=== PATIENT | female | born 1945 | race Caucasian/White ===

== ENCOUNTER 2018-01-06 13:36 | Inpatient (IN) | payer OTHER ==
[2018-01-06 15:58] LABS: Urine Blood TRACE (NEG); Urine Glucose NEGATIVE (NEG); Urine Protein TRACE (NEG); Urine pH 5.5 (5.0-7.0)
[2018-01-06] MEDS ORDERED: CEFTRIAXONE/SWI 1gm 1 GM/10 ML SYR ONE (16:02)
[2018-01-06] MEDS ORDERED: NA CHLORIDE 0.9% 1,000 ML ONE ×2 (16:02→18:38)
[2018-01-06 16:07] LABS: Absolute Lymphocytes (CBC) 0.8 K/uL (0.7-4.9); Absolute Monocytes 0.9 K/uL (0.1-1.3); Absolute Neutrophil 3.7 K/uL (1.8-8.0); Basophils % 0.3 % (0-1.3); Eosinophils % 0.8 % (0-4.4); Hematocrit 45.5 % (36.0-45.0); Lymphocytes % 14.2 % (15.3-44.8); MCH 31.9 pg (27.0-35.0); MCV 90.9 fL (80-100); MPV 7.8 fL (7.6-11.3); RBC Red Blood Cell Count 5.01 M/uL (3.86-4.86)
[2018-01-06 16:09] LABS: Protime INR 1.33
[2018-01-06 16:21] LABS: ALT/SGPT 19 U/L (12-78); AST/SGOT 23 U/L (15-37); Albumin 3.2 g/dL (3.4-5.0); Alkaline Phosphatase 66 U/L (45-117); BUN Blood Urea Nitrogen 21 mg/dL (7-18); Bicarbonate 24 mmol/L (21-32); Bilirubin Direct 0.4 mg/dL (0-0.2); Bilirubin Total 0.7 mg/dL (0.2-1.0); Glucose Level 68 mg/dL (74-106); Lipase 201 U/L (73-393); Magnesium 1.8 mg/dL (1.8-2.4); NT PRO-BNP 243 pg/mL (<125); Potassium 4.4 mmol/L (3.5-5.1); Protein, Total 6.4 g/dL (6.4-8.2); Sodium Level 132 mmol/L (136-145); Troponin (Emerg Dept Use Only) < 0.02 ng/mL (0.0-0.045)
--- NOTE | 2018-01-06 16:31 | RAD REPORT ---
EXAM DESCRIPTION: RAD - Chest Single View - 01/06/2018 4:02 pm CLINICAL HISTORY: Cough;Abdominal distention Chest pain. COMPARISON: Chest Pa And Lat (2 Views) dated 04/26/2017; CHEST PA AND LAT 2 VIEW dated 06/19/2013; CHES T PA AND LAT 2 VIEW dated 03/24/2002 FINDINGS: Portable technique limits examination quality. The lungs are emphysematous but grossly clear. The heart is normal in size. No displaced fractures. IMPRESSION: COPD.
[2018-01-06 16:52] LABS: Platelet Estimate ADEQ
[2018-01-06 16:53] LABS: Blood Morphology Comment NOTED (NOT SEEN); Ovalocytes SLIGHT
[2018-01-06] MEDS ORDERED: ONDANSETRON 4 MG/2 ML VIAL ONE ×3 (17:06→20:46)
--- NOTE | 2018-01-06 17:46 | RAD REPORT ---
EXAM DESCRIPTION: CTAbdomen Pelvis W Contrast - 01/06/2018 5:33 pm CLINICAL HISTORY: Abdominal pain. ABD PAIN COMPARISON: No comparisons TECHNIQUE: Biphasic CT imaging of the abdomen and pelvis was performed with 100 ml non-ionic IV cont rast. All CT scans are performed using dose optimization technique as appropriate and may include automated exposure control or mA/KV adjustment according to patient size. FINDINGS: The lung bases are clear. Mild intrahepatic biliary dilatation. No aggressive liver lesion seen. The spleen, pancreas, adrenal glands and kidneys are normal. Postsurgical changes of a gastric bypass. Moderate dilatation of small bowel loops are present in abdomen compatible with high-grade mechanical small-bowel obstruction. Mild free fluid is seen in the abdomen. No pneumoperitoneum. No evidence of significant lymphadenopathy. Postsurgical changes are present lower lumbar spine with hardware in place. IMPRESSION: High-grade proximal mechanical small-bowel obstruction. No pneumoperitoneum. Mild intrahepatic biliary dilatation.
[2018-01-06] MEDS ORDERED: METRONIDAZOLE 500mg IVPB 500 MG/100 ML BAG IV ONE (18:38)
[2018-01-06] MEDS ORDERED: FAMOTIDINE 20 MG/2 ML VIAL IV ONE (18:38)
--- NOTE | 2018-01-06 19:00 | ER ---
Nurse's Notes [facility] Name: Janki García Age: 72 yrs Sex: Female : 1945 Arrival Date: 01/06/2018 Time: 13:40 Bed 18 Private MD: Diagnosis: Abdominal tenderness;Other intestinal obstruction-high grade mechanical sbo;Vomiting;Fever, unspecified Presentation: 01/06 13:50 Presenting complaint: Patient states: "I haven't been able to keep any food down, and I aj1 have to eat small amounts because I had bariatric surgery. I can hardly hold liquids down. Yesterday I started feeling my stomach area started to feel swollen and tight" Reports nausea, fever. Transition of care: patient was not received from another setting of care. Onset of symptoms was December 30, 2017. Risk Assessment: Do you want to hurt yourself or someone else? Patient reports no desire to harm self or others. Initial Sepsis Screen: Does the patient meet any 2 criteria? HR > 90 bpm. No. Patient's initial sepsis screen is negative. Does the patient have a suspected source of infection? Yes: Acute abdominal pain. Care prior to arrival: None. 13:50 Method Of Arrival: Ambulatory aj1 13:50 Acuity: KASI 3 aj1 Triage Assessment: 13:53 General: Appears in no apparent distress. uncomfortable, Behavior is calm, cooperative, aj1 appropriate for age. Pain: Complains of pain in back and abdomen Pain currently is 10 out of 10 on a pain scale. Neuro: Level of Consciousness is awake, alert, obeys commands. Cardiovascular: Patient's skin is warm and dry. Respiratory: Airway is patent Respiratory effort is even, unlabored, Respiratory pattern is regular, symmetrical. GI: Reports nausea, vomiting. Historical: - Allergies: 13:53 No Known Allergies; aj1 - Home Meds: 13:53 hydromorphone 8 mg Oral tab 1 tab 2-3 times daily [Active]; gabapentin 300 mg oral cap aj1 1 cap 3 times per day [Active]; divalproex oral oral [Active]; - PMHx: 13:53 Chronic pain; fluid retention; Migraines; aj1 - PSHx: 13:53 Gastric Bypass; aj1 - Immunization history:: Flu vaccine is not up to date. - Social history:: Smoking status: Patient uses tobacco products, smokes one pack cigarettes per day. - Ebola Screening: : Patient denies travel to an Ebola-affected area in the 21 days before illness onset. Screenin:30 Abuse screen: Denies threats or abuse. Nutritional screening: No deficits noted. em Tuberculosis screening: No symptoms or risk factors identified. Fall Risk None identified. Assessment: 16:35 General: Appears in no apparent distress. uncomfortable, Behavior is calm, cooperative, em Reports fever for. Pain: Complains of pain in abdomen Pain currently is 8 out of 10 on a pain scale. Neuro: Level of Consciousness is awake, alert, obeys commands, Oriented to person, place, time, situation. Cardiovascular: Heart tones S1 S2 present Capillary refill < 3 seconds Patient's skin is warm and dry. Respiratory: Airway is patent Respiratory effort is even, unlabored, Respiratory pattern is regular, symmetrical. GI: Abdomen is round non-distended, Bowel sounds present X 4 quads. Abd is soft X 4 quads Abdomen is tender to palpation in right upper quadrant and left upper quadrant. : No signs and/or symptoms were reported regarding the genitourinary system. EENT: No signs and/or symptoms were reported regarding the EENT system. Derm: Skin is intact, Skin is pink, warm \\T\\ dry. Musculoskeletal: Capillary refill < 3 seconds, Range of motion: intact in all extremities. 16:53 Reassessment: I agree with above assessment by Damian Murcia LVN. iw 17:48 Reassessment: Patient appears in no apparent distress at this time. Patient and/or em family updated on plan of care and expected duration. Pain level reassessed. Patient is alert, oriented x 3, equal unlabored respirations, skin warm/dry/pink. 18:24 Reassessment: Patient appears in no apparent distress at this time. Patient and/or em family updated on plan of care and expected duration. Pain level reassessed. Patient is alert, oriented x 3, equal unlabored respirations, skin warm/dry/pink. nausea has improved. 20:30 Reassessment: Patient and/or family updated on plan of care and expected duration. Pain ea level reassessed. Patient is alert, oriented x 3, equal unlabored respirations, skin warm/dry/pink. 21:55 Reassessment: Patient and/or family updated on plan of care and expected duration. Pain ea level reassessed. Patient is alert, oriented x 3, equal unlabored respirations, skin warm/dry/pink. 22:10 Reassessment: Patient and/or family updated on plan of care and expected duration. Pain ea level reassessed. Patient is alert, oriented x 3, equal unlabored respirations, skin warm/dry/pink. 22:46 Reassessment: Report called to Chon KEMP. ea Vital Signs: 13:53 BP 141 / 79; Pulse 94; Resp 22; Temp 99.2(TE); Pulse Ox 100% on R/A; Weight 45.81 kg aj1 (R); Height 5 ft. 0 in. (152.40 cm) (R); Pain 10/10; 15:54 BP 131 / 73; Pulse 88; Resp 19; Pulse Ox 99% on R/A; mt 17:04 BP 137 / 70; Pulse 88; Resp 18; Pulse Ox 98% on R/A; mt 17:39 BP 159 / 74; Pulse 80; Resp 18; Pulse Ox 99% on R/A; mt 18:30 Temp 98.3(O); em 19:00 BP 140 / 63; Pulse 89; Resp 18; Pulse Ox 100% on R/A; ea 20:30 BP 140 / 78; Pulse 86; Resp 18; Pulse Ox 100% on R/A; ea 21:00 BP 144 / 70; Pulse 87; Resp 18; Pulse Ox 99% ; ea 22:15 BP 131 / 65; Pulse 88; Resp 18; Pulse Ox 99% ; ea 13:53 Body Mass Index 19.72 (45.81 kg, 152.40 cm) aj1 ED Course: 13:40 Patient arrived in ED. mr 13:52 Triage completed. aj1 13:53 Arm band placed on Patient placed in an exam room. aj1 14:06 Gurwinder Lee MD is Attending Physician. [facility] 14:28 Damian Murcia LVN is Primary Nurse. em 15:32 Inserted saline lock: 20 gauge in left antecubital area, using aseptic technique. Blood mt collected. 16:00 X-ray completed. Portable x-ray completed in exam room. Patient tolerated procedure ls3 well. 16:03 XRAY Chest (1 view) In Process Unspecified. EDMS 16:10 Oral contrast given. cw1 16:30 Patient has correct armband on for positive identification. Bed in low position. Call em light in reach. Adult w/ patient. 17:29 CT completed. Patient tolerated procedure well. Patient moved to CT via wheelchair. nj Patient moved back from CT. 17:33 CT Abd/Pelvis - W/Contrast In Process Unspecified. EDMS 18:58 Alis Salazar MD is Hospitalizing Provider. ivet 19:00 NGT: inserted 14 Fr. via right nare. verified placement of air over stomach, verified em return of gastric contents, to intermittent suction. Returned gastric contents. Patient tolerated well. 19:34 No provider procedures requiring assistance completed. Patient admitted, IV remains in ea place. Administered Medications: 16:15 Drug: NS 0.9% 500 ml Route: IV; Rate: bolus; Site: left antecubital; em 18:15 Follow up: IV Status: Completed infusion; IV Intake: 500ml em 16:15 Drug: Rocephin - (cefTRIAXone) 1 grams Route: IVPB; Infused Over: 30 mins; Site: left iw antecubital; 16:40 Follow up: Response: No adverse reaction; IV Status: Completed infusion; IV Intake: 10mlem 16:54 Drug: NS 0.9% 1000 ml Route: IV; Rate: 125 ml/hr; Site: left antecubital; em 22:44 Follow up: IV Status: Infusion continued upon admission ea 17:14 Drug: Zofran 4 mg Route: IVP; Site: left antecubital; iw 18:14 Follow up: Response: No adverse reaction; Pain is decreased em 18:40 Drug: Pepcid 20 mg Route: IVP; Site: left antecubital; iw 19:32 Follow up: Response: No adverse reaction em 18:41 Drug: NS 0.9% 500 ml Route: IV; Rate: bolus; Site: left antecubital; em 20:12 Follow up: Response: No adverse reaction; IV Status: Completed infusion; IV Intake: ea 500ml 18:45 Drug: Flagyl 500 mg Volume: 100 ml; Route: IVPB; Rate: 200 ml/hr; Infused Over: 30 em mins; Site: left antecubital; 19:35 Follow up: Response: No adverse reaction; IV Status: Completed infusion ea 18:55 Drug: Zofran 4 mg Route: IVP; Site: left antecubital; em 19:00 Follow up: Response: No adverse reaction; Nausea is decreased em 20:36 Drug: Cipro 400 mg Volume: 200 ml; Route: IVPB; Infused Over: 60 mins; Site: left ea antecubital; 21:30 Follow up: Response: No adverse reaction; IV Status: Completed infusion ea 20:43 Drug: Dilaudid 0.5 mg Route: IVP; Site: left antecubital; ea 21:15 Follow up: Response: No adverse reaction; Pain is decreased ea 20:43 Drug: Zofran 4 mg Route: IVP; Site: left antecubital; ea 21:15 Follow up: Response: No adverse reaction ea 22:03 Drug: Dilaudid 0.5 mg Route: IVP; Site: left antecubital; ea 22:44 Follow up: Response: No adverse reaction; Pain is decreased ea Intake: 16:40 IV: 10ml; Total: 10ml. em 18:15 IV: 500ml; Total: 510ml. em 20:12 IV: 500ml; Total: 1010ml. ea Outcome: 18:59 Decision to Hospitalize by Provider. [facility] 19:00 Instructed on the need for admit, Demonstrated understanding of instructions. ea 22:40 Admitted to Med/surg accompanied by tech, room 213, with chart, Report called to Chon fitzgerald RN 22:40 Condition: stable 23:01 Patient left the ED. amilcar Signatures: Dispatcher [employer] EDKathie Wei RN RN aj1 Gurwinder Lee MD MD cha Rivera, Ngozi mr Damian Murcia, SOURCE WATER PROTECTION SPECIALIST SOURCE WATER PROTECTION SPECIALIST Shantel Patrick RN RN iw Woodley, Crystal cw1 Randall Lanza Moriah mt Antunez, Elena, RN RN ea Siler, Lynzie ls3 Corrections: (The following items were deleted from the chart) 13:55 13:53 BP 141 / 79; Pulse 9bpm; Resp 22bpm; Pulse Ox 100% RA; Temp 99.2F Temporal; 45.81 aj1 kg Reported; Height 5 ft. 0 in. Reported; BMI: 19.7; Pain 10/10; aj1
--- NOTE | 2018-01-06 19:00 | EDPHYS ---
Physician Documentation [facility] Name: Janki García Age: 72 yrs Sex: Female : 1945 Arrival Date: 01/06/2018 Time: 13:40 Bed 18 Private MD: ED Physician Gurwinder Lee HPI: 01/06 15:29 This 72 yrs old Female presents to ER via Ambulatory with complaints of ivet Fever, Vomiting. 15:29 The patient reports fever, that was measured at 100 degrees Fahrenheit. Onset: The ivet symptoms/episode began/occurred 3 day(s) ago. Modifying factors: there are no obvious modifying factors. Associated signs and symptoms: Pertinent positives: abdominal pain. Severity of symptoms: At their worst the symptoms were mild moderate in the emergency department the symptoms are unchanged. The patient has not experienced similar symptoms in the past. Historical: - Allergies: 13:53 No Known Allergies; aj1 - Home Meds: 13:53 hydromorphone 8 mg Oral tab 1 tab 2-3 times daily [Active]; gabapentin 300 mg oral cap aj1 1 cap 3 times per day [Active]; divalproex oral oral [Active]; - PMHx: 13:53 Chronic pain; fluid retention; Migraines; aj1 - PSHx: 13:53 Gastric Bypass; aj1 - Immunization history:: Flu vaccine is not up to date. - Social history:: Smoking status: Patient uses tobacco products, smokes one pack cigarettes per day. - Ebola Screening: : Patient denies travel to an Ebola-affected area in the 21 days before illness onset. ROS: 15:30 Constitutional: Negative for fever, chills, and weight loss, Eyes: Negative for injury, ivet pain, redness, and discharge, ENT: Negative for injury, pain, and discharge, Neck: Negative for injury, pain, and swelling, Cardiovascular: Negative for chest pain, palpitations, and edema, Respiratory: Negative for shortness of breath, cough, wheezing, and pleuritic chest pain, Back: Negative for injury and pain, : Negative for injury, bleeding, discharge, and swelling, MS/Extremity: Negative for injury and deformity, Skin: Negative for injury, rash, and discoloration, Neuro: Negative for headache, weakness, numbness, tingling, and seizure, Psych: Negative for depression, anxiety, suicide ideation, homicidal ideation, and hallucinations, Allergy/Immunology: Negative for hives, rash, and allergies, Endocrine: Negative for neck swelling, polydipsia, polyuria, polyphagia, and marked weight changes, Hematologic/Lymphatic: Negative for swollen nodes, abnormal bleeding, and unusual bruising. 15:30 Abdomen/GI: Positive for abdominal pain, nausea. Exam: 15:30 Constitutional: This is a well developed, well nourished patient who is awake, alert, ivet and in no acute distress. Head/Face: Normocephalic, atraumatic. Eyes: Pupils equal round and reactive to light, extra-ocular motions intact. Lids and lashes normal. Conjunctiva and sclera are non-icteric and not injected. Cornea within normal limits. Periorbital areas with no swelling, redness, or edema. ENT: Nares patent. No nasal discharge, no septal abnormalities noted. Tympanic membranes are normal and external auditory canals are clear. Oropharynx with no redness, swelling, or masses, exudates, or evidence of obstruction, uvula midline. Mucous membranes moist. Neck: Trachea midline, no thyromegaly or masses palpated, and no cervical lymphadenopathy. Supple, full range of motion without nuchal rigidity, or vertebral point tenderness. No Meningismus. Chest/axilla: Normal chest wall appearance and motion. Nontender with no deformity. No lesions are appreciated. Cardiovascular: Regular rate and rhythm with a normal S1 and S2. No gallops, murmurs, or rubs. Normal PMI, no JVD. No pulse deficits. Respiratory: Lungs have equal breath sounds bilaterally, clear to auscultation and percussion. No rales, rhonchi or wheezes noted. No increased work of breathing, no retractions or nasal flaring. Back: No spinal tenderness. No costovertebral tenderness. Full range of motion. Female : Normal external genitalia. Skin: Warm, dry with normal turgor. Normal color with no rashes, no lesions, and no evidence of cellulitis. MS/ Extremity: Pulses equal, no cyanosis. Neurovascular intact. Full, normal range of motion. Neuro: Awake and alert, GCS 15, oriented to person, place, time, and situation. Cranial nerves II-XII grossly intact. Motor strength 5/5 in all extremities. Sensory grossly intact. Cerebellar exam normal. Normal gait. Psych: Awake, alert, with orientation to person, place and time. Behavior, mood, and affect are within normal limits. 15:30 Abdomen/GI: Inspection: abdomen appears normal, Bowel sounds: normal, Palpation: mild abdominal tenderness, in the epigastric area, right upper quadrant and left upper quadrant, Liver: no appreciated palpable abnormalities, Hernia: not appreciated. Vital Signs: 13:53 BP 141 / 79; Pulse 94; Resp 22; Temp 99.2(TE); Pulse Ox 100% on R/A; Weight 45.81 kg aj1 (R); Height 5 ft. 0 in. (152.40 cm) (R); Pain 10/10; 15:54 BP 131 / 73; Pulse 88; Resp 19; Pulse Ox 99% on R/A; mt 17:04 BP 137 / 70; Pulse 88; Resp 18; Pulse Ox 98% on R/A; mt 17:39 BP 159 / 74; Pulse 80; Resp 18; Pulse Ox 99% on R/A; mt 18:30 Temp 98.3(O); em 19:00 BP 140 / 63; Pulse 89; Resp 18; Pulse Ox 100% on R/A; ea 20:30 BP 140 / 78; Pulse 86; Resp 18; Pulse Ox 100% on R/A; ea 21:00 BP 144 / 70; Pulse 87; Resp 18; Pulse Ox 99% ; ea 22:15 BP 131 / 65; Pulse 88; Resp 18; Pulse Ox 99% ; ea 13:53 Body Mass Index 19.72 (45.81 kg, 152.40 cm) [facility] MDM: 14:06 Patient medically screened. [facility] 15:32 Data reviewed: vital signs, nurses notes, lab test result(s), EKG, radiologic studies, [facility] CT scan, plain films. 01/06 14:55 Order name: Urine Dipstick--Ancillary (enter results); Complete Time: 18:17 eb 01/06 15:29 Order name: Basic Metabolic Panel; Complete Time: 18:17 [facility] 01/06 15:29 Order name: CBC with Diff; Complete Time: 18:17 [facility] 01/06 15:29 Order name: LFT's; Complete Time: 18:17 [facility] 01/06 15:29 Order name: Magnesium; Complete Time: 18:17 [facility] 01/06 15:29 Order name: NT PRO-BNP; Complete Time: 18:17 [facility] 01/06 15:29 Order name: PT-INR; Complete Time: 18:17 [facility] 01/06 15:29 Order name: Troponin (emerg Dept Use Only); Complete Time: 18:17 [facility] 01/06 15:29 Order name: Lipase; Complete Time: 18:17 [facility] 01/06 15:29 Order name: Blood Culture Adult (2) [facility] 01/06 15:29 Order name: Urine Culture [facility] 01/06 15:29 Order name: Flu; Complete Time: 18:17 [facility] 01/06 15:29 Order name: Depakote; Complete Time: 18:17 [facility] 01/06 16:09 Order name: Manual Differential; Complete Time: 18:17 [facility] 01/06 15:29 Order name: XRAY Chest (1 view); Complete Time: 18:17 [facility] 01/06 15:29 Order name: EKG; Complete Time: 15:30 [facility] 01/06 15:29 Order name: CT Abd/Pelvis - W/Contrast; Complete Time: 18:17 [facility] 01/06 19:29 Order name: Abdomen W Erect [facility] 01/06 15:29 Order name: Cardiac monitoring; Complete Time: 15:56 [facility] 01/06 15:29 Order name: EKG - Nurse/Tech; Complete Time: 15:56 [facility] 01/06 15:29 Order name: IV Saline Lock; Complete Time: 15:55 [facility] 01/06 15:29 Order name: Labs collected and sent; Complete Time: 15:55 [facility] 01/06 15:29 Order name: O2 Per Protocol; Complete Time: 15:55 [facility] 01/06 15:29 Order name: O2 Sat Monitoring; Complete Time: 15:55 [facility] 01/06 15:29 Order name: Urine Dipstick-Ancillary (obtain specimen); Complete Time: 15:56 [facility] 01/06 18:21 Order name: NG Tube: to low int suction; Complete Time: 19:09 [facility] 01/06 19:00 Order name: IV Saline Lock - Large Bore; Complete Time: 19:09 [facility] Administered Medications: 16:15 Drug: NS 0.9% 500 ml Route: IV; Rate: bolus; Site: left antecubital; em 18:15 Follow up: IV Status: Completed infusion; IV Intake: 500ml em 16:15 Drug: Rocephin - (cefTRIAXone) 1 grams Route: IVPB; Infused Over: 30 mins; Site: left iw antecubital; 16:40 Follow up: Response: No adverse reaction; IV Status: Completed infusion; IV Intake: 10mlem 16:54 Drug: NS 0.9% 1000 ml Route: IV; Rate: 125 ml/hr; Site: left antecubital; em 22:44 Follow up: IV Status: Infusion continued upon admission ea 17:14 Drug: Zofran 4 mg Route: IVP; Site: left antecubital; iw 18:14 Follow up: Response: No adverse reaction; Pain is decreased em 18:40 Drug: Pepcid 20 mg Route: IVP; Site: left antecubital; iw 19:32 Follow up: Response: No adverse reaction em 18:41 Drug: NS 0.9% 500 ml Route: IV; Rate: bolus; Site: left antecubital; em 20:12 Follow up: Response: No adverse reaction; IV Status: Completed infusion; IV Intake: ea 500ml 18:45 Drug: Flagyl 500 mg Volume: 100 ml; Route: IVPB; Rate: 200 ml/hr; Infused Over: 30 em mins; Site: left antecubital; 19:35 Follow up: Response: No adverse reaction; IV Status: Completed infusion ea 18:55 Drug: Zofran 4 mg Route: IVP; Site: left antecubital; em 19:00 Follow up: Response: No adverse reaction; Nausea is decreased em 20:36 Drug: Cipro 400 mg Volume: 200 ml; Route: IVPB; Infused Over: 60 mins; Site: left ea antecubital; 21:30 Follow up: Response: No adverse reaction; IV Status: Completed infusion ea 20:43 Drug: Dilaudid 0.5 mg Route: IVP; Site: left antecubital; ea 21:15 Follow up: Response: No adverse reaction; Pain is decreased ea 20:43 Drug: Zofran 4 mg Route: IVP; Site: left antecubital; ea 21:15 Follow up: Response: No adverse reaction ea 22:03 Drug: Dilaudid 0.5 mg Route: IVP; Site: left antecubital; ea 22:44 Follow up: Response: No adverse reaction; Pain is decreased ea Disposition: 01/06/18 18:59 Hospitalization ordered by Alis Salazar for Inpatient Admission. Preliminary diagnosis are Abdominal tenderness, Other intestinal obstruction - high grade mechanical sbo, Vomiting, Fever, unspecified. - Bed requested for Telemetry/MedSurg (Inpatient). - Status is Inpatient Admission. ea - Condition is Fair. - Problem is new. - Symptoms have improved. UTI on Admission? No Signatures: Dispatcher [employer] EDKathie Wei RN RN ajCaitie Cool RN Rosemary Mora RN RN dw Anderson, Corey, MD MD cha Munoz, Edgar, MATERIAL YARD CLERK MATERIAL YARD CLERK em Dorie Rogers RN Shantel Macias, JUSTO KEMP iw Lucero Olivo RN RN ea Corrections: (The following items were deleted from the chart) 19:02 18:59 Hospitalization Ordered by Alis Salazar MD for Inpatient Admission. Preliminary dw diagnosis is Abdominal tenderness; Other intestinal obstruction - high grade mechanical sbo; Vomiting; Fever, unspecified. Bed requested for Telemetry/MedSurg (Inpatient). Status is Inpatient Admission. Condition is Fair. Problem is new. Symptoms have improved. UTI on Admission? No. ivet 21:23 19:02 01/06/2018 18:59 Hospitalization Ordered by Alis Salazar MD for Inpatient mw Admission. Preliminary diagnosis is Abdominal tenderness; Other intestinal obstruction - high grade mechanical sbo; Vomiting; Fever, unspecified. Bed requested for [facility] ER HOLD. Status is Inpatient Admission. Condition is Fair. Problem is new. Symptoms have improved. UTI on Admission? No. dw 23:01 21:23 01/06/2018 18:59 Hospitalization Ordered by Alis Salazar MD for Inpatient ea Admission. Preliminary diagnosis is Abdominal tenderness; Other intestinal obstruction - high grade mechanical sbo; Vomiting; Fever, unspecified. Bed requested for Telemetry/MedSurg (Inpatient). Status is Inpatient Admission. Condition is Fair. Problem is new. Symptoms have improved. UTI on Admission? No. mw
[2018-01-06] MEDS ORDERED: CIPROFLOXACIN 400mg IV 400 MG/200 ML BAG IV ONE (20:22)
[2018-01-06] MEDS ORDERED: HYDROMORPHONE HCL 0.5 MG/0.5 ML INJ ONE ×2 (20:46→22:05)
[2018-01-06] MEDS ORDERED: ACETAMINOPHEN 500 MG TAB PO PRN (22:54)
[2018-01-07] MEDS ORDERED: MAGNESIUM SULFATE 1 gm IVPB 1 GM/100 ML BAG IV ONE (01:00)
[2018-01-07] MEDS ORDERED: ONDANSETRON 4 MG/2 ML VIAL IV PRN ×2 (02:21→16:07)
[2018-01-07] MEDS: NA CHLORIDE 0.9% 1,000 ML IV SCH ×3 (02:48→17:17)
[2018-01-07] MEDS: MORPHINE 2 MG/ML SYR IV PRN ×3 (03:49→12:46)
[2018-01-07 05:58] LABS: Absolute Lymphocytes (CBC) 0.6 K/uL (0.7-4.9); Absolute Neutrophil 3.1 K/uL (1.8-8.0); Basophils % 0.3 % (0-1.3); Hematocrit 42.3 % (36.0-45.0); Lymphocytes % 12.9 % (15.3-44.8); MCH 31.9 pg (27.0-35.0); MCV 90.4 fL (80-100); MPV 7.6 fL (7.6-11.3); Monocytes % 21.1 % (3.3-12.3); RBC Red Blood Cell Count 4.68 M/uL (3.86-4.86)
[2018-01-07 06:13] LABS: ALT/SGPT 16 U/L (12-78); AST/SGOT 19 U/L (15-37); Albumin 2.9 g/dL (3.4-5.0); Alkaline Phosphatase 56 U/L (45-117); BUN Blood Urea Nitrogen 10 mg/dL (7-18); Bicarbonate 22 mmol/L (21-32); Bilirubin Total 0.5 mg/dL (0.2-1.0); Glucose Level 72 mg/dL (74-106); Magnesium 2.1 mg/dL (1.8-2.4); Potassium 3.8 mmol/L (3.5-5.1); Protein, Total 5.6 g/dL (6.4-8.2); Sodium Level 133 mmol/L (136-145)
[2018-01-07] MEDS ORDERED: KCL 20 MEQ/100 mL IVPB 20 MEQ/100 ML BAG IV SCH (07:00)
--- NOTE | 2018-01-07 07:36 | EKG ---
Test Date: 2018-01-06 Test Time: 16:06:09 Crane Rigger: SRUTHI MEASUREMENT RESULTS: Intervals: Rate: 83 MA: 134 QRSD: 72 QT: 388 QTc: 455 Dresher: P: 92 MA: 134 QRS: 82 T: 76 INTERPRETIVE STATEMENTS: Normal sinus rhythm Normal ECG Compared to ECG 05/25/2016 12:05:42 No significant changes Electronically Signed On 01-07-18 07:34:50 BAND TEACHER by Stiven Hernandez
[2018-01-07] MEDS ORDERED: INFLUENZA VACCINE (for 3y+) 0.5 ML DOSE IMVAC ONE (08:00)
[2018-01-07] MEDS ORDERED: PNEUMOCOCCAL VACCINE 0.5 ML IMVAC ONE (08:00)
[2018-01-07] MEDS ORDERED: ENOXAPARIN 40 MG/0.4 ML SQ SCH (09:00)
--- NOTE | 2018-01-07 10:27 | RAD REPORT ---
EXAM DESCRIPTION: RAD - Abdomen W Erect - 01/07/2018 10:20 am CLINICAL HISTORY: bowel obstruction Pain COMPARISON: Abdomen Pelvis W Contrast dated 01/06/2018 FINDINGS: Multiple significantly dilated small bowel loops are seen compatible with mechanical small bowel obstruction, appearing unchanged. A NG tube tip is entering the stomach. No finding to suggest pneumoperitoneum. IMPRESSION: Prominent mechanical small bowel obstruction persists.
[2018-01-07] MEDS: METRONIDAZOLE 500mg IVPB 500 MG/100 ML BAG IV SCH ×2 (10:30→17:19)
[2018-01-07] MEDS: CIPROFLOXACIN 400mg IV 400 MG/200 ML BAG IV SCH ×2 (10:31→20:02)
--- NOTE | 2018-01-07 10:56 | P.HP ---
Certification for Inpatient Patient admitted to: Inpatient With expected LOS: >2 Midnights Patient will require the following post-hospital care: None Practitioner: I am a practitioner with admitting privileges, knowledge of patient current condition, hospital course, and medical plan of care. Services: Services provided to patient in accordance with Admission requirements found in Title 42 Section 412.3 of the Code of Federal Regulations Patient History Date of Service: 01/06/18 Reason for admission: Small-bowel obstruction History of Present Illness: Patient is a 72-year-old female came to the hospital with a small-bowel obstruction. Patient has a history of gastric bypass that was done a couple of years ago. At that time she weighed 250 lb. Since then she has lost quite a bit away. She has been doing well up until a couple of days ago when she started having intractable nausea and vomiting. The vomiting has not let up since that time. She came into the emergency room her workup revealed a small- bowel obstruction. Patient was admitted to the hospital for further treatment. NGT was placed and surgery has been consulted. Patient been admitted to the floor. Patient will continue with supportive care at this time pending further treatment. Allergies No Known Allergies Allergy (Verified 01/06/18 23:56) Home Medications: Gabapentin [Gralise] 300 mg PO TID 01/19/15 Hydromorphone [Dilaudid*] 8 mg PO SEECOM 01/19/15 Divalproex Sodium [Divalproex Sodium ER] 500 mg PO BEDTIME 01/06/18 - Past Medical/Surgical History Has patient received pneumonia vaccine in the past: No Diabetic: No -: migraines -: chronic pain -: fluid retention -: gastric bypass - Family History Father Family History: Reviewed- Non-Contributory - Social History Smoking Status: Light Tobacco smoker (1-9 cigarettes/day) Alcohol use: Yes CD- Drugs: Yes Caffeine use: No Place of Residence: Home Review of Systems 10-point ROS is otherwise unremarkable Physical Examination - Vital Signs Temperature: 97.6 F Blood Pressure: 135/64 Pulse: 94 Respirations: 18 Pulse Ox (%): 97 - Physical Exam General: Alert, In no apparent distress, Oriented x3 HEENT: Atraumatic, PERRLA, Mucous membr. moist/pink, EOMI, Sclerae nonicteric Neck: Supple, 2+ carotid pulse no bruit, No LAD, Without JVD or thyroid abnormality Respiratory: Clear to auscultation bilaterally, Normal air movement Cardiovascular: Regular rate/rhythm, Normal S1 S2, No murmurs Gastrointestinal: W/out succussion splash, No tenderness, No rebound, No guarding, Absent bowel sounds, Distended Musculoskeletal: No clubbing, No swelling, No tenderness Integumentary: No rashes Neurological: Normal gait, Normal speech, Normal strength at 5/5 x4 extr, Normal tone, Sensation intact, Cranial nerves 3-12 intact, Normal affect Lymphatics: No axilla or inguinal lymphadenopathy - Studies Laboratory Data (last 24 hrs) 01/06/18 15:20: PT 15.7 H, INR 1.33 01/06/18 15:20: WBC 5.5, Hgb 16.0 H, Hct 45.5 H, Plt Count 285 01/06/18 15:20: Sodium 132 L, Potassium 4.4, BUN 21 H, Creatinine 0.70, Glucose 68 L, Magnesium 1.8, Total Bilirubin 0.7, AST 23, ALT 19, Alkaline Phosphatase 66, Lipase 201 Microbiology Data (last 24 hrs): 01/06/18 15:38 Nasopharnyx Influenza Type A Antigen Screen - Final 01/06/18 15:38 Nasopharnyx Influenza Type B Antigen Screen - Final Assessment & Plan - Problems (Diagnosis) (1) Small bowel obstruction Current Visit: Yes Status: Acute (2) History of gastric bypass Current Visit: Yes Status: Acute - Plan Plan: 1. Continue with IV hydration 2. Continue with IV antibiotics 3. Continue with pain control 4. NPO 5. General surgery consultation; 6. Serial H&H, and we will monitor CBC, BMP, LFTs and lipase along with electrolytes. 7. Repeat abdominal film in the morning 8. GI and DVT prophylaxis Discharge Plan: Home Plan to discharge in: Greater than 2 days - Advance Directives Does patient have a Living Will: No Does patient have a Durable POA for Healthcare: No - Code Status/Comfort Care Code Status Assessed: Yes Code Status: Full Code Critical Care: No Time Spent Managing PTS Care (In Minutes): 50
[2018-01-07] MEDS ORDERED: Ringers Lactate 1,000 ML IV ONE (13:31)
[2018-01-07] MEDS ORDERED: FENTANYL CITR 100 MCG/2 ML ONE (13:51)
[2018-01-07] MEDS ORDERED: ROCURONIUM 50 MG/5 ML VIAL IV ONE (13:51)
[2018-01-07] MEDS ORDERED: MIDAZOLAM HCL 2 MG/2 ML INJ ONE (13:51)
[2018-01-07] MEDS ORDERED: LIDOCAINE 1% MPF 5 ML VIAL ONE (13:51)
[2018-01-07] MEDS ORDERED: PROPOFOL 200 MG/20 ML VIAL IV ONE (13:51)
[2018-01-07] MEDS ORDERED: SUCCINYLCHOLINE 20 MG/ML (10 ML) IV ONE (14:04)
--- NOTE | 2018-01-07 15:09 | P.PN ---
Subjective Date of Service: 01/07/18 Chief Complaint: Small-bowel obstruction Subjective: No new changes, C/O voiced, NPO Patient seen and examined at bedside. No family at bedside. Case discussed with nursing staff. Review of Systems As noted Physical Examination - Vital Signs Temperature: 98.3 F Blood Pressure: 147/65 Pulse: 89 Respirations: 20 Pulse Ox (%): 97 - Physical Exam General: Alert, In no apparent distress, Oriented x3 HEENT: Atraumatic, PERRLA, EOMI Neck: Supple, JVD not distended Respiratory: Clear to auscultation bilaterally, Normal air movement Cardiovascular: Regular rate/rhythm, Normal S1 S2 Gastrointestinal: Normal bowel sounds, Other (NG tube in place, noted on abdominal x-ray), Tenderness Musculoskeletal: No tenderness Integumentary: No rashes Neurological: Normal speech, Normal tone, Normal affect Lymphatics: No axilla or inguinal lymphadenopathy - Studies Laboratory Data (last 24 hrs) 01/06/18 15:20: PT 15.7 H, INR 1.33 01/06/18 15:20: WBC 5.5, Hgb 16.0 H, Hct 45.5 H, Plt Count 285 01/06/18 15:20: Sodium 132 L, Potassium 4.4, BUN 21 H, Creatinine 0.70, Glucose 68 L, Magnesium 1.8, Total Bilirubin 0.7, AST 23, ALT 19, Alkaline Phosphatase 66, Lipase 201 Microbiology Data (last 24 hrs): 01/06/18 15:38 Nasopharnyx Influenza Type A Antigen Screen - Final 01/06/18 15:38 Nasopharnyx Influenza Type B Antigen Screen - Final Assessment And Plan - Plan Small bowel obstruction Continue IV hydration, IV antibiotics. Continue pain control with IV medications. Keep NPO. Discussed case with Dr. Becerril, general surgery. Repeat abdominal x-ray with prominent small bowel obstruction and NG tube in place She is pending a exploratory laparotomy this afternoon as she did not improve with NG tube placement. History of gastric bypass Disposition: Pending expiratory laparotomy today with Dr. Becerril
[2018-01-07] MEDS ORDERED: NEOSTIGMINE 1 MG/ML -5 ML SYRINGE ONE (15:17)
[2018-01-07] MEDS ORDERED: GLYCOPYRROLATE 0.2 MG/ML SYR ONE ×3 (15:17)
[2018-01-07] MEDS ORDERED: KETOROLAC 30 MG/ML INJ ONE (15:19)
[2018-01-07] MEDS ORDERED: ONDANSETRON HCL 40 MG/20 ML VIAL ONE (15:29)
[2018-01-07] MEDS ORDERED: MORPHINE 10 MG/ML VIAL ONE (15:42)
--- NOTE | 2018-01-07 15:48 | P.OP ---
Motor Transport Inspector: Lidia BLOOM Preoperative diagnosis: SBO, S/P Gastric Bypass Postoperative diagnosis: same, adhesions, narrow J-J anastomosis and internal herniation Primary procedure: Exo Lap, ANANDA, SB Rsxn Anesthesia: General Estimated blood loss: min Specimen: SB anatomosis Findings: as above Complications: None Drain(s): Nasogastric, Urinary catheter Transferred to: Recovery Room Condition: Good
[2018-01-07] MEDS: HYDROMORPHONE HCL 1 MG/ML INJ ONE ×6 (15:55→16:28)
--- NOTE | 2018-01-07 15:57 | PREOPCON ---
Date of Consultation: 01/06/2018 Reason: Small bowel obstruction. History Of Present Illness: The patient is a 72-year-old female, comes in with several-day history o f nausea and vomiting. Bowel movement was couple of days prior to that and has not passed gas recent ly at all, and she has not had symptoms like this before. Approximately 4-5 years ago, she had a lap aroscopic gastric bypass surgery done. She was admitted, NG tube was placed. She was started on flu ids. This morning, x-ray was ordered, antibiotics were ordered, and x-ray shows no improvement at al l, and she is complaining of diffuse abdominal pain. Nausea and vomiting have subsided after placeme nt of the NG tube. She is not passing any gas. No sore throat, runny nose, cough, headaches, or diz ziness. No chest pain. No fever or chills. Review of Systems: Otherwise unremarkable. Past Medical History: Significant for chronic pain syndrome, migraines. Past Surgical History: Hysterectomy, back surgery, and laparoscopic gastric bypass surgery. Allergies: NO ALLERGIES. Social History: She does smoke, has been counseled. She drinks alcohol occasionally. Family History: Noncontributory. Physical Examination: Vital Signs: Stable. She is currently afebrile. General: She is awake, alert, oriented x3. Head and Neck: Cranial nerves 2 through 12 grossly within normal limits. No neck masses. No JVD. Throat clear. Neck is supple. Chest: Clear. Heart: S1, S2. Abdomen: Soft, distended. Hypoactive bowel sounds. She is relatively thin. I can feel the dilated small bowel just above the umbilicus. There is no peritonitis. There is minimal tenderness. There is no abdominal wall hernia appreciated. Extremities: Adequately perfused. Nontender. Neuro: Nonfocal. Laboratory Data: White count is normal. She does not have a left shift. INR is 1.33. Her CO2 was 24, currently is 22. Remainder of the electrolytes reviewed. CT of the abdomen and pelvis reviewed with the radiologist, as well as the abdominal x-ray. CT findings are as follows; high-grade proxima l mechanical small bowel obstruction, no pneumoperitoneum, mild intrahepatic biliary dilatation. Abd ominal x-ray done this morning, reveals multiple significant dilated small bowel loops seen compatibl e with mechanical small bowel obstruction, appear unchanged. Impression was prominent mechanical sma ll bowel obstruction persists. Assessment: Small bowel obstruction, concerning for internal herniation following gastric bypass roya best. Recommendations: N.p.o., IV fluid, IV antibiotic. To the OR for exploratory laparotomy, possible david wel resection. The patient understands the risks, benefits, and alternatives, and agrees to procedur e. Plan of care discussed with Dr. Salazar. CHRISTINE/DEBRA Voice ID: [id number] Report ID: [id number]
[2018-01-07] MEDS ORDERED: ONDANSETRON 4 MG/2 ML VIAL ONE (15:59)
[2018-01-07] MEDS ORDERED: SODIUM CHLORIDE 0.9% 10ML INJ IV PRN (16:07)
[2018-01-07] MEDS ORDERED: NALOXONE 0.4 MG/ML VIAL IV PRN (16:07)
[2018-01-07] MEDS: HYDROMORPHONE HCL 1 MG/ML INJ IV PRN ×3 (17:50→22:45)
[2018-01-07] MEDS: HYDROMORPHONE/PCA 10 MG/50 ML SYR IV PRN (18:13)
[2018-01-08] MEDS: HYDROMORPHONE HCL 1 MG/ML INJ IV PRN ×6 (01:30→20:12)
[2018-01-08] MEDS: METRONIDAZOLE 500mg IVPB 500 MG/100 ML BAG IV SCH ×3 (01:30→17:55)
--- NOTE | 2018-01-08 03:38 | OP ---
Date of Procedure: 01/07/2018 Surgeon: Joshua Becerril MD Cigar Head Piercer: MERLE Nichols. Preoperative Diagnosis: Small bowel obstruction, status post gastric bypass surgery. Postoperative Diagnosis: Small bowel obstruction, status post gastric bypass surgery with stricture of the jejunojejunostomy anastomosis with internal herniation of the jejunum and adhesions. Procedure Performed: Exploratory laparotomy, lysis of adhesions, small bowel resection, and revision of the jejunojejunostomy anastomosis. Estimated Blood Loss: Minimal. Specimen: Small bowel, where the anastomosis was. Anesthesia: General. Complications: None. Disposition: The patient tolerated the procedure in stable condition and was taken to Recovery in go od general condition and findings are as above. Procedure In Detail: The patient was brought to the OR and placed in supine position. General anest hesia was begun. The patient was prepped and draped in usual sterile fashion and then a 20 blade was used to make a small midline incision above the umbilicus to below the umbilicus. Subcutaneous tiss ue divided. The fascia was identified and divided. Peritoneal cavity was entered with blunt dissect ion. Ascites encountered and aspirated. Dilated small bowel encountered. It was the gastrojejunost arun limb that was dilated. It was followed from the stomach all the way down to where the jejunojeju nostomy was. It was herniated into the mesenteric defect. Bowel was reduced and untwisted; however, the reason for the problem was because of the stricture of the jejunojejunostomy, so at this time En do-KLARISSA stapling device was used and revision of the anastomosis was performed and then the proximal l imb was divided above the stricture and the mesentery was divided with the LigaSure and then EndoGIA stapling device used to take the stricture portion out, sent to Pathology. Then, a new jejunojejunos sekou was created. 3-0 silk was used to take the tension off the anastomosis and then 2 enterotomies were made. Endo-KLARISSA stapling device was used to create a new jejunojejunostomy. The open end was cl osed with a TA 75, and then there was good opening of the proximal and the other side of the Issa-en- Y and the resolution of the small bowel obstruction relieved at this point completely. Subsequently, the mesenteric defect was closed with 3-0 Vicryl to prevent internal herniation in the future. The entire abdomen was irrigated. Effluent was clear. No evidence of bleeding or bowel injury appreciat ed. #2 nylon was used to close the midline fascia. Subcutaneous wound was irrigated. Bleeding cont rolled with cautery. [place] were placed to close the wound and then sterile dressing was applied. The patient was awakened and taken to Recovery in good general condition. CHRISTINE/DEBRA Voice ID: [id number] Report ID: [id number]
[2018-01-08 05:46] LABS: Eosinophils % 0.2 % (0-4.4); MPV 7.9 fL (7.6-11.3)
[2018-01-08 05:52] LABS: Absolute Lymphocytes (CBC) 0.5 K/uL (0.7-4.9); Absolute Monocytes 0.7 K/uL (0.1-1.3); Absolute Neutrophil 13.2 K/uL (1.8-8.0); Basophils % 0.1 % (0-1.3); Hematocrit 43.7 % (36.0-45.0); Lymphocytes % 3.3 % (15.3-44.8); MCH 31.3 pg (27.0-35.0); MCV 91.1 fL (80-100); Monocytes % 4.7 % (3.3-12.3)
[2018-01-08 06:01] LABS: ALT/SGPT 17 U/L (12-78); AST/SGOT 18 U/L (15-37); Albumin 2.4 g/dL (3.4-5.0); Alkaline Phosphatase 51 U/L (45-117); BUN Blood Urea Nitrogen 9 mg/dL (7-18); Bicarbonate 21 mmol/L (21-32); Bilirubin Total 0.6 mg/dL (0.2-1.0); Glucose Level 71 mg/dL (74-106); Magnesium 1.8 mg/dL (1.8-2.4); Phosphorus 2.3 mg/dL (2.5-4.9); Potassium 3.5 mmol/L (3.5-5.1); Sodium Level 136 mmol/L (136-145)
[2018-01-08] MEDS: NA CHLORIDE 0.9% 1,000 ML IV SCH ×3 (06:30→19:00)
[2018-01-08] MEDS ORDERED: POTASSIUM PHOS IN 0.9 % NACL 15 MMOL/250 ML BAG IV ONE (06:49)
[2018-01-08] MEDS ORDERED: MAGNESIUM SULFATE 1 gm IVPB 1 GM/100 ML BAG IV ONE (06:49)
[2018-01-08] MEDS ORDERED: INFLUENZA VACCINE (for 3y+) 0.5 ML DOSE IMVAC ONE (09:00)
[2018-01-08] MEDS: CIPROFLOXACIN 400mg IV 400 MG/200 ML BAG IV SCH ×2 (09:06→20:12)
[2018-01-08] MEDS: PANTOPRAZOLE 40 MG INJ IVP SCH (09:07)
[2018-01-08] MEDS: ENOXAPARIN 40 MG/0.4 ML SQ SCH (09:07)
[2018-01-08] MEDS: HYDROMORPHONE/PCA 10 MG/50 ML SYR IV PRN (10:47)
[2018-01-08] MEDS ORDERED: NA CHLORIDE 0.9% 500 ML IV ONE (15:00)
--- NOTE | 2018-01-08 21:52 | PN ---
Date of Progress Note: 01/08/2018 Subjective: Patient is awake and alert. No complains. No flatus or bowel movement. Vital signs ar e stable. She is afebrile. NG tube has no output. Urine output is adequate. Laboratory data revie sun. White count is elevated. Abdomen is soft. There are some bowel sounds. Dressing is clean, dr y, and intact. Assessment: Status post exploratory laparotomy, small-bowel resection, and revision of jejunojejunos sekou. Recommendations: Patient will be transferred to the floor. Continue physical therapy. Incentive sp irometry. DVT prophylaxis. IV antibiotics. Fluid bolus for slightly low urine output this morning. /MODL Voice ID: [id number] Report ID: [id number]
--- NOTE | 2018-01-08 21:52 | PN ---
Date of Progress Note: 01/08/2018 Subjective: Patient seen and examined. Chart reviewed and case discussed with RN and Dr. Becerril. The patient states she is feeling somewhat better, however, still has some abdominal discomfort. Not passing any gas. Review of Systems: Negative except as above. Code status: Full Medications: List reviewed. Physical Examination: Vital Signs: Temperature 98.2, heart rate 105, blood pressure 109/50, respirations 13, O2 95% on room air. General: Awake, alert, oriented x3. Some mild distress, ill-appearing elderly female, frail. CV: S1 and S2. No murmurs. Peripheral pulses present. Respiratory: Moving air well bilaterally. No wheezing or stridor. Gastrointestinal: Abdomen is soft. Mild tenderness to palpation. Nondistended. No bowel sounds. Extremities: No clubbing, cyanosis, or edema. Neurologic: Nonfocal. Cranial nerves 2 through 12 intact grossly. Speech is normal. Skin: No rashes. Normal skin turgor. Psych: Mood is okay. Affect is full. Insight and judgment are good. Laboratory Data: Sodium 136, potassium 3.5, chloride 102, CO2 21, BUN 9, creatinine 0.6, glucose 71, calcium 8, phosphorus 2.3, magnesium 1.8. WBC 14.4 , hemoglobin and hematocrit 15 and 43.7, platelets 262, neutrophils 91%. Blood cultures, no growth to date. Urine culture, mixed cullen. Assessment: A 72-year-old female with: 1. Small-bowel obstruction, status post exploratory laparotomy, lysis of adhesions, small bowel resection. Postoperative day 1, the patient still n.p.o. , not passing any flatus. The patient encouraged to ambulate. The patient will be moved out of the ICU as per Dr. Becerril. 2. Hypophosphatemia. We will replace and monitor. 3. Severe protein-calorie malnutrition. Albumin is 2.4. 4. Neutrophilic leukocytosis, likely postoperative, acute phase reactant. We will continue to monitor. Continue IV antibiotics. Plan: Continue IV antibiotics and IV fluids. Step-down from ICU. Ice chips. Ambulate. Follow up with surgery recommendations. The patient will likely need another 24 to 48 hours depending on return of bowel function. SA/MODL Voice ID: [id number] Report ID: [id number] MTDD
[2018-01-09] MEDS: HYDROMORPHONE HCL 1 MG/ML INJ IV PRN ×4 (00:38→23:36)
[2018-01-09] MEDS: METRONIDAZOLE 500mg IVPB 500 MG/100 ML BAG IV SCH ×3 (00:39→17:02)
[2018-01-09] MEDS: NA CHLORIDE 0.9% 1,000 ML IV SCH ×4 (01:29→20:23)
[2018-01-09] MEDS: HYDROMORPHONE/PCA 10 MG/50 ML SYR IV PRN ×2 (03:20→16:39)
[2018-01-09 04:42] LABS: Absolute Lymphocytes (CBC) 0.6 K/uL (0.7-4.9); Absolute Monocytes 0.6 K/uL (0.1-1.3); Absolute Neutrophil 9.4 K/uL (1.8-8.0); Basophils % 0.2 % (0-1.3); Eosinophils % 0.9 % (0-4.4); Hematocrit 38.8 % (36.0-45.0); Lymphocytes % 5.5 % (15.3-44.8); MCH 31.8 pg (27.0-35.0); MCV 90.5 fL (80-100); MPV 7.7 fL (7.6-11.3); RBC Red Blood Cell Count 4.28 M/uL (3.86-4.86)
[2018-01-09 05:04] LABS: ALT/SGPT 14 U/L (12-78); AST/SGOT 17 U/L (15-37); Albumin 2.1 g/dL (3.4-5.0); Alkaline Phosphatase 47 U/L (45-117); BUN Blood Urea Nitrogen 8 mg/dL (7-18); Bicarbonate 22 mmol/L (21-32); Bilirubin Total 0.4 mg/dL (0.2-1.0); Glucose Level 80 mg/dL (74-106); Magnesium 1.8 mg/dL (1.8-2.4); Phosphorus 1.5 mg/dL (2.5-4.9); Potassium 3.4 mmol/L (3.5-5.1); Protein, Total 4.7 g/dL (6.4-8.2); Sodium Level 136 mmol/L (136-145)
[2018-01-09 05:05] LABS: Blood Morphology Comment NOT SEEN (NOT SEEN); Platelet Estimate ADEQ; Urine White Blood Cell Casts OK
[2018-01-09] MEDS ORDERED: MAGNESIUM SULFATE 1 gm IVPB 1 GM/100 ML BAG IV ONE (07:30)
[2018-01-09] MEDS: ENOXAPARIN 40 MG/0.4 ML SQ SCH (08:14)
[2018-01-09] MEDS: PANTOPRAZOLE 40 MG INJ IVP SCH (08:15)
[2018-01-09] MEDS: CIPROFLOXACIN 400mg IV 400 MG/200 ML BAG IV SCH ×2 (08:15→20:23)
[2018-01-09] MEDS ORDERED: POTASSIUM PHOS IN 0.9 % NACL 15 MMOL/250 ML BAG IV ONE (10:00)
--- NOTE | 2018-01-09 12:46 | PN ---
Date of Progress Note: 01/09/2018 Subjective: The patient is awake, alert. No flatus, but no nausea vomiting. NG tube has been aspir ating nothing out. Her urine output is adequate. Laboratory data reviewed. There is no longer leuk ocytosis. Electrolytes checked and being replaced as needed. Objective: Abdomen: Soft. Positive bowel sounds. Nondistended. Nontender. Assessment: Status post exploratory laparotomy. Revision of the jejunojejunostomy. Recommendation: We will go ahead and discontinue the [place] and the NG tube. Keep her n.p.o. for now until she passes gas. Encourage ambulation and incentive spirometry, and wound care as ordered. /MODL Voice ID: [id number] Report ID: [id number]
--- NOTE | 2018-01-09 18:10 | PN ---
Date of Progress Note: 01/09/2018 Subjective: The patient is seen and examined. Chart reviewed and case discussed with RN as well as Dr. Becerril. The patient is still having significant amount of pain, not much output from the NG tube. The patient is otherwise tolerating ice chips, however, has not passed any gas. Medications: Medication list reviewed. Physical Examination: Vital Signs: Temperature 97.6, heart rate 93, blood pressure 140/62, respirations 18, O2 95% on room air. General: Awake, alert, oriented x3, in some moderate distress. Ill-appearing female, frail, cachectic. BMI 21. CV: S1, S2. Regular rate and rhythm. Peripheral pulses present. Respiratory: Moving air well bilaterally. No wheezing or stridor. Gastrointestinal: Abdomen is soft. No distention. Mild tenderness to palpation of the incision site. Incision site is clean, dry, and intact, bandaged. Bowel sounds absent. Extremities: No clubbing, cyanosis, or edema. Neurologic: Nonfocal. Laboratory Data: Sodium 136, potassium 3.4, chloride 103, CO2 22, BUN 8, creatinine 0.6, glucose 80, calcium 7.9, phosphorus 1.5, magnesium 1.8, albumin 2.1. WBC 10.8, H and H 13.6 and 38.8, platelets 238, neutrophils 87.4%. Blood cultures, no growth to date. Urine culture, mixed cullen. Influenza screen is negative. Assessment And Plan: A 72-year-old female with; 1. Small bowel obstruction, status post exploratory laparotomy, lysis of adhesions, small bowel resection, postoperative day #2. The patient is not passing any flatus. Continue n.p.o. status. Is tolerating ice chips. Encourage ambulation and incentive spirometer. Appreciate Dr. Becerril's input. 2. Hypokalemia. We will replace and monitor. 3. Hypophosphatemia. We will replace and monitor phosphorus. 4. Severe protein-calorie malnutrition. Albumin is 2.1. 5. Neutrophilic leukocytosis resolved. 6. Gastrointestinal and deep venous thrombosis prophylaxis addressed. Plan: Continue to monitor. Keep n.p.o. until passing flatus. Likely discharge in the next 48-72 hours depending on return of bowel function. /DEBRA Voice ID: [id number] Report ID: [id number] MTDD
[2018-01-10] MEDS: METRONIDAZOLE 500mg IVPB 500 MG/100 ML BAG IV SCH ×3 (00:34→17:00)
[2018-01-10] MEDS: NA CHLORIDE 0.9% 1,000 ML IV SCH ×4 (01:00→16:57)
[2018-01-10] MEDS: HYDROMORPHONE HCL 1 MG/ML INJ IV PRN ×2 (03:39→08:33)
[2018-01-10 04:09] LABS: Absolute Lymphocytes (CBC) 0.7 K/uL (0.7-4.9); Absolute Monocytes 0.6 K/uL (0.1-1.3); Basophils % 0.3 % (0-1.3); Eosinophils % 1.7 % (0-4.4); Hematocrit 37.4 % (36.0-45.0); Lymphocytes % 6.4 % (15.3-44.8); MCH 31.5 pg (27.0-35.0); MCV 90.1 fL (80-100); MPV 7.4 fL (7.6-11.3); Monocytes % 4.9 % (3.3-12.3); RBC Red Blood Cell Count 4.15 M/uL (3.86-4.86)
[2018-01-10 04:38] LABS: ALT/SGPT 12 U/L (12-78); AST/SGOT 14 U/L (15-37); Alkaline Phosphatase 48 U/L (45-117); BUN Blood Urea Nitrogen 7 mg/dL (7-18); Bicarbonate 20 mmol/L (21-32); Bilirubin Total 0.4 mg/dL (0.2-1.0); Glucose Level 83 mg/dL (74-106); Magnesium 1.8 mg/dL (1.8-2.4); Phosphorus 1.5 mg/dL (2.5-4.9); Potassium 3.4 mmol/L (3.5-5.1); Protein, Total 4.6 g/dL (6.4-8.2); Sodium Level 138 mmol/L (136-145)
[2018-01-10] MEDS ORDERED: MAGNESIUM SULFATE 1 gm IVPB 1 GM/100 ML BAG IV ONE (06:00)
[2018-01-10] MEDS ORDERED: POTASSIUM PHOS IN 0.9 % NACL 15 MMOL/250 ML BAG IV ONE (08:00)
[2018-01-10] MEDS: CIPROFLOXACIN 400mg IV 400 MG/200 ML BAG IV SCH ×2 (08:29→20:10)
[2018-01-10] MEDS: ENOXAPARIN 40 MG/0.4 ML SQ SCH (08:30)
[2018-01-10] MEDS: PANTOPRAZOLE 40 MG INJ IVP SCH (08:30)
[2018-01-10] MEDS: HYDROMORPHONE ORAL 4 MG TAB PO SCH ×2 (14:00→20:10)
[2018-01-10] MEDS: GABAPENTIN 300 MG CAP PO SCH ×2 (14:00→20:10)
--- NOTE | 2018-01-10 14:06 | PN ---
Date of Progress Note: 01/10/2018 Subjective: The patient is awake, alert. No nausea or vomiting. Complains of incisional pain. Vit al signs stable, afebrile. Laboratory data reviewed. Left shift is slowly improving. Electrolytes are being checked and corrected. The patient has not had a bowel movement. She is not sure whether she passed gas or not. Her abdomen is soft, nondistended. Minimal incisional tenderness however the re is good bowel sounds. Assessment: Status post exploratory laparotomy for small bowel resection and revision of the jejunoj ejunostomy. Recommendations: We will start the patient on clear liquids today. Continue IV antibiotics. Encour age ambulation and incentive spirometry. /MODL Voice ID: [id number] Report ID: [id number]
[2018-01-10] MEDS: DIVALPROEX ER 250 MG TAB PO SCH (20:10)
--- NOTE | 2018-01-10 22:21 | PN ---
Date of Progress Note: 01/10/2018 Subjective: The patient was seen and examined. Chart reviewed and case discussed with RN and Dr. Amaury mcneil. The patient is still having significant amount of abdominal pain. 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 She does report chronic back pain as well. The patient says th at she passed gas last night, however, no bowel movements. Code Status: Full. Medications: List reviewed. Physical Examination: Vital Signs: Temperature 98.9, heart rate 78, blood pressure 130/65, respirations 18, and O2 99% on room air. General: Awake, alert, and oriented x3, in mild distress. Elderly female, ill appearing. CV: S1, S2. Peripheral pulses present. Regular rate and rhythm. Respiratory: Clear to auscultation bilaterally. No wheezing. Gastrointestinal: Abdomen is soft, mild tenderness to palpation around the incision site. Nondisten ded. Positive bowel sounds. Extremities: No clubbing, cyanosis, or edema. Neurologic: Nonfocal. Laboratory Data: Sodium 138, potassium 3.4, chloride 104, CO2 20, BUN 7, creatinine 0.4, glucose 83, calcium 7.8, phosphorus 1.5, magnesium 1.8, and albumin 2. WBC 11.5, H and H 13.1 and 37.4, platele ts 257, and neutrophils 86%. Blood cultures, no growth to date. Assessment And Plan: A 72-year-old female with: 1.Small-bowel obstruction, status post ex lap, lysis of adhesions, small bowel resection, postoperat naresh day #3. The patient is now passing minimal flatus. Bowel sounds are positive. The patient will be started on clear liquid diet. 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 The patient does take Dilaudid at home. We will start on p.o. medications. Appreciate Dr. Becerril's input. 2.Hypokalemia, replace and continue to monitor. 3.Hypophosphatemia, replace and monitor. 4.Severe protein-calorie malnutrition. Albumin is 2. We will start on protein supplementation. 5.GI and DVT prophylaxis addressed. 6.Chronic back pain, midline, without sciatica. Likely discharge in the next 24-48 hours depending on response. Encourage ambulation and incentive s pirometry. SA/MODL Voice ID: [id number] Report ID: [id number]
[2018-01-11] MEDS: NA CHLORIDE 0.9% 1,000 ML IV SCH ×2 (02:10→06:20)
[2018-01-11] MEDS: METRONIDAZOLE 500mg IVPB 500 MG/100 ML BAG IV SCH ×3 (02:11→17:28)
[2018-01-11 05:58] LABS: Absolute Lymphocytes (CBC) 0.7 K/uL (0.7-4.9); Absolute Monocytes 0.6 K/uL (0.1-1.3); Basophils % 0.1 % (0-1.3); Eosinophils % 1.7 % (0-4.4); Hematocrit 38.3 % (36.0-45.0); Lymphocytes % 7.1 % (15.3-44.8); MCH 31.2 pg (27.0-35.0); MCV 89.6 fL (80-100); Monocytes % 5.8 % (3.3-12.3); RBC Red Blood Cell Count 4.27 M/uL (3.86-4.86)
[2018-01-11 06:18] LABS: BUN Blood Urea Nitrogen 5 mg/dL (7-18); Bicarbonate 23 mmol/L (21-32); Glucose Level 100 mg/dL (74-106); Magnesium 1.7 mg/dL (1.8-2.4); Potassium 3.2 mmol/L (3.5-5.1); Sodium Level 138 mmol/L (136-145)
[2018-01-11] MEDS ORDERED: POTASSIUM CL SA 10 MEQ TAB PO ONE ×2 (06:47→21:56)
[2018-01-11] MEDS ORDERED: MAGNESIUM SULFATE 1 gm IVPB 1 GM/100 ML BAG IV ONE (09:00)
[2018-01-11] MEDS ORDERED: POTASSIUM PHOS IN 0.9 % NACL 15 MMOL/250 ML BAG IV ONE (09:00)
[2018-01-11] MEDS: HYDROMORPHONE ORAL 4 MG TAB PO SCH ×3 (09:01→20:28)
[2018-01-11] MEDS: PANTOPRAZOLE 40 MG INJ IVP SCH (09:01)
[2018-01-11] MEDS: ENOXAPARIN 40 MG/0.4 ML SQ SCH (09:01)
[2018-01-11] MEDS: CIPROFLOXACIN 400mg IV 400 MG/200 ML BAG IV SCH ×2 (09:02→20:28)
[2018-01-11] MEDS: GABAPENTIN 300 MG CAP PO SCH ×3 (09:02→20:29)
--- NOTE | 2018-01-11 12:19 | PN ---
Date of Progress Note: 01/11/2018 Subjective: Patient is awake alert tolerating clear liquids. No nausea or vomiting. She states judd t she passes gas in the middle of the night, but she is not sure of no bowel movements. Objective: Vital Signs: Stable. Afebrile. Abdomen: Benign. Soft. Nondistended. Nontender. Positive bowel sounds. Laboratory Data: Reviewed. Assessment: Status post exploratory laparotomy for small bowel obstruction with revision of jejunoje junostomy. Recommendations: We will advance diet today if tolerated. The patient is cleared from Surgery for d ischarged. She could follow up with me in 1 week in my office. Discharge instructions given. CHRISTINE/DEBRA Voice ID: [id number] Report ID: [id number]
[2018-01-11] MEDS ORDERED: POTASSIUM 25 MEQ EFFERV TAB PO ONE (14:13)
[2018-01-11] MEDS: DIVALPROEX ER 250 MG TAB PO SCH (20:28)
--- NOTE | 2018-01-11 20:49 | PN ---
Date of Progress Note: 01/11/2018 Subjective: The patient is seen and examined. Chart reviewed and case discussed with Dr. Becerril and RN. The patient doing well. Tolerated clear liquids. The patient is passing gas. No bowel movemen t yet. Still complaining of pain, however, controlled with medications. Medications: List reviewed. Physical Examination: Vital Signs: Temperature 98.6, heart rate 81, blood pressure 146/69, respirations 18, O2 98% on room air. General: Awake, alert, oriented x3. Some mild distress ill-appearing, elderly female, frail. CV: S1, S2. Regular rate and rhythm. Peripheral pulses present. Respiratory: Moving air well bilaterally. No wheezing or stridor. Gastrointestinal: Abdomen is soft. Mild tenderness to palpation around the incision site. Bowel so unds are positive. No distention. No guarding or rigidity. Extremities: No clubbing, cyanosis, or edema. Neurologic: Nonfocal. Laboratory Data: Sodium 138, potassium 3.2, chloride 105, CO2 23, BUN 5, creatinine 0.3, glucose 100 , calcium 7.6, phosphorus 2, magnesium 1.7. Repeat potassium 3.3. WBC 10.5, hemoglobin and hematocr it 13.3 and 38.3, platelets 260, neutrophils 85%. Blood cultures no growth to date. Assessment: A 72-year-old female with: 1.Small bowel obstruction status post exploratory laparotomy, lysis of adhesions and small-bowel res ection postoperative day #4. The patient is tolerating her liquid diet. We will advance to GI soft diet. The patient is passing flatus, however, no bowel movement. Pain is controlled on p.o. medicat ions. Dr. Becerril on board. 2.Hypokalemia. Replace and monitor. 3.Hypophosphatemia. We will replace and monitor. 4.Hypomagnesemia. We will correct. Continue to monitor. 5.Severe protein-calorie malnutrition. Albumin is 2. 6.Chronic back pain, midline, without sciatica, on chronic narcotics. 7.Gastrointestinal and deep venous thrombosis prophylaxis addressed. Plan: Continue ambulation and incentive spirometry. Likely discharge in the next 24 hours if tolera andrae GI soft diet. SA/MODL Voice ID: [id number] Report ID: [id number]
[2018-01-12] MEDS: METRONIDAZOLE 500mg IVPB 500 MG/100 ML BAG IV SCH ×2 (00:38→08:42)
[2018-01-12 05:36] LABS: BUN Blood Urea Nitrogen 4 mg/dL (7-18); Bicarbonate 28 mmol/L (21-32); Glucose Level 103 mg/dL (74-106); Magnesium 1.8 mg/dL (1.8-2.4); Phosphorus 2.5 mg/dL (2.5-4.9); Sodium Level 138 mmol/L (136-145)
[2018-01-12] MEDS ORDERED: MAGNESIUM SULFATE 1 gm IVPB 1 GM/100 ML BAG IV ONE (06:05)
[2018-01-12] MEDS: POTASS/SODIUM PHOSPHATE 1 PKT POWD.PACK PO SCH ×3 (07:00→09:48)
[2018-01-12] MEDS ORDERED: PANTOPRAZOLE 40MG TABLET PO SCH (07:30)
[2018-01-12] MEDS: GABAPENTIN 300 MG CAP PO SCH (08:39)
[2018-01-12] MEDS: HYDROMORPHONE ORAL 4 MG TAB PO SCH (08:39)
[2018-01-12] MEDS: ENOXAPARIN 40 MG/0.4 ML SQ SCH (08:40)
[2018-01-12] MEDS: CIPROFLOXACIN 400mg IV 400 MG/200 ML BAG IV SCH (08:43)
--- NOTE | 2018-01-13 12:27 | DS ---
Date of Discharge: 01/12/2018 Consultants: Dr. Becerril. Procedures: On 01/07/2018, exploratory laparotomy, lysis of adhesions, small bowel resection and rev ision of jejunojejunostomy anastomosis. Pathology report of the jejunojejunostomy anastomosis excisi on shows fibrous adhesions. No malignancy identified. Admitting Diagnoses: 1.Small bowel obstruction. 2.History of gastric bypass. Discharge Diagnoses: 1.Small bowel obstruction status post exploratory laparotomy, lysis of adhesions, small bowel resect ion and revision of jejunojejunostomy site. 2.Hypokalemia, replaced. 3.Hypophosphatemia, replaced. 4.Hypomagnesemia, replaced. 5.Severe protein-calorie malnutrition. 6.Chronic back pain, midline, without sciatica on chronic narcotics. Hospital Course: The patient is a 72-year-old female who came into the hospital with small bowel obs truction. She does have a history of gastric bypass several years ago. At that time, weight 250 abdifatah nds. The patient was found to have small-bowel obstruction. She was kept n.p.o., however, did not d o well with conservative treatment. Dr. Becerril was consulted. He recommended surgical intervention. The patient underwent procedure as mentioned above. The patient did well postoperatively, did have slowly return function of her bowels. The patient probably did have some flatus and then was encoura ged to ambulate. The patient did well postoperatively. She was then able to tolerate a diet. Did n ot have any further nausea or vomiting. WBC count did initially go up to a size 14,000, however, nor malized. She was on antibiotics. The patient's WBC count is normal. Cultures negative, but did not have any perforation. Therefore, we will not need further antibiotics upon discharge. The patient did have multiple electrolyte abnormalities, which were corrected. 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 The patient does take hydromorphone at home p.o. and was tolerating her pain with oral medications. The patient was then cleared for discharge from surgical standpoint, was sent home in a stable condition. Activity: No driving or operating heavy machinery while on narcotics. No lifting more than 10 pound s. Diet: [place] heart healthy diet. Wound care instructions per Surgery. Followup: Follow up with primary care physician in 2 to 3 days. Follow up with surgeon, Dr. Jone aguilar 1 week for wound check. Return to ER for worsening condition. Physical Examination: General: Awake, alert, oriented, no acute distress. CV: S1, S2. No murmurs. Respiratory: Moving air well bilaterally. Abdomen: Abdomen is soft. Mild tenderness on incision site. Otherwise, nondistended. Positive bow el sounds. Extremities: No clubbing, cyanosis, edema. Neurologic: Nonfocal. Skin: Abdominal incision site clean, dry, intact. No signs of infection. Total time spent discharging the patient was 34 minutes. /DEBRA Voice ID: [id number] Report ID: [id number]
== END 2018-01-12 12:33 | disposition home or self-care (01) | DRG 329 ==
LOC: ER 13:36 → ERHOLD 18:59 → 2ND 22:45 → 3RD-ICU 01-07 16:17 → 4TH 01-08 16:05
PROVIDERS: ADMIT Family Medicine; ATTEND Hospitalist
PROC: 0D1A0ZA Bypass Jejunum to Jejunum, Open Approach (ICD-10-PCS; 2018-01-07)
PROC: 0DQV0ZZ Repair Mesentery, Open Approach (ICD-10-PCS; 2018-01-07)
PROC: 0DB80ZZ Excision of Small Intestine, Open Approach (ICD-10-PCS; principal; 2018-01-07 14:00)
DX: K56.609 Unspecified intestinal obstruction, unspecified as to partial versus complete obstruction (principal); E43 Unspecified severe protein-calorie malnutrition; K91.89 Other postprocedural complications and disorders of digestive system; Y83.2 Surgical operation with anastomosis, bypass or graft as the cause of abnormal reaction of the patient, or of later complication, without mention of misadventure at the time of the procedure; K46.9 Unspecified abdominal hernia without obstruction or gangrene; F17.200 Nicotine dependence, unspecified, uncomplicated; E83.39 Other disorders of phosphorus metabolism; E87.6 Hypokalemia; D72.829 Elevated white blood cell count, unspecified; E83.42 Hypomagnesemia; Z98.84 Bariatric surgery status; Z68.21 Body mass index [BMI] 21.0-21.9, adult
CPT/HCPCS: 36415; 71045; 74019; 74177; 80048; 80053; 80076; 80164; 81003; 83690; 83735; 83880; 84100; 84132; 84484; 85025; 85610; 87040; 87086; 87088; 87804; 88304; 93005; 94760; 96361; 96365; 96367; 96375; 97163; 99285; C9113; G0008; J0330; J0696; J0744; J1170; J1650; J2250; J2270; J2405; J2704; J2710; J3010; J3475; J7030; Q2035; Q9967

== ENCOUNTER 2018-01-21 11:09 | Emergency (ER) | payer OTHER ==
[2018-01-21 12:17] LABS: Absolute Lymphocytes (CBC) 1.2 K/uL (0.7-4.9); Absolute Monocytes 0.7 K/uL (0.1-1.3); Absolute Neutrophil 5.3 K/uL (1.8-8.0); Basophils % 0.7 % (0-1.3); Eosinophils % 2.7 % (0-4.4); Lymphocytes % 15.5 % (15.3-44.8); MCH 31.6 pg (27.0-35.0); MCV 89.2 fL (80-100); MPV 7.5 fL (7.6-11.3); Monocytes % 9.9 % (3.3-12.3)
--- NOTE | 2018-01-21 12:31 | RAD REPORT ---
EXAM DESCRIPTION: US - Extrem Venous W Compress Tim - 01/21/2018 12:25 pm CLINICAL HISTORY: Pain;Swelling Bilateral leg edema and swelling. COMPARISON: Extremity Venous Uni Ltd dated 03/13/2016 TECHNIQUE: Real-time sonographic interrogation of the left and right lower extremity deep venous sys tems was performed. FINDINGS: Normal compressibility, flow augmentation, phasic flow and spontaneous flow is identified in both the left and right lower extremity deep venous systems. IMPRESSION: No sonographic evidence of left or right lower extremity deep venous thrombosis.
[2018-01-21 12:43] LABS: BUN Blood Urea Nitrogen 10 mg/dL (7-18); Bicarbonate 37 mmol/L (21-32); Glucose Level 97 mg/dL (74-106); Magnesium 2.1 mg/dL (1.8-2.4); NT PRO-BNP 212 pg/mL (<125); Potassium 3.6 mmol/L (3.5-5.1); Sodium Level 138 mmol/L (136-145); Troponin (Emerg Dept Use Only) < 0.02 ng/mL (0.0-0.045)
[2018-01-21 12:50] LABS: Protime INR 0.96
--- NOTE | 2018-01-21 12:53 | RAD REPORT ---
EXAM DESCRIPTION: RAD - Chest Single View - 01/21/2018 12:45 pm CLINICAL HISTORY: Leg swelling, shortness of breath COMPARISON: None. TECHNIQUE: AP portable chest image was obtained . FINDINGS: Chronic interstitial lung disease is present similar to comparison. No focal infiltrate or mass. Failure or volume overload are not suspected. Heart and vasculature are normal. No measurable pleural effusion and no pneumothorax. Bony degenerative changes are present. No acute aortic findings suspected. IMPRESSION: Fibrotic lung changes similar to comparison.
--- NOTE | 2018-01-21 14:08 | ER ---
Nurse's Notes [facility] Name: Janki García Age: 72 yrs Sex: Female : 1945 Arrival Date: 01/21/2018 Time: 11:11 Bed 19 Private MD: Xochitl Ac Diagnosis: Edema, unspecified;Cellulitis of right lower limb;Cellulitis of left lower limb Presentation: 01/21 11:19 Presenting complaint: Patient states: Sunday a week ago, i had surgery of my bowel, hj and was discharged; then few days after, both my legs started swelling; more worse on the L leg; pain is 3/10;. Transition of care: patient was not received from another setting of care. Onset of symptoms was January 21, 2018. Risk Assessment: Do you want to hurt yourself or someone else? Patient reports no desire to harm self or others. Initial Sepsis Screen: Does the patient meet any 2 criteria? No. Patient's initial sepsis screen is negative. Does the patient have a suspected source of infection? No. Patient's initial sepsis screen is negative. Care prior to arrival: None. 11:19 Method Of Arrival: Ambulatory 11:19 Acuity: KASI 3 hj Triage Assessment: 11:22 General: Appears in no apparent distress. comfortable, Behavior is calm, cooperative, hj appropriate for age. Pain: Complains of pain in right leg and left leg. Historical: - Allergies: : No Known Allergies; hj - Home Meds: 11:22 divalproex Oral [Active]; gabapentin 300 mg Oral cap 1 cap 3 times per day [Active]; hydromorphone 8 mg Oral tab 1 tab 2-3 times daily [Active]; - PMHx: 11:22 Chronic pain; fluid retention; Migraines; hj - PSHx: 11:22 Gastric Bypass; bowel surgery; hj - Immunization history:: Adult Immunizations up to date. - Social history:: Smoking status: Patient/guardian denies using tobacco, Patient/guardian denies using alcohol. - Ebola Screening: : Patient negative for fever greater than or equal to 101.5 degrees Fahrenheit, and additional compatible Ebola Virus Disease symptoms Patient denies exposure to infectious person Patient denies travel to an Ebola-affected area in the 21 days before illness onset. Screenin:22 Abuse screen: Denies threats or abuse. Denies injuries from another. Nutritional hj screening: No deficits noted. Tuberculosis screening: No symptoms or risk factors identified. Fall Risk None identified. Assessment: 11:20 General: Appears in no apparent distress. Behavior is calm, cooperative, appropriate tw2 for age. Pain: Denies pain. Neuro: Level of Consciousness is awake, alert, obeys commands, Oriented to person, place, time, situation. Cardiovascular: Denies chest pain, shortness of breath, Heart tones S1 S2 Capillary refill < 3 seconds Patient's skin is warm and dry. Cardiovascular: Edema is 3+ to left midcalf, left ankle, left foot, left toes, right midcalf, right ankle, right foot and right toes. Respiratory: Airway is patent Respiratory effort is even, unlabored, Respiratory pattern is regular, symmetrical, Breath sounds are clear bilaterally. GI: No signs and/or symptoms were reported involving the gastrointestinal system. Abdomen is flat, Bowel sounds present X 4 quads. Patient currently denies pain. : No signs and/or symptoms were reported regarding the genitourinary system. EENT: No signs and/or symptoms were reported regarding the EENT system. Derm: No signs and/or symptoms reported regarding the dermatologic system. Musculoskeletal: Range of motion: intact in all extremities. 12:30 Reassessment: Patient appears in no apparent distress at this time. No changes from tw2 previously documented assessment. Patient and/or family updated on plan of care and expected duration. Pain level reassessed. Patient is alert, oriented x 3, equal unlabored respirations, skin warm/dry/pink. 13:28 Reassessment: Patient appears in no apparent distress at this time. No changes from tw2 previously documented assessment. Patient and/or family updated on plan of care and expected duration. Pain level reassessed. Patient is alert, oriented x 3, equal unlabored respirations, skin warm/dry/pink. 14:26 Reassessment: Patient appears in no apparent distress at this time. No changes from tw2 previously documented assessment. Patient and/or family updated on plan of care and expected duration. Pain level reassessed. Patient is alert, oriented x 3, equal unlabored respirations, skin warm/dry/pink. Vital Signs: 11:22 BP 106 / 60; Pulse 89; Resp 18; Temp 98.9(TE); Pulse Ox 97% on R/A; Weight 48.53 kg; hj Height 5 ft. 0 in. (152.40 cm); Pain 3/10; 12:30 BP 133 / 67; Pulse 79; Resp 17; Pulse Ox 100% on R/A; tw2 13:28 BP 101 / 54; Pulse 76; Resp 13; Pulse Ox 100% on R/A; tw2 14:26 BP 117 / 74; Pulse 79; Resp 17; Pulse Ox 100% on R/A; tw2 11:22 Body Mass Index 20.89 (48.53 kg, 152.40 cm) hj ED Course: 11:11 Patient arrived in ED. sb2 11:11 Xochitl Ac MD is Private Physician. sb2 11:21 Triage completed. hj 11:22 Arm band placed on left wrist. hj 11:22 Patient has correct armband on for positive identification. Placed in gown. Bed in low hj position. Call light in reach. Side rails up X 1. Adult w/ patient. 11:25 Teresita Pate, JUSTO is Primary Nurse. tw2 11:35 Tomasa Sanchez, MARCOC is PHCP. kb 11:35 Jair Sorensen MD is Attending Physician. kb 12:02 Initial lab(s) drawn, by nm, sent to lab. First set of blood cultures drawn by nm. dh3 Inserted saline lock: 22 gauge in right forearm, using aseptic technique. Blood collected. 12:25 Ultrasound completed. Patient tolerated well. Note: us done portable/bedside in er. lc3 12:31 Second set of blood cultures drawn by nm, by venipuncture 23G to left ac. dh3 12:58 EKG done, by analytical lab technician. reviewed by Tomasa MARION. at1 13:36 US Extremity Venous W Compression Tim In Process Unspecified. EDMS 13:38 XRAY Chest (1 view) In Process Unspecified. EDMS 14:28 No provider procedures requiring assistance completed. IV discontinued, intact, tw2 bleeding controlled, No redness/swelling at site. Pressure dressing applied. Administered Medications: 14:15 Drug: Clindamycin 300 mg Route: PO; tw2 14:29 Follow up: Response: No adverse reaction tw2 Outcome: 14:08 Discharge ordered by . kb 14:28 Discharged to home ambulatory, with significant other. tw2 14:28 Condition: stable 14:28 Discharge instructions given to patient, significant other, Instructed on discharge instructions, follow up and referral plans. medication usage, Demonstrated understanding of instructions, follow-up care, medications, Prescriptions given X 1. 14:29 Patient left the ED. tw2 Signatures: Dispatcher [employer] EDMS Tomasa Sanchez, SWITCH FOREMAN-C SWITCH FOREMAN-Ckb Laura Guaman, tub washer EKG Tat1 Joss Foley, RN RN Lenny Nixon Tara, RN RN tw2 Amara Nance 3 Mary Velasquez sb2 Corrections: (The following items were deleted from the chart) 11:25 11:22 Pulse 89bpm; Resp 18bpm; Pulse Ox 97% RA; Temp 98.9F Temporal; 48.53 kg; Height 5 hj ft. 0 in.; BMI: 20.9; Pain 3/10; hj 14:26 12:30 BP 117 / 74; Pulse 79bpm; Resp 17bpm; Pulse Ox 100% RA; tw2 tw2
--- NOTE | 2018-01-21 14:08 | EDPHYS ---
Physician Documentation [facility] Name: Janki García Age: 72 yrs Sex: Female : 1945 Arrival Date: 01/21/2018 Time: 11:11 Bed 19 Private MD: Xochitl Ac ED Physician Jair Sorensen HPI: 01/21 11:49 This 72 yrs old Female presents to ER via Ambulatory with complaints of Leg kb Swelling. 11:49 The patient presents with pain, that is acute, swelling. The complaints affect the left kb meraz, anterior aspect of left ankle and dorsum of left foot, right meraz, anterior aspect of right ankle and dorsum of right foot. Context: resulted from an unknown cause, the patient can fully bear weight, the patient is able to ambulate. Onset: The symptoms/episode began/occurred 1 week(s) ago. Modifying factors: The symptoms are alleviated by nothing. the symptoms are aggravated by nothing. Associated signs and symptoms: Pertinent positives: calf tenderness, swelling, Pertinent negatives fever, nausea, numbness, rash, tingling, vomiting, warmth, weakness. Treatment prior to arrival includes: no previous treatment. Severity of symptoms: At their worst the symptoms were moderate, severe, in the emergency department the symptoms are unchanged. The patient has not experienced similar symptoms in the past. The patient has not recently seen a physician. Pt reports she was discharged from the hospital a week ago and has had lower extremity swelling since then. Reports taking otc diuretics that didn't work so she called Dr Ac's office and was prescribed diuretics. States nothing has made it better. Started developing redness to top of both feet 3 days ago. Denies fever. Historical: - Allergies: 11:22 No Known Allergies; hj - Home Meds: 11:22 divalproex Oral [Active]; gabapentin 300 mg Oral cap 1 cap 3 times per day [Active]; hj hydromorphone 8 mg Oral tab 1 tab 2-3 times daily [Active]; - PMHx: 11:22 Chronic pain; fluid retention; Migraines; hj - PSHx: 11:22 Gastric Bypass; bowel surgery; hj - Immunization history:: Adult Immunizations up to date. - Social history:: Smoking status: Patient/guardian denies using tobacco, Patient/guardian denies using alcohol. - Ebola Screening: : Patient negative for fever greater than or equal to 101.5 degrees Fahrenheit, and additional compatible Ebola Virus Disease symptoms Patient denies exposure to infectious person Patient denies travel to an Ebola-affected area in the 21 days before illness onset. ROS: 11:45 Constitutional: Negative for fever, chills, and weight loss, Respiratory: Negative for kb shortness of breath, cough, wheezing, and pleuritic chest pain, Abdomen/GI: Negative for abdominal pain, nausea, vomiting, diarrhea, and constipation, Back: Negative for injury and pain, Skin: Negative for injury, rash, and discoloration, Neuro: Negative for headache, weakness, numbness, tingling, and seizure. 11:45 Cardiovascular: Positive for edema, Negative for chest pain, orthopnea, palpitations, paroxysmal nocturnal dyspnea. 11:45 MS/extremity: Positive for swelling. Exam: 11:45 Constitutional: This is a well developed, well nourished patient who is awake, alert, kb and in no acute distress. Head/Face: Normocephalic, atraumatic. Chest/axilla: Normal chest wall appearance and motion. Nontender with no deformity. No lesions are appreciated. Cardiovascular: Regular rate and rhythm with a normal S1 and S2. No gallops, murmurs, or rubs. Normal PMI, no JVD. No pulse deficits. Respiratory: Lungs have equal breath sounds bilaterally, clear to auscultation and percussion. No rales, rhonchi or wheezes noted. No increased work of breathing, no retractions or nasal flaring. Abdomen/GI: Soft, non-tender, with normal bowel sounds. No distension or tympany. No guarding or rebound. No evidence of tenderness throughout. Neuro: Awake and alert, GCS 15, oriented to person, place, time, and situation. Cranial nerves II-XII grossly intact. Motor strength 5/5 in all extremities. Sensory grossly intact. Cerebellar exam normal. Normal gait. 11:45 Musculoskeletal/extremity: Extremities: grossly normal except: noted in the right and left lower legs: erythema, swelling, tenderness, ROM: intact in all extremities, Circulation is intact in all extremities. Sensation intact. Weight bearing: able to fully bear weight. Vital Signs: 11:22 BP 106 / 60; Pulse 89; Resp 18; Temp 98.9(TE); Pulse Ox 97% on R/A; Weight 48.53 kg; hj Height 5 ft. 0 in. (152.40 cm); Pain 3/10; 12:30 BP 133 / 67; Pulse 79; Resp 17; Pulse Ox 100% on R/A; tw2 13:28 BP 101 / 54; Pulse 76; Resp 13; Pulse Ox 100% on R/A; tw2 14:26 BP 117 / 74; Pulse 79; Resp 17; Pulse Ox 100% on R/A; tw2 11:22 Body Mass Index 20.89 (48.53 kg, 152.40 cm) hj MDM: 11:35 Patient medically screened. kb 11:47 Data reviewed: vital signs, nurses notes. Data interpreted: Pulse oximetry: on room air kb is 97 %. Interpretation: normal. 14:06 Counseling: I had a detailed discussion with the patient and/or guardian regarding: the kb historical points, exam findings, and any diagnostic results supporting the discharge/admit diagnosis, lab results, radiology results, the need for outpatient follow up, a family practitioner, to return to the emergency department if symptoms worsen or persist or if there are any questions or concerns that arise at home. 01/21 11:42 Order name: Basic Metabolic Panel; Complete Time: 13:55 kb 01/21 11:42 Order name: CBC with Diff; Complete Time: 12:20 kb 01/21 11:42 Order name: Magnesium; Complete Time: 13:55 kb 01/21 11:42 Order name: NT PRO-BNP; Complete Time: 13:55 kb 01/21 11:42 Order name: PT-INR; Complete Time: 13:55 kb 01/21 11:42 Order name: Troponin (emerg Dept Use Only); Complete Time: 13:55 kb 01/21 11:42 Order name: XRAY Chest (1 view); Complete Time: 13:55 kb 01/21 11:42 Order name: EKG; Complete Time: 11:44 kb 01/21 11:42 Order name: Blood Culture Adult (2) kb 01/21 11:42 Order name: Lactate; Complete Time: 13:55 kb 01/21 11:42 Order name: Procalcitonin; Complete Time: 13:55 kb 01/21 11:42 Order name: US Extremity Venous W Compression Tim; Complete Time: 13:55 kb 01/21 13:44 Order name: Urine Dipstick--Ancillary (enter results) 01/21 11:42 Order name: Cardiac monitoring; Complete Time: 11:59 kb 01/21 11:42 Order name: IV Saline Lock; Complete Time: 12:09 kb 01/21 11:42 Order name: Labs collected and sent; Complete Time: 12:09 kb 01/21 11:42 Order name: O2 Per Protocol; Complete Time: 12:00 kb 01/21 11:42 Order name: O2 Sat Monitoring; Complete Time: 12:00 kb Administered Medications: 14:15 Drug: Clindamycin 300 mg Route: PO; tw2 14:29 Follow up: Response: No adverse reaction tw2 Disposition: 17:00 Co-signature as Attending Physician, Jair Sorensen MD. rn Disposition: 01/21/18 14:08 Discharged to Home. Impression: Edema, unspecified, Cellulitis of right lower limb, Cellulitis of left lower limb. - Condition is Stable. - Discharge Instructions: Cellulitis, Adult, [id number]. - Prescriptions for Clindamycin HCl 300 mg Oral Capsule - take 1 capsule by ORAL route every 6 hours for 10 days; 40 capsule. - Medication Reconciliation Form, Thank You Letter, Antibiotic Education, Prescription Opioid Use form. - Follow up: Emergency Department; When: As needed; Reason: Worsening of condition. Follow up: Private Physician; When: 2 - 3 days; Reason: Recheck today's complaints, Continuance of care, Re-evaluation by your physician. Signatures: Dispatcher [employer] EDOK Tomasa Sanchez, HEAT SEALING MACHINE OPERATOR-C HEAT SEALING MACHINE OPERATOR-Ckb Jair Sorensen MD MD rn Joaquin, Henry, RN RN hj Wise, Tara, RN RN tw2 Corrections: (The following items were deleted from the chart) 11:47 11:45 Musculoskeletal/extremity: Extremities: grossly normal except: noted in the right kb and left lower legs: swelling, tenderness, ROM: intact in all extremities, Circulation is intact in all extremities. Sensation intact. Weight bearing: able to fully bear weight, 14:29 14:08 01/21/2018 14:08 Discharged to Home. Impression: Edema, unspecified; Cellulitis tw2 of right lower limb; Cellulitis of left lower limb. Condition is Stable. Forms are Medication Reconciliation Form, Thank You Letter, Antibiotic Education, Prescription Opioid Use. Follow up: Emergency Department; When: As needed; Reason: Worsening of condition. Follow up: Private Physician; When: 2 - 3 days; Reason: Recheck today's complaints, Continuance of care, Re-evaluation by your physician. kb
[2018-01-21] MEDS ORDERED: CLINDAMYCIN HCL 150 MG CAP ONE (14:22)
--- NOTE | 2018-01-21 15:24 | EKG ---
Test Date: 2018-01-21 Test Time: 12:42:19 Satellite Dish Technician: RUBEN MEASUREMENT RESULTS: Intervals: Rate: 79 IA: 144 QRSD: 74 QT: 396 QTc: 454 [place]: P: 85 IA: 144 QRS: 72 T: 66 INTERPRETIVE STATEMENTS: Normal sinus rhythm Normal ECG Compared to ECG 01/06/2018 16:06:09 No significant changes Electronically Signed On 01-21-18 15:24:[address] MAINTENANCE WORKER by Stiven Hernandez
[2018-01-21 17:11] LABS: Urine Blood NEGATIVE (NEG); Urine Glucose NEGATIVE (NEG); Urine Protein NEGATIVE (NEG)
== END 2018-01-21 14:29 | disposition home or self-care (01) ==
LOC: ER 11:09
DX: L03.116 Cellulitis of left lower limb (principal); L03.115 Cellulitis of right lower limb
CPT/HCPCS: 36415; 71045; 80048; 81003; 83605; 83735; 83880; 84145; 84484; 85025; 85610; 87040; 93005; 93970; 99284

== ENCOUNTER 2019-07-25 17:44 | Emergency (ER) | payer OTHER ==
--- OUTSIDE RECORDS SUMMARY | 2019-07-25 17:46 | XMS REPORT | Summary of Care ---
:1945 Author Organization [facility] - Health Address [address] [place] [id number] Care Team Providers Name Role Phone Rosamaria Ac Primary Care Provider Reason for Visit Auth/Cert Status Reason Specialty Diagnoses / Procedures Referred By Terence lorenz Referred To Contact Surgery Diagnoses Low back pain Cervicalgia Low back pain, cervicalgia M54.5 (ICD-10-CM) - Low back pain M54.2 (ICD-10-CM) - Cervicalgia Adc Pre/Pacu/Post Procedures [facility] CODING HELP [place] NJX DX/THER SBST INTRLMNR LMBR/SAC W/IMG GDN CHG FLUOR NEEDLE/CATH SPINE/PARASPINAL DX/THER ADDON INTRATHECAL INFUSION PUMP TRIAL [address] - [place] NJX DX/THER SBST INTRLMNR LMBR/SAC W/IMG GDN [address] [facility] [id number] - CHG FLUOR NEEDLE/CATH SPINE/ PARASPINAL DX/THER [place]ON [place] [address] Phone: Fax: Encounter Details Date Type Department Care Team Description 04/28/2019 Anesthesia [facility] Azam Nails MD [address] [place] [id number] [facility] [place] CRNA [address] [place] [id number] [address] [place] [address] [place] [address] Allergies No Known Allergiesdocumented as of this encounter (statuses as of 04/28/2019) Medications Medication Sig Dispensed Refills Start Date End Date Status gabapentin 300 mg capsule 0 03/26/2019 Suspended HYDROmorphone 8 mg tablet 0 03/26/2019 Suspended omeprazole 40 mg capsule 0 04/07/2019 Suspended divalproex ER 500 mg 24 hr tablet 0 2019 Suspended documented as of this encounter (statuses as of 04/28/2019) Active Problems Problem Noted Date Pain 04/28/2019 documented as of this encounter (statuses as of 04/28/2019) Social History Tobacco Use Types Packs/Day Years Used Date Current Some Day Smoker Smokeless Tobacco: Never Used Sex Assigned at Date Recorded Not on file Job Start Date Occupation Industry Not on file Not on file Not on file Travel History Travel Start Travel End No recent travel history available. documented as of this encounter Last Filed Vital Signs Vital Sign Reading Time Taken Comments Blood Pressure - - Pulse - - Temperature - - Respiratory Rate 18 04/28/2019 7:49 AM CDT Oxygen Saturation - - Inhaled Oxygen Concentration - - Weight - - Height - - Body Mass Index - - documented in this encounter Plan of Treatment Health Maintenance Due Date Last Done Comments HEPATITIS C (HCV) SCREEN 1945 DTaP,Tdap,and Td Vaccines (1 - Tdap) 1957 Breast Cancer Screening (MAMMOGRAM) 1986 COLONOSCOPY 1996 Zoster Recombinant Vaccine (SHINGRIX) (1 of 2) 1996 LUNG CANCER SCREEN: Recommended for age 55-80 with 30 + 10/02/19 02 pack year history Medicare Wellness Visit 10/02/2011 Osteoporosis Screening 10/02/2011 PNEUMOCOCCAL VACCINES 65+ (1 of 2 - PCV13) 10/02/2011 INFLUENZA VACCINE (#1) 2018 documented as of this encounter Results Not on filedocumented in this encounter Administered Medications Medication Order MAR Action Action Date Dose Rate Site ceFAZolin (ANCEF) 1,000 mg in NaCl Given 04/28/2019 7:33 AM CDT 1 g 0.9% (NS) 50 mL MINI-BAG 1,000 mg, IV Piggyback, ONCE, 1 dose, 04/28/19 at 0800, 50 mL, Intra-op, Reason for Anti-Infective: Surgical Prophylaxis, Surgical Prophylaxis: Other (see Comments), Duration of therapy: within 24 hours of surgery diphenhydrAMINE (BENADRYL) injection Given 04/28/2019 7:36 AM CDT 12.5 mg ONCE INTRA PROCEDURE, Starting 04/28/19 at 0736, Until 04/28/19 at 0756, Routine, Intra-op FENTanyl PF (SUBLIMAZE (PF)) injection Given 04/28/2019 7:44 AM CDT 25 mcg ONCE INTRA PROCEDURE, Starting 04/28/19 at 0736, Until 04/28/19 at 0756, Routine, Intra-op Given 04/28/2019 7:40 AM CDT 25 mcg Given 04/28/2019 7:36 AM CDT 25 mcg lactated ringers IV infusion New Bag 04/28/2019 7:02 AM CDT Intravenous, CONTINUOUS PRN, Starting 04/28/19 at 0702, Until Sun04/28/19 at 0756, Routine, Intra-op documented in this encounter Insurance Payer Benefit Plan / Subscriber ID Effective Dates Phone Addre ss Type Group MEDICARE MEDICARE PART A xxxxxxxxxxx 2011-Génesis [phone] [id number] [place] [id number] [employer] AETNA INDEMNITY [id number] 2013-Génesis almonte documented as of this encounter
--- OUTSIDE RECORDS SUMMARY | 2019-07-25 17:46 | XMS REPORT | Summary of Care ---
:1945 Author Organization [facility] Address [address] [place] [address] Care Team Providers Name Role Phone Rosamaria Ac Primary Care Provider Reason for Visit Radiology Services (Routine) Status Reason Specialty Diagnoses / Referred By Referred To Procedures Contact Contact New Request Diagnostic Diagnoses Fall, initial encounter Levar, Radiology Procedures XR PELVIS <3 VW XR PELVIS 3+ VW Maikel Lawrence MD [address] [facility] [id number] [place] [phone] Encounter Details Date Type Department Care Team Description 06/24/2019 Hospital Encounter [facility] Shan Cristobal Arrived [facility] [address] [facility] [address] [facility] [place] [address] [id number] [place] [phone] Allergies No Known Allergiesdocumented as of this encounter (statuses as of 06/25/2019) Medications No known medicationsdocumented as of this encounter (statuses as of 06/25/2019) Active Problems Problem Noted Date Pain 04/28/2019 documented as of this encounter (statuses as of 06/25/2019) Social History Tobacco Use Types Packs/Day Years Used Date Current Some Day Smoker Smokeless Tobacco: Never Used Sex Assigned at Date Recorded Not on file Job Start Date Occupation Industry Not on file Not on file Not on file Travel History Travel Start Travel End No recent travel history available. documented as of this encounter Last Filed Vital Signs Not on filedocumented in this encounter Plan of Treatment Health [...] of 2 - PCV13) 10/02/2011 INFLUENZA VACCINE (Season Ended) 2019 documented as of this encounter Procedures Procedure Name Priority Date/Time Associated Diagnosis Comme nts XR PELVIS <3 VW Routine 06/24/2019 3:04 PM Fall, initial Resu lts for this CDT encounter procedure are i n the results section. XR SACRUM AND Routine 06/24/2019 3:04 PM Fall, initial Result s for this COCCYX CDT encounter procedure are i n the results section. documented in this encounter Results XR PELVIS <3 VW (06/24/2019 3:04 PM CDT) Specimen Narrative Performed At This result has an attachment that is no t available. HISTORY: Pain. PACS/VR/DOSE FINDINGS: AP view of the pelvis showed no acute fractu re or dislocation. No significant changes of arthritis or aggressive bone le sions seen. No signs of AVN in the femoral heads. CONCLUSIONS: No acute fracture or dislocation in AP vi ew of the pelvis. Procedure Note [facility], Radiant Results Inft User - 2019 3:10 PM CDT HISTORY: Pain. FINDINGS: AP view of the pelvis showed n o acute fracture or dislocation. No significant changes of arthritis or aggr essive bone lesions seen. No signs of AVN in the femoral heads. CONCLUSIONS: No acute fracture or disloc ation in AP view of the pelvis. Performing Organization Address City/State/Zipcode Phone Number PACS/VR/DOSE XR SACRUM AND COCCYX (06/24/2019 3:04 PM CDT) Specimen Narrative Performed At This result has an attachment that is no t available. HISTORY: Pain. PACS/VR/DOSE FINDINGS: 2 AP and one lateral views of sacrum and saritha cyx showed no acute fracture or dislocation. Presacral soft tissues appear normal. CONCLUSIONS: No acute fracture or dislocation in sacru m or coccyx. However, there is persistent and unexplained lower sacral pain, either MRI or CT scan with multiplanar reformats may be of value for mo re detailed evaluation. Procedure Note [facility], Radiant Results Inft User - 2019 3:10 PM CDT HISTORY: Pain. FINDINGS: 2 AP and one lateral views of sacrum and coccyx showed no acute fracture or dislocation. Presacral soft tissues appear normal. CONCLUSIONS: No acute fracture or disloc ation in sacrum or coccyx. However, there is persistent and unexplained lowe r sacral pain, either MRI or CT scan with multiplanar reformats may be o f value for more detailed evaluation. Performing Organization Address City/State/Zipcode Phone Number PACS/VR/DOSE documented in this encounter Visit Diagnoses Diagnosis Fall, initial encounter documented in this encounter Insurance Payer Benefit Plan / Subscriber ID Effective Dates Phone Addre ss Type Group MEDICARE MEDICARE PART A xxxxxxxxxxx 2011-Génesis [phone] Medicare & [address] t [address] [id number] YUNG [place] [phone] AETNA AETNA INDEMNITY [id number] 2013-Génesis almonte documented as of this encounter
--- OUTSIDE RECORDS SUMMARY | 2019-07-25 17:46 | XMS REPORT | Summary of Care ---
:1945 Author Organization [facility] - Health Address [address] [place] [address] Care Team Providers Name Role Phone Rosamaria Ac Primary Care Provider Reason for Referral (Routine) Status Reason Specialty Diagnoses / Referred By Referred To Procedures Contact Contact Authorized Diagnostic Diagnoses Pain management Maikel Cristobal Radiology Procedures FL TIME OR (NON-REPORTABLE) MD Leydi Lawrence [id number] [address], [place] [phone] Reason for Visit Auth/Cert Status Reason Specialty Diagnoses / Procedures Referred By C ontact Referred To Contact Surgery Diagnoses Low back pain Cervicalgia Low back pain, cervicalgia M54.5 (ICD-10-CM) - Low back pain M54.2 (ICD-10-CM) - Cervicalgia Adc Pre/Pacu/Post Procedures [facility] CODING HELP [place] NJX DX/THER SBST INTRLMNR LMBR/SAC W/IMG GDN CHG FLUOR NEEDLE/CATH SPINE/PARASPINAL DX/THER ADDON INTRATHECAL INFUSION PUMP TRIAL [id number] - NJ NJX DX/THER SBST INTRLMNR LMBR/SAC W/IMG GDN [address] [facility] [address] - CHG FLUOR NEEDLE/CATH SPINE/ PARASPINAL DX/THER JACKIE [place], [place] [address] Phone: Fax: Encounter Details Date Type Department Care Team Description 04/28/2019 - Hospital Encounter [facility] Levar Maikel Pain 04/29/2019 Unit MD [place] [address] [facility] [place] [address] [id number] [address], [place] [phone] Allergies No Known Allergiesdocumented as of this encounter (statuses as of 04/29/2019) Medications Medication Sig Dispensed Refills Start Date End Date Status gabapentin 300 mg 3 (three) 0 03/26/2019 04/29/2019 Discontinued capsule times daily. HYDROmorphone 8 mg 3 (three) 0 03/26/2019 04/29/2019 Discontinued tablet times daily as needed. omeprazole 40 mg daily. 0 04/07/2019 04/29/2019 D iscontinued capsule divalproex ER 500 mg at bedtime. 0 04/07/20192019 Discontinued 24 hr tablet documented as of this encounter (statuses as of 04/29/2019) Active Problems Problem Noted Date Pain 04/28/2019 documented as of this encounter (statuses as of 04/29/2019) Social History Tobacco Use Types Packs/Day Years Used Date Current Some Day Smoker Smokeless Tobacco: Never Used Tobacco Cessation: Ready to Quit: No; Co unseling Given: No Sex Assigned at Date Recorded Not on file Job Start Date Occupation Industry Not on file Not on file Not on file Travel History Travel Start Travel End No recent travel history available. documented as of this encounter Last Filed Vital Signs Vital Sign Reading Time Taken Comments Blood Pressure 107/61 04/29/2019 7:45 AM CDT Pulse 57 04/29/2019 7:45 AM CDT Temperature 36.8 C (98.2 F) 04/29/2019 7:45 AM CDT Respiratory Rate 18 04/29/2019 7:45 AM CDT Oxygen Saturation 98% 04/29/2019 7:45 AM CDT Inhaled Oxygen Concentration - - Weight 40.4 kg (89 lb) 04/28/2019 10:00 AM CDT Height 152.4 cm (5') 04/23/2019 11:00 AM CDT Body Mass Index 17.38 04/23/2019 11:00 AM CDT documented in this encounter Discharge Summaries Maikel Cristobal MD - 04/29/2019 7:12 AM CDTCONDITION AT DISCHARGE: Patient was discharged from the facility in stable condition. Please see shailesh mendoza instructions. FOLLOW UP CARE: See post op instructions. DISCHARGE DISPOSITION: HOME DISCHARGE INSTRUCTIONS GIVEN TO: PATIENT documented in this encounter Discharge Instructions Suzie Shaw RN - 04/28/2019Pain Discharge Instructions 1. Activity as tolerated. Try to take it easy the day of the procedure with no heavy lifting for the next few days. 2. Advance diet as tolerated. 3. Resume home medications as directed. 4. Apply ice pack to procedure site as needed for pain/discomfort. Place on for 20 minutes then remove for 20 minutes. Can do this 3-4 times a day. 5. May remove dressing in 24 hours. Then you may shower after dressing is removed. 6. No driving for the next 24 hours. 7. Call surgeon if uncontrolled pain or bleeding, or new onset of numbness or tingling, or a headache that changes with position changes or any other concerns or questions. 8. If you are a diabetic, please monitor your blood sugars more closely for one week following yourinjection. Steroid injections can cause an increase in your blood sugar level. Please contact yourphysician if you need additional assistance in managing a high blood sugar level following your procedure. Contact Information [facility] ~ Daytime: [phone] After Hours: [facility] Access Line [phone] and ask to speak to the Nurse On-Call General Surgical Discharge Instructions: ? The medication that was used will be acting in your system for the next 24 hours, so you might feel a little drowsy, with impaired judgment and/ or motor function. This feeling should wear off. Because the medication is still in your system for the next 24 hours you SHOULD NOT: o Drive a car, operate machinery or power tools. o Drink any alcoholic beverages. o Make any important decisions or sign any legal documents. ? You should rest the remainder of the day and not engage in any physical activity. YOU ARE RESPONSIBLE FOR HAVING SOMEONE AT HOME WITH YOU DURING THE AFTERNOON AND NIGHT IMMEDIATELY FOLLOWING YOUR SURGERY. Patients should cough and deep breathe every 2-4 hours while awake to avoid respiratory complications. ? Because the medications used could produce some residual nausea and vomiting after you go home, you should eat lightly today, starting with clear liquids (broth, soft drinks, apple juice, jello) and toast or crackers, progressing to your normal diet as tolerated. If you get sick, wait a couple of hours and then begin to eat. After 24 hours the nausea should be gone. If your nausea persists, callyour physician. ? You may experience some pain and your physician will advise you on what to take for discomfort. This should be taken as directed. If the pain is not relieved, contact your physician. You may also have a sore throat from the airway/ breathing tube that was in place. You may use lozenges, throat spray (Chloraseptic), or warm salt water gargles for symptomatic relief. ? If you are unable to urinate within five hours after your procedure, call your physician. ? The type of surgery performed will determine how much bleeding (if any) to expect. Normally, somespotting might occur. If your dressing pad become saturated, notify your physician. Elevate surgical site, if applicable, to reduce swelling and pain. ? Preventing a surgical site infection: o Dont smoke. It is best to quit at least 30 days before surgery, but quitting after surgery is also helpful. o If you are a diabetic, keep your blood sugar well controlled. WASH YOUR HANDS. o Keep your wound clean and remember to wash your hands before and after contact with the area. o Call your doctor if you have signs of infection: ? increased tenderness at the surgical site ? red streaks or increased redness of the area ? bad-smelling discharge from the incision ? fever of 101 or higher TOBACCO AVOIDANCE Exposure to tobacco either from smoking or from second hand (environmental)smoke or smokeless tobacco (snuff) is damaging to your health. This information is to encourage everyone to avoid tobacco exposure. It is recommended that you: If you smoke or use smokeless tobacco, we encourage you to quit. If you have already quit smoking, continue your good work! If you do not smoke or use smokeless tobacco, do not start. Avoid secondhand smoke. Additional Resources: You may want to contact these organizations for further information on smoking and how to quit- [place] [employer] - http://www.lungusa.org/stop-smoking/ [place] [employer] - http://www.cancer.org/Healthy/StayAwayfromTobacco/index [place] [employer] - http://www.heart.org/HEARTORG/GettingHealthy/QuitSmoking/Quit-Smoking _[facility]_001085_SubHomePage.jsp documented in this encounter Progress Notes Aleta Mir, RD - 04/28/2019 12:30 PM CDT MEDICAL NUTRITION THERAPY- CONSULT NOTE: Reason For Consultation: vp securities for positive initial nutrition screen: BMI, age Malnutrition Assessment: Pending NFPE Nutritional Diagnosis: None SGA Rating: At Risk Plan: Encourage adequate oral intake, continue regular diet Admission Chief Complaint: had no chief complaint listed for this encounter. Present on Admission: Pain PMH/PSH: has no past medical history on file. has no past surgical history on file. GI and Nutrition Related Findings: Symptoms: N/A Difficulty: N/A GI tract alteration: N/A Alternative means of nutrition: N/A General: N/A Medications: Current Facility-Administered Medications: acetaminophen (TYLENOL) tablet 650 mg, 650 mg, Oral, Q6HPBillNLevar Manjit S, MD, 650 mg at 04/28/19 1007 acetaminophen-codeine (TYLENOL #3) 300-30 mg tablet 1 tablet, 1 tablet, Oral, Q6ANDERSON, Maikel Cristobal MD HYDROcodone-acetaminophen (NORCO) 10-325 mg tablet 1 tablet, 1 tablet, Oral, QLevar REESE Manjit S, MD Lab and Medical Test Results: No results found for: NA No results found for: K No results found for: CA No results found for: CL No results found for: BUN No results found for: CREAT No results found for: GLU No results found for: TCO2 No results found for: ALB No results found for: TPRO No results found for: BILIT No results found for: BILIUNCON No results found for: BILICONJ No results found for: ALT No results found for: AST No results found for: ALKPHOS Nutrition Assessment: Age: [age] year old Sex: female Ht: Ht Readings from Last 3 Encounters: 04/23/19 1.524 m (5') Current Wt: Wt Readings from Last 1 Encounters: 04/23/19 40.4 kg (89 lb) BMI: Body mass index is 17.38 kg/m. (Underweight ) Weight History: Wt Readings from Last 10 Encounters: 04/23/19 40.4 kg (89 lb) Inflammatory Markers: N/A Current Dietary Order(s): Orders Placed This Encounter Procedures Regular Diet; Texture: Regular. EMR Documented Food Allergies/Intolerance/Cultural Preferences: None per patient No Known Allergies Nutrition & Diet History: Patient newly admitted after surgery. She has no complaints of N/V/D/C at this time. Patient is underweight, but reports that she lost weight about 1.5 years ago, and that her UBW is 88-89 lbs. No weight history, or labs from EMR. Pending nutrition focused physical exam, as she was resting after surgery. She hadn't received a lunch tray yet at time of visit. RD will continue to monitor. Calculated Daily Nutritional Needs: Calories: 2438-6427 kcal/day = 35-40 kcal/kg current wt Protein: 15% of kcal need/day = 50-60 g/day = 1.2-1.5 g/kg current wt Fluid: 1204-9566 mL/day or per MD. Adjust for acute needs. Nutrition Diagnosis: PES #1: Underweight related to unknown causes as evidenced by BMI of 17.38 Nutrition Intervention(s): Interventions: 1. Recommend continue the current diet order 2. Encouraged adequate oral intake 3. Will monitor weight trends, diet tolerance, intake, bowel function, and nutrition related labs Goals: 1. The pt's documented intake is no less than 75% of provided meals D/C Planning: Pending Nutrition Monitoring and Evaluation: A registered dietitian will f/u in 3 days to report nutrition related information and to revise the recommended nutrition intervention(s) if necessary; please page with questions or concerns, thank-you. Aleta Mir RD,LD RD Office: [phone] signed by Aleta Mir RD at 04/28/2019 12:39 PM CDTdocumented in this encounter Plan of Treatment Health [...] (#1) 2018 documented as of this encounter Procedures Procedure Name Priority Date/Time Associated Comments Diagnosis FL TIME OR Routine 04/28/2019 7:52 Pain management Results for this (NON-REPORTABLE) AM CDT procedure a re in the results section. INTRATHECAL Level 5 (greater 04/28/2019 7:14 same INFUSION PUMP TRIAL than 5 days) AM CDT documented in this encounter Results FL TIME OR (NON-REPORTABLE) (04/28/2019 7:52 AM CDT) Specimen Narrative Performed At These images do not require a Radiology diagnostic rep ort. PACS Performing Organization Address City/State/[facility] Phone Number PACS documented in this encounter Visit Diagnoses Diagnosis Pain management - Primary Other specified rehabilitation procedure Pain Generalized pain documented in this encounter Administered Medications Medication Order MAR Action Action Date Dose Rate Site acetaminophen (TYLENOL) tablet Given 04/28/2019 10:07 AM CDT 650 mg 650 mg 650 mg, Oral, Q6HPRN, Starting Sun04/28/19 at 0802, Until Discontinued, Routine, Pain (scale 1-3) acetaminophen-codeine (TYLENOL #3) 300-3 0 mg tablet 1 tablet 1 tablet, Oral, Q6HPRN, Starting 04/12 at 0802, Until Sun04/30/19 at 0801, Routine, Pain (scale 4-6) HYDROcodone-acetaminophen (NORCO) 10-325 Given 04/29/2019 4 :26 AM CDT 1 tablet mg tablet 1 tablet 1 tablet, Oral, Q6HPRN, Starting Sun04/28/19 at 0803, Until Discontinued, Routine, Pain (scale 7-10) Given 04/28/2019 10:28 PM CDT 1 tablet Given 04/28/2019 2:54 PM CDT 1 tablet Medication Order MAR Action Action Date Dose Rate Site lactated ringers IV infusion New Bag 04/28/2019 6:42 AM CDT 1,000 mL 20 mL/hr 1,000 mL at 20 mL/hr, 1,000 mL, IV Infusion, ONCE, 1 dose, Sun04/28/19 at 0630, Routine, DSU Pre-op documented in this encounter Insurance Payer Benefit Plan / Subscriber ID Effective Dates Phone Addre ss Type Group MEDICARE MEDICARE PART A xxxxxxxxxxx 2011-Génesis [phone] Medicare & B t 82 [id number] [place] [id number] AETNA AETNA INDEMNITY [id number] 2013-Génesis almonte documented as of this encounter
--- OUTSIDE RECORDS SUMMARY | 2019-07-25 17:46 | XMS REPORT | Summary of Care ---
:1945 Author Organization [facility] - Health Address [address] [place] [address] Care Team Providers Name Role Phone Rosamaria Ac Primary Care Provider Reason for Visit Auth/Cert Status Reason Specialty Diagnoses / Procedures Referred By Terence lorenz Referred To Contact Surgery Diagnoses Low back pain Cervicalgia Low back pain, cervicalgia M54.5 (ICD-10-CM) - Low back pain M54.2 (ICD-10-CM) - Cervicalgia Adc Pre/Pacu/Post Procedures [facility] CODING HELP ND NJX DX/THER SBST INTRLMNR LMBR/SAC W/IMG GDN CHG FLUOR NEEDLE/CATH SPINE/PARASPINAL DX/THER ADDON INTRATHECAL INFUSION PUMP TRIAL [address]9527 - ND NJX DX/THER SBST INTRLMNR LMBR/SAC W/IMG GDN [address] [facility] [address] - CHG FLUOR NEEDLE/CATH SPINE/ PARASPINAL DX/THER [place], [place] [address] Phone: Fax: Encounter Details Date Type Department Care Team Description 04/28/2019 Anesthesia [facility] Azam Nails MD [address] [place] [address] [facility] CRNA [address] [place] [phone] [address] [place] [address] [place] [address] Allergies No Known Allergiesdocumented as of this [...] [address] Medicare & B t 82 [id number] [place] [id number] AETNA AETNA INDEMNITY [id number] 2013-Génesis almonte documented as of this encounter
--- OUTSIDE RECORDS SUMMARY | 2019-07-25 17:46 | XMS REPORT | Continuity of Care Document ---
:1945 Author Organization [facility] t Address [address] [place] [address] Care Team Providers Name Role Phone Howard Cristobal MD Attending Clinician Zoë XAVIER Attending Clinician Carlitos Bey MD Attending Clinician Howard Cristobal MD Admitting Clinician Problems This patient has no known problems. Allergies, Adverse Reactions, Alerts This patient has no known allergies or adverse reactions. Medications This patient has no known medications. Procedures This patient has no known procedures. Encounters Start End Encounter Admission Attending Care Care Encounter Source Date/Time Date/Time Type Type Clinicians Facility Department ID 2019-06-24 2019-06-24 [place] [id number] 14:08:00 23:59:00 Encounter Maikel Lawrence Kristyn [id number] [place] [id number] [place] [id number] 2019-04-28 2019-04-29 [facility] [id number] 06:14:00 08:20:00 Encounter Maikel S Kristyn [id number] [place] [id number] [place] [id number] 2019-04-28 2019-04-28 Anesthesia Jono Camp [id number] 07:29:00 07:52:00 Azam Bey [id number] [place] [id number] [place] [id number] Center 020 Results This patient has no known results.
[2019-07-25 19:05] LABS: ALT/SGPT 22 U/L (12-78); AST/SGOT 36 U/L (15-37); Albumin 2.7 g/dL (3.4-5.0); Alkaline Phosphatase 119 U/L (45-117); BUN Blood Urea Nitrogen 11 mg/dL (7-18); Bicarbonate 31 mmol/L (21-32); Bilirubin Total 0.5 mg/dL (0.2-1.0); Glucose Level 80 mg/dL (74-106); Potassium 4.2 mmol/L (3.5-5.1); Protein, Total 5.7 g/dL (6.4-8.2); Sodium Level 129 mmol/L (136-145)
[2019-07-25 20:15] LABS: Protime INR 0.92
[2019-07-25 20:16] LABS: Absolute Lymphocytes (CBC) 1.1 K/uL (0.7-4.9); Basophils % 0.3 % (0-1.3); Hematocrit 40.9 % (36.0-45.0); Lymphocytes % 23.4 % (15.3-44.8); MPV 7.1 fL (7.6-11.3); RBC Red Blood Cell Count 4.26 M/uL (3.86-4.86)
--- NOTE | 2019-07-25 20:24 | RAD REPORT ---
EXAM DESCRIPTION: RAD - Chest Single View - 07/25/2019 7:06 pm CLINICAL HISTORY: LE edema, shortness of breath COMPARISON: January 2018 TECHNIQUE: AP portable chest image was obtained 07/25/2019 7:06 pm . FINDINGS: No focal mass or consolidation. Chronic interstitial lung pattern matches comparison. Left hilar elevation matches the comparison as well. No acute focal lung parenchymal process seen. Heart and vasculature are normal. No measurable pleural effusion and no pneumothorax. Prominent thor acic spine degenerative change present. No acute aortic findings suspected. IMPRESSION: No acute cardiopulmonary process. Chronic fibrotic lung changes match the 2018 comparison.
[2019-07-25 20:25] LABS: ALT/SGPT 24 U/L (12-78); AST/SGOT 44 U/L (15-37); Alkaline Phosphatase 133 U/L (45-117); BUN Blood Urea Nitrogen 11 mg/dL (7-18); Bicarbonate 30 mmol/L (21-32); Bilirubin Direct 0.4 mg/dL (0-0.2); Bilirubin Total 0.7 mg/dL (0.2-1.0); Glucose Level 66 mg/dL (74-106); Magnesium 1.9 mg/dL (1.8-2.4); NT PRO-BNP 691 pg/mL (<125); Potassium 3.9 mmol/L (3.5-5.1); Protein, Total 6.5 g/dL (6.4-8.2); Sodium Level 128 mmol/L (136-145); Troponin (Emerg Dept Use Only) < 0.02 ng/mL (0.0-0.045)
--- NOTE | 2019-07-25 21:12 | ER ---
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 Coronavirus screen: Proceed with normal triage. Patient denies a cough. Patient denies shortness of breath or difficulty breathing. Patient denies measured and/or subjective temperature greater than 100.4F prior to today's visit. Patient denies travel on a cruise ship or to a country the [facility] currently lists as an affected area. Patient denies contact with known and/or suspected case of COVID-19. Ebola Screen: Patient negative for fever greater than or equal to 101.5 degrees Fahrenheit, and additional compatible Ebola Virus Disease symptoms Patient denies exposure to infectious person. Patient denies travel to an Ebola-affected area in the 21 days before illness onset. No symptoms or risks identified at this time. Initial Sepsis Screen: Does the patient meet any 2 criteria? No. Patient's initial sepsis screen is negative. Does the patient have a suspected source of infection? No. Patient's initial sepsis screen is negative. Risk Assessment: Do you want to hurt yourself or someone else? Patient reports no desire to harm self or others. Onset of symptoms was July 21, 2019. 17:58 Method Of Arrival: Wheelchair iw 17:58 Acuity: KASI 3 iw Triage Assessment: 18:00 General: Appears in no apparent distress. uncomfortable, Behavior is cooperative, bp appropriate for age, anxious. Pain: Complains of pain in right leg and left leg. EENT: No deficits noted. Neuro: No deficits noted. Cardiovascular: No deficits noted. Respiratory: No deficits noted. GI: No signs and/or symptoms were reported involving the gastrointestinal system. : No signs and/or symptoms were reported regarding the genitourinary system. Derm: No deficits noted. Musculoskeletal: Swelling present in right leg and left leg. Historical: - Allergies: 18:02 No Known Allergies; iw - Home Meds: 18:02 gabapentin 300 mg Oral cap 1 cap 3 times per day [Active]; hydromorphone 8 mg Oral tab iw 1 tab 2-3 times daily [Active]; 18:03 divalproex 500 mg oral TbEC once daily [Active]; omeprazole 40 mg Oral cpDR 1 cap once iw daily [Active]; - PMHx: 18:02 Chronic pain; fluid retention; Migraines; iw - PSHx: 18:02 Gastric Bypass; bowel surgery; iw - Immunization history:: Adult Immunizations up to date. - Social history:: Smoking status: Patient reports the use of cigarette tobacco products, smokes one pack cigarettes per day. Patient/guardian denies using alcohol, street drugs, The patient lives with family. - Family history:: not pertinent. Screenin:00 Abuse screen: Denies threats or abuse. Denies injuries from another. Nutritional bp screening: No deficits noted. Tuberculosis screening: No symptoms or risk factors identified. Fall Risk None identified. Assessment: 18:00 General: SEE TRIAGE NOTE. bp 18:49 Reassessment: LABS DRAWN AND SENT. PT HYPOTENSIVE ON MONITOR, MD NOTIFIED. bp 19:15 Reassessment: Patient appears in no apparent distress at this time. Patient and/or family updated on plan of care and expected duration. Pain level reassessed. Patient is alert, oriented x 3, equal unlabored respirations, skin warm/dry/pink. 20:25 Reassessment: Patient appears in no apparent distress at this time. No changes from previously documented assessment. Patient and/or family updated on plan of care and expected duration. Pain level reassessed. Patient is alert, oriented x 3, equal unlabored respirations, skin warm/dry/pink. 21:25 Reassessment: Patient appears in no apparent distress at this time. No changes from previously documented assessment. Patient and/or family updated on plan of care and expected duration. Pain level reassessed. Patient is alert, oriented x 3, equal unlabored respirations, skin warm/dry/pink. Vital Signs: 17:58 BP 105 / 61; Pulse 73; Resp 18 S; Temp 98.5; Pulse Ox 99% on R/A; Weight 44.45 kg; iw Height 5 ft. 0 in. (152.40 cm); Pain 5/10; 18:49 BP 87 / 44; Pulse 61; Resp 17; Pulse Ox 99% ; bp 19:30 BP 99 / 54; Pulse 59; Resp 18; Pulse Ox 100% on R/A; wh 20:30 BP 102 / 83; Pulse 61; Resp 18; Pulse Ox 100% on R/A; wh 21:15 BP 100 / 47; Pulse 58; Resp 18; Pulse Ox 100% on R/A; wh 17:58 Body Mass Index 19.14 (44.45 kg, 152.40 cm) ED Course: 17:46 Patient arrived in ED. ag5 18:00 Patient has correct armband on for positive identification. Bed in low position. Call bp light in reach. Side rails up X2. 18:01 Triage completed. iw 18:02 Arm band placed on. 18:05 Jono Dominguez, RN is Primary Nurse. bp 18:10 Gentry Diaz MD is Attending Physician. maEstevan 19:00 Gurwinder Phillips PA is PHCP. cp 19:06 XRAY Chest (1 view) In Process Unspecified. EDMS 19:45 Missed attempt(s): 20 gauge in right antecubital area. Bleeding controlled, band aid wh applied, catheter tip intact. 19:55 Inserted saline lock: 20 gauge in left forearm, using aseptic technique. Blood ds4 collected. 20:12 Basic Metabolic Panel Sent. 21:27 No provider procedures requiring assistance completed. IV discontinued, intact, wh bleeding controlled, No redness/swelling at site. Administered Medications: 18:54 Not Given (Physician Discretion): Lasix 40 mg IVP once; please give IM, no need for IV bp Outcome: 21:12 Discharge ordered by . 21:34 Discharged to home via wheelchair, with family. 21:34 Condition: stable 21:34 Discharge instructions given to patient, family, Instructed on discharge instructions, follow up and referral plans. medication usage, POC Demonstrated understanding of instructions, follow-up care, medications, POC Prescriptions given X 1. 21:35 Patient left the ED. Signatures: Dispatcher [employer] EDMS Shantel Patrick RN RN Aries James ds4 Gurwinder Phillips PA PA cp Habalo, Winsy Jono Dominguez RN RN Gentry Diaz MD MD ma2 Alejandra Velasco ag5 Corrections: (The following items were deleted from the chart) 18:03 18:02 Home Meds: divalproex oral oral; iw iw
--- NOTE | 2019-07-25 21:12 | EDPHYS ---
Physician Documentation [facility] Name: Janki García Age: 73 yrs Sex: Female : 1945 Arrival Date: 07/25/2019 Time: 17:46 Bed 17 Private MD: ED Physician Gentry Diaz HPI: 07/24 18:42 This 73 yrs old Female presents to ER via Wheelchair with complaints of Leg ma2 Problem. 18:42 The patient presents with swelling. The complaints affect the lateral aspect of left ma2 calf, left lateral ankle, lateral aspect of left foot, left calf, left Achilles, left heel, medial aspect of left calf, left medial ankle, medial aspect of left foot, left meraz, anterior aspect of left ankle and dorsum of left foot. Onset: The symptoms/episode began/occurred gradually, 1 week(s) ago. Associated signs and symptoms: Pertinent negatives numbness, swelling, warmth, weakness. Severity of symptoms: At their worst the symptoms were moderate, in the emergency department the symptoms are unchanged. has chronic fluid retention, for years, she stopped taking lasix 2 months ago because the swelling got better, now she is off all lasix, no chest pain, sob or any other symptoms, swelling is confined to LE and is equal on both legs, no leg pain, never had dvt or pe . Historical: - Allergies: 18:02 No Known Allergies; iw - Home Meds: 18:02 gabapentin 300 mg Oral cap 1 cap 3 times per day [Active]; hydromorphone 8 mg Oral tab iw 1 tab 2-3 times daily [Active]; 18:03 divalproex 500 mg oral TbEC once daily [Active]; omeprazole 40 mg Oral cpDR 1 cap once iw daily [Active]; - PMHx: 18:02 Chronic pain; fluid retention; Migraines; iw - PSHx: 18:02 Gastric Bypass; bowel surgery; iw - Immunization history:: Adult Immunizations up to date. - Social history:: Smoking status: Patient reports the use of cigarette tobacco products, smokes one pack cigarettes per day. Patient/guardian denies using alcohol, street drugs, The patient lives with family. - Family history:: not pertinent. ROS: 18:42 Constitutional: Negative for fever, chills, and weight loss. ma2 18:42 All other systems are negative. Exam: 18:42 Constitutional: This is a well developed, well nourished patient who is awake, alert, ma2 and in no acute distress. ENT: Nares patent. No nasal discharge, no septal abnormalities noted. Tympanic membranes are normal and external auditory canals are clear. Oropharynx with no redness, swelling, or masses, exudates, or evidence of obstruction, uvula midline. Mucous membranes moist. Neck: Trachea midline, no thyromegaly or masses palpated, and no cervical lymphadenopathy. Supple, full range of motion without nuchal rigidity, or vertebral point tenderness. No Meningismus. Chest/axilla: Normal chest wall appearance and motion. Nontender with no deformity. No lesions are appreciated. Cardiovascular: Regular rate and rhythm with a normal S1 and S2. No gallops, murmurs, or rubs. Normal PMI, no JVD. No pulse deficits. Respiratory: Lungs have equal breath sounds bilaterally, clear to auscultation and percussion. No rales, rhonchi or wheezes noted. No increased work of breathing, no retractions or nasal flaring. Abdomen/GI: Soft, non-tender, with normal bowel sounds. No distension or tympany. No guarding or rebound. No evidence of tenderness throughout. MS/ Extremity: bilat LE edema pitting and equal both legs, up to both knees, Pulses equal, no cyanosis. Neurovascular intact. Full, normal range of motion. Neuro: Awake and alert, GCS 15, oriented to person, place, time, and situation. Cranial nerves II-XII grossly intact. Motor strength 5/5 in all extremities. Sensory grossly intact. Cerebellar exam normal. Normal gait. 19:35 ECG was reviewed by the Attending Physician. cp Vital Signs: 17:58 BP 105 / 61; Pulse 73; Resp 18 S; Temp 98.5; Pulse Ox 99% on R/A; Weight 44.45 kg; iw Height 5 ft. 0 in. (152.40 cm); Pain 5/10; 18:49 BP 87 / 44; Pulse 61; Resp 17; Pulse Ox 99% ; bp 19:30 BP 99 / 54; Pulse 59; Resp 18; Pulse Ox 100% on R/A; wh 20:30 BP 102 / 83; Pulse 61; Resp 18; Pulse Ox 100% on R/A; wh 21:15 BP 100 / 47; Pulse 58; Resp 18; Pulse Ox 100% on R/A; wh 17:58 Body Mass Index 19.14 (44.45 kg, 152.40 cm) iw MDM: 18:10 Patient medically screened. ma2 18:42 Differential diagnosis: LE edema, peripheral edema, fluid retention, chronic. Data ma2 reviewed: vital signs, nurses notes. Counseling: I had a detailed discussion with the patient and/or guardian regarding: the historical points, exam findings, and any diagnostic results supporting the discharge/admit diagnosis, the presence of at least one elevated blood pressure reading (>120/80) during this emergency department visit. Response to treatment: the patient's symptoms have markedly improved after treatment. 21:07 ED course: VSS. Patient reports blood pressure generally runs low. Will discharge to home with RX for Lasix and recommend f/u with primary physician. 07/24 18:11 Order name: CMP; Complete Time: 19:16 [facility] 07/24 19:16 Interpretation: Normal except: NA 129; CL 93; CRE 0.49; ALK 119; ALB 2.7; TP 5.7; CA cp 8.3; A/G 0.9. 06 18:53 Order name: Basic Metabolic Panel [facility] 06 18:53 Order name: CBC with Diff; Complete Time: 21:03 [facility] 07/24 21:03 Interpretation: Normal except: MCV 96.0; MPV 7.1. 07/24 18:53 Order name: LFT's; Complete Time: 21:03 [facility] 07/24 21:06 Interpretation: Normal except: AST 44; ALK 133; BILID 0.4; ALB 3.0; GLOB 3.5; A/G 0.9. 07/24 18:53 Order name: Magnesium; Complete Time: 21:03 [facility] 07/24 18:53 Order name: NT PRO-BNP; Complete Time: 21:03 [facility] 07/24 21:06 Interpretation: NT PRO-BNP 691; Reviewed. 07/24 18:53 Order name: PT-INR; Complete Time: 21:03 [facility] 07/24 18:53 Order name: Troponin (emerg Dept Use Only); Complete Time: 21:03 [facility] 07/24 21:07 Interpretation: Reviewed. cp 07/24 18:53 Order name: XRAY Chest (1 view); Complete Time: 21:03 [facility] 07/24 18:53 Order name: EKG; Complete Time: 18:55 ma2 07/24 18:53 Order name: Cardiac monitoring; Complete Time: 19:41 ma2 07/24 18:53 Order name: EKG - Nurse/Tech; Complete Time: 19:41 ma 07/24 18:54 Order name: Basic Metabolic Panel; Complete Time: 21:03 EDMI 07/24 21:07 Interpretation: Normal except: NA 128; CL 92; GLUC 66; CRE 0.54. cp 07/24 18:53 Order name: IV Saline Lock; Complete Time: 19:46 ma2 07/24 18:53 Order name: Labs collected and sent; Complete Time: 19:46 ma2 07/24 18:53 Order name: O2 Per Protocol; Complete Time: 19:29 ma2 07/24 18:53 Order name: O2 Sat Monitoring; Complete Time: 19:29 ma2 EC:35 Rate is 59 beats/min. Rhythm is regular. OH interval is normal. QRS interval is normal. cp QT interval is normal. T waves are Inverted in leads aVL, aVR. Interpreted by me. Reviewed by me. Administered Medications: 18:54 Not Given (Physician Discretion): Lasix 40 mg IVP once; please give IM, no need for IV bp Disposition: 07/25/19 21:12 Discharged to Home. Impression: Edema, unspecified - bilateral lower extremities. - Condition is Stable. - Discharge Instructions: Peripheral Edema. - Prescriptions for Lasix 20 mg Oral Tablet - take 1 tablet by ORAL route once daily; 20 tablet. - Medication Reconciliation Form, Thank You Letter, Antibiotic Education, Prescription Opioid Use form. - Follow up: Private Physician; When: Tomorrow; Reason: Continuance of care. Addendum: 08/03/2019 13:16 Co-signature as Attending Physician, Gentry Diaz MD. m a2 Signatures: Dispatcher [employer] Shantel Hanks RN RN iw Gurwinder Phillips PA PA Neri Cherry Gentry Diaz MD MD ma2 Jono Dominguez RN bp Corrections: (The following items were deleted from the chart) 07/24 18:03 18:02 Home Meds: divalproex oral oral; iw iw 19:16 19:16 Normal except: NA 129; CL 93; CRE 0.49; ALK 119; ALB 2.7; TP 5.7; CA 8.3. cp cp 21:35 21:12 07/25/2019 21:12 Discharged to Home. Impression: Edema, unspecified - bilateral wh lower extremities. Condition is Stable. Discharge Instructions: Peripheral Edema. Prescriptions for Lasix 20 mg Oral Tablet - take 1 tablet by ORAL route once daily; 20 tablet. and Forms are Medication Reconciliation Form, Thank You Letter, Antibiotic Education, Prescription Opioid Use. Follow up: Private Physician; When: Tomorrow; Reason: Continuance of care. cp
[2019-07-25 22:03] VITALS: TEMP 97.6
[2019-07-25 22:06] VITALS: BP 128/82; O2SAT 98
== END 2019-07-25 21:35 | disposition home or self-care (01) ==
LOC: ER 17:44
DX: R60.0 Localized edema (principal); F17.210 Nicotine dependence, cigarettes, uncomplicated; G43.909 Migraine, unspecified, not intractable, without status migrainosus
CPT/HCPCS: 36415; 71045; 80048; 80053; 80076; 83735; 83880; 84484; 85025; 85610; 93005; 99284

== ENCOUNTER 2020-10-07 18:09 | Inpatient (IN) | payer OTHER ==
--- OUTSIDE RECORDS SUMMARY | 2020-10-07 18:13 | XMS REPORT | Continuity of Care Document ---
:1945 Author Organization [facility] t Address [address] [place] [address] Care Team Providers Name Role Phone Shahzad Griffiths Attending Clinician Howard Cristobal MD Attending Clinician Zoë XAVIER Attending Clinician Carlitos Bey MD Attending Clinician Antelmo Love Sr Attending Clinician Howard Cristobal MD Admitting Clinician Antelmo Love Sr Admitting Clinician Problems Condition Condition Condition Status Onset Resolution Last Treating Co mments Source Name Details Category Date Date Treatment Clinician Date Headache Problem Active 2020-08-13 Mem oria (finding) 08-18 01:56:59 l Headache 00:00: Madhav n (finding) 00 Active 08/19/2015 Problem 08/13/2020 [facility] Low back Problem Active 2020-08-13 Mem oria pain 08-18 01:56:59 l (disorder) Low back 00:00: He rmann pain 00 (disorder) Active 08/19/2015 Problem 08/13/2020 [facility] MORBID Diagnosis Active 2013-022014-02-18 Mem oria OBESITY - 21:53:00 l MORBID 00:00: [place] OBESITY 00 Active 01/19/2014 [facility] BDDC - EGD Diagnosis Active 2013-03-14 Memoria 03-11 08:53:00 l BDDC - 00:00: [place] EGD 00 Active 03/11/2013 [facility] Final: Problem 2014-02-14 Memor ia 19:32:05 l Final: [place] 02/14/2014 [facility] Obesity Problem Resolve 2020-08-13 Mem oria (disorder) d 01:56:59 l Obesity [place] (disorder) Resolved Problem 08/13/2020 [facility] Tremor Problem Resolve 2020-08-13 Devaughn samuel (finding) d 01:56:59 l Tremor [place] (finding) Resolved Problem 08/13/2020 [facility] Hyponatrem Problem Active 2020-08-13 M emoria ia 01:56:59 l (disorder) Madhav n Hyponatrem ia (disorder) Active Problem 08/13/2020 [facility] Migraine Problem Active 2020-08-13 Mem oria (disorder) 01:56:59 l Migraine Madhav n (disorder) Active Problem 08/13/2020 [facility] Heart Problem Active 2020-08-13 Memor ia murmur 01:56:59 l (finding) Heart Madhav n murmur (finding) Active Problem 08/13/2020 [facility] Pain Problem Active 2020-08-13 Memor ia (finding) 01:56:59 l Pain [place] (finding) Active Problem 08/13/2020 [facility] Pulmonary Problem Active 2020-08-13 Me moria hypertensi 01:56:59 l on [place] (disorder) Pulmonary hypertensi on (disorder) Active Problem 08/13/2020 [facility] Radial Problem Active 2020-08-13 Memor ia neuropathy 01:56:59 l (disorder) Radial Herm cherry neuropathy (disorder) Active Problem 08/13/2020 [facility] Transforme Problem Active 2020-08-13 M emoria d migraine 01:56:59 l (disorder) Madhav n Transforme d migraine (disorder) Active Problem 08/13/2020 [facility] Paresthesi Problem Active 2020-08-13 M emoria a of hand 01:56:59 l (finding) [place] Paresthesi a of hand (finding) Active Problem 08/13/2020 [facility] ESOPHAGEAL Diagnosis Active 2013-03-14 Memoria REFLUX 08:53:00 l [place] ESOPHAGEAL REFLUX Active [facility] MORBID Diagnosis Active 2014-02-18 Mem oria OBESITY 21:53:00 l MORBID [place] OBESITY Active [facility] Allergies, Adverse Reactions, Alerts This patient has no known allergies or adverse reactions. Social History Smoking Status Start Date Stop Date Source Social History 2020-08-10 20:36:35 [facility] [place] Medications Ordered Filled Start Stop Current Ordering Indication Dosage Frequency Signature Comments Components Source Medication Medication Date Date Medication? Clinician (SIG) Name Name 1 ML Yes 140 mg, Memoria erenumab-ao 2-10 SUB-Q, l oe 140 22:46: qMonth, # Madhav n MG/ML 00 1 ea, 3 Auto-Inject Refill(s), or Pharmacy: [[place]] [facility], 152.4, cm, 12/31/19 14:51:00 [employer], Height, 40.909, kg, 12/31/19 14:51:00 [employer], Weight 1 ML 2019-02 Yes 140 mg, Memoria erenumab-ao -18 SUB-Q, l oe 140 21:16: qMonth, # Madhav n MG/ML 00 1 ea, 3 Auto-Inject Refill(s), or Pharmacy: [[facility]] [facility] [place], 152.4, cm, 12/31/19 14:51:00 [employer], Height, 40.909, kg, 12/31/19 14:51:00 [employer], Weight 24 HR Yes = 1 tab, Memoria Divalproex 07-21 PO, l Sodium 500 19:21: Bedtime, # H ermann MG Extended 00 30 ea, 4 Release Refill(s), Tablet Pharmacy: [facility] [place] Acetaminoph Yes 15 mL, PO, Memoria en 24 MG/ML 02-12 Q4H, as l / Codeine 13:31: needed for He rmann Phosphate 00 pain, # 2.4 MG/ML 480 mL, 0 Oral Refill(s) Solution Ondansetron Yes Special Mem oria 4 MG 02-12 Instructio l Disintegrat 13:31: ns: Madhav n ing Tablet 00 Dissolve [Zofran] tab under tongue Hydromorpho 2013-02 No Notes: Devaughn samuel ne (Same as: l 18:00: Dilaudid) pneumococca 2013-02 No Notes: Devaughn samuel l capsular 2-31 (Same as: l polysacchar 15:00: Pneumovax H ermann sandeep type 1 00 23) vaccine / Refrigerat pneumococca e l capsular polysacchar sandeep type 10A vaccine / pneumococca l capsular polysacchar sandeep type 11A vaccine / pneumococca l capsular polysacchar sandeep type 12F vaccine / pneumococca l capsular polysacchar Lovenox 2013-02 No Notes: Memoria 2-30 (Same as: l 15:00: Lovenox) Acetaminoph 2013-02 No Notes: Devaughn samuel en 24 MG/ML 2-30 (acetamino l / Codeine 12:59: phen-codei He rmann Phosphate 00 ne 120-12 2.4 MG/ML mg/5 ml Oral oral liq) Solution Do not exceed 4gm/day of acetaminop hen. (Same as: Tylenol w/Codeine) Ofirmev 2013-02 No Notes: Memoria 2-30 Infuse l 12:00: over 15 minutes Do not exceed 4gm/day of acetaminop hen Zofran 2013-02 No Notes: Memoria 2-30 (Same as: l 08:29: Zofran) gabapentin 2013-02 No Notes: Memor ia 600 MG Oral 2-29 (Same as: l Tablet 23:00: Neurontin) Methadone 2013-02 No Notes: Memori a 2-29 (Same as: l 21:43: Dolophine) Hydromorpho 2013-02 No 1 mg, Memor ia ne 2- Route: IV, l 21:20: Drug form: INJ, Q10Min, Dosing Weight 77.318, kg, PRN as needed for pain, Start date: 02/09/14 15:20:00, Duration: 2 doses or times, Stop date: Limited # of times Ondansetron 2013-02 No 4 mg, Memor ia 2-29 Route: l 20:47: IVP, ONCE, Dosing Weight 77.318, kg, PRN Nausea & Vomiting, Start date: 02/09/14 14:47:00 Labetalol 2013-02 No 10 mg, 2 Devaughn samuel 2-29 mL, Route: l 20:47: IVP, Drug form: INJ, Q5Min, Dosing Weight 77.318, kg, PRN Elevated BP, Start date: 02/09/14 14:47:00, Duration: 5 doses or times, Stop date: Limited # of times Hydralazine 2013-02 No Notes: Devaughn samuel 2-29 (Same as: l 20:47: Apresoline ) Push over 5 minutes Flumazenil 2013-02 No Notes: Memor ia 2- (Same as: l 20:47: Romazicon) [place] 00 Naloxone 2013-02 No Notes: Memoria 2-29 Same as l 20:47: Narcan Hydromorpho 2013-02 No 0.5 mg, Mem oria ne Route: l 20:47: IVP, [place] 00 Q5Min, Dosing Weight 77.318, kg, PRN Pain Score 7-10, Start date: 02/09/14 14:47:00, Duration: 4 doses or times, Stop date: Limited # of times Hydromorpho 2013-02 No Notes: Devaughn samuel ne - (Same as: l 20:30: Dilaudid) conc = 0.5 mg/ml Hydromorph one [employer]STER Dose: ;Delay: ;Basal: Naloxone 2013-02 No Notes: Memoria 2-29 Same as l 20:10: Narcan LR IV 1,000 2013-02 No 1,000 mL, M emoria mL Rate: 100 l 20:07: ml/hr, [place] 00 Infuse over: 10 hr, Route: IV, Dosing Weight 77.318 kg, Total Volume: 1,000, Start date: 02/09/14 14:07:00, Duration: 30 day, Stop date: 03/11/14 14:06:00 Cefoxitin 2013-02 No 1 gm, Memoria Route: l 19:48: IVPB, [place] ONCE, Dosing Weight 77.318, kg, Start date: 02/09/14 13:48:00, Stop date: 02/09/14 13:48:00 scopolamine 2013-02 No Notes: Devaughn samuel 2-29 Change l 17:00: patch [place] 00 every 72 hours (Same as: Transderm- Scop) heparin 2013-02 No Notes: Memoria 2-29 porcine l 17:00: heparin [place] 00 Ofirmev 2013-02 No Notes: Memoria 2-29 Infuse l 17:00: over 15 [place] 00 minutes Do not exceed 4gm/day of acetaminop hen Mefoxin 2013-02 No Notes: Memoria 2-29 (Same As: l 17:00: Mefoxin) [place] 00 temazepam 2013-02 Yes 15 mg = 1 Mem oria 15 mg oral 2-17 cap, PO, l capsule 18:40: Bedtime, Madhav n 00 Sleep, 0 Refill(s) gabapentin 2013-02 Yes 600 mg = 1 M emoria 600 MG Oral 2-17 tab, PO, l Tablet 18:39: TID, # 270 [place] 00 tab, 0 Refill(s) Hydromorpho 2013-02 Yes PO, Q6H, 0 Memoria ne 2-17 Refill(s) l Hydrochlori 18:39: Madhav n de 8 MG 00 Oral Tablet [Dilaudid] Immunizations Ordered Immunization Filled Immunization Date Status Commen ts Source Name Name pneumococcal 2014-02-12 Completed [facility] 23-valent vaccine 16:30:00 [place] Vital Signs Vital Name Observation Time Observation Value Comments Source Systolic (mm Hg) 2020-08-10 20:35:00 Devaughn rial [place] Diastolic (mm Hg) 2020-08-10 20:35:00 [facility] orial [place] Heart Rate 2020-08-10 20:35:00 [facility] [place] Respitory Rate 2020-08-10 20:35:00 Memori al [place] Height 2020-08-10 20:35:00 [facility] Weight 2020-08-10 20:35:00 [facility] [place] BMI Calculated 2020-08-10 20:35:00 Memori al [place] Systolic (mm Hg) 2019-12-31 20:51:00 Devaughn rial [place] Diastolic (mm Hg) 2019-12-31 20:51:00 Mem orial [place] Heart Rate 2019-12-31 20:51:00 [facility] [place] Respitory Rate 2019-12-31 20:51:00 Memori al [place] Height 2019-12-31 20:51:00 152.4 cm [facility] [place] Weight 2019-12-31 20:51:00 [facility] [place] BMI Calculated 2019-12-31 20:51:00 Memori al [place] Systolic (mm Hg) 2019-07-22 19:06:00 Devaughn rial [place] Diastolic (mm Hg) 2019-07-22 19:06:00 Mem orial [place] Heart Rate 2019-07-22 19:06:00 [facility] [place] Respitory Rate 2019-07-22 19:06:00 Memori al [place] Temperature Oral (F) 2019-07-22 19:06:00 97.8 F [facility] [place] Height 2019-07-22 19:06:00 152.4 cm [facility] [place] Weight 2019-07-22 19:06:00 [facility] [place] BMI Calculated 2019-07-22 19:06:00 Memori al [place] Systolic (mm Hg) 2014-02-12 14:22:00 Devaughn rial [place] Diastolic (mm Hg) 2014-02-12 14:22:00 Mem orial [place] Heart Rate 2014-02-12 14:22:00 [facility] [place] Temperature Oral (F) 2014-02-12 14:22:00 99.0 F [facility] [place] Respitory Rate 2014-02-12 14:22:00 Memori al [place] Diastolic (mm Hg) 2014-02-12 10:43:00 Mem orial [place] Systolic (mm Hg) 2014-02-12 10:43:00 Devaughn rial [place] Respitory Rate 2014-02-12 10:43:00 Memori al [place] Heart Rate 2014-02-12 10:43:00 [facility] [place] Temperature Oral (F) 2014-02-12 10:43:00 99.3 F [facility] [place] Respitory Rate 2014-02-12 05:36:00 Memori al [place] Heart Rate 2014-02-12 05:36:00 [facility] [place] Systolic (mm Hg) 2014-02-12 05:36:00 Devaughn rial [place] Diastolic (mm Hg) 2014-02-12 05:36:00 Mem orial [place] Temperature Oral (F) 2014-02-12 05:36:00 98.6 F [facility] [place] BMI Calculated 2014-02-10 02:49:00 Memori al [place] Weight 2014-02-10 02:49:00 [facility] [place] Height 2014-02-10 02:49:00 149.8 cm [facility] [place] Weight 2014-02-09 16:39:00 Amira Aguilarann BMI Calculated 2014-02-09 16:39:00 Roger hari Tang Height 2014-01-28 20:58:00 149.86 cm [facility] [place] Procedures Procedure Date / Time Performed Performing Clinician Sourc e [facility] Bl[facility] [place] nn Breast reduction, [facility] [place] nn bilateral [facility]sterectomy [facility] Encounters Start End Encounter Admission Attending Care Care Encounter Source Date/Time Date/Time Type Type Clinicians Facility Department ID 2020-11-10 2020-11-10 Outpatient MHIE MHIE [id number] Memoria 14:00:00 14:00:00 11 radha [place] 2020-08-10 2020-08-11 Outpatient nullFlavo MNA [id number] Memoria 20:15:00 04:59:59 r Neurology 10 l Reggie Tang 2020-08-10 2020-08-10 Outpatient ARLETH GriffithsNDSCHER MISCHER [id number] 15:15:00 23:59:59 Wademaryellen Pike 2020-08-10 2020-08-10 Outpatient MHIE MHIE [id number] Memoria 15:15:00 15:15:00 10 radha [place] 2020-05-25 2020-05-27 Outside nullFlavo MNA [id number] Memoria 13:59:20 04:59:59 Medical r Neurology 03 l Records Reggie Tang 2020-05-25 2020-05-26 Outpatient MHMISCHER MHMISCHER [id number] 08:59:20 23:59:59 03 2020-05-21 2020-05-23 Outside nullFlavo MNA [id number] Memoria 19:28:13 04:59:59 Medical r Neurology 02 l Records [place] 2020-05-21 2020-05-22 Outpatient MHMISCHER MHMISCHER [id number] 14:28:13 23:59:59 02 2020-05-03 2020-05-05 Outside nullFlavo MNA [id number] Memoria 13:10:15 04:59:59 Medical r Neurology 01 l Records [place] 2020-05-03 2020-05-04 Outpatient MHMISCHER MHMISCHER [id number] 08:10:15 23:59:59 01 2020-04-01 2020-04-02 Outpatient nullFlavo MNA [id number] Memoria 21:45:00 05:59:59 r Neurology 09 l Reggie Aguilarann 2020-04-01 2020-04-01 [id number] 15:45:00 23:59:59 Wade 09 Shahzad 2020-04-01 2020-04-01 Outpatient MHIE MHIE [id number] Memoria 15:45:00 15:45:00 09 radha [place] 2019-12-31 2020-01-01 Outpatient nullFlavo MNA [id number] Memoria 20:30:00 05:59:59 r Neurology 08 l [place] 2019-12-31 2019-12-31 Outpatient HYACINTH Griffiths NOHEMISCHER [id number] 14:30:00 23:59:59 Wade 08 Shahzad 2019-12-31 2019-12-31 Outpatient MHIE MHIE [id number] Memoria 14:30:00 14:30:00 08 l [place] 2019-08-20 2019-08-20 Ambulatory nullFlavo MNA [id number] Memoria 18:45:00 18:45:00 Pre-Reg r Neurology 07 l [place] 2019-08-20 2019-08-20 Ambulatory nullFlavo MNA [id number] Memoria 18:45:00 18:45:00 Pre-Reg r Neurology 06 l [place] 2019-08-20 2019-08-20 Outpatient MHIE MHIE [id number] Memoria 13:45:00 13:45:00 07 radha [place] 2019-08-20 2019-08-20 Outpatient MHIE MHIE [id number] Memoria 13:45:00 13:45:00 06 l [place] 2019-08-20 2019-08-20 Outpatient SILVANO GriffithsSCHSHAQUILLE NOHEMISCHER [id number] 13:45:00 13:45:00 Wade 06 Shahzad 2019-08-20 2019-08-20 Outpatient HYACINTH GriffithsNDSCHER [id number] 13:45:00 13:45:00 Wade 07 [facility] 2019-07-22 2019-07-23 Outpatient nullFlavo MNA [id number] Memoria 18:30:00 04:59:59 r Neurology 05 l Reggie Tang 2019-07-22 2019-07-22 [id number] 13:30:00 23:59:59 Wade 05 [facility] 2019-07-22 2019-07-22 Outpatient MHIE MHIE [id number] Memoria 13:30:00 13:30:00 05 radha [place] 2019-06-24 2019-06-24 [facility] [id number] 14:08:00 23:59:00 Encounter Maikel Simons [id number] [place] [id number] [facility] [id number] 2019-05-22 2019-05-23 Outpatient nullFlavo MNA [id number] Memoria 20:00:00 04:59:59 r Neurology 04 l [place] 2019-05-22 2019-05-22 [facility] [id number] 15:00:00 23:59:59 Wade 04 [facility] 2019-05-22 2019-05-22 Outpatient MHIE MHIE [id number] Memoria 15:00:00 15:00:00 04 radha [place] 2019-04-28 2019-04-[id number] 06:14:00 08:20:00 Encounter Maikel Simons [id number] [place] [id number] [facility] [id number] 2019-04-28 2019-04-28 Anesthesia Jono Camp [facility] [id number] 07:29:00 07:52:00 Azam Bey [id number] [place] [id number] [facility] [id number] [place] [address] 2017-12-25 2017-12-25 Ambulatory nullFlavo MNA [id number] Memoria 19:45:00 19:45:00 Pre-Reg r Neurology 03 l [place] 2017-12-25 2017-12-25 Outpatient MHIE IE [id number] Memoria 13:45:00 13:45:00 03 radha [place] 2017-12-25 2017-12-25 Outpatient HYACINTH Griffiths MISCHER [id number] 13:45:00 13:45:00 Wade Jyotsna Shahzad 2017-09-25 2017-09-25 Outpatient MHIE MHIE [id number] Memoria 14:00:00 14:00:00 02 radha Tang 2017-05-23 2017-05-23 Outpatient MHIE MHIE [id number] Memoria 14:15:00 [facility]:15:[facility] 2017-[facility]10 2017-04-10 Outpatient MHIE MHIE [id number] Memoria 14:45:00 14:45:00 00 [facility] 2014-02-09 2014-02-12 Inpatient nullFlavo [facility] [id number] Memoria 15:19:00 17:00:00 r [place] [facility] 2014-02-09 2014-02-12 Outpatient Love, [id number]. [id number] 09:19:00 11:00:00 Brennan Rodriges [id number] 2013-03-14 MARIANNE nullFlavo [facility] [id number] Memoria 08:42:00 14:00:00 r [facility] 00 l [facility] Results Test Description Test Time Test Comments Results Result Comments Source CHEM PANEL 2014-02-12 95 [facility] [place] 11:07:00 CHEM PANEL 2014-02-12 0.6 [facility] [place] 11:07:00 CHEM PANEL 2014-02-12 3.9 [facility] [place] 11:07:00 CHEM PANEL 2014-02-12 140 [facility] [place] 11:07:00 CHEM PANEL 2014-02-12 8.9 [facility] [place] 11:07:00 CHEM PANEL 2014-02-12 103 [facility] [place] 11:07:00 CHEM PANEL 2014-02-12 26 [facility] [place] 11:07:00 CHEM PANEL 2014-02-12 87 [facility] [place] 11:07:00 CHEM PANEL 2014-02-12 6 [facility] [place] 11:07:00 CHEM PANEL 2014-02-12 14.9 [facility] [place] 11:07:00 HEMATOLOGY 2014-02-12 86.3 [facility] [place] 11:07:00 HEMATOLOGY 2014-02-12 6.1 [facility] [place] 11:07:00 HEMATOLOGY 2014-02-12 7.2 [facility] [place] 11:07:00 HEMATOLOGY 2014-02-12 0.7 [facility] [place] 11:07:00 HEMATOLOGY 2014-02-12 0.3 [facility] [place] 11:07:00 HEMATOLOGY 2014-02-12 0.1 [facility] [place] 11:07:00 HEMATOLOGY 2014-02-12 0.8 [facility] [place] 11:07:00 HEMATOLOGY 2014-02-12 9.9 [facility] [place] 11:07:00 HEMATOLOGY 2014-02-12 86.3 [facility] [place] 11:07:00 HEMATOLOGY 2014-02-12 39.3 [facility] [place] 11:07:00 HEMATOLOGY 2014-02-12 9.6 [facility] [place] 11:07:00 HEMATOLOGY 2014-02-12 171 [facility] [place] 11:07:00 HEMATOLOGY 2014-02-12 11:07:00 Test Item Value Reference Range Interpretation Comme nts MCH (test code = MCH) 29.6 pg 27.0-31.0 Memorial JwgvzzeZUGQKKQAEB4196-52-60 11:07:0015.2[facility]annHEMATOLOGY 2014-02-12 11:07:0034.3[facility] OhjeryoGMLBUNCJYV9491-98-20 11:07:0011.5[facility] AlnwqcbBZMEJUBNJU2085-99-64 11:07:004.55[facility] KrtrcpyZRLYAYPVQD6988-24-42 11:07:0013.5[facility] EwjulwcHCADTLQMFA3932-98-80 21:21:0034.3[facility] [place] RRQTJCKSDA7848-42-52 21:21:0041.9[facility] TkdwsypFUTEMQOMBT5234-93-56 21:21:00 14.4[facility] GgkqapgKSNIJCWSIE0840-22-13 21:21:0015.1[facility]ann[facility]MATOLOGY 2014-02-11 21:21:0086.7[facility] FzjtdmwWVWPNZRDYY0905-44-74 21:21:00 Test Item Value Reference Range Interpretation Comments MCH (test code = MCH) 29.7 pg 27.0-31.0 Memorial EyuchfdWZTUSDPZKD3539-25-85 21:21:009.4[facility] HermannHEMATOLOGY 2014-02-11 21:21:00270Uhjfgaff KfaomrsXBTUSBEWKC3958-48-91 21:21:0014.7[facility] NdcizwlPTGREATDMU9940-53-80 21:21:004.83[facility] JkuohslBUTVVUETPJ1811-35-31 21:21:004.7[facility] TleigppYQAKQARYXT8711-15-55 21:21:0013.2[facility] [place] VUCUOKRPIJ8352-22-11 21:21:000.7[facility] QjzuqtlEMSFGBIIJR2847-66-99 21:21:000.7 Memorial MvxfptaNLRDFOBXMR2762-10-20 21:21:005.1[facility]annHEMATOLOGY 2014-02-11 21:21:000.2[facility] HyhluyzPTSITVZZAA4391-29-69 21:21:0090.0[facility] WwpmtwlMYYCXMOXZERP8396-34-80 11:45:0011.7[facility] EnpjdvxAEQEOTZKQBET1647-36-72 11:45:0090[facility] RatamlqGKXIDAGDUSOZ2713-61-97 11:45:009.1[facility] [place] WZJEIQJSSLXH0335-71-69 11:45:0027[facility] LpvmtxkAVCHGETMGVUP3373-14-21 11:45:00 98[facility] ChayzijVAZLQZCBSQKN9052-12-63 11:45:003.7[facility] HermannELECTROLYTES 2014-02-11 11:45:14755Dtuxveqf MdndbhsCRZDLKUSROHM1225-06-26 11:45:000.7[facility] SlgqvqkEUGBRTIEPMFR6679-15-31 11:45:006[facility] XiqpwrvZKPGBJVXODHB5966-64-06 11:45:0086Mem[facility] CtbszlgNIFEMNDQPI9165-95-33 11:45:005.2[facility] [place] QEZRJNAPKG6503-16-04 11:45:008.4[facility] ZefbtxzLWRWSSUCYZ6603-98-52 11:45:000.8 [facility] SnypdkvBPNUJVWCTF2840-17-29 11:45:0013.7[facility] HermannHEMATOLOGY 2014-02-11 11:45:001.3[facility] GbcziwfHDSBOKTKRC9488-27-69 11:45:000.1[facility] YcnlrmbXMNRJDEQAG9891-76-06 11:45:000.1[facility] MqanpmhRETRXSODWZ5971-80-20 11:45:0086.2[facility] YymnqnwQKVUSQJNMB2721-72-07 11:45:0014.5[facility] [place] ILEIWMYDBY3454-29-96 11:45:00 Test Item Value Reference Range Interpretation Comments MCH (test code = MCH) 29.4 pg 27.0-31.0 [facility] ZzdxydsFTQLYNONSR1011-82-26 11:45:0033.7[facility] HermannHEMATOLOGY 2014-02-11 11:45:0042.9[facility] XmxculiVICGCXVGTS6619-25-93 11:45:0087.2[facility] GhdssfkCGYXMXAYGM3001-41-37 11:45:95149Vgpedpev IfoomeaVGKEAWHTLS8238-82-63 11:45:0015.4[facility] TbagxonCSDLCGIZTW8210-37-45 11:45:009.6[facility] [place] LMXBLPJBWE8356-95-39 11:45:004.92[facility] HqliuxoDYGISNLPAM7608-83-99 11:45:00 15.9[facility] DldhthlFQUAUWFCWL0374-30-59 11:45:00 Test Item Value Reference Range Interpretation Comments PTT (test code = PTT) 34.0 s 22.9-35.8 [facility] HermannCHEM SSAFJ9742-77-24 11:20:0077[facility] HermannCHEM PANEL 2014-02-10 11:20:0027[facility] HermannCHEM ETXOS2662-30-26 11:20:008.6[facility] HermannCHEM ZBLKA8079-06-13 11:20:02658Kyfwunph HermannCHEM GEWKW4074-68-55 11:20:0099[facility] HermannCHEM LOALK7036-01-54 11:20:30794Njbdrqyb HermannCHEM TJOIY0630-89-64 11:20:000.8[facility] HermannCHEM TUNIN8119-54-57 11:20:0010 [facility]annCHEM KRXJH5883-91-71 11:20:004.0[facility] HermannCHEM PANEL 2014-02-10 11:20:0012.0[facility] HermannBLOOD BANK TMPMBOJ0426-30-72 16:49:00 Negative (02/09/14 10:49 AM)[facility] HermannCHEM VJHLU6392-37-23 18:45:003.8 [facility] HermannCHEM WHOPT6389-44-52 18:45:0014[facility] HermannCHEM PANEL 2014-01-28 18:45:99230Iofennjx HermannCHEM HYKTF0861-71-29 18:45:000.3[facility] HermannCHEM CDPTT0421-60-70 18:45:0018[facility] HermannCHEM VULNX5756-13-29 18:45:007.0[facility] HermannCHEM WNHMV4995-04-67 18:45:001.2[facility] HermannCHEM VQVDL7876-49-94 18:45:0020[facility] HermannCHEM ECBJB7713-83-15 18:45:003.2 Memorial TynwpuqQFCEMJVASW7683-96-75 18:45:002.2[facility] HermannHEMATOLOGY 2014-01-28 18:45:000.1[facility] GfrbzwsSCHSMRTWML4006-01-95 18:45:000.2[facility] HermannSPECIAL IVLCJPUGV9367-26-19 18:45:005.5[facility] HermannURINE AND STOOL 2014-01-28 18:45:00Negative (01/28/14 12:45 PM)[facility] ST[facility]OL 2014-01-28 18:45:00Negative (01/28/14 12:45 PM)[facility] 2014-01-28 18:45:001[facility] AND [id number] 18:45:001.018 [facility] [id number] 18:45:005.5[facility] AND [id number] 18:45:00Yellow *NA*(01/28/14 12:45 PM)[facility]ann[facility] [id number] 18:45:00Clear (01/28/14 12:45 PM)[facility] ST[facility]OL 2014-01-28 18:45:00Negative (01/28/14 12:45 PM)[facility] HermannURINE AND STOOL 2014-01-28 18:45:00Negative *NA*(01/28/14 12:45 PM)[facility]
[2020-10-07] MEDS ORDERED: NA CHLORIDE 0.9% 1,000 ML ONE ×2 (19:08→21:42)
[2020-10-07 19:11] LABS: Absolute Lymphocytes (CBC) 0.9 K/uL (0.7-4.9); Basophils % 0.8 % (0-1.3); Hematocrit 29.8 % (36.0-45.0); Lymphocytes % 5.7 % (15.3-44.8); MPV 8.2 fL (7.6-11.3); RBC Red Blood Cell Count 3.08 M/uL (3.86-4.86)
[2020-10-07 19:13] LABS: Protime INR 1.13
[2020-10-07 19:47] LABS: Urine Blood 2+ (Negative); Urine Glucose Negative (Negative); Urine Protein 1+ (Negative)
--- NOTE | 2020-10-07 19:50 | RAD REPORT ---
EXAM DESCRIPTION: RAD - Chest Single View - 10/07/2020 7:39 pm CLINICAL HISTORY: fall COMPARISON: Chest Single View dated 07/25/2019; Chest Single View dated 01/21/2018; Chest Single View dated 01/06/2018; Chest Pa And Lat (2 Views) dated 04/26/2017 FINDINGS: No evidence of edema or pneumonia. The heart size is within normal limits.No acute osseous abnormality. No significant pleural effusions or pneumothorax. Emphysema. IMPRESSION: No acute cardiopulmonary disease.
[2020-10-07 20:16] LABS: Blood Morphology Comment NOT SEEN (NOT SEEN); Platelet Estimate ADEQ; White Blood Cell Scan OK (OK)
[2020-10-07] MEDS ORDERED: CEFEPIME/SWI 1gm 10 ML ONE (20:22)
[2020-10-07 20:23] LABS: ALT/SGPT 25 U/L (12-78); AST/SGOT 23 U/L (15-37); Alkaline Phosphatase 126 U/L (45-117); BUN Blood Urea Nitrogen 30 mg/dL (7-18); Bicarbonate 25 mmol/L (21-32); Bilirubin Direct 0.3 mg/dL (0-0.2); Bilirubin Total 0.4 mg/dL (0.2-1.0); Glucose Level 202 mg/dL (74-106); Magnesium 2.3 mg/dL (1.8-2.4); NT PRO-BNP 623 pg/mL (<125); Potassium 3.9 mmol/L (3.5-5.1); Protein, Total 4.6 g/dL (6.4-8.2); Sodium Level 138 mmol/L (136-145); Troponin (Emerg Dept Use Only) < 0.02 ng/mL (0.0-0.045)
[2020-10-07] MEDS ORDERED: VANCOMYCIN 1 GM/VIAL ONE (20:25)
[2020-10-07] MEDS ORDERED: NA CHLORIDE 0.9% 500 ML ONE (20:30)
[2020-10-07 20:40] LABS: Urine Bacteria >50 /HPF (<20); Urine Mucus 2+ /HPF (NONE SEEN); Urine RBC >50 /HPF (NONE SEEN)
--- NOTE | 2020-10-07 20:57 | RAD REPORT ---
EXAM DESCRIPTION: CT - Head C Spine Cap Wo Con - 10/07/2020 8:44 pm CLINICAL HISTORY: Trauma, head and neck injury. Chest, abdomen and pelvis pain. found down, no details COMPARISON: No comparisons TECHNIQUE: CT head without contrast. CT cervical spine without contrast with coronal and sagittal reformatted images. CT chest, abdomen and pelvis without contrast with coronal and sagittal reformatted images of the spi ne. All CT scans are performed using dose optimization technique as appropriate and may include automated exposure control or mA/KV adjustment according to patient size. FINDINGS: CT HEAD WITHOUT CONTRAST: No intracranial hemorrhage, hydrocephalus or extra-axial fluid collection. No areas of brain edema o r midline shift. The paranasal sinuses and mastoids are clear. The calvarium is intact. CT CERVICAL SPINE WITHOUT CONTRAST: No fracture or subluxation. The prevertebral soft tissues are normal in thickness.Multilevel cervica l spondylosis noted. 9 millimeter right thyroid nodule. CT CHEST, ABDOMEN, PELVIS WITHOUT CONTRAST: NOTE: Lack of contrast is a significant limitation in the assessment of trauma related findings. Spec ifically, solid organ, vascular and bowel evaluation is significantly limited. The lungs are clear.No pneumothorax or pericardial/pleural fluid. Emphysema. No evidence of intra-abdominal visceral injury, free fluid or free air is seen within the above detai led limitations. Pain pump in the right lower quadrant abdominal wall. There is some fluid around the reservoir. . . Distended gallbladder which is otherwise nonspecific. Nonobstructing stones in the ri ght kidney. No bowel obstruction. Nation catheter is present within the bladder. Hysterectomy. Diverti culosis. No evidence of acute diverticulitis. Fusion hardware at L4-5. Multilevel degenerative disc disease is noted. No acute fractures are seen. IMPRESSION: Negative for acute traumatic findings within the above detailed limitations. Incidental findings as noted above.
--- NOTE | 2020-10-07 21:09 | ER ---
Nurse's Notes [facility] Name: Janki García Age: 75 yrs Sex: Female : 1945 Arrival Date: 10/07/2020 Time: 18:10 Bed 20 Private MD: Diagnosis: Severe sepsis with septic shock;UTI/ Urinary tract infection, site not specified Presentation: 10/07 18:29 Chief complaint: Patient states: s/p fall this morning around 0400, c/o RLE, LLE, L sv elbow pain, and +LOC. Care prior to arrival: None. Mechanism of Injury: Fall from standing position. Trauma event details: Injury occurred in the [facility], Injury occurred: at home. Injury occurred: October 07, 2020. 18:29 Method Of Arrival: Wheelchair sv 18:29 Acuity: KASI 1 sv 18:31 Coronavirus screen: Client denies travel out of the [place] in the last 14 days. At this sv time, the client does not indicate any symptoms associated with coronavirus-19. Ebola Screen: No symptoms or risks identified at this time. Risk Assessment: Do you want to hurt yourself or someone else? Patient reports no desire to harm self or others. Onset of symptoms was October 07, 2020. 20:36 Initial Sepsis Screen: Does the patient meet any 2 criteria? RR > 20 per min. Temp sh9 <36.0*C (96.8*F)) or > 38.3*C (100.9*F). Yes Does the patient have a suspected source of infection? No. Patient's initial sepsis screen is negative. Historical: - Allergies: 18:31 No Known Allergies; sv - PMHx: 20:37 fluid retention; Chronic pain; Migraines; sh9 - Immunization history:: Client reports receiving the 2nd dose of the Covid vaccine, Client reports receiving the 1st dose of the Covid vaccine. - Social history:: Smoking status: Patient reports the use of cigarette tobacco products, smokes one-half pack cigarettes per day. Screenin:08 Abuse screen: Denies threats or abuse. Nutritional screening: patient appears thin. ap3 Tuberculosis screening: No symptoms or risk factors identified. Fall Risk Fall in past 12 months (25 points). Secondary diagnosis (15 points) impaired mobility, IV access (20 points). Ambulatory Aid- None/Bed Rest/Nurse Assist (0 pts). Gait- Impaired (20 pts.). Mental Status- Oriented to own ability (0 pts). Total Blair Fall Scale indicates High Risk Score (45 or more points). Fall prevention measures have been instituted. Side Rails Up X 2 Placed Close to Nursing Station Frequent Obs/Assessments Occuring Family Present and informed to notify staff if the need to leave the bedside As available patient and family educated on Fall Prevention Program and Strategies. Primary Survey: 20:34 NO uncontrolled hemorrhage observed. Breathing/Chest: Respiratory pattern: regular, sh9 tachypnea, Respiratory effort: spontaneous, unlabored, gasping. Breathing/Chest: Respiratory effort:. Circulation: Cardiac rhythm: sinus rhythm. Disability Alert. Exposure/Environment: All clothing and personal items were removed. Forensic evidence collection is not deemed to be indicated at this time. Items placed in patient belonging bag. There is no evidence of uncontrolled external bleeding. Obvious injury(ies) are noted at this time: laceration to right knee, skin tear to left lower arm. Reassessment Breathing/Chest Respiratory pattern Regular Circulation Heart rhythm Sinus rhythm Disability Alert. Assessment: 19:00 Reassessment: patient was cleaned of soiled brief, placed in new brief and gown. . ap3 19:01 General: Appears distressed, uncomfortable, slender, unkempt, Behavior is flat. Pain: ap3 Complains of pain in head, pelvis, left arm, right leg and left leg Pain began suddenly, 0430 this morning. Neuro: Level of Consciousness is lethargic, Oriented to person, place, Take Off Worker are weak bilaterally Gait is unsteady. Cardiovascular: Capillary refill is sluggish. Respiratory: Airway is patent Respiratory effort is even. GI: Stools are reported to be loose, Last BM was October 07, 2020. sx scar present in the right quadrant. patients spouse reports recent pain pump insertion. Derm: Skin is pale, Skin temperature is cool Wound noted palmar aspect of left forearm Other: as well as multiple small abrasions. Vital Signs: 18:31 BP 58 / 31; Pulse 111; Resp 14; Temp 96.6; Weight 49.9 kg; Height 5 ft. 0 in. (152.40 sv cm); 19:07 BP 107 / 48; Pulse 95; Resp 21; Temp 95.7(C); Pulse Ox 100% on R/A; jl7 21:36 BP 93 / 38; Pulse 86; Resp 18; Temp 96.7; Pulse Ox 100% on R/A; sh9 21:59 BP 92 / 37; Pulse 90; Resp 18; Temp 96.5; Pulse Ox 100% on R/A; sh9 23:19 BP 98 / 47; Pulse 95; Resp 18; Temp 97.5; Pulse Ox 98% on R/A; Pain 0/10; sh9 18:31 Body Mass Index 21.48 (49.90 kg, 152.40 cm) sv Migue Coma Score: 20:36 Eye Response: spontaneous(4). Verbal Response: oriented(5). Motor Response: obeys sh9 commands(6). Total: 15. Trauma Score (Adult): 20:36 Eye Response: spontaneous(1); Verbal Response: oriented(1); Motor Response: obeys sh9 commands(2); Systolic BP: > 89 mm Hg(4); Respiratory Rate: 10 to 29 per min(4); [place] Score: 15; Trauma Score: 12 ED Course: 18:10 Patient arrived in ED. as 18:30 Triage completed. sv 18:31 Arm band placed on. sv 18:41 [facility] cp 18:41 Gurwinder Lee MD is Attending Physician. cp 19:01 Laura Doyle, RN is Primary Nurse. ap3 19:06 Attending Physician role handed off by Gurwinder Lee MD rn 19:06 Jair Sorensen MD is Attending Physician. rn 19:06 Inserted saline lock: 20 gauge in left forearm, using aseptic technique. Blood ap3 collected. 19:07 Inserted saline lock: 20 gauge in right antecubital area, using aseptic technique. ap3 19:07 Nation cath inserted, using sterile technique, 16 Fr., by nd, balloon inflated, to ap3 gravity drainage, Patient tolerated well. 19:07 Initial lab(s) drawn, by ED staff, sent to lab. First set of blood cultures drawn jl7 Second set of blood cultures drawn Urine collected: Nation catheter specimen, cloudy, katy colored, EKG done, by ED staff, reviewed by Jair Sorensen MD COVID swab sent to lab. 19:09 Patient has correct armband on for positive identification. Placed in gown. Bed in low ap3 position. Call light in reach. Side rails up X2. bus monitor on. Pulse ox on. NIBP on. Warm blanket given. 19:22 Gurwinder Lee MD is Attending Physician. [facility] 19:39 XRAY Chest (1 view) In Process Unspecified. EDMS 19:44 Jair Sorensen MD is Attending Physician. cp 19:54 Urine Microscopic Only Sent. sh9 20:38 Oxygen administration via nasal cannula \T\ 2L/min. sh9 20:39 No provider procedures requiring assistance completed. sh9 20:39 Thermoregulation: Susi blanket applied. sh9 20:44 Head C Spine Cap Wo Con In Process Unspecified. EDMS 21:08 David Matthew PA is Hospitalizing Provider. cp 21:21 Nain Chavez is Hospitalizing Provider. 22:00 Urine Culture Sent. [facility] 10/08 06:19 Primary Nurse role handed off by Laura Doyle RN 07:51 Kelsi Smart, JUSTO is Primary Nurse. tr6 Administered Medications: 10/07 19:08 Drug: NS 0.9% 1000 ml Route: IV; Rate: 1 bolus; Site: left antecubital; jl7 19:10 Drug: NS 0.9% 1000 ml Route: IV; Rate: 1 bolus; Site: right forearm; jl7 19:55 Drug: NS 0.9% (30 ml/kg) 30 ml/kg Route: IV; Rate: bolus; Site: left antecubital; [facility] 20:20 Drug: Cefepime 1 grams Route: IVPB; Rate: 200 ml/hr; Infused Over: 30 mins; Site: right 9 wrist; 20:20 Drug: vancoMYCIN 15 mg/kg Route: IVPB; Site: right wrist; 9 21:36 Drug: NS 0.9% 1000 ml Route: IV; Rate: 1000 ml; Site: left antecubital; [facility] 10/08 00:00 Drug: Lidocaine-Epinephrine -1%: (1:100,000) 10 ml {Note: Administred by mukund Jean Baptiste.} Volume: 20 ml; Route: Infiltration; 05:28 Drug: Calcium Gluconate 1 grams Route: IVPB; Infused Over: 60 mins; Site: right forearm;9 10/09 09:47 Not Given (SEE [facility] FOR FURTHER DOCUMENTATION): Levophed (norepinephrine) (4 mg/250 ss mL D5W 4 mcg/min IV at calculated rate Per protocol; (final concentration is 16 microgram/mL) 09:48 Not Given (SEE [facility] FOR FURTHER DOCUMENTATION): fentaNYL (PF) 25 mcg IVP once; RASS ss on ADMIN: Combtv4, Very Agttd3, Agttd2, Rstlss1, AlertClm0, Drwsy-1, Lt Sdtn-2, Mod Sdtn-3, Dp Sdtn-4, UnArsble-5 Intake: 10/07 20:38 IV: 2000ml (IV Fluid); Total: 2000ml. 9 Output: 20:38 Urine: 150ml (Nation); Total: 150ml. 9 Outcome: 20:37 Patient's length of stay was extended due to staffing issues within the emergency 9 department. 21:09 Decision to Hospitalize by Provider. olivia 10/10 12:24 Patient left the ED. tr6 Signatures: Dispatcher [employer] EDMS Alayna Fuller RN RN sv Anderson, Corey, MD MD cha Martinez, Amelia as Nieto, Roman, MD MD rn Smirch, Shelby, RN RN ss Page, Corey, PA PA cp Leal, Jahala, RN RN jl7 Laura Doyle RN RN ap3 Botello, Elizabeth eb Dibbern, Lauren, RN RN ld1 Kelsi Smart RN RN tr6 Tamie Painter RN RN sh9 Corrections: (The following items were deleted from the chart) 10/07 18:37 18:29 Acuity: KASI 3 sv sv 18:37 18:31 49.9 kg; Height 5 ft. 0 in.; BMI: 21.4; sv sv 19:11 19:09 Initial lab(s) drawn, by ED staff, sent to lab. First set of blood cultures drawn jl7 Second set of blood cultures drawn Urine collected: Nation catheter specimen, cloudy, katy colored, EKG done, by ED staff, reviewed by Jair Sorensen MD COVID swab sent to lab. ld1 19:11 19:10 NS 0.9% 1000 ml IV at 1 bolus in left antecubital ld1 jl7 19:12 19:07 BP 107 / 48; Pulse 95bpm; Resp 21bpm; Pulse Ox 100% RA; Temp 95.7F; ap3 7 20:38 18:31 PMHx: fluid retention; [facility] :38 18:31 PMHx: Chronic pain; [facility] 20:38 18:31 PMHx: Migraines; sv 9
--- NOTE | 2020-10-07 21:09 | EDPHYS ---
Physician Documentation [facility] Name: Janki García Age: 75 yrs Sex: Female : 1945 Arrival Date: 10/07/2020 Time: 18:10 Bed 20 Private MD: ED Physician Jair Sorensen HPI: 10/07 19:00 This 75 yrs old Female presents to ER via Wheelchair with complaints of Fall cp Injury. 19:00 Details of fall: The patient fell from an upright position, while walking. Onset: The cp symptoms/episode began/occurred this morning, approximately 0400. Associated injuries: The patient sustained right meraz, laceration. Patient brought to hospital via EMS after reported fall this morning at approximately 0400. Patient accompanied to the emergency department by who reports he found patient on the floor in the living room at about 530 this morning. Patient was unable to get up off the ground and crawled to the couch in the living room where she lay until being brought to the emergency department this evening. Patient believes she fell after tripping over a rug. Historical: - Allergies: 18:31 No Known Allergies; sv - PMHx: 20:37 fluid retention; Chronic pain; Migraines; sh9 - Immunization history:: Client reports receiving the 2nd dose of the Covid vaccine, Client reports receiving the 1st dose of the Covid vaccine. - Social history:: Smoking status: Patient reports the use of cigarette tobacco products, smokes one-half pack cigarettes per day. ROS: 19:05 Constitutional: Positive for poor PO intake, Negative for body aches, fever. cp 19:05 Eyes: Negative for injury, pain, redness, and discharge. cp 19:05 ENT: Negative for ear pain, sore throat, difficulty swallowing, difficulty handling secretions. 19:05 Cardiovascular: Negative for chest pain. 19:05 Respiratory: Negative for cough, shortness of breath, wheezing. 19:05 Abdomen/GI: Negative for abdominal pain, vomiting, diarrhea, constipation, black/tarry stool, rectal pain. 19:05 Skin: Positive for laceration(s), of the right meraz. 19:05 Neuro: Positive for weakness, Negative for altered mental status. 19:05 All other systems are negative. Exam: 19:07 ECG was reviewed by the Attending Physician. rn 19:10 Constitutional: The patient appears in no acute distress, alert, awake, cp non-diaphoretic, non-toxic, well developed, well nourished. 19:10 Head/Face: Normocephalic, atraumatic. cp 19:10 Eyes: Periorbital structures: appear normal, Pupils: equal, round, and reactive to light and accomodation, Extraocular movements: intact throughout, Conjunctiva: normal, no exudate, no injection, Sclera: no appreciated abnormality, Lids and lashes: appear normal, bilaterally. 19:10 ENT: External ear(s): are unremarkable, Ear canal(s): are normal, clear, TM's: dullness, bilaterally, Nose: is normal, Mouth: Lips: dry, Oral mucosa: moist, Posterior pharynx: Airway: no evidence of obstruction, patent. 19:10 Neck: C-spine: vertebral tenderness, is not appreciated, crepitus, is not appreciated, ROM/movement: limited range of motion, is not appreciated, Meningeal signs: are not present. 19:10 Chest/axilla: Inspection: normal, Palpation: is normal, no crepitus, no tenderness. 19:10 Cardiovascular: Rate: normal, Rhythm: regular, Edema: ankle edema, that is mild, JVD: is not appreciated. 19:10 Respiratory: the patient does not display signs of respiratory distress, Respirations: labored breathing, is not present, shallow respirations, that is mild, Breath sounds: decreased breath sounds, that are mild, throughout, stridor, is not appreciated, wheezing: is not appreciated. 19:10 Abdomen/GI: Inspection: abdomen appears normal, Bowel sounds: active, all quadrants, Palpation: soft, in all quadrants, nontender, in all quadrants, rebound tenderness, is not appreciated, involuntary guarding, is not appreciated. 19:10 Skin: injury, laceration(s), of the right meraz, that can be described as no foreign body, irregular, with mild bleeding. Vital Signs: 18:31 BP 58 / 31; Pulse 111; Resp 14; Temp 96.6; Weight 49.9 kg; Height 5 ft. 0 in. (152.40 sv cm); 19:07 BP 107 / 48; Pulse 95; Resp 21; Temp 95.7(C); Pulse Ox 100% on R/A; jl7 21:36 BP 93 / 38; Pulse 86; Resp 18; Temp 96.7; Pulse Ox 100% on R/A; sh9 21:59 BP 92 / 37; Pulse 90; Resp 18; Temp 96.5; Pulse Ox 100% on R/A; sh9 23:19 BP 98 / 47; Pulse 95; Resp 18; Temp 97.5; Pulse Ox 98% on R/A; Pain 0/10; sh9 18:31 Body Mass Index 21.48 (49.90 kg, 152.40 cm) sv Huntington Coma Score: 20:36 Eye Response: spontaneous(4). Verbal Response: oriented(5). Motor Response: obeys sh9 commands(6). Total: 15. Trauma Score (Adult): 20:36 Eye Response: spontaneous(1); Verbal Response: oriented(1); Motor Response: obeys sh9 commands(2); Systolic BP: > 89 mm Hg(4); Respiratory Rate: 10 to 29 per min(4); Migue Score: 15; Trauma Score: 12 Procedures: 10/08 03:10 Central Line: the site was prepped with Betadine, in sterile fashion, a triple lumen rn catheter was inserted, in the right femoral vein, in 1 attempts. placement was verified, by blood return, the site was dressed with Tegaderm, using sterile technique, the patient tolerated the procedure, well. Laceration: 02:00 Wound Repair of 7cm ( 2.8in ) subcutaneous laceration to anterior aspect right lower cp leg. Skin/tissue flap noted.. Distal neuro/vascular/tendon intact. Anesthesia: Wound infiltrated with 7 mls of 1% lidocaine w/ Epi. Wound prep: Moderate cleansing by me, Wound irrigation by me. Skin closed with 7 5-0 Prolene using simple sutures and sterile technique. Dressed with Bacitracin, 4x4's. Patient tolerated well. [facility]: 10/07 18:49 Patient medically screened. [facility] 10/08 03:11 Differential diagnosis: abrasion, closed head injury, contusion, fracture, laceration, rn sprain, strain, Sepsis, urosepsis, pneumonia. Data reviewed: vital signs, nurses notes, lab test result(s), EKG, radiologic studies, CT scan, and as a result, I will admit patient. 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 Interpretation: normal. Counseling: I had a detailed discussion with the patient and/or guardian regarding: the historical points, exam findings, and any diagnostic results supporting the discharge/admit diagnosis, lab results, radiology results, the need for further work-up and treatment in the hospital. Response to treatment: the patient's symptoms have mildly improved after treatment, and as a result, I will admit patient. Admission orders: after a detailed discussion of the patient's condition and case, the admit orders are written by me. ED course: Patient became hypotensive after initial positive response to fluid bolus. Had full 3 L bolus and map still in the low 60s. Decision made to place central line for pressor.. 10/07 18:51 Order name: Basic Metabolic Panel 10/07 18:51 Order name: CBC with Diff 10/07 18:51 Order name: LFT's cp 10/07 18:51 Order name: Magnesium cp 10/07 18:51 Order name: NT PRO-BNP 10/07 18:51 Order name: PT-INR cp 10/07 18:51 Order name: Troponin (emerg Dept Use Only); Complete Time: 21:00 cp 10/07 18:51 Order name: Blood Culture Adult (2) cp 10/07 18:51 Order name: Lactate; Complete Time: 19:36 cp 10/07 18:51 Order name: Procalcitonin; Complete Time: 19:57 cp 10/07 19:58 Interpretation: Reviewed. cp 10/07 18:51 Order name: ETOH Level; Complete Time: 05:03 cp 10/07 18:51 Order name: Urine Microscopic Only; Complete Time: 21:00 cp 10/07 21:00 Interpretation: Normal except: UWBC 5-10; URBC >50; UBACT >50; URCRY MODERATE. cp 10/07 18:52 Order name: Basic Metabolic Panel; Complete Time: 21:00 EDMS 10/07 18:52 Order name: CBC with Automated Diff; Complete Time: 21:00 EDMS 10/07 19:37 Interpretation: Normal except: WBC 15.90; RBC 3.08; HGB 9.8; HCT 29.8; VARUN% 89.0; LYM% cp 5.7; NEUT A 14.1. 10/07 18:52 Order name: Liver (Hepatic) Function; Complete Time: 21:00 EDMS 10/07 18:52 Order name: Magnesium; Complete Time: 21:00 EDMS 10/07 18:52 Order name: NT PRO-BNP; Complete Time: 21:00 EDMS 10/07 18:52 Order name: Protime (+INR); Complete Time: 19:29 EDMS 10/07 19:01 Order name: Type And Screen cp 10/07 19:09 Order name: Glucose, Ancillary Testing; Complete Time: 19:29 EDMS 10/07 19:47 Order name: Urine Dipstick-Ancillary; Complete Time: 19:57 EDMS 10/07 19:57 Interpretation: Normal except: UKET Trace; UBLD 2+; UPROT 1+. cp 10/07 20:16 Order name: CBC Smear Scan; Complete Time: 21:00 EDMS 10/07 20:41 Order name: Urine Culture EDMS 10/07 22:08 Order name: SARS-COV-2 RT PCR; Complete Time: 05:03 EDMS 10/07 23:55 Order name: Lactate Sepsis 2 HR Follow-up; Complete Time: 05:03 EDMS 10/08 00:12 Order name: ABO/RH no charge; Complete Time: 05:03 EDMS 10/08 01:44 Order name: Transferrin Sat/Iron Binding; Complete Time: 05:03 EDMS 10/08 01:44 Order name: Ferritin; Complete Time: 05:03 EDMS 10/08 01:44 Order name: Folic Acid, (Folate); Complete Time: 05:03 EDMS 10/08 01:44 Order name: Vitamin B12 Level; Complete Time: 05:03 EDMS 10/08 02:17 Order name: Lactate; Complete Time: 05:03 EDMS 10/08 04:40 Order name: Protime (+INR); Complete Time: 05:03 EDMS 10/08 04:40 Order name: PTT, Activated Partial Thromb; Complete Time: 05:03 EDMS 10/08 04:43 Order name: CBC with Automated Diff; Complete Time: 05:03 EDMS 10/08 05:03 Order name: Comprehensive Metabolic Panel; Complete Time: 05:20 EDMS 10/08 05:03 Order name: Phosphorus; Complete Time: 05:20 EDMS 10/08 05:03 Order name: Lipid Profile; Complete Time: 05:20 EDMS 10/08 05:03 Order name: C-Reactive Protein; Complete Time: 05:20 EDMS 10/08 05:03 Order name: T4 Free; Complete Time: 05:20 EDMS 10/08 05:03 Order name: Magnesium; Complete Time: 05:20 EDMS 10/08 05:03 Order name: Thyroid Stimulating Hormone; Complete Time: 05:20 EDMS 10/08 05:42 Order name: Hemoglobin A1c EDMS 10/08 07:34 Order name: Lactate EDMS 10/08 08:51 Order name: Glucose, Ancillary Testing EDMS 10/08 18:01 Order name: Glucose, Ancillary Testing EDMS 10/08 22:58 Order name: Glucose, Ancillary Testing EDMS 10/09 03:17 Order name: Basic Metabolic Panel EDMS 10/09 03:21 Order name: Lactate EDMS 10/09 03:21 Order name: CBC with Automated Diff EDMS 10/09 03:46 Order name: Phosphorus EDMS 10/09 03:46 Order name: Magnesium EDMS 10/09 04:31 Order name: Vitamin D, 25 (OH), TOTAL EDMS 10/09 08:38 Order name: Glucose, Ancillary Testing EDMS 10/09 13:16 Order name: Hemoglobin EDMS 10/09 13:16 Order name: Hematocrit EDMS 10/09 21:02 Order name: Vancomycin Level Trough EDMS 10/09 21:41 Order name: Glucose, Ancillary Testing EDMS 10/10 03:54 Order name: CBC with Automated Diff EDMS 10/10 04:05 Order name: Lactate EDMS 10/10 04:09 Order name: Renal Panel EDMS 10/10 04:09 Order name: Creatine Phosphokinase EDMS 10/07 18:51 Order name: XRAY Chest (1 view); Complete Time: 19:57 cp 10/07 19:57 Interpretation: Report review. cp 10/07 18:51 Order name: EKG; Complete Time: 18:52 cp 10/07 18:51 Order name: Cardiac monitoring; Complete Time: 18:57 cp 10/07 18:51 Order name: EKG - Nurse/Tech; Complete Time: 19:13 cp 10/07 18:51 Order name: IV Saline Lock; Complete Time: 18:58 cp 10/07 18:51 Order name: Labs collected and sent; Complete Time: 18:58 cp 10/07 18:51 Order name: O2 Per Protocol; Complete Time: 18:58 cp 10/07 18:51 Order name: O2 Sat Monitoring; Complete Time: 18:58 cp 10/07 18:51 Order name: Nation; Complete Time: 19:10 cp 10/07 18:51 Order name: Urine Dipstick-Ancillary (obtain specimen); Complete Time: 22:00 cp 10/07 20:35 Order name: Head C Spine Cap Wo Con; Complete Time: 21:00 EDMS 10/07 22:35 Order name: CONS Physician Consult EDMS 10/08 01:33 Order name: Dressing - Wound; Complete Time: 09:49 cp 10/08 01:33 Order name: Gloves, Sterile; Complete Time: 09:49 cp 10/08 01:33 Order name: Setup Suture Tray; Complete Time: 09:49 cp 10/08 02:43 Order name: Central Line Kit; Complete Time: 09:48 cp 10/10 04:09 Order name: Magnesium EDMS 10/10 04:40 Order name: PTH Intact EDMS EC/26 19:07 Rate is 98 beats/min. Rhythm is regular. QRS Blackey is Normal. VA interval is normal. QRS rn interval is normal. QT interval is normal. No Q waves. T waves are Normal. No ST changes noted. Clinical impression: Normal ECG. Interpreted by me. Reviewed by me. Administered Medications: 19:08 Drug: NS 0.9% 1000 ml Route: IV; Rate: 1 bolus; Site: left antecubital; jl7 19:10 Drug: NS 0.9% 1000 ml Route: IV; Rate: 1 bolus; Site: right forearm; jl7 19:55 Drug: NS 0.9% (30 ml/kg) 30 ml/kg Route: IV; Rate: bolus; Site: left antecubital; sh9 20:20 Drug: Cefepime 1 grams Route: IVPB; Rate: 200 ml/hr; Infused Over: 30 mins; Site: right sh9 wrist; 20:20 Drug: vancoMYCIN 15 mg/kg Route: IVPB; Site: right wrist; sh9 21:36 Drug: NS 0.9% 1000 ml Route: IV; Rate: 1000 ml; Site: left antecubital; 9 10/08 00:00 Drug: Lidocaine-Epinephrine -1%: (1:100,000) 10 ml {Note: Administred by mukund Jean Baptiste.} Volume: 20 ml; Route: Infiltration; 05:28 Drug: Calcium Gluconate 1 grams Route: IVPB; Infused Over: 60 mins; Site: right forearm;[facility] 10/09 09:47 Not Given (SEE [email or web address] FOR FURTHER DOCUMENTATION): Levophed (norepinephrine) (4 mg/250 ss mL D5W 4 mcg/min IV at calculated rate Per protocol; (final concentration is 16 microgram/mL) 09:48 Not Given (SEE [email or web address] FOR FURTHER DOCUMENTATION): fentaNYL (PF) 25 mcg IVP once; RASS ss on ADMIN: Combtv4, Very Agttd3, Agttd2, Rstlss1, AlertClm0, Drwsy-1, Lt Sdtn-2, Mod Sdtn-3, Dp Sdtn-4, UnArsble-5 Disposition: 10/08 01:52 Co-signature as Attending Physician, Jair Sorensen MD I agree with the assessment and rn plan of care. PA/SERVICE STATION MANAGER's history reviewed, patient interviewed, and examined. HPI: 75-year-old female found down on ground by unknown amount of time, generalized weakness. Hypotensive and decreased responsiveness per EMS. My personal exam of patient reveals: Pale, weak female covered in feces, laceration to lower extremity, dry mucous membranes, 4 out of 5 strength throughout. GCS 15 I agree with assessment and care plan and confirm the diagnosis (es) above. Disposition Summary: 10/07/20 21:09 Hospitalization Ordered Hospitalization Status: Inpatient Admission cp Condition: Serious cp Problem: new cp Symptoms: have improved cp Bed/Room Type: Standard cp Provider: Nain Chavez(10/07/20 21:21) cp Location: Telemetry/MedSurg (Inpatient)(10/10/20 11:26) dw Room Assignment: 208(10/10/20 11:26) dw Diagnosis - Severe sepsis with septic shock cp - UTI/ Urinary tract infection, site not specified cp Forms: - Medication Reconciliation Form cp - SBAR form cp Critical care time excluding procedures: 03:17 Critical care time: Bedside Care: 35 minutes. Total time: 35 minutes rn Addendum: 10/13/2020 07:13 Co-signature as Attending Physician, Jair Sorensen MD Co-signed at earlier time, please r n refer to previous attestation. . Signatures: Dispatcher [employer] EDMS Alayna Fuller, RN RN Rosemary Irving, RN RN Gurwinder Christina MD MD cha Nieto, Roman, MD MD rn Smirch, Shelby RN Crissy Corona RN RN tl1 Gurwinder Phillips, PA PA cp Steve Morales, RN RN jl7 Ilana Moe, RN RN ld1 Tamie Painter, RN RN sh9 Corrections: (The following items were deleted from the chart) 10/07 20:35 19:09 Head C Spine CAP W Con+CT.RAD.BRZ ordered. EDMS EDMS 20:38 18:31 PMHx: fluid retention; sv sh9 20:38 18:31 PMHx: Chronic pain; sv sh9 20:38 18:31 PMHx: Migraines; sv sh9 21:04 18:52 CORONAVIRUS+MR.LAB.BRZ ordered. EDMS EDMS 21:21 21:09 David Matthew cp cp 21:21 21:09 Telemetry/MedSurg (Inpatient) cp cp 21:21 21:09 cp cp 22:54 21:21 Intensive Care Unit cp tl1 22:54 21:21 cp tl1 10/10 11:26 10/07 22:54 BR ER HOLD tl1 dw 10/10 11:10/07 22:54 ERHOLD- tl1 dw
[2020-10-07] MEDS ORDERED: TETANUS & DIPHTHERIA TOX,ADULT 0.5 ML VIAL ONE (22:31)
--- NOTE | 2020-10-07 23:29 | P.HP ---
Certification for Inpatient Patient admitted to: Inpatient With expected LOS: >2 Midnights Patient will require the following post-hospital care: None Practitioner: I am a practitioner with admitting privileges, knowledge of patient current condition, hospital course, and medical plan of care. Services: Services provided to patient in accordance with Admission requirements found in Title 42 Section 412.3 of the Code of Federal Regulations Patient History Date of Service: 10/07/20 Primary Care Provider: Spear Reason for admission: septic shock, UTI History of Present Illness: Ms. García is a 75 yo M with chronic pain syndrome and a pain pump who presents after a fall this morning. Her says when he woke up at 11am he found her on the floor in the living room and says she must have fallen sometime during the night. He says that there was blood and feces all over the place. He cleaned her up, and stopped the bleeding from her skin tears and brought her to the hospital. She was initially not coherent at home, now at bedside she is AOx4. He says it has been a few months since her last fall, but before that she had been falling once a week. She does not remember hitting anything. She denies fever, nausea, vomiting, increased pain, & all other symptoms. CT HCAP was negative for acute traumatic findings. WBC 15.9. H/H 9.8. BUN 30, Cr 1.51, GFR 34. Glu 202. Lactate 8.0. UA + for ketones, blood, RBCs, WBCs, bacteria, uric acid crystals, protein. She was initially hypotensive, hypothermic. Received sepsis protocol fluid boluses in the ED, as well as vancomycin and cefepime and Susi-Hugger. Allergies No Known Allergies Allergy (Verified 01/06/18 23:56) Home Medications: Gabapentin [Gralise] 300 mg PO TID 01/19/15 Hydromorphone [Dilaudid*] 8 mg PO TID 01/19/15 Divalproex Sodium [Divalproex Sodium ER] 500 mg PO BEDTIME 01/06/18 - Past Medical/Surgical History Diabetic: No -: migraines -: chronic pain -: fluid retention -: gastric bypass -: pain pump -: hysterectomy - Family History Family History: Reviewed- Non-Contributory - Social History Smoking Status: Current every day smoker Alcohol use: Yes CD- Drugs: Yes Caffeine use: No Place of Residence: Home Review of Systems 10-point ROS is otherwise unremarkable General: Weakness, As per HPI Integumentary: Lesions, Bruising, As per HPI Physical Examination - Physical Exam General: Oriented x3, Cooperative HEENT: Atraumatic, PERRLA, Mucous membr. moist/pink, EOMI, Sclerae nonicteric Neck: Supple, 2+ carotid pulse no bruit, No LAD, Without JVD or thyroid abnormality Respiratory: Clear to auscultation bilaterally, Diminished Cardiovascular: Normal S1 S2, No gallops, No rubs, No murmurs, Irregular heart rate/rhythm (tachycardic) Capillary refill: <2 Seconds Gastrointestinal: Normal bowel sounds, No tenderness Musculoskeletal: No tenderness Integumentary: Skin breakdown, Skin lesion Neurological: Normal speech, Normal tone, Sensation intact, Normal affect, Abnormal gait, Abnormal strength Lymphatics: No axilla or inguinal lymphadenopathy Urinary: Nation catheter - Studies Laboratory Data (last 24 hrs) 10/07/20 18:55: PT 13.0 H, INR 1.13 10/07/20 18:55: WBC 15.90 H, Hgb 9.8 L, Hct 29.8 L, Plt Count 312 10/07/20 18:55: Sodium 138, Potassium 3.9, BUN 30 H, Creatinine 1.51 H, Glucose 202 H, Magnesium 2.3, Total Bilirubin 0.4, AST 23, ALT 25, Alkaline Phosphatase 126 H Assessment and Plan - Problems (Diagnosis) (1) Septic shock Current Visit: Yes Status: Acute (2) UTI (urinary tract infection) Current Visit: Yes Status: Acute Qualifiers: Urinary tract infection type: acute cystitis Hematuria presence: with hematuria Qualified Code(s): N30.01 - Acute cystitis with hematuria (3) Chronic pain Current Visit: Yes Status: Chronic Qualifiers: Chronic pain type: chronic pain syndrome Qualified Code(s): G89.4 - Chronic pain syndrome (4) Anemia Current Visit: Yes Status: Chronic Qualifiers: Anemia type: unspecified type Qualified Code(s): D64.9 - Anemia, unspecified (5) MARCELLE (acute kidney injury) Current Visit: Yes Status: Acute - Plan infectious disease consulted, nephrology consulted repeat lactate pending continue IV vancomycin and cefepime continue aggressive IVF hydration, maintain MAP >65 continue Susi-Hugger as needed urine culture and blood cultures pending anemia workup pending, type + screen done in the ED, will transfuse to goal >7 repeat BMP in the AM A1c pending, sliding scale insulin and accuchecks reconcile and continue home medications alcohol withdrawal assessment q4hr smoking cessation counseling DVT ppx Full code Discharge Plan: Home Plan to discharge in: Greater than 2 days - Advance Directives Does patient have a Living Will: No Does patient have a Durable POA for Healthcare: No - Code Status/Comfort Care Code Status Assessed: Yes (full code ) Critical Care: No Time Spent Managing Pts Care (In Minutes): 70
[2020-10-07] MEDS ORDERED: ONDANSETRON 4 MG/2 ML VIAL IV PRN (23:50)
[2020-10-07] MEDS: NA CHLORIDE 0.9% 1,000 ML IV SCH (23:50)
[2020-10-07] MEDS ORDERED: ALBUTEROL 2.5 MG/3 ML NEB SOL NEB PRN (23:50)
[2020-10-07] MEDS ORDERED: SODIUM CHLORIDE 0.9% 10ML INJ IV PRN (23:50)
[2020-10-07] MEDS ORDERED: NA CHLORIDE 0.9% 250 ML IV PRN (23:50)
[2020-10-08] MEDS ORDERED: NA CHLORIDE 0.9% 1,000 ML ONE ×3 (00:09→22:13)
[2020-10-08] MEDS ORDERED: VANCOMYCIN 1 GM in NA CHLORIDE 0.9% 250 ML IVPB SCH (01:00)
[2020-10-08 01:44] LABS: Ferritin 64.9 ng/mL (8-388); Folic Acid, (Folate) > 20.0 ng/mL (3.1-17.5); Transferrin 96 mg/dL (200-360)
[2020-10-08] MEDS ORDERED: LIDOCAINE 1% W/EPI 1:100,000 MDV 50 ML VIAL ONE (01:59)
[2020-10-08] MEDS ORDERED: NA CHLORIDE 0.9% 250 ML ONE ×2 (02:16→22:13)
[2020-10-08] MEDS ORDERED: NOREPINEPHRINE 4 MG/4 ML VIAL ONE (03:38)
[2020-10-08] MEDS ORDERED: D5W 250 ML IV ONE (03:40)
[2020-10-08] MEDS ORDERED: NOREPINEPHRINE 4mg/D5W 250mL 4 MG/250 ML BAG IV ONE ×2 (03:58→10:56)
[2020-10-08 04:31] LABS: Absolute Lymphocytes (CBC) 0.7 K/uL (0.7-4.9); Basophils % 0.3 % (0-1.3); Lymphocytes % 4.2 % (15.3-44.8); MPV 7.8 fL (7.6-11.3); RBC Red Blood Cell Count 2.42 M/uL (3.86-4.86)
[2020-10-08 04:35] LABS: Protime INR 1.07
[2020-10-08 05:01] LABS: Albumin 1.7 g/dL (3.4-5.0); Bilirubin Total 0.4 mg/dL (0.2-1.0); Magnesium 1.9 mg/dL (1.8-2.4); Phosphorus 3.7 mg/dL (2.5-4.9); Potassium 4.3 mmol/L (3.5-5.1); Protein, Total 3.8 g/dL (6.4-8.2); Thyroid Stimulating Hormone 0.563 uIU/mL (0.360-3.740)
[2020-10-08] MEDS ORDERED: CALCIUM GLUCONATE 1 GM IVPB 1 GM/50 ML BAG IV ONE (05:45)
--- NOTE | 2020-10-08 07:10 | P.CNS ---
Date of Consult: 10/08/20 Reason for Consult: MARCELLE Requesting Physician: norma larios Primary Care Provider: Spear Chief Complaint: septic shock, UTI History of Present Illness: 75M with PMHx of chronic pain syndrome on pain pump & recurrent fall, who he had another fall at as well as episodes of confusion. She sustained leg wounds d/t the fall. On presentation, she was hypotensive with leukocytosis as well as having lactic acidosis with serum lactate at 8.0. She also was noted to have MARCELLE with serum creatinine 1.5, from baseline serum creatinine of 0.6-0.7. Urinalysis showed hematuria and pyuria. She was admitted for septic shock 2/2 UTI and was started on IV fluids and empiric abx. Allergies No Known Allergies Allergy (Verified 01/06/18 23:56) Home Medications: Gabapentin [Gralise] 600 mg PO TID 01/19/15 Hydromorphone [Dilaudid*] 4 mg PO BID 01/19/15 Divalproex Sodium [Divalproex Sodium ER] 500 mg PO BEDTIME 01/06/18 - Past Medical/Surgical History Diabetic: No -: migraines -: chronic pain -: fluid retention -: gastric bypass -: pain pump -: hysterectomy - Social History Smoking Status: Current every day smoker Alcohol use: Yes CD- Drugs: Yes Caffeine use: No Place of Residence: Home Review of Systems General: Weakness, Unremarkable (imbalance) Eyes: Unremarkable ENT: Unremarkable Respiratory: Unremarkable Cardiovascular: Unremarkable Gastrointestinal: Unremarkable Genitourinary: Unremarkable Musculoskeletal: Other (leg wounds) Integumentary: Other (leg wounds) Neurological: Weakness, Confusion Lymphatics: As per HPI Other: chronic pain issues Physical Examination Temp Pulse Resp BP Pulse Ox 99.7 F 88 18 107/47 L 95 10/08/20 06:00 10/08/20 06:00 10/08/20 06:00 10/08/20 06:00 10/08/20 06:00 General: In no apparent distress HEENT: Atraumatic, Normocephalic Neck: Supple Respiratory: Normal air movement Cardiovascular: No rubs, No murmurs Gastrointestinal: Soft and benign, No guarding Musculoskeletal: No clubbing Integumentary: Other (leg wounds) Neurological: Normal speech, Normal tone Urinary: Other (no bladder distention) External genitalia: Deferred Rectal: Deferred Laboratory Data (last 24 hrs) 10/07/20 18:55: PT 13.0 H, INR 1.13 10/07/20 18:55: WBC 15.90 H, Hgb 9.8 L, Hct 29.8 L, Plt Count 312 10/07/20 18:55: Sodium 138, Potassium 3.9, BUN 30 H, Creatinine 1.51 H, Glucose 202 H, Magnesium 2.3, Total Bilirubin 0.4, AST 23, ALT 25, Alkaline Phosphatase 126 H Conclusions/Impression: # MACRELLE 2/2 prerenal state Baseline serum creatinine 0.6-0.7 SCr 1.5 on adm, now improved to 0.7 liberal by mouth fluid intake Monitor renal panel # Septic shock secondary to UTI On Levophed On antibiotics Follow-up urine culture and blood culture # Hypocalcemia Corrected serum Ca 8.4 Received IV calcium gluconate # Chronic pain syndrome Management per primary team Debility, recurrent falls PT/OT
[2020-10-08] MEDS: INSULIN -REGULAR HUMAN 50 UNIT/0.5 ML ML SQ SCH ×4 (07:30→21:00)
[2020-10-08] MEDS ORDERED: CEFEPIME 1 GM/VIAL IV SCH (08:00)
[2020-10-08] MEDS ORDERED: Pharmacy Consult 1 EA XX PRN (08:00)
[2020-10-08] MEDS ORDERED: PANTOPRAZOLE 40 MG INJ ONE (08:37)
[2020-10-08] MEDS ORDERED: ACETAMINOPHEN 500 MG TAB ONE (08:37)
[2020-10-08] MEDS ORDERED: CEFEPIME/SWI 1gm 10 ML ONE (08:38)
[2020-10-08] MEDS: CEFEPIME/SWI 1gm 10 ML IV SCH (08:47)
[2020-10-08] MEDS ORDERED: PANTOPRAZOLE 40 MG INJ IVP SCH (09:00)
[2020-10-08] MEDS: NA CHLORIDE 0.9% 1,000 ML IV SCH ×2 (09:50→19:50)
--- NOTE | 2020-10-08 12:40 | P.CNS ---
Date of Consult: 10/08/20 Primary Care Provider: Spear Chief Complaint: septic shock, UTI History of Present Illness: Patient is a 75 year old female with a past medical history of chronic pain syndrome status post pain pump placement placed last month, chronic smoker, who presented to the emergency department after sustaining a mechanical fall at home. Patient was found by her who states he woke up 11 AM and found her on the floor in the living home surrounded in blood and feces. Patient states she fell sometime over the night when she was attempting to use the restroom. Patient sustained 2 lacerations to her bilateral lower extremity with left needing stitches, right wrapped with Kerlix. Per husbandthe patient is not coherent at home however however when brought to ED patient was A&Ox4. states that patient does have a history of frequent falls however has not had a fall within the past month. CT head was negative for acute traumatic findings. WBC 15.9, hemoglobin 9.8, BUN 30, creatinine 1.51, GFR 43, glucose 202, lactate 8.0. Urinary analysis was positive for ketones blood RBCs WBC bacteria uric acid crystals, was clean catch with minimal squamous cells present. In the ED she was also hypotensive and hypothermic. Patient received septic protocol, had qSOFA score of 3. Patient currently denies nausea, vomiting, diarrhea, shortness breath, chest pain. Nation catheter was placed in the ED. Patient reports tenderness to bilateral lower extremities. Allergies No Known Allergies Allergy (Verified 01/06/18 23:56) Home Medications: Gabapentin [Gralise] 300 mg PO TID 01/19/15 Hydromorphone [Dilaudid*] 8 mg PO TID 01/19/15 Divalproex Sodium [Divalproex Sodium ER] 500 mg PO BEDTIME 01/06/18 - Past Medical/Surgical History Diabetic: No -: migraines -: chronic pain -: fluid retention -: gastric bypass -: pain pump -: hysterectomy - Social History Smoking Status: Current every day smoker Alcohol use: Yes CD- Drugs: Yes Caffeine use: No Place of Residence: Home Review of Systems 10-point ROS is otherwise unremarkable Physical Examination Temp Pulse Resp BP Pulse Ox 99.8 F 106 H 18 105/66 98 10/08/20 08:00 10/08/20 08:00 10/08/20 08:00 10/08/20 08:00 10/08/20 08:00 General: Alert, In no apparent distress, Oriented x3 HEENT: Atraumatic, Normocephalic Neck: Supple, 2+ carotid pulse no bruit Respiratory: Clear to auscultation bilaterally, Normal air movement Cardiovascular: No edema, Normal pulses Capillary refill: <2 Seconds Gastrointestinal: Normal bowel sounds, Hypoactive Musculoskeletal: No clubbing, No swelling Integumentary: Other (Bilateral lower extremity trauma wounds with left requiring stitches, right wrapped with Kerlix) Laboratory Data (last 24 hrs) 10/07/20 18:55: PT 13.0 H, INR 1.13 10/07/20 18:55: WBC 15.90 H, Hgb 9.8 L, Hct 29.8 L, Plt Count 312 10/07/20 18:55: Sodium 138, Potassium 3.9, BUN 30 H, Creatinine 1.51 H, Glucose 202 H, Magnesium 2.3, Total Bilirubin 0.4, AST 23, ALT 25, Alkaline Phosphatase 126 H Conclusions/Impression: Antibiotics: Vancomycin Start: 10/08 stop:-- Cefepime start: 10/08 stop: -- Assessment/plan: Severe sepsis on admission with qSOFA score of 3 The patient initially had alter mental status, was tachypneic, and hypotensive. Urinalysis grossly positive showing bacteria and WBC, clean catch with last than 5 squamous cells present. Urine culture pending, blood culture pending. Chest x-ray shows no acute findings. Source of bacteremia likely urine. Continue broad-spectrum IV antibiotic therapy with vancomycin and cefepime until cultures are obtained. Of note patient also had a recent right lower quadrant pain pump placed. Leukocytosis with left shift Continue to monitor WBC trend. Procalcitonin within normal range Protein caloric malnutrition Low albumin, recommend supplemental Ensure protein drinks Anemia Continue to monitor H&H Medical management per primary team Plan of care discussed with Dr. Mae Thank you for consultation
[2020-10-08] MEDS: NOREPINEPHRINE 4 MG in D5W 250 ML IV PRN ×2 (13:00→18:32)
[2020-10-08] MEDS ORDERED: HOME MED 1 EA UNK (Gabapentin [Gralise] 300 MG) PO SCH (16:03)
[2020-10-08] MEDS: ACETAMINOPHEN 500 MG TAB PO PRN (16:05)
[2020-10-08] MEDS: HYDROMORPHONE ORAL 4 MG TAB PO SCH ×2 (16:30→21:00)
[2020-10-08] MEDS ORDERED: GABAPENTIN 300 MG CAP ONE ×3 (16:31→22:51)
[2020-10-08] MEDS ORDERED: HYDROMORPHONE ORAL 4 MG TAB ONE ×2 (16:31→22:51)
[2020-10-08] MEDS ORDERED: ALBUTEROL 2.5 MG/3 ML NEB SOL NEB PRN (17:00)
[2020-10-08] MEDS ORDERED: HYDROMORPHONE ORAL 4 MG TAB PO SCH ×2 (17:00→21:00)
[2020-10-08] MEDS ORDERED: GABAPENTIN 300 MG CAP PO SCH ×2 (17:00→21:00)
--- NOTE | 2020-10-08 18:02 | P.PN ---
Subjective Date of Service: 10/08/20 Primary Care Provider: Spear Chief Complaint: septic shock, UTI Patient is awake and alert. She was hypotensive initially but blood pressure has improved. She had fever this morning. Physical Examination - Vital Signs Temperature: 99.5 F Blood Pressure: 125/54 Pulse: 88 Respirations: 12 Pulse Ox (%): 98 - Physical Exam General: Alert, In no apparent distress, Oriented x3 HEENT: Mucous membr. moist/pink Neck: JVD not distended Respiratory: Clear to auscultation bilaterally, Normal air movement Cardiovascular: No edema, Regular rate/rhythm, Normal S1 S2 Gastrointestinal: Soft and benign, Non-distended Musculoskeletal: No contractures Integumentary: Other (Skin tears bilateral legs. Left leg with a spot of hematoma.) Neurological: Normal strength at 5/5 x4 extr - Studies Laboratory Data (last 24 hrs) 10/07/20 18:55: PT 13.0 H, INR 1.13 10/07/20 18:55: WBC 15.90 H, Hgb 9.8 L, Hct 29.8 L, Plt Count 312 10/07/20 18:55: Sodium 138, Potassium 3.9, BUN 30 H, Creatinine 1.51 H, Glucose 202 H, Magnesium 2.3, Total Bilirubin 0.4, AST 23, ALT 25, Alkaline Phosphatase 126 H Microbiology Data (last 24 hrs): 10/07/20 18:55 Blood - Blood Anaerobic Blood Culture - Final 10/07/20 18:55 Blood - Blood Anaerobic Blood Culture - Final Assessment And Plan - Current Problems (Diagnosis) (1) Septic shock Current Visit: Yes Status: Acute (2) UTI (urinary tract infection) Current Visit: Yes Status: Acute Qualifiers: Urinary tract infection type: acute cystitis Hematuria presence: with hematuria Qualified Code(s): N30.01 - Acute cystitis with hematuria (3) Chronic pain Current Visit: Yes Status: Chronic Qualifiers: Chronic pain type: chronic pain syndrome Qualified Code(s): G89.4 - Chronic pain syndrome - Plan Patient is clinically improving. Continue current antibiotics. Follow urine culture and blood culture. Wean off Levophed as tolerated. Resume home pain medications. Feeding as tolerated. PT consult. Local wound care.
[2020-10-08] MEDS ORDERED: DIVALPROEX ER 250 MG TAB PO SCH (21:00)
[2020-10-08] MEDS: VANCOMYCIN 1 GM in NA CHLORIDE 0.9% 250 ML IVPB SCH (21:00)
[2020-10-08] MEDS ORDERED: GABAPENTIN 300 MG PO SCH (21:00)
[2020-10-08] MEDS: GABAPENTIN 300 MG CAP PO SCH (21:00)
[2020-10-08] MEDS ORDERED: HOME MED 1 EA UNK (Divalproex Sodium [Divalproex Sodium Er] 500 MG Tab.Er.24h) PO SCH (21:00)
[2020-10-08] MEDS ORDERED: VANCOMYCIN 1 GM/VIAL ONE (22:13)
[2020-10-09] MEDS ORDERED: NOREPINEPHRINE 4mg/D5W 250mL 4 MG/250 ML BAG IV ONE (00:27)
[2020-10-09 03:06] LABS: Absolute Lymphocytes (CBC) 1.7 K/uL (0.7-4.9); Basophils % 0.3 % (0-1.3); Lymphocytes % 13.1 % (15.3-44.8); MPV 7.9 fL (7.6-11.3); RBC Red Blood Cell Count 1.89 M/uL (3.86-4.86)
[2020-10-09 03:17] LABS: BUN Blood Urea Nitrogen 28 mg/dL (7-18); Bicarbonate 26 mmol/L (21-32); Glucose Level 98 mg/dL (74-106); Potassium 3.9 mmol/L (3.5-5.1); Sodium Level 142 mmol/L (136-145)
[2020-10-09 03:21] LABS: Magnesium 1.8 mg/dL (1.8-2.4); Phosphorus 1.8 mg/dL (2.5-4.9)
[2020-10-09] MEDS ORDERED: NA CHLORIDE 0.9% 250 ML ONE ×3 (04:45→21:36)
[2020-10-09] MEDS: INSULIN -REGULAR HUMAN 50 UNIT/0.5 ML ML SQ SCH ×3 (07:30→21:00)
[2020-10-09] MEDS ORDERED: ACETAMINOPHEN 500 MG TAB ONE (08:32)
[2020-10-09] MEDS ORDERED: ONDANSETRON 4 MG (ODT) TAB ONE (08:32)
[2020-10-09] MEDS: PANTOPRAZOLE 40 MG INJ IVP SCH ×2 (08:59→21:00)
[2020-10-09] MEDS: CEFEPIME/SWI 1gm 10 ML IV SCH (08:59)
[2020-10-09] MEDS: GABAPENTIN 300 MG CAP PO SCH ×3 (08:59→21:00)
[2020-10-09] MEDS: HYDROMORPHONE ORAL 4 MG TAB PO SCH ×2 (09:00→21:00)
[2020-10-09] MEDS ORDERED: PANTOPRAZOLE 40 MG INJ ONE ×2 (09:06→21:36)
[2020-10-09] MEDS ORDERED: NA CHLORIDE 0.9% 1,000 ML ONE (09:06)
[2020-10-09] MEDS ORDERED: GABAPENTIN 300 MG CAP ONE ×3 (09:06→21:35)
[2020-10-09] MEDS ORDERED: CEFEPIME/SWI 1gm 10 ML ONE (09:07)
[2020-10-09] MEDS ORDERED: HYDROMORPHONE ORAL 4 MG TAB ONE (09:24)
[2020-10-09] MEDS ORDERED: CALCIUM CARBONATE CHEW 500MG TAB PO PRN (09:34)
[2020-10-09] MEDS: NA CHLORIDE 0.9% 1,000 ML IV SCH (11:50)
[2020-10-09] MEDS ORDERED: Magnesium Sulfate 2gm IVPB 2 G/50 ML BAG IV ONE ×2 (12:00→12:23)
[2020-10-09] MEDS ORDERED: SOD FERRIC GLUC COMPLX/SUCROSE 250 MG in NA CHLORIDE 0.9% 250 ML IV SCH (12:00)
[2020-10-09] MEDS ORDERED: POTASSIUM PHOS 10 MM in NA CHLORIDE 0.9% 250 ML IV ONE (12:00)
[2020-10-09 13:12] LABS: Hematocrit 29.3 % (36.0-45.0)
--- NOTE | 2020-10-09 15:33 | PN ---
Date of Progress Note: 10/09/2020 Subjective: The patient was admitted with acute kidney injury secondary to prerenal. The patient af ter hydration kidney function has been normalized. Physical Examination: Vital Signs: Blood pressure 110/52, pulse of 76, afebrile. The patient had good urine output of 120 0. Chest: Clear to auscultation. Heart: S1, S2, regular. Abdomen: Soft, nontender. Extremities: No edema. Neurologic: Alert, no focality. Laboratory Data: WBC 12.8, H and H 8.9/18. Sodium 142, potassium 3.9, bicarb 26, BUN 28, creatinine 0.4, GFR above 90, calcium 7.2, phosphorus 1.8, magnesium 1.8. Vitamin D is still pending. Current Medications: The patient is on/it include: 1.Cefepime. 2.Vancomycin. 3.Calcium carbonate. 4.Zofran. 5.Pantoprazole. 6.IV fluid. Assessment And Plan: 1.Acute kidney injury secondary to prerenal, recovered, resolved. We will taper down IV fluid to 50 per hour and we will follow up. 2.Urinary tract infection. Continue current antibiotic, complicated with septic shock. Weaned from pressor. Culture is still pending. We will follow up obstructive and complicated urinary tract inf ection was ruled out. 3.Iron deficiency anemia. I will start the patient on IV iron and we will follow up. 4.Hypertension, was hypotension secondary to urosepsis. Keep holding all blood pressure medication. 5.Septic shock secondary to urosepsis, recovering. Continue current antibiotic. We will follow up culture. ALDO Voice ID: [id number] Report ID: [id number]
--- NOTE | 2020-10-09 16:00 | P.PN ---
Subjective Date of Service: 10/09/20 Primary Care Provider: Spear Chief Complaint: septic shock, UTI Patient is awake and alert. Her blood pressure has improved. Levophed weaned off. Status post 2 units PRBC transfusion for anemia. She denies any complain today. Physical Examination - Vital Signs Temperature: 98.8 F Blood Pressure: 109/45 Pulse: 83 Respirations: 12 Pulse Ox (%): 100 - Physical Exam General: Alert, In no apparent distress, Oriented x3 HEENT: Mucous membr. moist/pink Neck: JVD not distended Respiratory: Clear to auscultation bilaterally, Normal air movement Cardiovascular: No edema, Regular rate/rhythm, Normal S1 S2 Gastrointestinal: Normal bowel sounds, Soft and benign, Non-distended Musculoskeletal: Other (Hematoma on left leg) Integumentary: Other (Sutured skin tear on the right leg.) Neurological: Normal strength at 5/5 x4 extr - Studies Microbiology Data (last 24 hrs): 10/07/20 18:55 Blood - Blood Anaerobic Blood Culture - Final 10/07/20 18:55 Blood - Blood Anaerobic Blood Culture - Final Assessment And Plan - Current Problems (Diagnosis) (1) Septic shock Current Visit: Yes Status: Acute (2) UTI (urinary tract infection) Current Visit: Yes Status: Acute Qualifiers: Urinary tract infection type: acute cystitis Hematuria presence: with hematuria Qualified Code(s): N30.01 - Acute cystitis with hematuria (3) Chronic pain Current Visit: Yes Status: Chronic Qualifiers: Chronic pain type: chronic pain syndrome Qualified Code(s): G89.4 - Chronic pain syndrome (4) Anemia Current Visit: Yes Status: Chronic Qualifiers: Anemia type: unspecified type Qualified Code(s): D64.9 - Anemia, unspecified - Plan Acute blood loss anemia status post 2 units PRBC transfusion. Posttransfusion hemoglobin is 9.9 Patient is clinically improving. Blood cultures and urine culture: No growth to date. Continue current antibiotics. Transfer to the medical floor Continue home pain medications. Feeding as tolerated. MARCELLE resolved. PT. Local wound care.
[2020-10-09] MEDS: VANCOMYCIN 1 GM in NA CHLORIDE 0.9% 250 ML IVPB SCH (21:00)
[2020-10-09] MEDS ORDERED: VANCOMYCIN 1 GM/VIAL ONE (21:35)
[2020-10-09] MEDS ORDERED: HYDROMORPHONE ORAL 2 MG TAB ONE (22:00)
[2020-10-09 23:17] VITALS: BMI 3093.2
[2020-10-10 03:46] LABS: Absolute Lymphocytes (CBC) 1.3 K/uL (0.7-4.9); Basophils % 0.8 % (0-1.3); Hematocrit 26.7 % (36.0-45.0); MPV 7.8 fL (7.6-11.3); RBC Red Blood Cell Count 2.93 M/uL (3.86-4.86)
[2020-10-10 04:08] LABS: Albumin 1.5 g/dL (3.4-5.0); BUN Blood Urea Nitrogen 16 mg/dL (7-18); Bicarbonate 26 mmol/L (21-32); Creatine Phosphokinase 137 U/L (26-192); Glucose Level 96 mg/dL (74-106); Magnesium 2.1 mg/dL (1.8-2.4); Potassium 3.9 mmol/L (3.5-5.1); Sodium Level 141 mmol/L (136-145)
[2020-10-10] MEDS: INSULIN -REGULAR HUMAN 50 UNIT/0.5 ML ML SQ SCH (07:30)
[2020-10-10] MEDS: NA CHLORIDE 0.9% 1,000 ML IV SCH (07:39)
[2020-10-10] MEDS ORDERED: NA CHLORIDE 0.9% 1,000 ML ONE (07:59)
[2020-10-10] MEDS: PANTOPRAZOLE 40 MG INJ IVP SCH ×2 (09:00→21:57)
[2020-10-10] MEDS: GABAPENTIN 300 MG CAP PO SCH ×3 (09:00→21:57)
[2020-10-10] MEDS: HYDROMORPHONE ORAL 4 MG TAB PO SCH ×2 (09:00→21:58)
[2020-10-10] MEDS: CEFEPIME/SWI 1gm 10 ML IV SCH (09:00)
[2020-10-10] MEDS ORDERED: GABAPENTIN 300 MG CAP ONE ×2 (09:35→11:41)
[2020-10-10] MEDS ORDERED: MAGNES/ALUMIN/SIMET 30ML UCUP ONE (09:35)
[2020-10-10] MEDS ORDERED: CEFEPIME/SWI 1gm 10 ML ONE (09:35)
[2020-10-10] MEDS ORDERED: PANTOPRAZOLE 40 MG INJ ONE (09:35)
[2020-10-10] MEDS ORDERED: HYDROMORPHONE ORAL 4 MG TAB ONE (09:35)
[2020-10-10] MEDS ORDERED: POTASSIUM PHOS IN 0.9 % NACL 15 MMOL/250 ML BAG IV ONE (12:00)
[2020-10-10] MEDS ORDERED: D5 0.45 NS 1,000 ML IV SCH (13:00)
--- NOTE | 2020-10-10 14:13 | PN ---
Date of Progress Note: 10/10/2020 Subjective: The patient doing well. The patient was admitted with septic shock secondary to uroseps is. The patient more awake. Physical Examination: Vital Signs: Blood pressure 104/54, pulse of 68, afebrile. The patient weaned from the pressor. Chest: Clear to auscultation. Heart: S1, S2. Regular. Abdomen: Soft, nontender. Extremity: Trace edema. Dressing on the left elbow. Neuro: Alert. No focality. Laboratory Data: WBC 9.1, H and H 8.9/26.7. Sodium 141, potassium 3.9, bicarb 26, BUN 16, creatinin e 0.3, calcium 7.2, phosphorus of 2, magnesium of 2.1, albumin 1.5, corrected calcium is 9.2. Current Medications: The patient on include; 1.Cefepime. 2.Vancomycin. 3.Albuterol. 4.IV iron. 5.Calcium carbonate. 6.Gabapentin. 7.Pantoprazole. 8.Normal saline. Assessment And Plan: 1.Acute kidney injury secondary to toxic ATN, poor perfusion, ATN secondary to septic shock, nonolig uric, recovered, resolved. 2.Urinary tract infection. Continue current antibiotic. We will follow up. 3.Hypocalcemia, recovered, resolved. 4.Hypokalemia, hypophosphatemia. We will supplement. 5.Hypomagnesemia, resolved. 6.Septic shock secondary to urosepsis. Off pressor. Continue current antibiotic. We will follow up with the primary. 7.Hypernatremia. We will change IV fluid to D5 half. YECENIA/PARRISL Voice ID: [id number] Report ID: [id number]
--- NOTE | 2020-10-10 14:18 | P.PN ---
Subjective Date of Service: 10/10/20 Primary Care Provider: Spear Chief Complaint: septic shock, UTI Patient is awake and alert. He is doing much better today Blood pressure is stable off the Levophed. Patient reports soft blood pressure at baseline She denies any complain today. Physical Examination - Vital Signs Temperature: 99.1 F Blood Pressure: 117/56 Pulse: 83 Respirations: 17 Pulse Ox (%): 96 - Physical Exam General: In no apparent distress, Oriented x3 HEENT: Mucous membr. moist/pink Neck: JVD not distended Respiratory: Clear to auscultation bilaterally, Normal air movement Cardiovascular: No edema, Regular rate/rhythm, Normal S1 S2 Gastrointestinal: Soft and benign, Non-distended, No tenderness Musculoskeletal: No clubbing Integumentary: Other (Small hematoma-medial aspect of left leg, sutured skin laceration lateral aspect of right leg. Skin tear at the left elbow) Neurological: Normal strength at 5/5 x4 extr - Studies Microbiology Data (last 24 hrs): 10/07/20 19:45 Clean Catch Urine [place] Count - Final No growth. 10/07/20 19:45 Clean Catch Urine - Final No growth. Assessment And Plan - Current Problems (Diagnosis) (1) Septic shock Current Visit: Yes Status: Acute (2) UTI (urinary tract infection) Current Visit: Yes Status: Acute Qualifiers: Urinary tract infection type: acute cystitis Hematuria presence: with hem aturia Qualified Code(s): N30.01 - Acute cystitis with hematuria (3) Chronic pain Current Visit: Yes Status: Chronic Qualifiers: Chronic pain type: chronic pain syndrome Qualified Code(s): G89.4 - Chronic pain syndrome (4) Anemia Current Visit: Yes Status: Chronic Qualifiers: Anemia type: unspecified type Qualified Code(s): D64.9 - Anemia, unspecified - Plan Acute blood loss anemia status post 2 units PRBC transfusion. Patient is clinically improving. Blood cultures and urine culture: No growth to date. Continue current antibiotics. Transfer to the medical floor Continue home pain medications. Feeding as tolerated. MARCELLE resolved. PT. Local wound care. Disposition: Home with home health.
[2020-10-10] MEDS: ACETAMINOPHEN 500 MG TAB PO PRN (14:40)
[2020-10-10] MEDS ORDERED: VANCOMYCIN 1 GM in NA CHLORIDE 0.9% 250 ML IVPB SCH (15:00)
[2020-10-11 06:08] LABS: Basophils % 0.4 % (0-1.3); Lymphocytes % 12.7 % (15.3-44.8); MPV 7.7 fL (7.6-11.3); RBC Red Blood Cell Count 3.03 M/uL (3.86-4.86)
[2020-10-11 06:26] LABS: Albumin 1.5 g/dL (3.4-5.0); BUN Blood Urea Nitrogen 12 mg/dL (7-18); Bicarbonate 25 mmol/L (21-32); Glucose Level 89 mg/dL (74-106); Magnesium 1.9 mg/dL (1.8-2.4); Phosphorus 2.6 mg/dL (2.5-4.9); Sodium Level 143 mmol/L (136-145)
[2020-10-11 07:09] LABS: Creatine Phosphokinase 83 U/L (26-192)
--- NOTE | 2020-10-11 10:39 | P.PN ---
Subjective Date of Service: 10/11/20 Primary Care Provider: Spear Chief Complaint: septic shock, UTI Patient seen examined at bedside, doing well no acute complaints. Denies nausea, vomiting, diarrhea, tolerating antibiotics well. With WBC within normal range, afebrile. Blood in urine culture show no growth. Procal within normal range. Review of Systems 10-point ROS is otherwise unremarkable Physical Examination - Vital Signs Temperature: 97.6 F Blood Pressure: 97/53 Pulse: 80 Respirations: 18 Pulse Ox (%): 96 - Studies Laboratory Last Values WBC 15.90 K/uL (4.3-10.9) H 10/07/20 18:55 RBC 3.08 M/uL (3.86-4.86) L 10/07/20 18:55 Hgb 9.8 g/dL (12.0-15.0) L 10/07/20 18:55 Hct 29.8 % (36.0-45.0) L 10/07/20 18:55 MCV 96.7 fL (80-100) 10/07/20 18:55 MCH 31.7 pg (27.0-35.0) 10/07/20 18:55 MCHC 32.8 g/dL (32.0-36.0) 10/07/20 18:55 RDW 12.9 % (12.1-15.2) 10/07/20 18:55 Plt Count 312 K/uL (152-406) 10/07/20 18:55 MPV 8.2 fL (7.6-11.3) 10/07/20 18:55 Neutrophils % 89.0 % (41.7-73.7) H 10/07/20 18:55 Lymphocytes % 5.7 % (15.3-44.8) L 10/07/20 18:55 Monocytes % 4.5 % (3.3-12.3) 10/07/20 18:55 Eosinophils % 0.0 % (0-4.4) 10/07/20 18:55 Basophils % 0.8 % (0-1.3) 10/07/20 18:55 Absolute Neutrophils 14.1 K/uL (1.8-8.0) H 10/07/20 18:55 Absolute Lymphocytes 0.9 K/uL (0.7-4.9) 10/07/20 18:55 Absolute Monocytes 0.7 K/uL (0.1-1.3) 10/07/20 18:55 Absolute Eosinophils 0.0 K/uL (0-0.5) 10/07/20 18:55 Absolute Basophils 0.1 K/uL (0-0.5) 10/07/20 18:55 Platelet Estimate Adeq 10/07/20 18:55 Morphology Comment Not seen (NOT SEEN) 10/07/20 18:55 PT 13.0 SECONDS (9.5-12.5) H 10/07/20 18:55 INR 1.13 10/07/20 18:55 Sodium 138 mmol/L (136-145) 10/07/20 18:55 Potassium 3.9 mmol/L (3.5-5.1) 10/07/20 18:55 Chloride 103 mmol/L (98-107) 10/07/20 18:55 Carbon Dioxide 25 mmol/L (21-32) 10/07/20 18:55 BUN 30 mg/dL (7-18) H 10/07/20 18:55 Creatinine 1.51 mg/dL (0.55-1.3) H 10/07/20 18:55 Estimated GFR 34 mL/min (=/>90) L 10/07/20 18:55 Glucose 202 mg/dL (74-106) H 10/07/20 18:55 POC Glucose 207 mg/dL (65-120) H 10/07/20 18:57 Lactic Acid 8.0 mmol/L (0.4-2.0) H* 10/07/20 18:55 Calcium 7.7 mg/dL (8.5-10.1) L 10/07/20 18:55 Magnesium 2.3 mg/dL (1.8-2.4) 10/07/20 18:55 Total Bilirubin 0.4 mg/dL (0.2-1.0) 10/07/20 18:55 Direct Bilirubin 0.3 mg/dL (0-0.2) H 10/07/20 18:55 AST 23 U/L (15-37) 10/07/20 18:55 ALT 25 U/L (12-78) 10/07/20 18:55 Alkaline Phosphatase 126 U/L (45-117) H 10/07/20 18:55 Rapid Troponin I < 0.02 ng/mL (0.0-0.045) 10/07/20 18:55 NT-Pro-B Natriuret Pep 623 pg/mL (<125) H 10/07/20 18:55 Serum Total Protein 4.6 g/dL (6.4-8.2) L 10/07/20 18:55 Albumin 2.0 g/dL (3.4-5.0) L 10/07/20 18:55 Globulin 2.6 g/dL (2.3-3.5) 10/07/20 18:55 Albumin/Globulin Ratio 0.8 (1.1-1.8) L 10/07/20 18:55 Procalcitonin 0.05 ng/mL (<0.050) 10/07/20 18:55 Urine pH 5.0 (5.0-7.0) 10/07/20 19:45 Ur Specific [place] 1.020 (1.005-1.030) 10/07/20 19:45 Glucose (UA)(Auto) Negative (Negative) 10/07/20 19:45 Urine Ketones Trace (Negative) H 10/07/20 19:45 Urine Blood 2+ (Negative) H 10/07/20 19:45 Urine Nitrite Negative (Negative) 10/07/20 19:45 Ur Leukocyte Esterase Negative (Negative) 10/07/20 19:45 Urine RBC >50 /HPF (NONE SEEN) H 10/07/20 19:45 Urine WBC 5-10 /HPF (<5) H 10/07/20 19:45 Ur Squamous Epith Cells <5 /HPF (NONE SEEN) 10/07/20 19:45 Uric Acid Crystals Moderate (NONE SEEN) H 10/07/20 19:45 Urine Bacteria >50 /HPF (<20) H 10/07/20 19:45 Hyaline Casts 5-10 /LPF (NONE SEEN) 10/07/20 19:45 Fine Granular Casts 0-5 /LPF (NONE SEEN) 10/07/20 19:45 Urine Mucus 2+ /HPF (NONE SEEN) 10/07/20 19:45 Urine Culture Reflexed Reflexed 10/07/20 19:45 Urine Total Protein 1+ (Negative) H 10/07/20 19:45 Plasma/Serum Alcohol < 10 mg/dL (<10) 10/07/20 18:55 SARS-CoV-2 Rap RNA(RT-PCR) Negative (NEGATIVE) 10/07/20 19:06 Smear Scan Ok (OK) 10/07/20 18:55 ABO/Rh O POSITIVE 10/07/20 18:55 Solid Phase Ab Screen Negative 10/07/20 18:55 Crossmatch See Detail 10/07/20 18:55 Microbiology Data (last 24 hrs): 10/07/20 19:45 Clean Catch Urine [place] Count - Final No growth. 10/07/20 19:45 Clean Catch Urine - Final No growth. Assessment And Plan - Plan Physical Exam: General: Alert, In no apparent distress, Oriented x3 HEENT: Atraumatic, Normocephalic Neck: Supple, 2+ carotid pulse no bruit Respiratory: Clear to auscultation bilaterally, Normal air movement Cardiovascular: No edema, Normal pulses Capillary refill: <2 Seconds Gastrointestinal: Normal bowel sounds, Hypoactive Musculoskeletal: No clubbing, No swelling Integumentary: Other (Bilateral lower extremity trauma wounds with left requiring stitches, right wrapped with Kerlix) Laboratory Data (last 24 hrs) 10/07/20 18:55: PT 13.0 H, INR 1.13 10/07/20 18:55: WBC 15.90 H, Hgb 9.8 L, Hct 29.8 L, Plt Count 312 10/07/20 18:55: Sodium 138, Potassium 3.9, BUN 30 H, Creatinine 1.51 H, Glucose 202 H, Magnesium 2.3, Total Bilirubin 0.4, AST 23, ALT 25, Alkaline Phosphatase 126 H Conclusions/Impression: Antibiotics: Vancomycin Start: 10/08 stop:-- Cefepime start: 10/08 stop: -- Assessment/plan: Severe sepsis on admission with qSOFA score of 3 The patient initially had alter mental status, was tachypneic, and hypotensive. Urinalysis grossly positive showing bacteria and WBC, clean catch with last than 5 squamous cells present. Blood in urine cultures performed on 10/07 showed no growth. Due to grossly positive urinary analysis will treat as it UTI IA. Patient has Nation catheter, to be removed today. Continue nitrofurantoin until 10/15. Chest x-ray shows no acute findings. Leukocytosis with left shift Continue to monitor WBC trend. Procalcitonin within normal range Protein caloric malnutrition Low albumin, recommend supplemental Ensure protein drinks Anemia Continue to monitor H&H Medical management per primary team Plan of care discussed with Dr. Mae Thank you for consultation
--- NOTE | 2020-10-11 13:03 | P.DS ---
Admission Date: 10/07/20 Discharge Date: 10/11/20 Primary Care Provider: Spear Disposition: DC HOME/HOME HEALTH CARE Discharge Condition: FAIR Reason for Admission: septic shock, UTI Consultations: Infectious Disease - Problems (1) Septic shock Current Visit: Yes Status: Acute (2) UTI (urinary tract infection) Current Visit: Yes Status: Acute Qualifiers: Urinary tract infection type: acute cystitis Hematuria presence: with hematuria Qualified Code(s): N30.01 - Acute cystitis with hematuria (3) Chronic pain Current Visit: Yes Status: Chronic Qualifiers: Chronic pain type: chronic pain syndrome Qualified Code(s): G89.4 - Chronic pain syndrome (4) Anemia Current Visit: Yes Status: Chronic Qualifiers: Anemia type: unspecified type Qualified Code(s): D64.9 - Anemia, unspecified Brief History of Present Illness: 75 yo M with chronic pain syndrome and a pain pump who presents after a fall at home. Her says when he woke up at 11am he found her on the floor in the living room and says she must have fallen sometime during the night. He says that there was blood and feces all over the place. He cleaned her up, and stopped the bleeding from her skin tears and brought her to the hospital. According to report, she was initially not coherent at home, but was AOx4 during examination in the ED. He says it has been a few months since her last fall, but before that she had been falling once a week in the past. She does not remember hitting anything. CT HCAP was negative for acute traumatic findings. WBC 15.9. H/H 9.8. BUN 30, Cr 1.51, GFR 34. Glu 202. Lactate 8.0. UA + for ketones, blood, RBCs, WBCs, bacteria, uric acid crystals, protein. She was initially hypotensive, hypothermic. Received sepsis protocol fluid boluses in the ED, as well as vancomycin and cefepime and Susi-Hugger and admitted for further management. Hospital Course: Patient admitted to the ICU, continue aggressive fluid resuscitation, placed on vasopressors and aggressive antibiotic therapy. The septic shock resolved with treatment Levophed weaned off. Urine culture and blood cultures yielded no growth. Patient seen in consultation by infectious disease who assisted with antibiotic management. Patient had acute blood loss anemia with hemoglobin down to 5.9 and transfused 2 units PRBC. Posttransfusion hemoglobin has been stable around 9. Patient seen by PT and was able to ambulate several feet with a rolling walker. He has a sutured laceration on the right leg, small hematoma on the left leg, and avulsion injury on the left elbow. Wound care done with wet-to-dry dressing. She is stable for discharge. Vital Signs/Physical Exam: Temp Pulse Resp BP Pulse Ox 98.8 F 74 18 103/55 L 95 10/11/20 11:38 10/11/20 11:38 10/11/20 11:38 10/11/20 11:38 10/11/20 11:38 General: Alert, In no apparent distress, Oriented x3 HEENT: Mucous membr. moist/pink Neck: JVD not distended Respiratory: Clear to auscultation bilaterally, Normal air movement Cardiovascular: Regular rate/rhythm, Normal S1 S2 Gastrointestinal: Soft and benign, Non-distended, No tenderness Musculoskeletal: No swelling Integumentary: Skin breakdown (Sutured laceration on the right leg, small hematoma on the left lower and avulsion injury of the left elbow.) Neurological: Normal speech, Normal strength at 5/5 x4 extr Laboratory Data at Discharge: WBC 8.10 K/uL (4.3-10.9) 10/11/20 05:16 Hgb 9.4 g/dL (12.0-15.0) L 10/11/20 05:16 Hct 28.0 % (36.0-45.0) L 10/11/20 05:16 Plt Count 255 K/uL (152-406) D 10/11/20 05:16 PT 12.3 SECONDS (9.5-12.5) 10/08/20 04:16 INR 1.07 10/08/20 04:16 APTT 28.7 SECONDS (24.3-36.9) 10/08/20 04:16 Sodium 143 mmol/L (136-145) 10/11/20 05:16 Potassium 4.0 mmol/L (3.5-5.1) 10/11/20 05:16 BUN 12 mg/dL (7-18) 10/11/20 05:16 Creatinine 0.30 mg/dL (0.55-1.3) L 10/11/20 05:16 Glucose 89 mg/dL (74-106) 10/11/20 05:16 Phosphorus 2.6 mg/dL (2.5-4.9) 10/11/20 05:16 Magnesium 1.9 mg/dL (1.8-2.4) 10/11/20 05:16 Total Bilirubin 0.4 mg/dL (0.2-1.0) 10/08/20 04:16 AST 23 U/L (15-37) 10/08/20 04:16 ALT 23 U/L (12-78) 10/08/20 04:16 Alkaline Phosphatase 98 U/L (45-117) 10/08/20 04:16 Triglycerides 28 mg/dL (<150) 10/08/20 04:16 Cholesterol 65 mg/dL (<200) 10/08/20 04:16 HDL Cholesterol 44 mg/dL (40-60) 10/08/20 04:16 Cholesterol/HDL Ratio 1.48 10/08/20 04:16 Home Medications: Gabapentin [Gralise] 600 mg PO TID 01/19/15 Hydromorphone [Dilaudid*] 4 mg PO BID 01/19/15 Divalproex Sodium [Divalproex Sodium ER] 500 mg PO BEDTIME 01/06/18 Nitrofuran Macro [Macrobid*] 100 mg PO BID #10 cap 10/11/20 New Medications: Nitrofuran Macro [Macrobid*] 100 mg PO BID #10 cap Diet: AHA Activity: Fall precautions Followup: Mal Gray MD [ACTIVE - CAN ADMIT] - NONE,NONE [Primary Care Provider] - 1 Week (Follow up with your PCP within 1 week.) Time spent managing pt's care (in minutes): 38
[2020-10-11 13:06] VITALS: O2SAT 93
[2020-10-11] MEDS ORDERED: VANCOMYCIN 1 GM in NA CHLORIDE 0.9% 250 ML IVPB SCH (15:00)
[2020-10-11 17:03] VITALS: BP 104/45; TEMP 98.7
[2020-10-11] MEDS ORDERED: CEFEPIME 1 GM/VIAL IV SCH (21:00)
[2020-10-11] MEDS ORDERED: CEFEPIME/SWI 1gm 10 ML IV SCH (21:00)
[2020-10-11] MEDS ORDERED: NITROFURAN MACRO 100 MG CAP PO SCH (21:00)
--- NOTE | 2020-10-12 00:26 | PN ---
Date of Progress Note: 10/11/2020 Chief Complaint: Acute kidney injury secondary to ATN in the setting of septic shock due to urosepsi s. History: The patient has nonoliguric urine output. She was treated for urinary tract infection. [place] aguirre was found to have electrolyte abnormalities and hypocalcemia resolved. Corrected calcium is wi thin normal limits. Patient has hypoalbuminemia and calcium level is 7.2, albumin 1.5. Review of Systems: Denies complaints. Physical Examination: Lungs: Clear to auscultation bilaterally. Heart: S1, S2. Abdomen: Soft, benign. Extremities: No edema, Impression And Plan: 1.Acute kidney injury secondary to acute tubular necrosis. Renal function has improved to baseline. Patient has severe sepsis secondary to urinary tract infection and urosepsis, was treated with anti biotics. Patient responded to IV fluids. 2.Hypocalcemia, resolved. 3.Hypokalemia, hypophosphatemia. Continue supplementation according to lab results. 4.Hypomagnesemia, resolved. 5.Septic shock, urosepsis. The patient is hemodynamically stable and off pressors. Continue on cur rent antibiotics. 6.Hypernatremia, improving. The patient was treated with D5W and half-normal saline. EB/MODL Voice ID: [id number] Report ID: [id number]
== END 2020-10-11 19:40 | disposition home health service (06) | DRG 871 ==
LOC: ER 18:09 → ERHOLD 22:35 → 2ND 10-10 11:52
PROVIDERS: ADMIT Internal Medicine; ATTEND Internal Medicine
PROC: 0JQN3ZZ Repair Right Lower Leg Subcutaneous Tissue and Fascia, Percutaneous Approach (ICD-10-PCS; principal; 2020-10-07)
PROC: 30233N1 Transfusion of Nonautologous Red Blood Cells into Peripheral Vein, Percutaneous Approach (ICD-10-PCS; 2020-10-09)
DX: A41.9 Sepsis, unspecified organism (principal); R65.21 Severe sepsis with septic shock; N17.0 Acute kidney failure with tubular necrosis; N30.01 Acute cystitis with hematuria; E87.0 Hyperosmolality and hypernatremia; D62 Acute posthemorrhagic anemia; E46 Unspecified protein-calorie malnutrition; E83.51 Hypocalcemia; E87.6 Hypokalemia; E83.39 Other disorders of phosphorus metabolism; G89.29 Other chronic pain; Z68.21 Body mass index [BMI] 21.0-21.9, adult; S81.811A Laceration without foreign body, right lower leg, initial encounter; W19.XXXA Unspecified fall, initial encounter; Y92.009 Unspecified place in unspecified non-institutional (private) residence as the place of occurrence of the external cause; Z98.84 Bariatric surgery status; F17.210 Nicotine dependence, cigarettes, uncomplicated; Z20.822 Contact with and (suspected) exposure to COVID-19
CPT/HCPCS: 36415; 51702; 70450; 71045; 71250; 72125; 80048; 80053; 80061; 80069; 80076; 80202; 80320; 81003; 81015; 82306; 82550; 82607; 82728; 82746; 82947; 83036; 83540; 83605; 83735; 83880; 83970; 84100; 84145; 84439; 84443; 84466; 84484; 85014; 85018; 85025; 85610; 85730; 86140; 86850; 86900; 86901; 87040; 87086; 87088; 90714; 93005; 94760; 97116; 97162; 97530; 99291; 99292; C9113; J0610; J0692; J2916; J3370; J3475; J7030; J7040; J7050; J7060; J7799; P9016; U0003

== ENCOUNTER 2020-10-15 15:55 | Emergency (ER) | payer OTHER ==
--- OUTSIDE RECORDS SUMMARY | 2020-10-15 16:00 | XMS REPORT | Continuity of Care Document ---
:1945 Author Organization [facility] t Address [address] [place] [address] Care Team Providers Name Role Phone Shahzad [...] MORBID 00:00: [place] OBESITY 00 Active 01/19/2014 [facility] BDDC - EGD Diagnosis Active 2013-03-14 Memoria 03-11 08:53:00 l BDDC - 00:00: [place] EGD 00 Active 03/11/2013 [facility] Final: Problem 2014-02-14 Memor ia 19:32:05 l Final: [place] 02/14/2014 [facility] Obesity Problem Resolve 2020-08-13 Mem oria (disorder) d 01:56:59 l Obesity [place] (disorder) Resolved Problem 08/13/2020 [facility] Tremor Problem Resolve 2020-08-13 Devaughn samuel (finding) d 01:56:59 l Tremor [place] (finding) Resolved Problem 08/13/2020 [facility] Hyponatrem Problem Active 2020-08-13 M emoria ia 01:56:59 l (disorder) Madhav n Hyponatrem ia (disorder) Active Problem 08/13/2020 [facility] Migraine Problem Active 2020-08-13 Mem oria (disorder) 01:56:59 l Migraine Madhav n (disorder) Active Problem 08/13/2020 [facility] Heart Problem Active 2020-08-13 Memor ia murmur 01:56:59 l (finding) Heart Madhav n murmur (finding) Active Problem 08/13/2020 [facility] Pain Problem Active 2020-08-13 Memor ia (finding) 01:56:59 l Pain [place] (finding) Active Problem 08/13/2020 [facility] Pulmonary Problem Active 2020-08-13 Me moria hypertensi 01:56:59 l on [place] (disorder) Pulmonary hypertensi on (disorder) Active Problem 08/13/2020 [facility] Radial Problem Active 2020-08-13 Memor ia neuropathy 01:56:59 l (disorder) Radial Herm cherry neuropathy (disorder) Active Problem 08/13/2020 [facility] Transforme Problem Active 2020-08-13 M emoria d migraine 01:56:59 l (disorder) Madhav n Transforme d migraine (disorder) Active Problem 08/13/2020 [facility] Paresthesi Problem Active 2020-08-13 M emoria a of hand 01:56:59 l (finding) [place] Paresthesi a of hand (finding) Active Problem 08/13/2020 [facility] ESOPHAGEAL Diagnosis Active 2013-03-14 Memoria REFLUX 08:53:00 l [place] ESOPHAGEAL REFLUX Active [facility] MORBID Diagnosis Active 2014-02-18 Mem oria OBESITY 21:53:00 l MORBID [place] OBESITY Active [facility] Allergies, Adverse Reactions, Alerts This patient has no known allergies or adverse reactions. Social History Smoking Status Start Date Stop Date Source Social History 2020-08-10 20:36:35 [facility] woods Medications Ordered Filled Start Stop Current Ordering Indication Dosage Frequency Signature Comments Components Source Medication Medication Date Date Medication? Clinician (SIG) Name Name 1 ML Yes 140 mg, Memoria erenumab-ao 2-10 SUB-Q, l oe 140 22:46: qMonth, # Madhav n MG/ML 00 1 ea, 3 Auto-Inject Refill(s), or Pharmacy: [Aimovig] [facility], 152.4, cm, 12/31/19 14:51:00 [employer], Height, 40.909, kg, 12/31/19 14:51:00 [employer], Weight 1 ML Yes 140 mg, Memoria erenumab-ao 2-10 SUB-Q, l oe 140 22:46: qMonth, # Madhav n MG/ML 00 1 ea, 3 Auto-Inject Refill(s), or Pharmacy: [Aimovig] [facility], 152.4, cm, 12/31/19 14:51:00 [employer], Height, 40.909, kg, 12/31/19 14:51:00 [employer], Weight 1 ML 2019-02 Yes 140 mg, Memoria erenumab-ao 1-18 SUB-Q, l oe 140 21:16: qMonth, # Madhav n MG/ML 00 1 ea, 3 Auto-Inject Refill(s), or Pharmacy: [Aimovig] [facility] [place], 152.4, cm, 12/31/19 14:51:00 [employer], Height, 40.909, kg, 12/31/19 14:51:00 [employer], Weight 1 ML 2019-02 Yes 140 mg, Memoria erenumab-ao 1-18 SUB-Q, l oe 140 21:16: qMonth, # Madhav n MG/ML 00 1 ea, 3 Auto-Inject Refill(s), or Pharmacy: [Aimovig] [facility] [place], 152.4, cm, 12/31/19 14:51:00 [employer], Height, 40.909, kg, 12/31/19 14:51:00 [employer], Weight 24 HR Yes = 1 tab, Memoria Divalproex 6-09 PO, l Sodium 500 19:21: Bedtime, # H ermann MG Extended 00 30 ea, 4 Release Refill(s), Tablet Pharmacy: [facility] 24 HR Yes = 1 tab, Memoria Divalproex 6-09 PO, l Sodium 500 19:21: Bedtime, # H ermann MG Extended 00 30 ea, 4 Release Refill(s), Tablet Pharmacy: [facility] Acetaminoph Yes 15 mL, PO, Memoria en 24 MG/ML 1- Q4H, as l / Codeine 13:31: needed for He rmann Phosphate 00 pain, # 2.4 MG/ML 480 mL, 0 Oral Refill(s) Solution Ondansetron Yes Special Mem oria 4 MG 02-12 Instructio l Disintegrat 13:31: ns: Madhav aguilar ing Tablet 00 Dissolve [Zofran] tab under tongue Acetaminoph Yes 15 mL, PO, Memoria en 24 MG/ML 1- Q4H, as l / Codeine 13:31: needed for He rmann Phosphate 00 pain, # 2.4 MG/ML 480 mL, 0 Oral Refill(s) Solution Ondansetron Yes Special Mem oria 4 MG 02-12 Instructio l Disintegrat 13:31: ns: Madhav n ing Tablet 00 Dissolve [Zofran] tab under tongue Hydromorpho 2013-02 No Notes: Devaughn samuel ne (Same as: l 18:00: Dilaudid) Hydromorpho 2013-02 No Notes: Devaughn samuel ne (Same as: l 18:00: Dilaudid) pneumococca 2013-02 No Notes: Devaughn samuel l capsular (Same as: l polysacchar 15:00: Pneumovax H ermann sandeep type 1 00 23) vaccine / Refrigerat pneumococca e l capsular polysacchar sandeep type 10A vaccine / pneumococca l capsular polysacchar sandeep type 11A vaccine / pneumococca l capsular polysacchar sandeep type 12F vaccine / pneumococca l capsular polysacchar pneumococca 2013-02 No Notes: Devaughn samuel l [...] Memoria 2-30 (Same as: l 15:00: Lovenox) Lovenox 2013-02 No Notes: Memoria 2-30 (Same as: l 15:00: Lovenox) Acetaminoph 2013-02 No Notes: Devaughn samuel en 24 MG/ML 2-30 (acetamino l / Codeine 12:59: phen-codei He rmann Phosphate 00 ne 120-12 2.4 MG/ML mg/5 ml Oral oral liq) Solution Do not exceed 4gm/day of acetaminop hen. (Same as: Tylenol w/Codeine) Acetaminoph 2013-02 No Notes: Devaughn samuel en 24 MG/ML 2-30 (acetamino l / Codeine 12:59: phen-codei He rmann Phosphate 00 ne 120-12 2.4 MG/ML mg/5 ml Oral oral liq) Solution Do not exceed 4gm/day of acetaminop hen. (Same as: Tylenol w/Codeine) [facility] 2013-02 No Notes: Memoria 2-30 Infuse l 12:00: over 15 [place] 00 minutes Do not exceed 4gm/day of acetaminop hen [facility] 2013-02 No Notes: Memoria 2-30 Infuse l 12:00: over 15 [place] 00 minutes Do not exceed 4gm/day of acetaminop hen Zoan 2013-02 No Notes: Memoria 2-30 (Same as: l 08:29: Zofran) Zofran 2013-02 No Notes: Memoria 2-30 (Same as: l 08:29: Zofran) gabapentin 2013-02 No Notes: Memor ia 600 MG Oral (Same as: l Tablet 23:00: Neurontin) [place] gabapentin 2013-02 No Notes: Memor ia 600 MG Oral 2- (Same as: l Tablet 23:00: Neurontin) Methadone 2013-02 No Notes: Memori a 2-29 (Same as: l 21:43: Dolophine) Methadone 2013-02 No Notes: Memori a 2-29 (Same as: l 21:43: Dolophine) Hydromorpho 2013-02 No 1 mg, Memor ia ne 2- Route: IV, l 21:20: Drug form: [place] 00 INJ, Q10Min, Dosing Weight 77.318, kg, PRN as needed for pain, Start date: 02/09/14 15:20:00, Duration: 2 doses or times, Stop date: Limited # of times Hydromorpho 2013-02 No 1 mg, Memor ia ne Route: IV, l 21:20: Drug form: [place] 00 INJ, Q10Min, Dosing Weight 77.318, kg, PRN as needed for pain, Start date: 02/09/14 15:20:00, Duration: 2 doses or times, Stop date: Limited # of times Ondansetron 2013-02 No 4 mg, Memor ia Route: l 20:47: IVP, ONCE, Dosing Weight [...] minutes Flumazenil 2013-02 No Notes: Memor ia 2-29 (Same as: l 20:47: Romazicon) Naloxone 2013-02 No Notes: Memoria 2-29 Same as l 20:47: Narcan Hydromorpho 2013-02 No 0.5 mg, Mem oria ne 2-29 Route: l 20:47: IVP, [place] 00 Q5Min, [...] minutes Flumazenil 2013-02 No Notes: Memor ia 2-29 (Same as: l 20:47: Romazicon) Naloxone 2013-02 No Notes: Memoria 2- Same as l 20:47: Narcan Hydromorpho 2013-02 No 0.5 mg, Mem oria ne 2-29 Route: l 20:47: IVP, [place] 00 Q5Min, Dosing Weight 77.318, kg, PRN Pain Score 7-10, Start date: 02/09/14 14:47:00, Duration: 4 doses or times, Stop date: Limited # of times Hydromorpho 2013-02 No Notes: Devaughn samuel ne 2-29 (Same as: l 20:30: Dilaudid) conc = 0.5 mg/ml Hydromorph one [employer] Dose: ;Delay: ;Basal: Hydromorpho 2013-02 No Notes: Devaughn samuel ne 2-29 (Same as: l 20:30: Dilaudid) conc = 0.5 mg/ml Hydromorph one [employer] Dose: ;Delay: ;Basal: Naloxone 2013-02 No Notes: Memoria 2-29 Same as l 20:10: Narcan [place] 00 Naloxone 2013-02 No Notes: Memoria 2-29 Same as l 20:10: Narcan [place] 00 LR IV 1,000 2013-02 No 1,000 mL, M emoria mL 2-29 Rate: 100 l 20:07: ml/hr, [place] 00 Infuse over: 10 hr, Route: IV, Dosing Weight 77.318 kg, Total Volume: 1,000, Start date: 02/09/14 14:07:00, Duration: 30 day, Stop date: 03/11/14 14:06:00 LR IV 1,000 2013-02 No 1,000 mL, M emoria mL 2-29 Rate: 100 l 20:07: ml/hr, [place] 00 Infuse over: 10 hr, Route: IV, Dosing Weight 77.318 kg, Total Volume: 1,000, Start date: 02/09/14 14:07:00, Duration: 30 day, Stop date: 03/11/14 14:06:00 Cefoxitin 2013-02 No 1 gm, Memoria 2-29 Route: l 19:48: IVPB, [place] 00 ONCE, Dosing Weight 77.318, kg, Start date: 02/09/14 13:48:00, Stop date: 02/09/14 13:48:00 Cefoxitin 2013-02 No 1 gm, Memoria 2-29 Route: l 19:48: IVPB, [place] 00 ONCE, Dosing Weight 77.318, kg, Start date: 02/09/14 13:48:00, Stop date: 02/09/14 13:48:00 scopolamine 2013-02 No Notes: Devaughn samuel 2-29 Change l 17:00: patch [place] 00 every 72 hours (Same as: Transderm- Scop) heparin 2013-02 No Notes: Memoria 2-29 porcine l 17:00: heparin [place] 00 Ofirmev 2013-02 No Notes: Memoria 2-29 Infuse l 17:00: over 15 [place] 00 minutes Do not exceed 4gm/day of acetaminop hen Mefoxin 2013-02 No Notes: Memoria 2-29 (Same As: l 17:00: Mefoxin) [place] 00 scopolamine 2013-02 No Notes: Devaughn samuel 2-29 Change l 17:00: patch [place] 00 every 72 hours (Same as: Transderm- Scop) heparin 2013-02 No Notes: Memoria 2-29 porcine l 17:00: heparin [place] 00 Ofirmev 2013-02 No Notes: Memoria 2-29 Infuse l 17:00: over 15 [place] 00 minutes Do not exceed 4gm/day of acetaminop hen Mefoxin 2013-02 No Notes: Memoria 2-29 (Same As: l 17:00: Mefoxin) [place] 00 temazepam 2013-02 Yes 15 mg = 1 Mem oria 15 mg oral 2-17 cap, PO, l capsule 18:40: Bedtime, Madhav n 00 Sleep, 0 Refill(s) temazepam 2013-02 Yes 15 mg = 1 [...] de 8 MG 00 Oral Tablet [Dilaudid] gabapentin 2013-02 Yes 600 mg = 1 [...] ts Source Name Name pneumococcal 2014-02-12 Completed [facility] 23-valent vaccine 16:30:00 [place] pneumococcal 2014-02-12 Completed [facility] 23-valent vaccine 16:30:00 [place] Vital Signs Vital Name Observation Time Observation Value Comments Source Systolic (mm Hg) 2020-08-10 20:35:00 Devaughn rial [place] Diastolic (mm Hg) 2020-08-10 20:35:00 Mem orial [place] Heart Rate 2020-08-10 20:35:00 [facility] [place] Respitory Rate 2020-08-10 20:35:00 Memori al [place] Height 2020-08-10 20:35:00 152.4 cm [facility] [place] Weight 2020-08-10 20:35:00 [facility] [place] BMI Calculated 2020-08-10 20:35:00 Memori al [place] Systolic (mm Hg) 2019-12-31 20:51:00 Devaughn rial [place] Diastolic (mm Hg) 2019-12-31 20:51:00 Mem orial [place] Heart Rate 2019-12-31 20:51:00 [facility] [place] Respitory Rate 2019-12-31 20:51:00 Memori al [place] Height 2019-12-31 20:51:00 152.4 cm [facility] [place] Weight 2019-12-31 20:51:00 [facility] [place] BMI Calculated 2019-12-31 20:51:00 Memori al [place] Systolic (mm Hg) 2019-07-22 19:06:00 Devaughn rial [place] Diastolic (mm Hg) 2019-07-22 19:06:00 Mem orial [place] Heart Rate 2019-07-22 19:06:00 [facility] [place] Respitory Rate 2019-07-22 19:06:00 Memori al [place] Temperature Oral (F) 2019-07-22 19:06:00 97.8 F [facility] [place] Height 2019-07-22 19:06:00 152.4 cm [facility] [place] Weight 2019-07-22 19:06:00 [facility] [place] BMI Calculated 2019-07-22 19:06:00 Memori al [place] Systolic (mm Hg) 2014-02-12 14:22:00 Devaughn rial [place] Diastolic (mm Hg) 2014-02-12 14:22:00 Mem orial [place] Heart Rate 2014-02-12 14:22:00 [facility] [place] Temperature Oral (F) 2014-02-12 14:22:00 99.0 F [facility] [place] Respitory Rate 2014-02-12 14:22:00 Memori al [place] Diastolic (mm Hg) 2014-02-12 10:43:00 Mem orial [place] Systolic (mm Hg) 2014-02-12 10:43:00 Devaughn rial [place] Respitory Rate 2014-02-12 10:43:00 Memori al [place] Heart Rate 2014-02-12 10:43:00 [facility] [place] Temperature Oral (F) 2014-02-12 10:43:00 99.3 F [facility] [place] Respitory Rate 2014-02-12 05:36:00 Memori al [place] Heart Rate 2014-02-12 05:36:00 [facility] [place] Systolic (mm Hg) 2014-02-12 05:36:00 Devaughn rial [place] Diastolic (mm Hg) 2014-02-12 05:36:00 Mem orial [place] Temperature Oral (F) 2014-02-12 05:36:00 98.6 F [facility] [place] BMI Calculated 2014-02-10 02:49:00 Memori al [place] Weight 2014-02-10 02:49:00 [facility] [place] Height 2014-02-10 02:49:00 149.8 cm [facility] [place] Weight 2014-02-09 16:39:00 [facility] [place] BMI Calculated 2014-02-09 16:39:00 Memori al [place] Height 2014-01-28 20:58:00 149.86 cm [facility] [place] Procedures Procedure Date / Time Performed Performing Clinician Sour e Back fusion [facility] [place] Bladder operation [facility] Breast reduction, [facility] bilateral Hysterectomy [facility] [place] Encounters Start End Encounter Admission Attending Care Care Encounter Source Date/Time Date/Time Type Type Clinicians Facility Department ID 2020-11-10 2020-11-10 Outpatient MHIE ARLETHIE [id number] Memoria 14:00:00 14:00:00 11 l [place] 2020-11-10 2020-11-10 Outpatient MHIE MHIE [id number] Memoria 14:00:00 14:00:00 11 l [place] 2020-08-10 2020-08-11 Outpatient nullFlavo MNA [id number] Memoria 20:15:00 04:59:59 r Neurology 10 l [place] Aguilar[place] 2020-08-10 2020-08-11 Outpatient nullFlavo MNA [id number] Memoria 20:15:00 04:59:59 r Neurology 10 l [place] Aguilar[place] 2020-08-10 2020-08-10 [id number] 15:15:00 23:59:59 Wade 10 Shahzad 2020-08-10 2020-08-10 Outpatient MHIE IE [id number] Memoria 15:15:00 15:15:00 10 l [place] 2020-05-25 2020-05-27 Outside nullFlavo MNA [id number] Memoria 13:59:20 04:59:59 Medical r Neurology 03 l Records Reggie Tang 2020-05-25 2020-05-27 Outside nullFlavo MNA [id number] Memoria 13:59:20 04:59:59 Medical r Neurology 03 l Records Reggie Tang 2020-05-25 2020-05-26 Outpatient MHMISCHER MHMISCHER [id number] 08:59:20 23:59:59 2020-05-21 2020-05-23 Outside nullFlavo MNA [id number] Memoria 19:28:13 04:59:59 Medical r Neurology 02 l Records Reggie Tang 2020-05-21 2020-05-23 Outside nullFlavo MNA [id number] Memoria 19:28:13 04:59:59 Medical r Neurology 02 l Records Reggie Tang 2020-05-21 2020-05-22 Outpatient MHMISCHER MHMISCHER [id number] 14:28:13 23:59:59 2020-05-03 2020-05-05 Outside nullFlavo MNA [id number] Memoria 13:10:15 04:59:59 Medical r Neurology 01 l Records Reggie Tang 2020-05-03 2020-05-05 Outside nullFlavo MNA [id number] Memoria 13:10:15 04:59:59 Medical r Neurology 01 l Records Reggie Tang 2020-05-03 2020-05-04 Outpatient MHMISCHER MHMISCHER [id number] 08:10:15 23:59:59 2020-04-01 2020-04-02 Outpatient nullFlavo MNA [id number] Memoria 21:45:00 05:59:59 r Neurology 09 l Reggie Tang 2020-04-01 2020-04-02 Outpatient nullFlavo MNA [id number] Memoria 21:45:00 05:59:59 r Neurology 09 l Reggie Tang 2020-04-01 2020-04-01 Outpatient Aye [facility] [id number] 15:45:00 23:59:59 Wade 09 Shahzad 2020-04-01 2020-04-01 Outpatient MHIE IE [id number] Memoria 15:45:00 15:45:00 09 radha Aguilar[place] 2019-12-31 2020-01-01 Outpatient nullFlavo MNA [id number] Memoria 20:30:00 05:59:59 r Neurology 08 l [place] 2019-12-31 2020-01-01 Outpatient nullFlavo MNA [id number] Memoria 20:30:00 05:59:59 r Neurology 08 l [place] 2019-12-31 2019-12-31 Outpatient Aye [facility] [id number] 14:30:00 23:59:59 Wade 08 Shahzad 2019-12-31 2019-12-31 Outpatient MHIE IE [id number] Memoria 14:30:00 14:30:00 08 l [place] 2019-08-20 2019-08-20 Ambulatory nullFlavo MNA [id number] Memoria 18:45:00 18:45:00 Pre-Reg r Neurology 07 l [place] 2019-08-20 2019-08-20 Ambulatory nullFlavo MNA [id number] Memoria 18:45:00 18:45:00 Pre-Reg r Neurology 06 l [place] 2019-08-20 2019-08-20 Ambulatory nullFlavo MNA [id number] Memoria 18:45:00 18:45:00 Pre-Reg r Neurology 06 l [place] 2019-08-20 2019-08-20 Ambulatory nullFlavo MNA [id number] Memoria 18:45:00 18:45:00 Pre-Reg r Neurology 07 l [place] 2019-08-20 2019-08-20 Outpatient MHIE IE [id number] Memoria 13:45:00 13:45:00 07 l [place] 2019-08-20 2019-08-20 Outpatient MHIE IE [id number] Memoria 13:45:00 13:45:00 06 l [place] 2019-08-20 2019-08-20 Outpatient Aye [facility] [id number] 13:45:00 13:45:00 Wade 06 [facility] 2019-08-20 2019-08-20 Outpatient Aye, MHMISCHER MISCHER [id number] 13:45:00 13:45:00 Wade 07 Shahzad 2019-07-22 2019-07-23 Outpatient nullFlavo MNA [id number] Memoria 18:30:00 04:59:59 r Neurology 05 l Reggie [place] 2019-07-22 2019-07-23 Outpatient nullFlavo MNA [id number] Memoria 18:30:00 04:59:59 r Neurology 05 l Reggie [place] 2019-07-22 2019-07-22 [id number] 13:30:00 23:59:59 Wade 05 [facility] 2019-07-22 2019-07-22 Outpatient MHIE MHIE [id number] Memoria 13:30:00 13:30:00 05 [facility] 2019-06-24 2019-06-24 [place] [id number] 14:08:00 23:59:00 Encounter Maikel Simons [id number] [place] [id number] Pfeifer [id number] 2019-05-22 2019-05-23 Outpatient nullFlavo MNA [id number] Memoria 20:00:00 04:59:59 r Neurology 04 l Reggie [place] 2019-05-22 2019-05-23 Outpatient nullFlavo MNA [id number] Memoria 20:00:00 04:59:59 r Neurology 04 l Reggie [place] 2019-05-22 2019-05-22 Outpatient Aye MISCHER MISCHER [id number] 15:00:00 23:59:59 Wade 04 [facility] 2019-05-22 2019-05-22 Outpatient MHIE MHIE [id number] Memoria 15:00:00 15:00:00 04 l [place] 2019-04-28 2019-04-[id number] 06:14:00 08:20:00 Encounter Maikel Simons [id number] [place] [id number] Pfeifer [id number] 2019-04-28 2019-04-28 Anesthesia Jono Camp [facility] [id number] 07:29:00 07:52:00 Azam Bey [id number] [place] [id number] [facility] [id number] [place] [id number] 2017-12-25 2017-12-25 Ambulatory nullFlavo MNA [id number] Memoria 19:45:00 19:45:00 Pre-Reg r Neurology 03 l Reggie [place] 2017-12-25 2017-12-25 Ambulatory nullFlavo MNA [id number] Memoria 19:45:00 19:45:00 Pre-Reg r Neurology 03 l [place] 2017-12-25 2017-12-25 Outpatient MHIE MHIE [id number] Memoria 13:45:00 13:45:00 03 radha [place] 2017-12-25 2017-12-25 Outpatient HYACINTH Griffiths MISCHER [id number] 13:45:00 13:45:00 Wade Jyotsna Shahzad 2017-09-25 2017-09-25 Outpatient MHIE MHIE [id number] Memoria 14:00:00 14:00:00 02 radha [place] 2017-09-25 2017-09-25 Outpatient MHIE MHIE [id number] Memoria 14:00:00 14:00:00 02 radha Tang 2017-05-23 2017-05-23 Outpatient MHIE MHIE [id number] Memoria 14:15:00 14:15:00 01 radha Tang 2017-05-23 2017-05-23 Outpatient MHIE MHIE [id number] Memoria 14:15:00 14:15:00 01 radha Tang 2017-04-10 2017-04-10 Outpatient MHIE MHIE [id number] Memoria 14:45:00 14:45:00 00 radha Tang 2017-04-10 2017-04-10 Outpatient MHIE MHIE [id number] Memoria 14:45:00 14:45:00 00 radha Tang 2014-02-09 2014-02-12 Inpatient nullFlavo [facility] [id number] Memoria 15:19:00 17:00:[address] 2014-02-09 2014-02-12 Inpatient nullFlavo [facility] [id number] Memoria 15:19:00 17:00:[address] 2014-02-09 2014-02-12 Outpatient Estevan [id number] 09:19:00 11:00:00 Brennan Rodriges [id number] 2013-03-14 MARIANNE nullFlavo [facility] [id number] Memoria 08:42:00 14:00:[address] 2013-03-14 2013-03-14 MARIANNE nullFlavo [facility] [id number] Memoria 08:42:00 14:00:[address] Results Test Description Test Time Test Comments Results Result Comments Source HEMATOLOGY 2014-02-12 11:07:00 Test Item Value Reference Range Interpretation Comme nts MCH (test code = MCH) 29.6 pg 27.0-31.0 [facility] [id number] 11:07:0015.2[facility]ann[facility]MATOLOGY 2014-02-12 11:07:0034.3[facility] PnjaylvJUOQEKWZFS1790-22-63 11:07:0011.5[facility] GuoikykWNRVPOYDRK1077-96-77 11:07:004.55[facility] QvqjjwiELHCJAUBDV7356-00-05 11:07:0013.5[facility] HermannCHEM HVNWV7673-37-59 11:07:0095[facility] HermannCHEM LCHLN9690-85-63 11:07:000.6[facility] HermannCHEM DLVJN1618-54-70 11:07:003.9 [facility]annCHEM GWAWZ0693-14-66 11:07:71772Sldjnlbl HermannCHEM PANEL 2014-02-12 11:07:008.9[facility] HermannCHEM RAZHG8327-97-28 11:07:08986Xjllpkxt HermannCHEM DWQMC0109-61-26 11:07:0026[facility] HermannCHEM IFSDW4935-25-88 11:07:0087[facility] HermannCHEM APJVW9614-93-70 11:07:006[facility] HermannCHEM PAZED9154-46-95 11:07:0014.9[facility] ZxfofztTGKQKXCHNI4782-33-86 11:07:0086.3 [facility] UrvgcowLYCNVPEQPW8311-94-61 11:07:006.1[facility] HermannHEMATOLOGY 2014-02-12 11:07:007.2[facility] QshdkwxUHOKQIKEVU7601-12-30 11:07:000.7[facility] FwzztimNKZBKQDMSU1872-57-83 11:07:000.3[facility] JnqsaccCWMLWPVRGG0828-15-19 11:07:000.1[facility] HujskyvLOWZIQYYZI7418-12-13 11:07:000.8[facility] [place] HKHCSFAEGN6552-67-17 11:07:009.9[facility] AyojilpZSATOZQAXB8107-52-43 11:07:00 86.3[facility] KfhjbopILHBCZVRAI0044-00-85 11:07:0039.3[facility] HermannHEMATOLOGY 2014-02-12 11:07:009.6[facility] TlmvfkiGYERLICZMR8832-05-90 11:07:13784Qaaqrseb HermannCHEM VIGXB6435-89-04 11:07:0095[facility] HermannCHEM QZFNI5503-57-77 11:07:000.6[facility] HermannCHEM AKXNU5133-79-76 11:07:003.9[facility] HermannCHEM XTZCJ8369-39-24 11:07:01124Ccnikbbr HermannCHEM BHLVV7002-49-77 11:07:008.9 [facility] HermannCHEM EMFSL4567-80-38 11:07:82297Gqidqwnp HermannCHEM PANEL 2014-02-12 11:07:0026[facility] HermannCHEM GTNET3971-61-29 11:07:0087[facility] HermannCHEM LUTKG9414-85-22 11:07:006[facility] HermannCHEM WFWMC0589-20-41 11:07:0014.9[facility] PqzcecuSWZEWMCPBV9344-50-19 11:07:0086.3[facility] [place] GKKODYHJGA0053-51-47 11:07:006.1[facility] BujnjzfYZBNPCSYCP0829-37-09 11:07:007.2 [facility] OowffwcQWBUZOOBDS1960-82-35 11:07:000.7[facility] HermannHEMATOLOGY 2014-02-12 11:07:000.3[facility] QzenjiyXRLWFOIGEI0247-50-66 11:07:000.1[facility] AxodzrgONVPURCVCZ6893-25-63 11:07:000.8[facility] PsobcojSHBHUVKVOU2377-55-84 11:07:009.9[facility] VyylbdvKRQBTTLEWA7135-04-47 11:07:0086.3[facility] QZGMMVLOJT2615-63-44 11:07:0039.3[facility] QbfkfslHYVPHULIVV3712-68-07 11:07:00 9.6[facility] VhvykbfAFAHMPUBBY8681-81-94 11:07:79217Ltwzjacb HermannHEMATOLOGY 2014-02-12 11:07:00 Test Item Value Reference Range Interpretation Comments MCH (test code = MCH) 29.6 pg 27.0-31.0 [facility] VnarkadTLXRPYNFPR8840-91-06 11:07:0015.2[facility]annHEMATOLOGY 2014-02-12 11:07:0034.3[facility] FhakcdeACQFBZMUCM7100-46-53 11:07:0011.5[facility] AgrkxpbJLZPHJPCVP9116-71-38 11:07:004.55[facility] EacqyhoQKQHBVFFKV8592-88-35 11:07:0013.5[facility] HkwqqtlXBFOKVAHEV6095-81-27 21:21:004.7[facility] ASQXMCMHXN4906-59-50 21:21:0013.2[facility] KykpicoHLQDPVYYXP7481-91-01 21:21:00 0.7[facility] HdjgotvJHCZKOVGKQ8922-53-39 21:21:000.7[facility]annHEMATOLOGY 2014-02-11 21:21:005.1[facility] XpbeydmJAVZDPLICE2540-50-91 21:21:000.2[facility] KvzuuwhSGTXZVPUBJ6817-00-11 21:21:0090.0[facility] YrddqtdOTMHIKVPNG7705-30-78 21:21:0034.3[facility] TwyfeloEXQHGIEBMX3003-27-23 21:21:0041.9[facility] TJHXFYMXXH2627-46-19 21:21:0014.4[facility] WsjrqcdQXMWUZCXCV3130-76-33 21:21:00 15.1[facility] JjetjygVVNJTHSONH4898-42-09 21:21:0086.7[facility]annHEMATOLOGY 2014-02-11 21:21:00 Test Item Value Reference Range Interpretation Comments MCH (test code = MCH) 29.7 pg 27.0-31.0 [facility] PibrgmwWLPEKTUVQJ9749-92-70 21:21:009.4[facility]annHEMATOLOGY 2014-02-11 21:21:24674Dddmiiuw CgahuduCKCYVOFNCM4623-75-55 21:21:0014.7[facility] ZrdwugoSNCELPKXYU7080-90-73 21:21:004.83[facility] AxsnxkeVPUSTSQBJK1050-09-52 21:21:004.7[facility] StyloxkHVQXJJKEMO5770-09-03 21:21:0013.2[facility] IATDSPNOXB9452-59-34 21:21:000.7[facility] WjxdnhePEQKHEYTSR8072-70-35 21:21:000.7 [facility] BahzmmoHOKDPLUEUL0076-23-09 21:21:005.1[facility] 2014-02-11 21:21:000.2[facility] KzodyroWFQWYKTLTH9379-72-58 21:21:0090.0[facility] BxnzksuLMUZZWRKDX3149-08-91 21:21:0034.3[facility] ItcsqlaSBHKJNYNEU9197-19-61 21:21:0041.9[facility] FucnawiZPBCJTAACV7827-78-67 21:21:0014.4[facility] ONTGBIBDXJ5323-61-32 21:21:0015.1[facility] VsfdymnQYWKDEPAYO7802-36-44 21:21:00 86.7[facility] LavmdwhRIMXEMENKW3939-84-16 21:21:00 Test Item Value Reference Range Interpretation Comments MCH (test code = MCH) 29.7 pg 27.0-31.0 [facility] VisxjppOGLIWVMVDX0639-49-09 21:21:009.4[facility]annHEMATOLOGY 2014-02-11 21:21:16650Cnanozwz RwhzhooLJJMBSFLWT0430-35-06 21:21:0014.7[facility] DejxgisLMXIBWBDUU5057-65-33 21:21:004.83[facility] IkkqsvwPTOCEPLIBTNF4134-18-67 11:45:0011.7[facility] HfeaxdxVXYXKQHHBKUF0534-92-31 11:45:0090[facility] NTOUOJXIUINU6520-87-92 11:45:009.1[facility] YvatfaqTBLSDICGRBGM7105-44-99 11:45:0027[facility] DwhetazUOOFSEUOWZYH8571-35-15 11:45:0098[facility] JUAKVAFJCOJK2384-56-31 11:45:003.7[facility] GyerfvbGAYQKAWKIPKG7542-87-22 11:45:57227Nizdncfc HznlenyJAECUZHAZUUB7147-51-36 11:45:000.7[facility] ZBRPUXZKIUCW6805-73-56 11:45:006[facility] EebyznySJZHZPHTYMHI3727-16-72 11:45:00 86[facility] KtjcyqkXIUQWYNEQG5522-46-22 11:45:005.2[facility]annHEMATOLOGY 2014-02-11 11:45:008.4[facility] MgrcqsoAMSMHHMMLR4174-26-57 11:45:000.8[facility] YdosbryDHDUQSNEAQ9474-52-47 11:45:0013.7[facility] MhkjrmzKSWKFPIVYL4738-24-36 11:45:001.3[facility] SecduexSPNHACCKTP0996-93-23 11:45:000.1[facility] NYGAOLHEXL8063-58-79 11:45:000.1[facility] CnfuwwgPEEJJYXGSK0988-82-00 11:45:00 86.2[facility] CtlhjfkQXPZMKFTLA6196-71-33 11:45:0014.5[facility]annHEMATOLOGY 2014-02-11 11:45:00 Test Item Value Reference Range Interpretation Comments MCH (test code = MCH) 29.4 pg 27.0-31.0 [facility] DjeylwxKNALAVEXLY0960-32-51 11:45:0033.7[facility]annHEMATOLOGY 2014-02-11 11:45:0042.9[facility] UeritvbHINLYYTVKX6144-68-25 11:45:0087.2[facility] QxgrziaBQPNLMRHPX2788-21-40 11:45:75753Zubjsbxn OvuywpdHLYGVJEPDD2718-45-16 11:45:0015.4[facility] YvcriytGTTNCVDKAJ3001-51-12 11:45:009.6[facility] WYXIQWSXJM1594-17-31 11:45:004.92[facility] BronbwtSEKZPFYXTO0452-27-28 11:45:00 15.9[facility] FvpfloaMWVOHTORBL1120-96-13 11:45:00 Test Item Value Reference Range Interpretation Comments PTT (test code = PTT) 34.0 s 22.9-35.8 [facility] QujfxvlWUVLVPIATGJW1980-45-34 11:45:0011.7[facility] HermannELECTROLYTES 2014-02-11 11:45:0090[facility] UmfmtafQVLAQRQGUWOE8860-68-06 11:45:009.1[facility] WoirsmnKYKRWWYLYSOV6452-99-65 11:45:0027[facility] JwbstmkLZXZBXUUWJRV4091-68-06 11:45:0098[facility] JirofsvILNEBNOXGFQU3192-65-16 11:45:003.7[facility] BNNFEXKIPFUS6155-40-19 11:45:30362Muzqpvef GqaqieyITXFRNWWHXTL5291-89-68 11:45:000.7[facility] WrbqdywCBPOKUJYFGYS1104-24-33 11:45:006[facility] GXCPNSCJXIXP2379-65-60 11:45:0086[facility] BnmjkbvSMGOSOYIIS0113-65-01 11:45:00 5.2[facility] WnzwyhwPUERHCZMJE1825-54-17 11:45:008.4[facility]annHEMATOLOGY 2014-02-11 11:45:000.8[facility] RwbphelJLKIBTZKUM1094-86-51 11:45:0013.7[facility] PbptzajVYFWQAZSUF2611-80-79 11:45:001.3[facility] AvvcoyjYTIHCTUETS7433-92-16 11:45:000.1[facility] ZphwjavLAPOZVSFCZ0178-21-95 11:45:000.1[facility] WTZAGXRTAT3111-96-17 11:45:0086.2[facility] WcxwmnlRLDAKYTLJO5599-17-49 11:45:00 14.5[facility] IckuwmuJPDAYCSRGI8094-76-50 11:45:00 Test Item Value Reference Range Interpretation Comments MCH (test code = MCH) 29.4 pg 27.0-31.0 [facility] VkcblnlDGGDELQLZJ4282-31-15 11:45:0033.7[facility]annHEMATOLOGY 2014-02-11 11:45:0042.9[facility] RgdurtnNSDVSPFMNN5991-34-15 11:45:0087.2[facility] YgxvjulVGNJCEHXYF1016-48-46 11:45:80456Nslmriul DccalcdDGZNSDXIJF9436-41-80 11:45:0015.4[facility] BmmnrkgRHUQPXRUMF6050-72-60 11:45:009.6[facility] VYNIRARPRD7342-89-32 11:45:004.92[facility] LkwiokuKCDSZCZHIQ0999-53-42 11:45:00 15.9[facility] AyuxsacPEYVFUZUGE7666-96-81 11:45:00 Test Item Value Reference Range Interpretation Comments PTT (test code = PTT) 34.0 s 22.9-35.8 [facility]annCHEM RIMBI6259-20-42 11:20:0077[facility]annCHEM PANEL 2014-02-10 11:20:0027[facility]annCHEM NFMLF9409-11-01 11:20:008.6[facility] HermannCHEM JTJAA5236-15-03 11:20:36002Ygfsomav HermannCHEM ZBAGQ5382-46-20 11:20:0099[facility]annCHEM EPHMW9159-32-76 11:20:62416Rsglsfpg HermannCHEM UGUEU8431-91-29 11:20:000.8[facility]annCHEM QSAPE2527-81-06 11:20:0010 [facility]annCHEM PWWEM1947-22-46 11:20:004.0[facility] HermannCHEM PANEL 2014-02-10 11:20:0012.0[facility]annCHEM ULFRE2681-65-59 11:20:0099[facility]annCHEM EPCTN9329-62-32 11:20:72456Etrlzkdi HermannCHEM SAQEQ9382-41-53 11:20:000.8[facility]annCHEM EDNCX1547-77-76 11:20:0010[facility] HermannCHEM ONUYU7940-75-74 11:20:004.0[facility]annCHEM UNGGP0529-22-89 11:20:0012.0 [facility]annCHEM VNQIX5535-81-79 11:20:0077[facility]annCHEM PANEL 2014-02-10 11:20:0027[facility] HermannCHEM CYSXK8045-04-29 11:20:008.6[facility] HermannCHEM NSWRH7039-37-26 11:20:51514Mimkcxri HermannBLOOD BANK RESULTS 2014-02-09 16:49:00Negative (02/09/14 10:49 AM)[facility]annBLOOD BANK ZHXDOHH0967-92-26 16:49:00Negative (02/09/14 10:49 AM)[facility]annCHEM PANEL 2014-01-28 18:45:003.8[facility] HermannCHEM YXVQG2480-54-43 18:45:0014[facility]annCHEM HGAIP6499-95-79 18:45:54229Dweoaedk HermannCHEM HPTNU1180-92-70 18:45:000.3[facility] HermannCHEM HKRHN0049-51-70 18:45:0018[facility]annCHEM KNPIK9881-80-23 18:45:007.0[facility]annCHEM HFACD8164-82-83 18:45:001.2 [facility]annCHEM PWHXV2845-95-74 18:45:0020[facility]annCHEM PANEL 2014-01-28 18:45:003.2[facility] XisurtbQJAWUEREYE8702-42-43 18:45:002.2[facility] OojrqcxFNNLXVNAPV9565-04-13 18:45:000.1[facility] NkzxquaXGSVZMGQQD9888-59-93 18:45:000.2[facility] HermannSPECIAL JKNQCDUUK9590-45-48 18:45:005.5[facility]annURINE AND LXJOH8358-21-71 18:45:00Negative (01/28/14 12:45 PM)[facility] XPOWC1813-01-86 18:45:00Negative (01/28/14 12:45 PM)[facility] YBSTS9855-11-98 18:45:001[facility] AND STOOL 2014-01-28 18:45:001.018[facility]UR[facility] AND BYUMN5725-29-10 18:45:005.5 [facility] BWJRR7488-32-57 18:45:00Yellow *NA*(01/28/14 12:45 PM) [facility] TWXTP4557-16-66 18:45:00Clear (01/28/14 12:45 PM) [facility] PXENV2741-15-20 18:45:00Negative (01/28/14 12:45 PM) [facility] QWDBC8695-49-15 18:45:00Negative *NA*(01/28/14 12:45 PM)[facility]annCHEM CIZLO9836-27-89 18:45:003.8[facility] HermannCHEM PANEL 2014-01-28 18:45:0014[facility] HermannCHEM TZUUS7528-78-85 18:45:57944Fznkuqjm HermannCHEM PFDXA4104-01-29 18:45:000.3[facility] HermannCHEM SREMH1516-67-52 18:45:0018[facility] HermannCHEM ZZEND9670-54-59 18:45:007.0[facility] HermannCHEM YJUYK4218-30-01 18:45:001.2[facility] HermannCHEM HTLOR8955-99-43 18:45:0020 [facility]annCHEM ZAECQ7604-25-28 18:45:003.2[facility]annHEMATOLOGY 2014-01-28 18:45:002.2[facility] BwaswmdEPXIMXLXQI4173-80-49 18:45:000.1[facility] NmzqqbrPSTYVCJVNA3992-29-07 18:45:000.2[facility] HermannSPECIAL CHEMISTRY 2014-01-28 18:45:005.5[facility]annUR[facility] AND LXSAS3873-85-39 18:45:00Negative (01/28/14 12:45 PM)[facility] XYJVF5712-42-64 18:45:00Negative (01/28/14 12:45 PM)[facility] LPHJM1396-07-99 18:45:001[facility] AND AKXZT0107-18-58 18:45:001.018[facility] AND STOOL 2014-01-28 18:45:005.5[facility] AND JYHRC0460-58-59 18:45:00Yellow *NA*(01/28/14 12:45 PM)[facility] AND CYDRJ9732-11-67 18:45:00Clear (01/28/14 12:45 PM)[facility] AND UQIYW3387-58-73 18:45:00Negative (01/28/14 12:45 PM)[facility] AND QTBNH0888-44-60 18:45:00Negative *NA*(01/28/14 12:45 PM)[facility]
[2020-10-15 17:28] LABS: Protime INR 0.94
[2020-10-15 17:30] LABS: Absolute Lymphocytes (CBC) 1.5 K/uL (0.7-4.9); Basophils % 0.8 % (0-1.3); Hematocrit 31.8 % (36.0-45.0); Lymphocytes % 16.1 % (15.3-44.8); RBC Red Blood Cell Count 3.39 M/uL (3.86-4.86)
[2020-10-15 17:46] LABS: ALT/SGPT 38 U/L (12-78); AST/SGOT 27 U/L (15-37); Albumin 2.2 g/dL (3.4-5.0); Alkaline Phosphatase 119 U/L (45-117); BUN Blood Urea Nitrogen 17 mg/dL (7-18); Bicarbonate 33 mmol/L (21-32); Bilirubin Direct 0.1 mg/dL (0-0.2); Bilirubin Total 0.2 mg/dL (0.2-1.0); Glucose Level 108 mg/dL (74-106); Magnesium 2.1 mg/dL (1.8-2.4); NT PRO-BNP 636 pg/mL (<125); Potassium 4.1 mmol/L (3.5-5.1); Protein, Total 5.4 g/dL (6.4-8.2); Sodium Level 140 mmol/L (136-145); Troponin (Emerg Dept Use Only) < 0.02 ng/mL (0.0-0.045)
--- NOTE | 2020-10-15 19:11 | RAD REPORT ---
EXAM DESCRIPTION: Gopal Single View10/15/2020 7:03 pm CLINICAL HISTORY: Chest pain COMPARISON: September 2020 FINDINGS: The lungs appear clear of acute infiltrate. The heart is normal size IMPRESSION: No acute abnormalities displayed
--- NOTE | 2020-10-15 19:52 | RAD REPORT ---
EXAM DESCRIPTION: USExtrem Venous W Compress Bil10/15/2020 7:28 pm CLINICAL HISTORY: Leg swelling COMPARISON: none FINDINGS: The common femoral, superficial femoral, popliteal and posterior tibial veins bilaterally are compressible and demonstrate augmentation. Doppler demonstrates good flow. IMPRESSION: No evidence of deep venous thrombosis involving either lower extremity.
[2020-10-15 20:25] LABS: Urine Blood 1+ (Negative); Urine Glucose Negative (Negative); Urine Protein Negative (Negative); Urine Specific Gravity 1.015 (1.005-1.030)
[2020-10-15] MEDS ORDERED: FUROSEMIDE 40 MG/4 ML VIAL ONE (21:11)
--- NOTE | 2020-10-15 22:45 | EDPHYS ---
Physician Documentation [facility] Name: Janki García Age: 75 yrs Sex: Female : 1945 Arrival Date: 10/15/2020 Time: 15:58 Bed 10 Private MD: ED Physician Gentry Diaz HPI: 10/15 17:15 This 75 yrs old Female presents to ER via Ambulatory with complaints of cp Abnormal Lab Results, Urinary Problem. 17:15 The patient presents with swelling, tenderness. cp 17:15 The complaints affect the left lower leg and right lower leg. cp 17:15 Onset: The symptoms/episode began/occurred gradually. cp 17:15 Associated signs and symptoms: Pertinent negatives fever, numbness, vomiting. Treatment cp prior to arrival includes: no previous treatment. Patient reports she is prescribed furosemide 20 mg daily. Historical: - Allergies: 16:53 No Known Allergies; aa5 - PMHx: 16:53 Chronic pain; fluid retention; Migraines; aa5 - Immunization history:: Client reports receiving the 2nd dose of the Covid vaccine. - Social history:: Smoking status: Patient reports the use of cigarette tobacco products, smokes one pack cigarettes per day. ROS: 17:20 Constitutional: Negative for body aches, chills, fever, poor PO intake. cp 17:20 Eyes: Negative for injury, pain, redness, and discharge. cp 17:20 ENT: Negative for drainage from ear(s), ear pain, sore throat, difficulty swallowing, difficulty handling secretions. 17:20 Cardiovascular: Positive for edema, Negative for chest pain, palpitations. 17:20 Respiratory: Negative for cough, shortness of breath, wheezing. 17:20 Abdomen/GI: Negative for abdominal pain, nausea, vomiting, and diarrhea. 17:20 Back: Negative for pain at rest, pain with movement. 17:20 Neuro: Negative for altered mental status, dizziness, headache, syncope, weakness. 17:20 All other systems are negative. Exam: 17:25 Constitutional: The patient appears in no acute distress, alert, awake, cp non-diaphoretic, non-toxic, well developed, well nourished. 17:25 Head/Face: Normocephalic, atraumatic. cp 17:25 Eyes: Periorbital structures: appear normal, Conjunctiva: normal, no exudate, no injection, Sclera: no appreciated abnormality, Lids and lashes: appear normal, bilaterally. 17:25 ENT: External ear(s): are unremarkable, Nose: is normal, Mouth: Lips: moist, Oral mucosa: pink and intact, moist, Posterior pharynx: is normal, airway is patent. 17:25 Neck: ROM/movement: is normal, is supple, without pain, no range of motions limitations. 17:25 Chest/axilla: Inspection: normal, Palpation: is normal, no crepitus, no tenderness. 17:25 Cardiovascular: Rate: normal, Rhythm: regular, Edema: ankle edema, that is mild, JVD: is not appreciated. 17:25 Respiratory: the patient does not display signs of respiratory distress, Respirations: normal, no use of accessory muscles, no retractions, labored breathing, is not present, Breath sounds: are clear throughout, no decreased breath sounds, no stridor, no wheezing. 17:25 Abdomen/GI: Inspection: abdomen appears normal, Palpation: abdomen is soft and non-tender, in all quadrants. 17:25 Back: pain, is absent, ROM is normal. 17:25 Skin: cellulitis, is not appreciated, no rash present. 17:25 Neuro: Orientation: to person, place \T\ time. Mentation: is normal, Motor: moves all fours, strength is normal. 21:37 ECG was reviewed by the Attending Physician. cp Vital Signs: 16:52 BP 117 / 57; Pulse 95; Resp 16 S; Temp 98.1(O); Pulse Ox 100% on R/A; Weight 53.07 kg aa5 (R); Height 5 ft. 0 in. (152.40 cm) (R); 18:17 Pulse 92; Resp 20 S; Pulse Ox 100% ; kg 21:35 BP 98 / 48; Pulse 61; Resp 18; Pulse Ox 99% on R/A; em 22:50 BP 112 / 48; Pulse 68; Resp 18; Pulse Ox 99% on R/A; em 23:15 BP 110 / 60; em 16:52 Body Mass Index 22.85 (53.07 kg, 152.40 cm) aa5 MDM: 17:00 Differential diagnosis: DVT, cellulitis, kidney failure, CHF, dependent edema, cp pulmonary edmea. 18:18 Patient medically screened. 22:43 Data reviewed: vital signs, nurses notes, lab test result(s), EKG, radiologic studies, cp plain films, ultrasound. 22:43 Test interpretation: by ED physician or midlevel provider: ECG, plain radiologic cp studies. Counseling: I had a detailed discussion with the patient and/or guardian regarding: the historical points, exam findings, and any diagnostic results supporting the discharge/admit diagnosis, lab results, radiology results, the need for outpatient follow up, an glass tinter, to return to the emergency department if symptoms worsen or persist or if there are any questions or concerns that arise at home. Response to treatment: the patient's symptoms have mildly improved after treatment, edema improved, VSS. Will have patient increase furosemide for next 5 days and f/u with pcp. 10/15 16:55 Order name: Basic Metabolic Panel; Complete Time: 18:18 [facility] 10/15 18:18 Interpretation: Normal except: CO2 33; GLUC 108; CRE 0.49; CA 8.3. 10/15 16:55 Order name: CBC with Diff; Complete Time: 18:18 [facility] 10/15 18:19 Interpretation: Normal except: RBC 3.39; HGB 10.7; HCT 31.8; PLT 456; MPV 7.0. 10/15 16:55 Order name: LFT's; Complete Time: 18:18 [facility] 10/15 18:19 Interpretation: Normal except: ALK 119; TP 5.4; ALB 2.2; A/G 0.7. 10/15 16:55 Order name: Magnesium; Complete Time: 18:18 [facility] 10/15 16:55 Order name: NT PRO-BNP; Complete Time: 18:18 [facility] 10/15 18:28 Interpretation: Abnormal: NT PRO-BNP 636. 10/15 16:55 Order name: PT-INR; Complete Time: 18:18 [facility] 10/15 16:55 Order name: Troponin (emerg Dept Use Only); Complete Time: 18:18 [facility] 10/15 18:27 Order name: EKG; Complete Time: 18:28 10/15 18:27 Order name: XRAY Chest (1 view); Complete Time: 21:00 10/15 18:27 Order name: US Extremity Venous W Compression Tim 10/15 20:33 Order name: US EDMS 10/15 20:33 Order name: Urine Dipstick-Ancillary; Complete Time: 21:00 EDMS 10/15 16:55 Order name: IV; Complete Time: 16:55 aa5 10/15 18:27 Order name: EKG - Nurse/Tech; Complete Time: 21:35 cp 10/15 18:29 Order name: Urine Dipstick-Ancillary (obtain specimen); Complete Time: 20:38 cp EC:37 Rate is 80 beats/min. Rhythm is regular. MS interval is normal. QRS interval is normal. cp QT interval is normal. Interpreted by me. Reviewed by me. Administered Medications: 21:13 Drug: Lasix (furosemide) 40 mg Route: IVP; Site: right antecubital; em 22:50 Follow up: Response: No adverse reaction em Disposition Summary: 10/15/20 22:44 Discharge Ordered Location: Home cp Problem: new cp Symptoms: have improved cp Condition: Stable cp Diagnosis - Edema, unspecified cp Followup: cp - With: Private Physician - When: 2 - 3 days - Reason: Recheck today's complaints Discharge Instructions: - Discharge Summary Sheet cp - Edema cp Forms: - Medication Reconciliation Form cp - Thank You Letter cp - Antibiotic Education cp - Prescription Opioid Use cp Prescriptions: - Lasix 20 mg Oral Tablet - take 1 tablet by ORAL route every 12 hours for 5 days then take 1 tablet daily; cp 30 tablet; Refills: 0, Product Selection Permitted Signatures: Dispatcher [employer] Damian Peters RN RN em Calderon, Audri RN RN aa5 Oliverio David, INSPECTOR BALANCE TRUING-C INSPECTOR BALANCE TRUING-Cla1 Gurwinder Phillips PA PA cp Corrections: (The following items were deleted from the chart) 16:54 16:53 Social history: Smoking status: Patient denies any tobacco usage or history of. aa5 aa5
--- NOTE | 2020-10-15 22:45 | ER ---
Nurse's Notes [facility] Name: Janki García Age: 75 yrs Sex: Female : 1945 Arrival Date: 10/15/2020 Time: 15:58 Bed 10 Private MD: Diagnosis: Edema, unspecified Presentation: 10/15 16:52 Chief complaint: Patient states: "I saw Dr. Spear yesterday because I was still not aa5 feeling too well after staying in the hospital just a few days ago, I am retaining fluid in my legs and Dr. Spear sent me for labs yesterday and said that my kidney function was high". Coronavirus screen: At this time, the client does not indicate any symptoms associated with coronavirus-19. Ebola Screen: Patient negative for fever greater than or equal to 101.5 degrees Fahrenheit, and additional compatible Ebola Virus Disease symptoms. Initial Sepsis Screen: Does the patient meet any 2 criteria? No. Patient's initial sepsis screen is negative. Does the patient have a suspected source of infection? No. Patient's initial sepsis screen is negative. Risk Assessment: Do you want to hurt yourself or someone else? Patient reports no desire to harm self or others. Onset of symptoms was October 2020. 16:52 Acuity: KASI 3 aa5 16:52 Method Of Arrival: Ambulatory aa5 Triage Assessment: 18:18 General: Appears in no apparent distress. Behavior is calm, cooperative, appropriate kg for age, quiet. Pain: Complains of pain in back. Historical: - Allergies: 16:53 No Known Allergies; aa5 - PMHx: 16:53 Chronic pain; fluid retention; Migraines; aa5 - Immunization history:: Client reports receiving the 2nd dose of the Covid vaccine. - Social history:: Smoking status: Patient reports the use of cigarette tobacco products, smokes one pack cigarettes per day. Screenin:17 Abuse screen: Denies threats or abuse. Fall Risk None identified. Fall Risk None kg identified. Fall in past 12 months (25 points). Secondary diagnosis (15 points) IV access (20 points). Ambulatory Aid- Crutches/Cane/Walker (15 pts). Gait- Weak (10 pts.). Mental Status- Oriented to own ability (0 pts). Total Blair Fall Scale indicates Low Risk Score (25-44 pts). Fall prevention measures have been instituted. Side Rails Up X 2 Placed close to Nursing Station Frequent Obs/Assesments occuring Family Present and informed to notify staff if they need to leave bedside As available Patient and Family Educated on Fall Prevention Program and strategies. 18:18 Nutritional screening: No deficits noted. Tuberculosis screening: No symptoms or risk kg factors identified. Assessment: 21:10 General: Appears in no apparent distress. comfortable, Behavior is calm, cooperative, em appropriate for age. Neuro: Level of Consciousness is awake, alert, obeys commands, Oriented to person, place, time, situation. Cardiovascular: Capillary refill < 3 seconds Patient's skin is warm and dry. Chest pain is denied. Respiratory: Airway is patent Respiratory effort is even, unlabored, Respiratory pattern is regular, symmetrical. Derm: Skin is intact, is healthy with good turgor, Skin is pink, warm \\T\\ dry. Musculoskeletal: Swelling present in right leg and left leg. 21:41 Reassessment: Patient appears in no apparent distress at this time. Patient and/or em family updated on plan of care and expected duration. Pain level reassessed. Patient is alert, oriented x 3, equal unlabored respirations, skin warm/dry/pink. 22:50 Reassessment: Patient appears in no apparent distress at this time. Patient and/or em family updated on plan of care and expected duration. Pain level reassessed. Patient is alert, oriented x 3, equal unlabored respirations, skin warm/dry/pink. Vital Signs: 16:52 BP 117 / 57; Pulse 95; Resp 16 S; Temp 98.1(O); Pulse Ox 100% on R/A; Weight 53.07 kg aa5 (R); Height 5 ft. 0 in. (152.40 cm) (R); 18:17 Pulse 92; Resp 20 S; Pulse Ox 100% ; kg 21:35 BP 98 / 48; Pulse 61; Resp 18; Pulse Ox 99% on R/A; em 22:50 BP 112 / 48; Pulse 68; Resp 18; Pulse Ox 99% on R/A; em 23:15 BP 110 / 60; em 16:52 Body Mass Index 22.85 (53.07 kg, 152.40 cm) aa5 ED Course: 15:58 Patient arrived in ED. as 16:51 Arm band placed on. aa5 16:53 Triage completed. aa5 16:55 Initial lab(s) drawn, by ED staff, sent to lab. Inserted saline lock: 20 gauge in right aa5 antecubital area, using aseptic technique. Blood collected. 18:07 Aisha Ramon, RN is Primary Nurse. kg 18:12 Gurwinder Phillips PA is PHCP. cp 18:12 Gentry Diaz MD is Attending Physician. cp 18:18 Patient has correct armband on for positive identification. kg 20:33 XRAY Chest (1 view) In Process Unspecified. EDMS 20:33 US In Process Unspecified. EDMS 21:41 EKG done, by ED staff, reviewed by Gurwinder BARRAGAN. em 23:16 No provider procedures requiring assistance completed. IV discontinued, intact, em bleeding controlled, No redness/swelling at site. Pressure dressing applied. Administered Medications: 21:13 Drug: Lasix (furosemide) 40 mg Route: IVP; Site: right antecubital; em 22:50 Follow up: Response: No adverse reaction em Outcome: 22:44 Discharge ordered by MD. cp 23:20 Discharged to home via wheelchair, with family. em 23:20 Condition: stable 23:20 Discharge instructions given to patient, Instructed on discharge instructions, follow up and referral plans. medication usage, Demonstrated understanding of instructions, follow-up care, medications, wound care, Prescriptions given X 1. 23:20 Patient left the ED. em Signatures: Dispatcher [employer] Damian Peters RN RN em Agustina Ureña Audri RN RN aa5 Gurwinder Phillips PA PA cp Aisha Ramon, RN RN kg Corrections: (The following items were deleted from the chart) 16:54 16:53 Social history: Smoking status: Patient denies any tobacco usage or history of. aa5 aa5 16:58 16:52 BP 117 / 57; Pulse 95bpm; Resp 16bpm; Spontaneous; Pulse Ox 100% RA; Temp 98.1F aa5 Oral; aa5
[2020-10-15 23:39] VITALS: TEMP 98.1
[2020-10-15 23:41] VITALS: O2SAT 99
[2020-10-15 23:44] VITALS: BP 110/60
--- NOTE | 2020-10-16 15:12 | EKG ---
Test Date: 2020-10-15 Test Time: 21:30:48 Microelectronics Engineer: VERONICA MEASUREMENT RESULTS: Intervals: Rate: 80 NH: 112 QRSD: 62 QT: 380 QTc: 438 Lyles: P: 56 NH: 112 QRS: 65 T: 61 INTERPRETIVE STATEMENTS: Normal sinus rhythm Normal ECG Compared to ECG 10/07/2020 19:03:20 No significant changes Electronically Signed On 10-16-20 15:10:50 CDT by Bradley García
== END 2020-10-15 23:20 | disposition home or self-care (01) ==
LOC: ER 15:55
DX: R60.9 Edema, unspecified (principal); F17.210 Nicotine dependence, cigarettes, uncomplicated
CPT/HCPCS: 93005; 85025; 80048; 36415; 83735; 85610; 80076; 81003; 84484; 83880; 71045; 93970; 96374; 99284; J1940

== ENCOUNTER 2020-10-28 17:34 | Emergency (ER) | payer OTHER ==
--- NOTE | 2020-10-28 19:05 | ER ---
Nurse's Notes [facility] Name: Janki García Age: 75 yrs Sex: Female : 1945 Arrival Date: 10/28/2020 Time: 17:38 Bed Waiting Private MD: Diagnosis: Presentation: 10/28 18:47 Chief complaint: Patient states: About a month ago was seen in hospital for a fluid vg1 retention. Pt has a sore/wound on Right meraz. Yellow and red in color. Pt states was sent over here by Dr Spear office. Provider stated 'pt has had 2 rounds of antibiotics and not working; 2 ER trips and no one has helped; needs IV meds; cannot remove stitches in Right leg due to swelling; and has a fever of 102 temporal.'. Coronavirus screen: Vaccine status: Patient reports receiving the 2nd dose of the covid vaccine. Ebola Screen: Patient negative for fever greater than or equal to 101.5 degrees Fahrenheit, and additional compatible Ebola Virus Disease symptoms. Initial Sepsis Screen: Does the patient meet any 2 criteria? No. Patient's initial sepsis screen is negative. Does the patient have a suspected source of infection? No. Patient's initial sepsis screen is negative. Risk Assessment: Do you want to hurt yourself or someone else? Patient reports no desire to harm self or others. Onset of symptoms was October 14, 2020. 18:47 Method Of Arrival: Wheelchair vg1 18:47 Acuity: KASI 3 vg1 Triage Assessment: 18:53 General: Appears in no apparent distress. uncomfortable, Behavior is calm, cooperative. vg1 Pain: Complains of pain in right meraz Pain currently is 6 out of 10 on a pain scale. Historical: - Allergies: 18:53 No Known Allergies; vg1 - Home Meds: 18:53 gabapentin oral [Active]; Hydromorphone Oral [Active]; vg1 - PMHx: 18:53 Chronic pain; fluid retention; Migraines; vg1 - Immunization history:: Adult Immunizations up to date, Client reports receiving the 2nd dose of the Covid vaccine. - Social history:: Smoking status: Patient reports the use of cigarette tobacco products, smokes one-half pack cigarettes per day. Assessment: 19:03 Reassessment: Pt was seen by Gurwinder Phillips in triage. Pt decided to go home and go to [facility] doctors office in the morning. Vital Signs: 18:47 BP 107 / 61; Pulse 87; Resp 16; Temp 98.1(O); Pulse Ox 99% ; Weight 49.9 kg; Height 5 vg1 ft. 0 in. (152.40 cm); Pain 6/10; 18:47 Body Mass Index 21.48 (49.90 kg, 152.40 cm) [facility] ED Course: 17:38 Patient arrived in ED. ds1 18:53 Triage completed. vg1 18:53 Arm band placed on. vg1 19:00 Gurwinder Phillips PA is PHCP. cp 19:00 Wale Franco MD is Attending Physician. cp Administered Medications: No medications were administered Outcome: 19:05 Patient left the ED. [facility] Signatures: Mervat Lazar 1 Gurwinder Phillips PA PA cp Garcia, Victoria, RN RN [facility]
--- NOTE | 2020-10-28 19:05 | EDPHYS ---
Physician Documentation [facility] Name: Janki García Age: 75 yrs Sex: Female : 1945 Arrival Date: 10/28/2020 Time: 17:38 Bed Waiting Private MD: ED Physician Wale Franco HPI: 10/28 19:02 This 75 yrs old Female presents to ER via Wheelchair with complaints of Fever.cp 19:02 The patient reports fever, that was measured at 102 degrees Fahrenheit. Onset: The cp symptoms/episode began/occurred today. 19:03 The patient presents with infected sutured wound to anterior aspect right lower leg. cp Patient reports she was referred to ED by office of DR Spear for fever today 102 and concern for infected and non-healing sutured wound to right lower leg. Historical: - Allergies: 18:53 No Known Allergies; vg1 - Home Meds: 18:53 gabapentin oral [Active]; Hydromorphone Oral [Active]; vg1 - PMHx: 18:53 Chronic pain; fluid retention; Migraines; vg1 - Immunization history:: Adult Immunizations up to date, Client reports receiving the 2nd dose of the Covid vaccine. - Social history:: Smoking status: Patient reports the use of cigarette tobacco products, smokes one-half pack cigarettes per day. ROS: 19:05 Constitutional: Negative for fever. cp 19:05 Cardiovascular: Negative for chest pain. 19:05 Respiratory: Negative for shortness of breath. 19:05 Skin: Positive for wound of anterior aspect of right lower leg. 19:05 All other systems are negative. Exam: 19:05 Head/Face: Normocephalic, atraumatic. cp 19:05 Constitutional: The patient appears in no acute distress, alert, awake, non-diaphoretic, non-toxic, well developed, well nourished. 19:05 Cardiovascular: Rate: normal. 19:05 Respiratory: the patient does not display signs of respiratory distress, Respirations: normal, no use of accessory muscles, no retractions. 19:05 Skin: Wound recheck: Suture laceration closure: mild drainage, moderate erythema, moderate swelling, marked dehiscence, sutured skin flap appears discolored. Vital Signs: 18:47 BP 107 / 61; Pulse 87; Resp 16; Temp 98.1(O); Pulse Ox 99% ; Weight 49.9 kg; Height 5 vg1 ft. 0 in. (152.40 cm); Pain 6/10; 18:47 Body Mass Index 21.48 (49.90 kg, 152.40 cm) vg1 Administered Medications: No medications were administered Disposition: 10/29 01:38 Co-signature as Attending Physician, Wale Franco MD. pkl Disposition Summary: 10/28/20 19:05 Eloped Disposition: after being seen by provider vg1 Problem: an ongoing problem vg1 Reason: other vg1 Condition: Fair vg1 Signatures: Wale Franco MD MD pkl Gurwinder Phillips PA PA cp Garcia, Victoria RN RN vg1
[2020-10-28 19:46] VITALS: BP 107/61; TEMP 98.1; O2SAT 99
== END 2020-10-28 19:05 | disposition left against medical advice (07) ==
LOC: ER 17:34
DX: T81.30XA Disruption of wound, unspecified, initial encounter (principal); F17.210 Nicotine dependence, cigarettes, uncomplicated
CPT/HCPCS: 99281

== ENCOUNTER 2021-01-18 16:22 | Emergency (ER) | payer OTHER ==
--- OUTSIDE RECORDS SUMMARY | 2021-01-18 16:28 | XMS REPORT | Continuity of Care Document ---
:1945 Author Organization [facility] t Address [address] [place] [address] Care Team Providers Name Role Phone Radha PINTO Primary Care Physician Unavailable Nina SEO, S Attending Clinician Howard CHOI Attending Clinician Unavailable Howard Choi MD Attending Clinician Zoë XAVIER Attending Clinician Carlitos Bey MD Attending Clinician Howard CHOI Admitting Clinician Unavailable Jimbo ESO S Admitting Clinician Payers Payer Name Policy Type Policy Number Effective Date Expiration Date Howard peña MEDICARE PART A [id number] 2011 \\T\\ B 00:00:00 [employer] INDEMNITY [id number] 2013 2020 00:00:00 00:00:00 Problems Condition Condition Condition Status Onset Resolution Last Treating Co mments Source Name Details Category Date Date Treatment Clinician Date Pain Pain Disease Active Univers 3-16 ity of 00:00: [place] [facility] Headache Problem Active 2020-08-13 Mem oria (finding) 08-18 01:56:59 l Headache 00:00: Madhav aguilar (finding) 00 Active 08/19/2015 Problem 08/13/2020 [facility] Low back Problem Active 2020-08-13 Mem oria pain 08-18 01:56:59 l (disorder) Low back 00:00: Juan velez pain 00 (disorder) Active 08/19/2015 Problem 08/13/2020 [facility] MORBID Diagnosis Active 2013-022014-02-18 Mem oria OBESITY 2- 21:53:00 l MORBID 00:00: [place] OBESITY 00 Active 01/19/2014 [facility] BDDC - EGD Diagnosis Active 2013-03-14 Memoria 03-11 08:53:00 l BDDC - 00:00: [place] EGD 00 Active 03/11/2013 [facility] Final: Problem 2014-02-14 Memor ia 19:32:05 l Final: [place] 02/14/2014 [facility] Obesity Problem Resolve 2020-08-13 Mem oria (disorder) d 01:56:59 l Obesity [place] (disorder) Resolved Problem 08/13/2020 [facility] Tremor Problem Resolve 2020-08-13 Devaughn samuel (finding) d 01:56:59 l Tremor [place] (finding) Resolved Problem 08/13/2020 [facility] Hyponatrem Problem Active 2020-08-13 M emoria ia 01:56:59 l (disorder) Madhav n Hyponatrem ia (disorder) Active Problem 08/13/2020 [facility] Migraine Problem Active 2020-08-13 Mem oria (disorder) 01:56:59 l Migraine Madhav n (disorder) Active Problem 08/13/2020 [facility] Heart Problem Active 2020-08-13 Memor ia murmur 01:56:59 l (finding) Heart Madhav n murmur (finding) Active Problem 08/13/2020 [facility] Pulmonary Problem Active 2020-08-13 Me moria hypertensi 01:56:59 l on [place] (disorder) Pulmonary hypertensi on (disorder) Active Problem 08/13/2020 [facility] Radial Problem Active 2020-08-13 Memor ia neuropathy 01:56:59 l (disorder) Radial Herm cherry neuropathy (disorder) Active Problem 08/13/2020 [facility] Transforme Problem Active 2020-08-13 M emoria d migraine 01:56:59 l (disorder) Madhav n Transforme d migraine (disorder) Active Problem 08/13/2020 [facility] Paresthesi Problem Active 2020-08-13 M emoria a of hand 01:56:59 l (finding) [place] Paresthesi a of hand (finding) Active Problem 08/13/2020 [facility] ESOPHAGEAL Diagnosis Active 2013-03-14 Memoria REFLUX 08:53:00 l [place] ESOPHAGEAL REFLUX Active [facility] MORBID Diagnosis Active 2014-02-18 Mem oria OBESITY 21:53:00 l MORBID [place] OBESITY Active [facility] Allergies, Adverse Reactions, Alerts Allergy Allergy Status Severity Reaction(s) Onset Inactive Treating Comm ents Source Name Type Date Date Clinician NO KNOWN Drug Active Univers ALLERGIE Class ity of S [facility] [place] [place] Social History Social Habit Start Date Stop Date Quantity Comments Source Exposure to Unable to assess Univers ity of SARS-CoV-2 [facility] [place] (event) [place] Tobacco use and 2020-10-20 2020-10-20 Never used Universit y of exposure 00:00:00 00:00:[address] [facility] [place] [place] Sex [birth year] Universit y of 00:00:00 00:00:[address] [facility] [place] [place] Smoking Status Start Date Stop Date Source Current some day smoker 2020-10-20 00:00:00 [facility] Social History 2014-02-09 16:45:37 [facility] Medications Ordered Filled Start Stop Current Ordering Indication Dosage Frequency Signature Comments Components Source Medication Medication Date Date Medication? Clinician (SIG) Name Name levoFLOXaci No 500mg 500 mg, U nivers n 10-20 Oral, ONCE ity of (LEVAQUIN) 06:00: 05:10 [place] tablet 500 [place] :00 dose, Sun Medi pérez mg 10/20/20 at Branch 0100, MANPREET
Re ason for Anti-Infec tive: Documented Infection< br>Documen suma Infection Site: Urine
D uration of Therapy: Other (see Comments) morpHINE No 4mg 4 mg, Slow Un ar injection 4 10-20 IV Push, ity of mg 05:00: 03:56 ONCE, 1 [place] 00 :00 dose, Wed Medical 10/20/20 at Branch 0000, STAT levoFLOXaci Yes [id number] 500mg Take 1 Univers n 10-19 tablet by ity of (LEVAQUIN) 00:00: mouth [place] 500 mg 00 every 24 Medical tablet (twenty-fo Branch ur) hours. 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, Weight 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 Yes = 1 tab, Memoria Divalproex 6-09 PO, l Sodium 500 19:21: Bedtime, # H ermann MG Extended 00 30 ea, 4 Release Refill(s), Tablet Pharmacy: [facility] Yes = 1 tab, Memoria Divalproex 6-09 PO, l Sodium 500 19:21: Bedtime, # H ermann MG Extended 00 30 ea, 4 Release Refill(s), Tablet Pharmacy: [facility] Acetaminoph Yes 15 mL, PO, Memoria [...] Hydromorpho 2013-02 No Notes: Devaughn samuel ne 2-31 (Same as: l 18:00: Dilaudid) Hydromorpho 2013-02 No Notes: Devaughn samuel ne 2-31 (Same as: l 18:00: Dilaudid) Hydromorpho 2013-02 No Notes: Devaughn samuel ne 2-31 (Same as: l 18:00: Dilaudid) pneumococca 2013-02 No Notes: Devaughn samuel l capsular 2-31 (Same as: l polysacchar 15:00: Pneumovax H ermann sandeep type 1 23) vaccine / Refrigerat pneumococca e l capsular polysacchar sandeep type 10A vaccine / pneumococca l capsular polysacchar sandeep type 11A vaccine / pneumococca l capsular polysacchar sandeep type 12F vaccine / pneumococca l capsular polysacchar pneumococca 2013-02 No Notes: Devaughn samuel l capsular 2-31 (Same as: l polysacchar 15:00: Pneumovax H ermann sandeep type 1 23) vaccine / Refrigerat pneumococca e l capsular polysacchar sandeep type 10A vaccine / pneumococca l capsular polysacchar sandeep type 11A vaccine / pneumococca l capsular polysacchar sandeep type 12F vaccine / pneumococca l capsular polysacchar pneumococca 2013-02 No Notes: Devaughn samuel l capsular 2-31 (Same as: l polysacchar 15:00: Pneumovax H ermann sandeep type 1 23) vaccine / Refrigerat pneumococca e l capsular polysacchar sandeep type 10A vaccine / pneumococca l capsular polysacchar sandeep type 11A vaccine / pneumococca l capsular polysacchar sandeep type 12F vaccine / pneumococca l capsular polysacchar Lovenox 2013-02 No Notes: Memoria 2-30 (Same as: l 15:00: Lovenox) [place] Lovenox 2013-02 No Notes: Memoria 2-30 (Same as: l 15:00: Lovenox) [place] Lovenox 2013-02 No Notes: Memoria 2-30 (Same as: l 15:00: Lovenox) [place] 00 Acetaminoph 2013-02 No Notes: Devaughn samuel en 24 MG/ML 2-30 (acetamino l / Codeine 12:59: phen-codei He rmann Phosphate 00 ne 120-12 2.4 MG/ML mg/5 ml Oral oral liq) Solution Do not exceed 4gm/day of acetaminop hen. (Same as: Tylenol w/Codeine) [facility] 2013-02 No Notes: Devaughn samuel en 24 MG/ML 2-30 (acetamino l / Codeine 12:59: phen-codei He rmann Phosphate 00 ne 120-12 2.4 MG/ML mg/5 ml Oral oral liq) Solution Do not exceed 4gm/day of acetaminop hen. (Same as: Tylenol w/Codeine) [facility] 2013-02 No Notes: Devaughn samuel en 24 MG/ML 2-30 (acetamino l / Codeine 12:59: phen-codei He rmann Phosphate 00 ne 120-12 2.4 MG/ML mg/5 ml Oral oral liq) Solution Do not exceed 4gm/day of acetaminop hen. (Same as: Tylenol w/Codeine) [facility] 2013-02 No Notes: Memoria 2-30 Infuse l 12:00: over 15 [place] 00 minutes Do not exceed 4gm/day of acetaminop hen [facility] 2013-02 No Notes: Memoria 2-30 Infuse l 12:00: over 15 [place] 00 minutes Do not exceed 4gm/day of acetaminop hen [facility] 2013-02 No Notes: Memoria 2-30 Infuse l 12:00: over 15 [place] 00 minutes Do not exceed 4gm/day of acetaminop hen [facility] 2013-02 No Notes: Memoria 2-30 (Same as: l 08:29: Zofran) Zofran 2013-02 No Notes: Memoria 2-30 (Same as: l 08:29: Zofran) Zofran 2013-02 No Notes: Memoria 2-30 (Same as: l 08:29: Zofran) gabapentin 2013-02 No Notes: Memor ia 600 MG Oral 2-29 (Same as: l Tablet 23:00: Neurontin) gabapentin 2013-02 No Notes: Memor ia 600 MG Oral 2-29 (Same as: l Tablet 23:00: Neurontin) gabapentin 2013-02 No Notes: Memor ia 600 [...] 2- Route: IV, l 21:20: Drug form: Norman 00 INJ, Q10Min, Dosing Weight 77.318, kg, PRN as needed for pain, Start date: 02/09/14 15:20:00, Duration: 2 doses or times, Stop date: Limited # of times Hydromorpho 2013-02 No 1 mg, Memor ia ne 2 Route: IV, l 21:20: Drug form: [place] 00 INJ, Q10Min, Dosing Weight 77.318, kg, PRN as needed for pain, Start date: 02/09/14 15:20:00, Duration: 2 doses or times, Stop date: Limited # of times Hydromorpho 2013-02 No 1 mg, Memor ia ne 2-29 Route: IV, l 21:20: Drug form: [place] 00 INJ, Q10Min, Dosing Weight 77.318, kg, PRN as needed for pain, Start date: 02/09/14 15:20:00, Duration: 2 doses or times, Stop date: Limited # of times Ondansetron 2013-02 No 4 mg, Memor ia 2-29 Route: l 20:47: IVP, ONCE, [place] 00 Dosing Weight 77.318, kg, PRN Nausea & Vomiting, Start date: 02/09/14 14:47:00 Labetalol 2013-02 No 10 mg, 2 Devaughn samuel 2-29 mL, Route: l 20:47: IVP, Drug [place] 00 form: INJ, Q5Min, Dosing Weight 77.318, kg, PRN Elevated BP, Start date: 02/09/14 14:47:00, Duration: 5 doses or times, Stop date: Limited # of times Hydralazine 2013-02 No Notes: Devaughn samuel 2-29 (Same as: l 20:47: Apresoline ) Push over 5 minutes Flumazenil 2013-02 No Notes: Memor ia 2-29 (Same as: l 20:47: Romazicon) [place] 00 Naloxone 2013-02 No Notes: Memoria 2-29 Same as l 20:47: Narcan [place] 00 Hydromorpho 2013-02 No 0.5 mg, Mem oria ne 2-29 Route: l 20:47: IVP, [place] 00 Q5Min, Dosing Weight 77.318, kg, PRN Pain Score 7-10, Start date: 02/09/14 14:47:00, Duration: 4 doses or times, Stop date: Limited # of times Ondansetron 2013-02 No 4 mg, Memor ia 2-29 Route: l 20:47: IVP, ONCE, [place] 00 Dosing Weight 77.318, kg, PRN Nausea & Vomiting, Start date: 02/09/14 14:47:00 Labetalol 2013-02 No 10 mg, 2 Devaughn samuel 2-29 mL, Route: l 20:47: IVP, Drug [place] 00 form: INJ, Q5Min, Dosing Weight 77.318, kg, PRN Elevated BP, Start date: 02/09/14 14:47:00, Duration: 5 doses or times, Stop date: Limited # of times Hydralazine 2013-02 No Notes: Devaughn samuel 2-29 (Same as: l 20:47: Apresoline Norman 00 ) Push over 5 minutes Flumazenil 2013-02 No Notes: Memor ia 2-29 (Same as: l 20:47: Romazicon) [place] 00 Naloxone 2013-02 No Notes: Memoria 2-29 Same as l 20:47: Narcan Hydromorpho 2013-02 No 0.5 mg, Mem oria ne 2-29 Route: l 20:47: IVP, [place] 00 Q5Min, Dosing Weight 77.318, kg, PRN Pain Score 7-10, Start date: 02/09/14 14:47:00, Duration: 4 doses or times, Stop date: Limited # of times Ondansetron 2013-02 No 4 mg, Memor ia 2-29 Route: l 20:47: IVP, ONCE, Dosing Weight 77.318, kg, PRN Nausea & Vomiting, Start date: 02/09/14 14:47:00 Labetalol 2013-02 No 10 mg, 2 Devaughn asmuel 2-29 mL, Route: l 20:47: IVP, Drug [...] oria ne 2-29 Route: l 20:47: IVP, [place] 00 Q5Min, Dosing Weight 77.318, kg, PRN Pain Score 7-10, Start date: 02/09/14 14:47:00, Duration: 4 doses or times, Stop date: Limited # of times Hydromorpho 2013-02 No Notes: Devaughn samuel ne 2-29 (Same as: l 20:30: Dilaudid) conc = 0.5 mg/ml 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: ;Delay: ;Basal: Hydromorpho 2013-02 No Notes: Devaughn samuel ne 2-29 (Same as: l 20:30: Dilaudid) [place] 00 conc = 0.5 mg/ml 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 Dose: ;Delay: ;Basal: Hydromorpho 2013-02 No Notes: Devaughn samuel ne 2-29 (Same as: l 20:30: Dilaudid) [place] 00 conc = 0.5 mg/ml 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: ;Delay: ;Basal: Naloxone 2013-02 No Notes: Memoria 2-29 Same as l 20:10: Narcan [place] 00 Naloxone 2013-02 No Notes: Memoria 2-29 Same as l 20:10: Narcan [place] 00 Naloxone 2013-02 No Notes: Memoria 2-29 Same as l 20:10: Narcan [place] 00 LR IV 1,000 2013-02 No 1,000 mL, M emoria mL 2-29 Rate: 100 l 20:07: ml/hr, [place] 00 Infuse over: 10 hr, Route: IV, Dosing Weight 77.318 kg, Total Volume: 1,000, Start date: 02/09/14 14:07:00, Duration: 30 day, Stop date: 03/11/14 14:06:00 LR IV 1,000 2013-02 No 1,000 mL, M emoria mL 2- Rate: 100 l 20:07: ml/hr, [place] 00 [...] 14:06:00 Cefoxitin 2013-02 No 1 gm, Memoria 2- Route: l 19:48: IVPB, [place] 00 ONCE, Dosing Weight 77.318, kg, Start [...] Devaughn samuel 2-29 Change l 17:00: patch [place] 00 every 72 hours (Same as: Transderm- Scop) heparin 2013-02 No Notes: Memoria 2-29 porcine l 17:00: heparin [place] [facility] 2013-02 No Notes: Memoria 2-29 Infuse l 17:00: over 15 [place] 00 minutes Do not exceed 4gm/day of acetaminop hen Mefoxin 2013-02 No Notes: Memoria 2-29 (Same As: l 17:00: Mefoxin) [place] 00 scopolamine 2013-02 No Notes: Devaughn samuel 2-29 Change l 17:00: patch [place] 00 every 72 hours (Same as: Transderm- Scop) heparin 2013-02 No Notes: Memoria 2-29 porcine l 17:00: heparin [place] 00 [facility] 2013-02 No Notes: Memoria 2-29 Infuse l [...] 2-29 porcine l 17:00: heparin [place] 00 irmev 2013-02 No Notes: Memoria 2-29 Infuse l 17:00: over 15 [place] 00 minutes Do not exceed 4gm/day of acetaminop hen Mefoxin 2013-02 No Notes: Memoria 2-29 (Same As: l 17:00: Mefoxin) temazepam 2013-02 Yes 15 mg = 1 [...] pneumococcal 2014-02-12 Completed Memorial 23-valent vaccine 16:30:00 [place] pneumococcal 2014-02-12 Completed [facility] 23-valent vaccine 16:30:00 [place] pneumococcal 2014-02-12 Completed [facility] 23-valent vaccine 16:30:00 [place] Vital Signs Vital Name Observation Time Observation Value Comments Source Systolic blood 2020-10-20 03:31:39 99 mm[Hg] Univer sity of pressure [facility] [place] Diastolic blood 2020-10-20 03:31:39 51 mm[Hg] Unive rsity of [facility] Heart rate 2020-10-20 03:31:39 91 /min [facility] Respiratory rate 2020-10-20 03:31:39 17 /min [facility] Oxygen saturation in 2020-10-20 03:31:39 99 /min [facility] Arterial blood by [facility] Pulse oximetry [place] Body temperature 2020-10-20 00:51:00 37.5 Leonie [facility] Body weight 2020-10-20 00:51:00 111.6 kg [facility] BMI 2020-10-20 00:51:00 48.05 kg/m2 [facility] Systolic (mm Hg) 2020-08-10 20:35:00 Devaughn rial [place] Diastolic (mm Hg) 2020-08-10 20:35:00 Mem orial [place] Heart Rate 2020-08-10 20:35:00 [facility] [place] Respitory Rate 2020-08-10 20:35:00 Memori al [place] Height 2020-08-10 20:35:00 152.4 cm [facility] Weight 2020-08-10 20:35:00 [facility] [place] BMI Calculated 2020-08-10 20:35:00 Memori al [place] Systolic (mm Hg) 2019-12-31 20:51:00 Devaughn rial [place] Diastolic (mm Hg) 2019-12-31 20:51:00 Mem orial [place] Heart Rate 2019-12-31 20:51:00 [facility] [place] Respitory Rate 2019-12-31 20:51:00 Memori al [place] Height 2019-12-31 20:51:00 152.4 cm [facility] [place] Weight 2019-12-31 20:51:00 [facility] [place] BMI Calculated 2019-12-31 20:51:00 Memori al [place] Systolic (mm Hg) 2019-07-22 19:06:00 Devaughn rial [place] Diastolic (mm Hg) 2019-07-22 19:06:00 Mem orial [place] Heart Rate 2019-07-22 19:06:00 [facility] [place] Respitory Rate 2019-07-22 19:06:00 Memori al [place] Temperature Oral (F) 2019-07-22 19:06:00 97.8 F [facility] [place] Height 2019-07-22 19:06:00 152.4 cm [facility] [place] Weight 2019-07-22 19:06:00 [facility] [place] BMI Calculated 2019-07-22 19:06:00 Memori al [place] Systolic (mm Hg) 2014-02-12 14:22:00 Devaughn rial [place] Diastolic (mm Hg) 2014-02-12 14:22:00 Mem orial [place] Heart Rate 2014-02-12 14:22:00 [facility] [place] Temperature Oral (F) 2014-02-12 14:22:00 99.0 F [facility] [place] Respitory Rate 2014-02-12 14:22:00 Memori al [place] Diastolic (mm Hg) 2014-02-12 10:43:00 Mem orial [place] Systolic (mm Hg) 2014-02-12 10:43:00 Devaughn rial [place] Respitory Rate 2014-02-12 10:43:00 Memori al [place] Heart Rate 2014-02-12 10:43:00 [facility] [place] Temperature Oral (F) 2014-02-12 10:43:00 99.3 F [facility] [place] Respitory Rate 2014-02-12 05:36:00 Memori al [place] Heart Rate 2014-02-12 05:36:00 [facility] [place] Systolic (mm Hg) 2014-02-12 05:36:00 Devaughn rial [place] Diastolic (mm Hg) 2014-02-12 05:36:00 Mem orial [place] Temperature Oral (F) 2014-02-12 05:36:00 98.6 F [facility] [place] BMI Calculated 2014-02-10 02:49:00 Memori al [place] Weight 2014-02-10 02:49:00 [facility] [place] Height 2014-02-10 02:49:00 149.8 cm [facility] [place] Weight 2014-02-09 16:39:00 [facility] [place] BMI Calculated 2014-02-09 16:39:00 Memori al [place] Height 2014-01-28 20:58:00 149.86 cm [facility] Procedures Procedure Date / Time Performing Clinician Source Performed URINALYSIS 2020-10-20 03:24:00 Jose Wood [facility] COMP. METABOLIC PANEL 2020-10-20 01:50:00 [id number]) [facility] CBC WITH DIFF 2020-10-20 01:50:00 Jose Wood [facility] NOTICE OF PRIVACY 2020-10-20 00:26:27 Doctor Unassigned, No [facility] PRACTICES Name [facility] CONSENT/REFUSAL FOR 2020-10-20 00:25:59 [facility]assigned, [facility] Back fusion [facility] Bladder operation [facility] Treasure nn Breast reduction, Amira Amanda nn bilateral Hysterectomy [facility] [place] Encounters Start End Encounter Admission Attending Care Care Encounter Source Date/Time Date/Time Type Type Clinicians Facility Department ID 2020-12-13 Emergency [facility] [id number] Univers 21:00:37 ity [facility] 2020-11-10 2020-11-10 Outpatient [facility]IE [facility] [id number] Memoria 14:00:00 14:00:00 11 radha Tang 2020-10-19 2020-10-20 Emergency [facility] [id number] Univers 20:09:00 00:16:00 [id number] [id number] [facility] 084 [place] 2020-08-10 2020-08-11 Outpatient nullFlavo MNA [id number] Memoria 20:15:00 04:59:59 r Neurology 10 l [place] 2020-05-25 2020-05-27 Outside nullFlavo MNA [id number] Memoria 13:59:20 04:59:59 Medical r Neurology 03 l Records [place] 2020-05-21 2020-05-23 Outside nullFlavo MNA [id number] Memoria 19:28:13 04:59:59 Medical r Neurology 02 l Records Reggie Tang 2020-05-03 2020-05-05 Outside nullFlavo MNA [id number] Memoria 13:10:15 04:59:59 Medical r Neurology 01 l Records Reggie Tang 2020-04-01 2020-04-02 Outpatient nullFlavo MNA [id number] Memoria 21:45:00 05:59:59 r Neurology 09 l Reggie Tang 2019-12-31 2020-01-01 Outpatient nullFlavo MNA [id number] Memoria 20:30:00 05:59:59 r Neurology 08 l Reggie Tang 2019-08-20 2019-08-20 Ambulatory nullFlavo MNA [id number] Memoria 18:45:00 18:45:00 Pre-Reg r Neurology 06 l Reggie Tang 2019-08-20 2019-08-20 Ambulatory nullFlavo MNA [id number] Memoria 18:45:00 18:45:00 Pre-Reg r Neurology 07 l Reggie Tang 2019-07-22 2019-07-23 Outpatient nullFlavo MNA [id number] Memoria 18:30:00 04:59:59 r Neurology 05 l Reggie [place] 2019-06-24 2019-06-24 Outpatient R [facility] [id number] Univers 14:08:58 23:59:00 MAIKEL [facility] 2019-06-24 2019-06-24 [facility] [id number] 14:08:00 23:59:00 Encounter Maikel Simons [id number] [place] [id number] [place] [id number] 2019-06-24 2019-06-24 Outpatient R [facility] [id number] Univers 14:15:00 14:15:00 MAIKEL [id number] [facility] 2019-05-22 2019-05-23 Outpatient nullFlavo MNA [id number] Memoria 20:00:00 04:59:59 r Neurology 04 l Reggie Aguilarann 2019-04-28 2019-04-29 [facility] [id number] 06:14:00 08:20:00 Encounter Maikel Lawrence Ramer [id number] [place] [id number] [place] [id number] 2019-04-28 2019-04-29 Outpatient Bill JIMBO [facility] ANS [id number] Univers 06:14:00 08:20:00 MAIKEL lubin [facility] 2019-04-28 2019-04-28 Anesthesia Jono Camp [facility] [id number] 07:29:00 07:52:00 Azam Bey [id number] [place] [id number] [facility] [id number] Center [id number] 2019-04-18 2019-04-18 Outpatient Bill CHOI [facility] [id number] [facility] 14:30:00 14:30:00 MAIKEL lubin [facility] 2017-12-25 2017-12-25 Ambulatory nullFlavo [facility] [id number] Memoria 19:45:00 19:45:00 [facility] 2017-09-25 2017-09-[address] [facility] [id number] Memoria 14:00:00 14:00:00 02 [place] 2017-05-23 2017-05-23 Outpatient MHIE [facility] [id number] Memoria 14:15:00 14:15:00 [facility] 2017-[facility] 2017-04-10 Outpatient MHIE IE [id number] Memoria 14:45:00 14:45:00 00 [facility] 2014-02-09 2014-02-12 Inpatient nullFlavo [facility] [id number] Memoria 15:19:00 17:00:00 [facility] 2013-03-14 2013-03-14 MARIANNE nullFlavo [facility] [id number] Memoria 08:42:00 14:00:00 r Medical [address] [place] [address] Results Test Description Test Time Test Comments Results Result Comments Source Urinalysis 2020-10-20 04:39:04 Test Item Value Reference Range Interpretation Comme nts APPEARANCE (test code = Hazy Clear A 8565498044) COLOR (test code = 2586073772) Yellow Yellow PH (test code = 8764501494) 4.8-8.0 SP GRAVITY (test code = 1.003-1.030 0969295784) GLU U QUAL (test code = Normal Normal 1727937632) BLOOD (test code = 5156927468) Negative Negative Interference from ascorbic acid may cause false negative results. KETONES (test code = Negative Negative 6770217172) PROTEIN (test code = 2887-8) Negative Negative UROBILIN (test code = 4.0 mg/dL Normal A 0715904515) BILIRUBIN (test code = Negative Negative 1289119327) NITRITE (test code = Negative Negative 2337897328) LEUK NELSY (test code = 250/uL Negative A 2042238488) RBC/HPF (test code = See_Comment H [Autom ated message] The 9785248217) system which ge nerated this result transmit suma reference range: 0 - 3 HP F. The reference range was not used to interpret th is result as normal/abnormal . WBC/HPF (test code = See_Comment H [Autom ated message] The 5750205902) system which ge nerated this result transmit suma reference range: 0 - 5 HP F. The reference range was not used to interpret th is result as normal/abnormal . BACTERIA (test code = Few Negative A 0450470286) MUCOUS (test code = 7837130565) Slight Negative LPF A SQ EPITH (test code = <1 HPF 7381231842) Lab Interpretation (test code = Abnormal 41468-9) [facility]. Metabolic Panel (60968)2020-10-20 02:21:16 Test Item Value Reference Range Interpretation Comments NA (test code = 132 mmol/L 135-145 L 9343318397) K (test code = 3.7 mmol/L 3.5-5.0 6331716667) CL (test code = 95 mmol/L 98-108 L 2343391584) CO2 TOTAL (test code = 36 mmol/L 23-31 H 0272090229) AGAP (test code = 2-16 L 3653601952) BUN (test code = 24 mg/dL 7-23 H 5634657018) GLUCOSE (test code = 94 mg/dL 70-110 2744849791) CREATININE (test code = 0.63 mg/dL 0.50-1.04 9886442186) TOTAL BILI (test code = 0.4 mg/dL 0.1-1.1 6662133585) CALCIUM (test code = 8.4 mg/dL 8.6-10.6 L 8312566277) T PROTEIN (test code = 5.7 g/dL 6.3-8.2 L 2859509828) ALBUMIN (test code = 2.7 g/dL 3.5-5.0 L 0790094797) ALK PHOS (test code = 157 U/L 34-122 H 0990425294) ALTv (test code = 28 U/L 5-35 1742-6) AST(SGOT) (test code = 35 U/L 13-40 3205062220) eGFR (test code = mL/min/1.73m2 0848832051) DARWIN (test code = DARWIN) Association of Glomerular Filtration Rate (GFR) and Staging of Kidney Disease* + --+ --+ ------+| GFR (mL/min/1.73 m2) ?| With Kidney Damage ?| ?Without Kidney Damage+ --------+ --------+ +| ?>90 ?| ?Stage one ?| ? Normal ?+ ---+ ---+ -------+| ?60-89 ?| ?Stage two ?| ? Decreased GFR ? + --+ --+ ------+| ?30-59 ?| ?Stage three ?| ? Stage three ? + --+ --+ ------+| ?15-29 ?| ?Stage four ? | ? Stage four ?+ ---+ ---+ -------+| ?<15 (or dialysis) ? ?| ?Stage five ? | ? Stage five ?+ ---+ ---+ -------+ *Each stage assumes the associated GFR level has been in effect for at least three months. ?Stages 1 to 5, with or without kidney disease, indicate chronic kidney disease. Notes: Determination of stages one and two (with eGFR >59mL/min/1.73 m2) requires estimation of kidney damage for at least three months as defined by structural or functional abnormalities of the kidney, manifested by either:Pathological abnormalities or Markers of kidney damage (including abnormalities in the composition of the blood or urine or abnormalities in imaging tests). Lab Interpretation Abnormal (test code = 98925-5) [facility] with SABO0395-95-54 02:11:35 Test Item Value Reference Range Interpretation Comments WBC (test code = See_Comment [Automated 6690-2) message] The sy stem which generated this result transmitted reference range : 4.30 - 11.10 10*3/?L. The reference range was not used to interpret this result as normal/abnormal . RBC (test code = See_Comment L [Automated 789-8) message] The sy stem which generated this result transmitted reference range : 3.93 - 5.25 10*6/?L. The reference range was not used to interpret this result as normal/abnormal . HGB (test code = 10.5 g/dL 11.6-15.0 L 718-7) HCT (test code = 32.4 % 35.7-45.2 L 4544-3) MCV (test code = 96.1 fL 80.6-95.5 H 787-2) MCH (test code = 31.2 pg 25.9-32.8 785-6) MCHC (test code = 32.4 g/dL 31.6-35.1 786-4) RDW-SD (test code = 51.0 fL 39.0-49.9 H 78398-0) RDW-CV (test code = 14.6 % 12.0-15.5 788-0) PLT (test code = See_Comment H [Automated 777-3) message] The sy stem which generated this result transmitted reference range : 166 - 358 10*3/ ?L. The reference r evert was not used to interpret this result as normal/abnormal . MPV (test code = 9.1 fL 9.5-12.9 L 68142-9) NRBC/100 WBC (test See_Comment [Automat ed code = 3344063179) message] The system which generated this result transmitted reference range : 0.0 - 10.0 /100 WBCs. The refer ence range was not u sed to interpret th is result as normal/abnormal . NRBC x10^3 (test code <0.01 See_Comment [Auto mated = 6997167663) message] The s ystem which generated this result transmitted reference range : 10*3/?L. The reference range was not used to interpret this result as normal/abnormal . GRAN MAT (NEUT) % 75.7 % (test code = 770-8) IMM GRAN % (test code 0.70 % = 0009258739) LYMPH % (test code = 13.3 % 736-9) MONO % (test code = 7.9 % 5905-5) EOS % (test code = 1.7 % 713-8) BASO % (test code = 0.7 % 706-2) GRAN MAT x10^3(ANC) 8.13 10*3/uL 1.88-7.09 H (test code = 2187321464) IMM GRAN x10^3 (test 0.08 10*3/uL 0.00-0.06 H code = 6183189944) LYMPH x10^3 (test code 1.43 10*3/uL 1.32-3.29 = 731-0) MONO x10^3 (test code 0.85 10*3/uL 0.33-0.92 = 742-7) EOS x10^3 (test code = 0.18 10*3/uL 0.03-0.39 711-2) BASO x10^3 (test code 0.08 10*3/uL 0.01-0.07 H = 704-7) Lab Interpretation Abnormal (test code = 64515-6) [facility]:0095[facility] LHXLG9142-42-93 11:07:000.6[facility] UBGRR1541-67-26 11:07:003.9[facility] RCQZI0394-35-51 11:07:79874Bocncyyt [facility] OIXIO9525-12-77 11:07:008.9[facility] EBFGS3359-57-97 11:07:28667 [facility]CHE[facility] KJRHS2810-40-64 11:07:0026[facility] PANEL 2014-02-12 11:07:0087[facility] VTDON8740-58-34 11:07:006[facility] TKDOY9890-39-75 11:07:0014.9[facility] EdrpvbxQKXNJQFXSJ3816-66-50 11:07:0086.3[facility] VgrpnufZRZIRJRIIO1308-05-48 11:07:006.1[facility] AAGQJKLBDS9885-74-94 11:07:007.2[facility] SbvpcumBQRNKYVEAI4947-04-38 11:07:000.7 [facility] MfsltyyQEEMDBVYYK8920-87-52 11:07:000.3[facility]annHEMATOLOGY 2014-02-12 11:07:000.1[facility] GllndkrOYHOYYKJNW0638-58-11 11:07:000.8[facility] LhoeokxAAYHJVSBOS4458-05-98 11:07:009.9[facility] OvhonbwWYAYEREFJI7361-92-80 11:07:0086.3[facility] MfqjmagZELJTDVMAN0407-84-66 11:07:0039.3[facility] NGXWWJGKOO9963-07-00 11:07:009.6[facility] MsqiodgNVYJSFGJGJ4737-38-32 11:07:54357 [facility] RjfkvuwYRAKZLYKHA5568-96-25 11:07:00 Test Item Value Reference Range Interpretation Comments MCH (test code = MCH) 29.6 pg 27.0-31.0 [facility] EpuwfezVLYJSDJPIV8385-43-07 11:07:0015.2[facility]annHEMATOLOGY 2014-02-12 11:07:0034.3[facility] MawgkleQQQHDCIARC9839-07-74 11:07:0011.5[facility] LitybwcPMHDMBZLDI7808-51-09 11:07:004.55[facility] RqfskoeQONXMNNMKU9009-08-10 11:07:0013.5[facility]annCHE[facility] IGSZT0784-88-15 11:07:0095[facility] BJCZF7977-00-68 11:07:000.6[facility]CHE[facility] VGPPW9115-62-33 11:07:003.9 [facility] GPNHK6236-87-44 11:07:21262Acwblwso [facility]annCHE[facility] PANEL 2014-02-12 11:07:008.9[facility]annCHE[facility] QYDDJ0985-16-58 11:07:45180Breyxhoj [facility]CHE[facility] ZGULC4703-48-48 11:07:0026[facility] PIMJE7977-94-41 11:07:0087[facility] EZHJJ5950-36-79 11:07:006[facility] UXLWG0838-66-14 11:07:0014.9[facility] KbbayboJRFAJGAHOS0056-72-10 11:07:0086.3 [facility] TjmqcqvAVULGXKOZO4405-82-15 11:07:006.1[facility]annHEMATOLOGY 2014-02-12 11:07:007.2[facility] MbjrmdjQTWSEHHSGD1861-19-91 11:07:000.7[facility] QdawexbLIRUNCWGHG6614-90-91 11:07:000.3[facility] LxxgunaCNRTFMHSSF5793-49-81 11:07:000.1[facility] EmhfyxxAVMHIOKWKO1222-23-96 11:07:000.8[facility] IITCBGWDDO9802-36-86 11:07:009.9[facility] JhmjitfQWBHIAKTCD2783-49-63 11:07:00 86.3[facility] NumyhedEQVUJWFJJN1534-70-03 11:07:0039.3[facility]annHEMATOLOGY 2014-02-12 11:07:009.6[facility] YhrdhxeVXCVIFLTNV7912-20-51 11:07:00280Gkssembl TfmotkcJKPDIXMKIY9631-90-59 11:07:00 Test Item Value Reference Range Interpretation Comments MCH (test code = MCH) 29.6 pg 27.0-31.0 [facility] QzhmtkwBPWJFOFATI0291-89-41 11:07:0015.2[facility]annHEMATOLOGY 2014-02-12 11:07:0034.3[facility] AyefitlTPHPFGUJHK5865-00-93 11:07:0011.5[facility] HelvjlkVLYYLGIYFU8653-43-93 11:07:004.55[facility] ZlgfwncAITFTHEOHK2570-27-28 11:07:0013.5[facility]annCHE[facility] RMRPZ0726-20-41 11:07:0095[facility] JTUZX6805-07-26 11:07:000.6[facility]annCHE[facility] BLHOH3460-26-02 11:07:003.9 [facility]CHE[facility] BBVMH2437-86-28 11:07:59085Zdfdsgyu [facility]CHE[facility] PANEL 2014-02-12 11:07:008.9[facility]annCHE[facility] XSUHY1682-96-72 11:07:10924Pvocbslq [facility] QIYFC0971-21-94 11:07:0026[facility] RNRQL5227-82-50 11:07:0087[facility] GFLBV5066-59-71 11:07:006[facility]CHE[facility] XVRAA8303-39-57 11:07:0014.9[facility] EptucfjYNQDGYRESD1635-08-80 11:07:0086.3 [facility] KklggglGETPTYSTVK5964-62-04 11:07:006.1[facility]annHEMATOLOGY 2014-02-12 11:07:007.2[facility] VpyoztzRNPTCXUWAR2168-37-93 11:07:000.7[facility] UjovudyOPFUZGQVPS7960-12-46 11:07:000.3[facility] MiyvthqABHSKZSGKE3764-27-82 11:07:000.1[facility] NmldparNXQBLDZQCZ1463-64-96 11:07:000.8[facility] RNGURMYYKG2390-82-02 11:07:009.9[facility] VdmbvzwBHJKEEDVVS1029-47-72 11:07:00 86.3[facility] MrafiolMBLKDLTXLS0267-03-91 11:07:0039.3[facility]annHEMATOLOGY 2014-02-12 11:07:009.6[facility] XrxinwhOGUPQOBZHW4951-49-89 11:07:06372Kxjqnwgz YyxsgqwSZSUGFEXJU6779-59-80 11:07:00 Test Item Value Reference Range Interpretation Comments MCH (test code = MCH) 29.6 pg 27.0-31.0 [facility] RkwuluqCANOLDLAWJ4770-52-11 11:07:0015.2[facility]annHEMATOLOGY 2014-02-12 11:07:0034.3[facility] IacvkaqAMAROLYFMV6437-89-89 11:07:0011.5[facility] FnxptkrZJKDYPKBGK2029-25-16 11:07:004.55[facility] NgylcciZGVCQVZLPB5621-92-73 11:07:0013.5[facility] WltltokGOVVKPYRWG6683-70-85 21:21:004.7[facility] NZCMSWBMGS7980-23-59 21:21:0013.2[facility] KskbamdDEXYHNVIKV2111-29-54 21:21:00 0.7[facility] EmavsweRPBZQAWOPZ9372-42-13 21:21:000.7[facility]annHEMATOLOGY 2014-02-11 21:21:005.1[facility] InjvuznFFDVZEAQQB8285-11-18 21:21:000.2[facility] BzrqljxHGAIQRECHB1794-92-54 21:21:0090.0[facility] KiwsbkvWITFTTKJNS3331-00-18 21:21:0034.3[facility] DgegoglBUQOTZKDOW1785-71-97 21:21:0041.9[facility] XMEGJEDNAG9638-32-51 21:21:0014.4[facility] DmzigwzZFPZRPDXCW3102-59-86 21:21:00 15.1[facility] KytntowATTIVGGKUU8919-70-98 21:21:0086.7[facility]annHEMATOLOGY 2014-02-11 21:21:00 Test Item Value Reference Range Interpretation Comments MCH (test code = MCH) 29.7 pg 27.0-31.0 [facility] IxslowzQOQNSEBJFE3758-75-68 21:21:009.4[facility]annHEMATOLOGY 2014-02-11 21:21:59709Kmnaudrr GfjbbwhIRQWXMQPQR6918-84-68 21:21:0014.7[facility] UnuodtjWECNCTUJJB8097-38-07 21:21:004.83[facility] VpxfjruZWXFPLHXRO0142-34-74 21:21:004.7[facility] VklcqvcKGXVTGVHNT5535-40-59 21:21:0013.2[facility] ZGOHUROEGW5390-01-68 21:21:000.7[facility] ZnqfuzfALKSHGCBGU7349-35-69 21:21:000.7 [facility] FzvneivZEANQRKATQ3690-69-55 21:21:005.1[facility]annHEMATOLOGY 2014-02-11 21:21:000.2[facility] GnwccxjTSQHZBUJOZ0080-10-91 21:21:0090.0[facility] AmppeqaYQFCVBMQAN9974-57-29 21:21:0034.3[facility] FypqkmyFKXTLBUBYA5857-20-09 21:21:0041.9[facility] QwbrdmsLFSYSKOGNP4479-94-89 21:21:0014.4[facility] AITEPAGBCG1619-45-25 21:21:0015.1[facility] QqpifllGPZXMYCXKM8622-71-05 21:21:00 86.7[facility] DzfkyqpZRKVCYJVFE8805-94-35 21:21:00 Test Item Value Reference Range Interpretation Comments MCH (test code = MCH) 29.7 pg 27.0-31.0 [facility] BbwjauiCBHQUAPXWW7818-94-72 21:21:009.4[facility]annHEMATOLOGY 2014-02-11 21:21:08826Axufdiru QjyxsaaAJRZBWSMAA4864-66-92 21:21:0014.7[facility] AhvitctAJLDWBVYOY0845-17-26 21:21:004.83[facility] QyostyePTTJORMZHW2985-00-17 21:21:005.1[facility] JqropguOERQRGGKDB1482-33-60 21:21:000.2[facility] FPQGGBUTTH1486-11-12 21:21:0090.0[facility] MeearyqWBJYHOTDNE1702-01-33 21:21:00 34.3[facility] LpnuflfAONKCBKILK1175-58-60 21:21:0041.9[facility]annHEMATOLOGY 2014-02-11 21:21:0014.4[facility] XhuievbKBHPQETAEM7761-63-94 21:21:0015.1[facility] HaqodutPPSVICNAQL9767-81-44 21:21:0086.7[facility] NdbrfutIMBEXEZBFB8647-29-44 21:21:00 Test Item Value Reference Range Interpretation Comments MCH (test code = MCH) 29.7 pg 27.0-31.0 [facility] WnjboyjXWPPFJTPAZ3251-10-15 21:21:009.4[facility]annHEMATOLOGY 2014-02-11 21:21:50164Iwfjblcv GqekmqcGHUTDMPQXY5329-07-31 21:21:0014.7[facility] YkockwkMXLXQCNSUR0898-12-58 21:21:004.83[facility] GqivfhzFBFSMGXGMP2207-74-86 21:21:004.7[facility] MqhnftgGLRMLPOKGW3959-31-53 21:21:0013.2[facility] ZTNKTFRKPW2282-07-82 21:21:000.7[facility] FvxmrxuZDVUYAWUFQ1597-06-48 21:21:000.7 [facility] GfoplqzYZVDCKOEQYDU3367-19-22 11:45:0011.7[facility] HermannELECTROLYTES 2014-02-11 11:45:0090[facility] JykobuxRLKQSYYVICEA1103-63-37 11:45:009.1[facility] CdlfxkaZYKJDJFXEJNY2984-51-61 11:45:0027[facility] UqgiuqoHBNFOYLTCRYJ9157-93-10 11:45:0098[facility] CefdhleQAYUQMOLIOXS9937-30-56 11:45:003.7[facility] ROEOPAVQFWRB7906-68-47 11:45:86901Hgzphzwd VopbvnmILAOQTATATQF2463-54-16 11:45:000.7[facility] IrnycmkCISKVITDUNFJ4562-34-07 11:45:006[facility] AHXRBJELVWWF9479-84-78 11:45:0086[facility] KawavqqESAIRMIREK0294-53-19 11:45:00 5.2[facility] QkkprepGRLIQXKPZX7156-34-36 11:45:008.4[facility]annHEMATOLOGY 2014-02-11 11:45:000.8[facility] AivrvnkBQUGUSFPKV2923-04-80 11:45:0013.7[facility] QngsgdkUYMSRXLDZK4498-42-85 11:45:001.3[facility] VcoomvfZHIYISHNCL0120-54-67 11:45:000.1[facility] EpnrqvnCQTSVGRUEU0647-21-93 11:45:000.1[facility] ZZTMYNQBWJ9447-61-43 11:45:0086.2[facility] ChpquhaOWGPLLMTRH5680-12-54 11:45:00 14.5[facility] JznsucrMLWUVWSQMW7585-05-14 11:45:00 Test Item Value Reference Range Interpretation Comments MCH (test code = MCH) 29.4 pg 27.0-31.0 [facility] YvczzyyUZHTIHMRWJ0000-85-10 11:45:0033.7[facility]annHEMATOLOGY 2014-02-11 11:45:0042.9[facility] AenqxzoIDIRMUQYBF8045-15-22 11:45:0087.2[facility] GbpactnKHRLOABRXT7267-06-36 11:45:37161Vydtdwsh AtktpcbUXBJJLPXHF5856-82-68 11:45:0015.4[facility] MdcqudfIZMFEKNKQI8146-15-07 11:45:009.6[facility] KTFESVBQUY2292-41-43 11:45:004.92[facility] BxgnzkqNFMKUYNVKI7887-82-40 11:45:00 15.9[facility] FipdhqkNGVIDPGFVL9766-95-70 11:45:00 Test Item Value Reference Range Interpretation Comments PTT (test code = PTT) 34.0 s 22.9-35.8 [facility] UrvvopbNJRFHLPKTJMK1729-82-01 11:45:0011.7[facility] HermannELECTROLYTES 2014-02-11 11:45:0090[facility] OoztkdqYEKDNDHBMHRT4635-97-54 11:45:009.1[facility] XwtciltKXYEDEIMPNVO7171-82-66 11:45:0027[facility] EpjqahrZGTHOUKONRQV7094-98-92 11:45:0098[facility] DieohtwEFTMYKQHMHKO4178-65-30 11:45:003.7[facility] MRZOMCXYQSKI5143-63-00 11:45:40598Kzcjbvlb FcpjuuaGFDJLZJFUOXX3172-55-48 11:45:000.7[facility] NpacxutGPAZCQMGSDEK9279-14-89 11:45:006[facility] WAPZPRJVZYOE9838-11-27 11:45:0086[facility] KmvmiqcEEEOZRPXGO5590-74-70 11:45:00 5.2[facility] YgkrkmlZALUAJWHMU3239-87-25 11:45:008.4[facility]annHEMATOLOGY 2014-02-11 11:45:000.8[facility] QowdnznZPGCDUAZWZ6843-61-58 11:45:0013.7[facility] OrwoxtpWIAVVKFGNE8466 11:45:001.3[facility] QxznsdtBQJPHJUJWY0206-26-93 11:45:000.1[facility] BlinozkIPZAVAINDN2299-04-47 11:45:000.1[facility] SNCRNKCGUH7977-85-48 11:45:0086.2[facility] HguhkmyZFNHDFSLPR1527-80-86 11:45:00 14.5[facility] VcputcrPKETVSXUEK3648-54-81 11:45:00 Test Item Value Reference Range Interpretation Comments MCH (test code = MCH) 29.4 pg 27.0-31.0 [facility] DpphxboMWODOCRKKL3529-11-22 11:45:0033.7[facility]annHEMATOLOGY 2014-02-11 11:45:0042.9[facility] YwychzwHGKFXFMGIC8836-81-49 11:45:0087.2[facility] BjmpolxIWGATUDGUX9141-96-42 11:45:80585Lujgcfas UnnnzypWRSBXECKDJ1488-25-46 11:45:0015.4[facility] ZpieubtRCTUAUJZZT1688-48-48 11:45:009.6[facility] ILDPTYMYLM9046-75-05 11:45:004.92[facility] KqtejezTNKXERWEYP3334-22-36 11:45:00 15.9[facility] NlvgguwIRPYIFTZPP3704-50-14 11:45:00 Test Item Value Reference Range Interpretation Comments PTT (test code = PTT) 34.0 s 22.9-35.8 [facility] FjpcafjVXRISCEXJUCJ1018-15-24 11:45:0011.7[facility] HermannELECTROLYTES 2014-02-11 11:45:0090[facility] FzgctrePAKNDUUYGONH7548-48-43 11:45:009.1[facility] ClihfsvTXFYYIONOFPJ0471-87-71 11:45:0027[facility] YtdjmfvDVGDALZHTYYB8285-09-32 11:45:0098[facility] IuwlucnIHDZJVPUKNAT7411-94-79 11:45:003.7[facility] WEUEVNJQQNDR3236-31-53 11:45:97403Ovnpsqei FbqfhfdNSAMSVOUZKEN4105-91-18 11:45:000.7[facility] PqnzmzpFBHBVVNWIEAC9413-84-73 11:45:006[facility] OWEYZHUAJHTL9388-84-16 11:45:0086[facility] MvwvncdCNRSZUWFCL3036-83-71 11:45:00 5.2[facility] FzjpiekXUCEYAEHGC4004-23-00 11:45:008.4[facility]annHEMATOLOGY 2014-02-11 11:45:000.8[facility] RatoyubWYFJHSZBZV5467-96-16 11:45:0013.7[facility] IcskrznAVEDXNYSCI0036-74-92 11:45:001.3[facility] JtxumtbJTEHAJWCSZ1714-11-18 11:45:000.1[facility] XjfsmddSCWSFNSMYN5936-97-85 11:45:000.1[facility] KLVBZUYPQG8490-68-20 11:45:0086.2[facility] OxaxiiaJCXZAHSSUY8086-88-54 11:45:00 14.5[facility] WjixjsaSVUAEZFYUL7884-21-02 11:45:00 Test Item Value Reference Range Interpretation Comments MCH (test code = MCH) 29.4 pg 27.0-31.0 [facility] BiypspvYOOICOXHHV4112-78-16 11:45:0033.7[facility]annHEMATOLOGY 2014-02-11 11:45:0042.9[facility] HnaesipLXQDBVWCOG2481-72-58 11:45:0087.2[facility] BejmeyzAZIXTEBILP2583-78-05 11:45:07654Fyfiytjb YrmsfquAGABCIUSMD1856-66-94 11:45:0015.4[facility] RoakgewFZSJHFBFYI4063-43-78 11:45:009.6[facility] XXSPLPWTQX9307-22-47 11:45:004.92[facility] UanxumqXJVSXVQDKJ7223-25-43 11:45:00 15.9[facility] RkfzerdDXJQSCSXSY8897-80-11 11:45:00 Test Item Value Reference Range Interpretation Comments PTT (test code = PTT) 34.0 s 22.9-35.8 [facility]CHE[facility] WYXJF1890-44-79 11:20:0077[facility]annCHEM PANEL 2014-02-10 11:20:0027[facility]annCHE[facility] HQQNM0703-63-62 11:20:008.6[facility]annCHEM UJVXE0122-45-95 11:20:24384Vaejnctb [facility]annCHEM KRKLL7590-22-24 11:20:0099[facility]CHE[facility] NFMJK7460-67-22 11:20:76383Gdvwhvyj [facility]annCHE[facility] KKZFS9736-98-10 11:20:000.8[facility]annCHE[facility] HKCBS4619-82-88 11:20:0010 [facility]CHE[facility] OWOGP9257-19-08 11:20:004.0[facility]annCHEM PANEL 2014-02-10 11:20:0012.0[facility]annCHE[facility] QHBSB7665-53-69 11:20:0077[facility]annCHE[facility] AHXZS3187-13-20 11:20:0027[facility]annCHE[facility] IZGZE0583-45-94 11:20:008.6[facility]annCHE[facility] XYMKF2588-04-49 11:20:18383Dacviofo [facility]CHE[facility] KPUTK9771-63-80 11:20:0099[facility]annCHE[facility] NJDYD4250-74-48 11:20:49676 [facility]CHE[facility] SALER1394-44-23 11:20:000.8[facility]annCHEM PANEL 2014-02-10 11:20:0010[facility]annCHE[facility] PLLNP6928-68-12 11:20:004.0[facility]annCHE[facility] AMFGR1533-84-94 11:20:0012.0[facility]annCHE[facility] DEZKD4086-04-33 11:20:0077[facility]CHE[facility] TYBJY0084-16-44 11:20:0027[facility]annCHE[facility] GRJCH9688-40-77 11:20:008.6[facility]CHE[facility] JNGQE9029-69-88 11:20:38741 [facility] KSUHJ9963-09-71 11:20:0099[facility]annCHE[facility] PANEL 2014-02-10 11:20:18240Igbtwnwo HermannCHEM JCZQC5342-60-70 11:20:000.8[facility]annCHE[facility] EUPYK9692-06-44 11:20:0010[facility]annCHE[facility] MAKYQ3184-51-51 11:20:004.0[facility]annCHE[facility] YWMYL4433-89-14 11:20:0012.0[facility] BLOOD BANK YBMPDHY9263-77-77 16:49:00Negative (02/09/14 10:49 AM)[facility] JMIMQIA6855-31-26 16:49:00Negative (02/09/14 10:49 AM)[facility] IYAPQMQ0850-62-79 16:49:00Negative (02/09/14 10:49 AM)[facility] QUVSG6825-90-59 18:45:003.8[facility]annCHEM ETMSS4244-08-03 18:45:0014[facility]annCHE[facility] NCBJO9464-55-74 18:45:28167Rxpuyoxy HermannCHEM GCSAG6392-63-20 18:45:000.3[facility]CHE[facility] BLQJL1072-72-96 18:45:0018 [facility] KZMKG6423-24-87 18:45:007.0[facility]annCHEM PANEL 2014-01-28 18:45:001.2[facility]CHE[facility] UVNPB6756-58-25 18:45:0020[facility]CHE[facility] HGLWD3324-28-91 18:45:003.2[facility] XzeojgvFDCYWJFLWM3056-59-55 18:45:002.2[facility] XzskttvRODDWAECDA1327-79-35 18:45:000.1[facility] IKQMJXGQOI4451-03-84 18:45:000.2[facility]annSPECIAL HILEXNJFZ4473-56-37 18:45:005.5[facility] NRKHF6884-50-62 18:45:00Negative (01/28/14 12:45 PM)[facility] ZVELI0480-47-63 18:45:00Negative (01/28/14 12:45 PM)[facility] XFTNO7355-46-18 18:45:001[facility]INE AND NFQHF8668-90-51 18:45:001.018[facility] CDSZL7615-22-85 18:45:005.5[facility] GGDJO6511-95-69 18:45:00Yellow *NA*(01/28/14 12:45 PM)[facility] FHGLE4475-09-16 18:45:00Clear (01/28/14 12:45 PM)[facility] TICRD7266-94-95 18:45:00Negative (01/28/14 12:45 PM)[facility] RQAWN1048-23-10 18:45:00Negative *NA*(01/28/14 12:45 PM)[facility]CHE[facility] TWQRR1506-43-26 18:45:003.8[facility]annCHEM OYHNG0397-97-28 18:45:0014[facility]annCHE[facility] KDVZA1566-37-05 18:45:76814Wsnwidsq HermannCHEM IXVQP6213-51-45 18:45:000.3[facility]annCHE[facility] PPTVP1922-05-10 18:45:0018[facility]annCHE[facility] YPOVO4305-31-56 18:45:007.0 [facility]CHE[facility] HKBKG5787-54-20 18:45:001.2[facility]annCHEM PANEL 2014-01-28 18:45:0020[facility]annCHEM WRCWW3562-34-40 18:45:003.2[facility] KasxxekUNRMTQQVUV6842-11-19 18:45:002.2[facility] MvxjuxiPONOAWOQVT1184-74-75 18:45:000.1[facility] OdamsxvCNNVDUWYBO3219-35-57 18:45:000.2[facility] SPECIAL IJICLNZRA9568-78-14 18:45:005.5[facility] DYOIF5287-58-47 18:45:00Negative (01/28/14 12:45 PM)[facility] UJLOQ9241-06-79 18:45:00Negative (01/28/14 12:45 PM)[facility] GPYXD5761-05-07 18:45:001[facility] DFTBH9519-50-77 18:45:001.018[facility] URINE AND LAHOF4324-35-74 18:45:005.5[facility] PEEYC0488-26-62 18:45:00Yellow *NA*(01/28/14 12:45 PM)[facility] WCZQD1612-90-99 18:45:00Clear (01/28/14 12:45 PM)[facility] OWIPG4746-09-95 18:45:00Negative (01/28/14 12:45 PM)[facility] RRXDJ4411-32-08 18:45:00Negative *NA*(01/28/14 12:45 PM)[facility]annCHE[facility] MFTBW1016-57-69 18:45:003.8[facility]annCHEM AJTMB6527-88-69 18:45:0014[facility]annCHEM CWRPZ7051-02-28 18:45:75068Xoqxfyxt HermannCHEM XEZRZ9079-19-63 18:45:000.3 [facility]annCHE[facility] INOKK5831-75-55 18:45:0018[facility]annCHEM PANEL 2014-01-28 18:45:007.0[facility]annCHEM EMLKB5475-14-20 18:45:001.2[facility]annCHEM MYPAJ6720-10-68 18:45:0020[facility]CHE[facility] ZXJYJ5735-37-93 18:45:003.2[facility] WbqbaniVLWNONUEXN4616-38-90 18:45:002.2[facility] CZUVHFOHOW6932-26-94 18:45:000.1[facility] BailibfCLVDDKFVPE5676-38-38 18:45:000.2 [facility]annSPECIAL RLWXSYCKG2995-09-84 18:45:005.5[facility] AND SWKHQ7398-95-93 18:45:00Negative (01/28/14 12:45 PM)[facility] ATQLQ3463-96-10 18:45:00Negative (01/28/14 12:45 PM)[facility] DBCSW8232-14-16 18:45:001[facility] ILPFF1216-92-26 18:45:001.018 [facility] VNHRO6614-26-88 18:45:005.5[facility] YKFQC5068-96-47 18:45:00Yellow *NA*(01/28/14 12:45 PM)[facility] UXIZI3803-73-32 18:45:00Clear (01/28/14 12:45 PM)[facility] STOOL 2014-01-28 18:45:00Negative (01/28/14 12:45 PM)[facility] STOOL 2014-01-28 18:45:00Negative *NA*(01/28/14 12:45 PM)[facility]"
[2021-01-18 18:41] LABS: Urine Blood 3+ (Negative); Urine Glucose Negative (Negative); Urine Protein 2+ (Negative)
--- NOTE | 2021-01-18 19:54 | RAD REPORT ---
EXAM DESCRIPTION: CT - Stone Protocol - 01/18/2021 7:19 pm CLINICAL HISTORY: Hematuria COMPARISON: 2018 TECHNIQUE: Computed axial tomography of the abdomen pelvis was obtained without oral or IV contrast. Lack of IV and oral contrast limits evaluation of solid organs, bowel, and vessels. Coronal reformat suma images were obtained and reviewed. All CT scans are performed using dose optimization technique as appropriate and may include automated exposure control or mA/KV adjustment according to patient size. FINDINGS: A battery for a pain pump lies within the subcutaneous tissues of the right abdomen. This results in considerable artifact limiting evaluation of portions of the abdomen and pelvis. Postsurgical changes involve the lumbar spine. Artifact from the hardware obscures surrounding detail . Several right renal calculi are present. Mild right hydronephrosis. 8 millimeter lobulated calcificat ion lies medial to the right kidney presumably within the right ureteral pelvic junction. A left renal calculus is not seen. Evaluation of portions of the ureter is limited. A ureteral calcul us is not seen. No bladder calculus. A cystocele is present. The liver, spleen, pancreas and adrenals appear grossly normal. Cholecystectomy There is no evidence of diverticulitis. Postsurgical changes involve the stomach. Diffuse edema withi n the subcutaneous tissues. Moderate amount stool within the colon IMPRESSION: Right renal calculi. Mild right hydronephrosis 8 millimeter calcification medial to the right kidney probably within the right ureteral pelvic junct ion. The evaluation is suboptimal secondary to artifact from the battery and lumbar spinal hardware.
[2021-01-18 20:47] LABS: Absolute Lymphocytes (CBC) 1.4 K/uL (0.7-4.9); Basophils % 1.2 % (0-1.3); Lymphocytes % 25.8 % (15.3-44.8); MPV 7.8 fL (7.6-11.3); RBC Red Blood Cell Count 3.63 M/uL (3.86-4.86)
[2021-01-18 20:53] LABS: ALT/SGPT 21 U/L (12-78); AST/SGOT 22 U/L (15-37); Albumin 1.8 g/dL (3.4-5.0); Alkaline Phosphatase 126 U/L (45-117); BUN Blood Urea Nitrogen 20 mg/dL (7-18); Bicarbonate 32 mmol/L (21-32); Bilirubin Direct 0.2 mg/dL (0-0.2); Bilirubin Total 0.2 mg/dL (0.2-1.0); Glucose Level 103 mg/dL (74-106); Lipase 60 U/L (73-393); Potassium 3.8 mmol/L (3.5-5.1); Protein, Total 5.4 g/dL (6.4-8.2); Sodium Level 142 mmol/L (136-145)
--- NOTE | 2021-01-18 21:02 | ER ---
Nurse's Notes [facility] Name: Janki García Age: 75 yrs Sex: Female : 1945 Arrival Date: 01/18/2021 Time: 16:24 Bed 10 Private MD: Shahzad Spear E Diagnosis: Hydronephrosis with renal and ureteral calculous obstruction Presentation: 01/18 17:04 Chief complaint: Patient states: I have had blood tinged urine since Sunday. Pt denies ld1 pain. Coronavirus screen: At this time, the client does not indicate any symptoms associated with coronavirus-19. Ebola Screen: No symptoms or risks identified at this time. Initial Sepsis Screen: Does the patient meet any 2 criteria? No. Patient's initial sepsis screen is negative. Does the patient have a suspected source of infection? No. Patient's initial sepsis screen is negative. Risk Assessment: Do you want to hurt yourself or someone else? Patient reports no desire to harm self or others. Onset of symptoms was January 18, 2021. 17:04 Method Of Arrival: Wheelchair ld1 17:04 Acuity: KASI 4 ld1 Triage Assessment: 17:05 General: Appears in no apparent distress. comfortable, Behavior is calm, cooperative, ld1 appropriate for age. Pain: Denies pain. EENT: No signs and/or symptoms were reported regarding the EENT system. Neuro: Level of Consciousness is awake, alert, obeys commands, Oriented to person, place, time, situation, Appropriate for age. Cardiovascular: Capillary refill < 3 seconds Patient's skin is warm and dry. Respiratory: Airway is patent Respiratory effort is even, unlabored, Respiratory pattern is regular, symmetrical. GI: Abdomen is flat, non-distended. : Reports blood tinged urine Denies burning with urination, pain. Derm: No signs and/or symptoms reported regarding the dermatologic system. Musculoskeletal: No signs and/or symptoms reported regarding the musculoskeletal system. Historical: - Home Meds: 17:05 gabapentin Oral [Active]; Hydromorphone Oral [Active]; Omeprazole Oral [Active]; ld1 - PMHx: 17:05 Chronic pain; fluid retention; Migraines; ld1 - Immunization history:: Adult Immunizations up to date. - Social history:: Smoking status: Patient reports the use of cigarette tobacco products, Patient/guardian denies using alcohol. Screenin:24 Abuse screen: Denies threats or abuse. Denies injuries from another. Nutritional jh5 screening: No deficits noted. Tuberculosis screening: No symptoms or risk factors identified. Fall Risk None identified. Vital Signs: 17:04 BP 99 / 50; Pulse 82; Resp 17; Temp 98.1(O); Pulse Ox 100% on R/A; Weight 41.28 kg; ld1 Height 5 ft. 0 in. (152.40 cm); Pain 0/10; 17:04 Body Mass Index 17.77 (41.28 kg, 152.40 cm) ld1 ED Course: 16:24 Patient arrived in ED. ds1 16:27 Shahzad Spear MD is Private Physician. mr 17:05 Triage completed. ld1 17:05 Arm band placed on right wrist. ld1 17:42 Rob Allan PA is PHCP. [facility] 17:42 Gurwinder Lee MD is Attending Physician. [facility] 17:56 Dina Trotter, JUSTO is Primary Nurse. jh5 18:24 Patient has correct armband on for positive identification. Call light in reach. Side jh5 rails up X 1. 18:25 No provider procedures requiring assistance completed. jh5 18:41 Urine Culture Sent. 5 19:19 CT Stone Protocol In Process Unspecified. EDMS 20:27 Inserted saline lock: 20 gauge in right antecubital area, using aseptic technique. ds4 Blood collected. 20:30 PHCP role handed off by Rob Allan PA jr8 20:30 Kirby Montoya PA is PHCP. jr8 21:01 Stuart Yañez MD is Referral Physician. jr8 21:05 IV discontinued, intact, bleeding controlled, No redness/swelling at site. Pressure as6 dressing applied. Administered Medications: No medications were administered Outcome: 21:01 Discharge ordered by . jr8 21: Discharged to home ambulatory, with family. as6 21:05 Condition: stable 21:05 Discharge instructions given to patient, family, Instructed on discharge instructions, follow up and referral plans. medication usage, Demonstrated understanding of instructions, follow-up care, medications, Prescriptions given X 2. 21:05 Patient left the ED. as6 Signatures: Dispatcher [employer] EDMS Rob Allan PA PA jmm Norris, Ngozi Lazar, Mervat ds1 Kirby Montoya PA PA jr8 Aries James ds4 Ilana Moe RN RN ld1 Dina Trotter RN RN jh5 Gerry Dillard RN RN as6
--- NOTE | 2021-01-18 21:02 | EDPHYS ---
Physician Documentation [facility] Name: Janki García Age: 75 yrs Sex: Female : 1945 Arrival Date: 01/18/2021 Time: 16:24 Bed 10 Private MD: Shahzad Spear E ED Physician Gurwinder Lee HPI: 01/18 20:59 This 75 yrs old Female presents to ER via Wheelchair with complaints of Blood in urine. jr8 20:59 Associated signs and symptoms: The patient has no apparent associated signs or jr8 symptoms. The patient has not experienced similar symptoms in the past. The patient has not recently seen a physician. This is a 75-year-old female that presented to emergency room for blood-tinged urine since Sunday this past week. Denies any pain at this time.. Historical: - Home Meds: 17:05 gabapentin Oral [Active]; Hydromorphone Oral [Active]; Omeprazole Oral [Active]; ld1 - PMHx: 17:05 Chronic pain; fluid retention; Migraines; ld1 - Immunization history:: Adult Immunizations up to date. - Social history:: Smoking status: Patient reports the use of cigarette tobacco products, Patient/guardian denies using alcohol. ROS: 20:59 Eyes: Negative for injury, pain, redness, and discharge, ENT: Negative for injury, jr8 pain, and discharge, Neck: Negative for injury, pain, and swelling, Cardiovascular: Negative for chest pain, palpitations, and edema, Respiratory: Negative for shortness of breath, cough, wheezing, and pleuritic chest pain, Abdomen/GI: Negative for abdominal pain, nausea, vomiting, diarrhea, and constipation, Back: Negative for injury and pain, MS/Extremity: Negative for injury and deformity, Skin: Negative for injury, rash, and discoloration, Neuro: Negative for headache, weakness, numbness, tingling, and seizure. 20:59 : Positive for hematuria. Exam: 20:59 Constitutional: This is a well developed, well nourished patient who is awake, alert, jr8 and in no acute distress. Cardiovascular: Regular rate and rhythm with a normal S1 and S2. No gallops, murmurs, or rubs. Normal PMI, no JVD. No pulse deficits. Respiratory: Lungs have equal breath sounds bilaterally, clear to auscultation and percussion. No rales, rhonchi or wheezes noted. No increased work of breathing, no retractions or nasal flaring. Abdomen/GI: Soft, non-tender, with normal bowel sounds. No distension or tympany. No guarding or rebound. No evidence of tenderness throughout. Back: No spinal tenderness. No costovertebral tenderness. Full range of motion. Skin: Warm, dry with normal turgor. Normal color with no rashes, no lesions, and no evidence of cellulitis. MS/ Extremity: Pulses equal, no cyanosis. Neurovascular intact. Full, normal range of motion. Neuro: Awake and alert, GCS 15, oriented to person, place, time, and situation. Cranial nerves II-XII grossly intact. Motor strength 5/5 in all extremities. Sensory grossly intact. Vital Signs: 17:04 BP 99 / 50; Pulse 82; Resp 17; Temp 98.1(O); Pulse Ox 100% on R/A; Weight 41.28 kg; ld1 Height 5 ft. 0 in. (152.40 cm); Pain 0/10; 17:04 Body Mass Index 17.77 (41.28 kg, 152.40 cm) ld1 MDM: 18:08 Patient medically screened. ivet 20:59 Data reviewed: vital signs, nurses notes, lab test result(s), radiologic studies, CT jr8 scan. Data interpreted: Pulse oximetry: on room air is 100 %. Interpretation: normal. Counseling: I had a detailed discussion with the patient and/or guardian regarding: the historical points, exam findings, and any diagnostic results supporting the discharge/admit diagnosis, lab results, radiology results, the need for outpatient follow up, a urologist, to return to the emergency department if symptoms worsen or persist or if there are any questions or concerns that arise at home. ED course: Discussed with patient that she has an 8 mm renal stone without decrease in renal function or indication for bacteremia or sepsis. Patient is able to urinate and is asymptomatic at this time. Reassessment of examination of her back and abdomen again reveals no pain or tenderness at this time. Hemodynamically stable. Blood pressure is slightly low but this is normal for the patient per her. Will not start her on tamsulosin because of this we will put her on antibiotics and nausea medicine. Patient has pain medicine at home. We will have her follow-up with urology in the next 1 to 2 days. Patient given explicit instructions that if she were to get worse or have fever or cannot tolerate her p.o. medications that she needs to come back immediately for further evaluation. Patient understands all this and is good with this at this time.. 01/18 18:31 Order name: Urine Culture [facility] 01/18 18:32 Order name: Urine Culture [facility] 01/18 18:41 Order name: Urine Dipstick-Ancillary; Complete Time: 18:58 [facility] 01/18 20:00 Order name: Basic Metabolic Panel [facility] 01/18 20:00 Order name: CBC with Diff [facility] 01/18 20:00 Order name: Hepatic Function [facility] 01/18 18:31 Order name: Urine Dipstick-Ancillary (obtain specimen); Complete Time: 18:41 [facility] 01/18 18:39 Order name: CT Stone Protocol; Complete Time: 19:59 [facility] 01/18 20:00 Order name: Lipase; Complete Time: 21:02 [facility] 01/18 20:00 Order name: IV Saline Lock; Complete Time: 20:26 [facility] 01/18 20:00 Order name: Labs collected and sent; Complete Time: 20:26 [facility] 01/18 20:01 Order name: Basic Metabolic Panel; Complete Time: 21:02 [facility] 01/18 20:01 Order name: CBC with Automated Diff; Complete Time: 21:02 [facility] 01/18 20:01 Order name: Liver (Hepatic) Function; Complete Time: 21:02 EDMS Administered Medications: No medications were administered Disposition: 01/19 10:29 Co-signature as Attending Physician, Gurwinder Lee MD I agree with the assessment and ivet plan of care. Disposition Summary: 01/18/21 21:01 Discharge Ordered Location: Home jr8 Problem: new jr8 Symptoms: have improved jr8 Condition: Stable jr8 Diagnosis - Hydronephrosis with renal and ureteral calculous obstruction jr8 Followup: jr8 - With: Stuart Yañez MD - When: 1 - 2 days - Reason: Recheck today's complaints, Continuance of care, Re-evaluation by your physician Discharge Instructions: - Discharge Summary Sheet jr8 - Kidney Stones jr8 Forms: - Medication Reconciliation Form jr8 - Thank You Letter jr8 - Antibiotic Education jr8 - Prescription Opioid Use jr8 Prescriptions: - Cipro 500 mg Oral Tablet - take 1 tablet by ORAL route every 12 hours for 5 days; 10 tablet; Refills: 0, jr8 Product Selection Permitted - Zofran 4 mg Oral Tablet - take 1 tablet by ORAL route every 12 hours As needed; 20 tablet; Refills: 0, jr8 Product Selection Permitted Signatures: Dispatcher [employer] EDGurwinder Mendiola MD MD cha Mickail, Joel, PA PA jmm Roszak, Josh, PA PA jr8 Ilana Moe RN RN ld1
[2021-01-18 21:16] VITALS: BP 99/50; TEMP 98.1; O2SAT 100
== END 2021-01-18 21:05 | disposition home or self-care (01) ==
LOC: ER 16:22
DX: N13.2 Hydronephrosis with renal and ureteral calculous obstruction (principal)
CPT/HCPCS: 36415; 74176; 76377; 80048; 80076; 81003; 83690; 85025; 87086; 87088; 99284

== ENCOUNTER 2021-06-04 13:08 | Emergency (ER) | payer OTHER ==
--- OUTSIDE RECORDS SUMMARY | 2021-06-04 13:13 | XMS REPORT | Continuity of Care Document ---
:1945 Author Organization [facility] t Address [address] [place] [address] Care Team Providers Name Role Phone Rosamaria PINTO Primary Care Physician Unavailable Yashira Attending Clinician Unavailable Nina SEO S Attending Clinician Howard CHOI Attending Clinician Unavailable Jimbo SEO S Attending Clinician Zoë XAVIER Attending Clinician Carlitos Bey MD Attending Clinician Howard CHOI Admitting Clinician Unavailable Jimbo SEO S Admitting Clinician Payers Payer Name Policy Type Policy Number Effective Date Expiration Date S mariana MEDICARE PART A [id number] 2011 \\T\\ B 00:00:00 [employer] INDEMNITY [id number] 2013 2020 00:00:00 00:00:00 Problems Condition Condition Condition Status Onset Resolution Last Treating Co mments Source Name Details Category Date Date Treatment Clinician Date Headache Problem Active 2020-12-03 Mem oria (finding) 08-18 21:52:00 l Headache 00:00: Madhav aguilar (finding) 00 Active 08/19/2015 Problem 12/03/2020 [facility] Low back Problem Active 2020-12-03 Mem oria pain 08-18 21:52:00 l (disorder) Low back 00:00: Juan velez pain 00 (disorder) Active 08/19/2015 Problem 12/03/2020 [facility] Neuro MORBID Diagnosis Active 2013-2014-02-18 Mem oria OBESITY 2- 21:53:00 l MORBID 00:00: [place] OBESITY 00 Active 01/19/2014 [facility] BDDC - EGD Diagnosis Active 2013-03-14 Memoria 03-11 08:53:00 l BDDC - 00:00: [place] EGD 00 Active 03/11/2013 [facility] Final: Problem 2014-02-14 Memor ia 19:32:05 l Final: [place] 02/14/2014 [facility] Obesity Problem Resolve 2020-12-03 Mem oria (disorder) d 21:52:00 l Obesity [place] (disorder) Resolved Problem 12/03/2020 [facility] Tremor Problem Resolve 2020-12-03 Devaughn samuel (finding) d 21:52:00 l Tremor [place] (finding) Resolved Problem 12/03/2020 [facility] Neuro Hyponatrem Problem Active 2020-12-03 M emoria ia 21:52:00 l (disorder) Madhav n Hyponatrem ia (disorder) Active Problem 12/03/2020 [facility] Migraine Problem Active 2020-12-03 Mem oria (disorder) 21:52:00 l Migraine Madhav n (disorder) Active Problem 12/03/2020 [facility] Neuro Heart Problem Active 2020-12-03 Memor ia murmur 21:52:00 l (finding) Heart Madhav n murmur (finding) Active Problem 12/03/2020 [facility] Pain Problem Active 2020-12-03 Memor ia (finding) 21:52:00 l Pain [place] (finding) Active Problem 12/03/2020 [facility] Pulmonary Problem Active 2020-12-03 Me moria hypertensi 21:52:00 l on [place] (disorder) Pulmonary hypertensi on (disorder) Active Problem 12/03/2020 [facility] Radial Problem Active 2020-12-03 Memor ia neuropathy 21:52:00 l (disorder) Radial Herm cherry neuropathy (disorder) Active Problem 12/03/2020 [facility] Neuro Transforme Problem Active 2020-12-03 M emoria d migraine 21:52:00 l (disorder) Madhav aguilar Veroe d migraine (disorder) Active Problem 12/03/2020 [facility] Paresthesi Problem Active 2020-12-03 M emoria a of hand 21:52:00 l (finding) [place] Paresthesi a of hand (finding) Active Problem 12/03/2020 [facility] ESOPHAGEAL Diagnosis Active 2013-03-14 Memoria REFLUX 08:53:00 l [place] ESOPHAGEAL REFLUX Active [facility] MORBID Diagnosis Active 2014-02-18 Mem oria OBESITY 21:53:00 l MORBID [place] OBESITY Active [facility] Allergies, Adverse Reactions, Alerts Allergy Allergy Status Severity Reaction(s) Onset Inactive Treating Comm ents Source Name Type Date Date Clinician NO KNOWN Drug Active Univers ALLERGIE Class ity of S [facility] Social History Social Habit Start Date Stop Date Quantity Comments Source Exposure to Unable to assess Univers ity of SARS-CoV-2 [facility] (event) [place] Tobacco use and 2020-10-20 2020-10-20 Never used Universit y of exposure 00:00:00 00:00:00 [facility] Sex Ass[birth year] Universit y of 00:00:00 00:00:00 [facility] Smoking Status Start Date Stop Date Source Current some day smoker 2020-10-20 00:00:00 [facility] Social History 2014-02-09 16:45:37 [facility] Medications Ordered Filled Start Stop Current Ordering Indication Dosage Frequency Signature Comments Components Source Medication Medication Date Date Medication? Clinician (SIG) Name Name levoFLOXaci No 500mg 500 mg, U nivers n 10-20 Oral, ONCE ity of (LEVAQUIN) 06:00: 05:10 NOW, 1 [place] tablet 500 00 :00 dose, Wed Medi pérez mg 10/20/20 at [place] 0100, MANPREET
Re ason for Anti-Infec tive: Documented Infection< br>Documen suma Infection Site: Urine
D uration of Therapy: Other (see Comments) morpHINE No 4mg 4 mg, Slow Un ar injection 4 10-20 IV Push, ity of mg 05:00: 03:56 ONCE, 1 [place] 00 :00 dose, Wed Medical 10/20/20 at [place] 0000, STAT levoFLOXaci Yes [id number] 500mg Take 1 Univers n 9-07 tablet by ity of (LEVAQUIN) 00:00: mouth [place] 500 mg 00 every 24 Medical tablet (twenty-fo [place] ur) hours. 1 ML Yes 140 mg, Memoria erenumab-ao 2-10 SUB-Q, l oe 140 22:46: qMonth, # Madhav n MG/ML 00 1 ea, 3 Auto-Inject Refill(s), or Pharmacy: [Aimovig] [facility], 152.4, cm, 12/31/19 14:51:00 COAL CAGER, Height, 40.909, kg, 12/31/19 14:51:00 COAL CAGER, Weight 1 ML 2019-02 Yes 140 mg, Memoria erenumab-ao 1-18 SUB-Q, l oe 140 21:16: qMonth, # Madhav n MG/ML 00 1 ea, 3 Auto-Inject Refill(s), or Pharmacy: [Aimovig] [facility] [place], 152.4, cm, 12/31/19 14:51:00 COAL CAGER, Height, 40.909, kg, 12/31/19 14:51:00 COAL CAGER, Weight 24 HR Yes = 1 tab, Memoria Divalproex 07-21 PO, l Sodium 500 19:21: Bedtime, # H ermann MG Extended 00 30 ea, 4 Release Refill(s), Tablet Pharmacy: [facility] [place] Acetaminoph Yes 15 mL, PO, Memoria en [...] samuel ne (Same as: l 18:00: Dilaudid) [place] 00 pneumococca 2013-02 No Notes: Devaughn samuel l [...] Ondansetron 2013-02 No 4 mg, Memor ia 2- Route: l 20:47: IVP, ONCE, Dosing Weight 77.318, kg, PRN Nausea & Vomiting, Start date: 02/09/14 14:47:00 Labetalol 2013-02 No 10 mg, 2 Devaughn samuel 2-29 mL, Route: l 20:47: IVP, Drug form: INJ, Q5Min, Dosing Weight 77.318, kg, PRN Elevated BP, Start date: 02/09/14 14:47:00, Duration: 5 doses or times, Stop date: Limited # of times Hydralazine 2013-02 No Notes: Devaughn samuel 2- (Same as: l 20:47: Apresoline ) Push over 5 minutes Flumazenil 2013-02 No Notes: Memor ia 2- (Same as: l 20:47: Romazicon) Naloxone 2013-02 [...] Dilaudid) conc = 0.5 mg/ml Hydromorph one 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 Dose: ;Delay: ;Basal: Naloxone 2013-02 No Notes: Memoria 2- Same as l 20:10: Narcan LR IV 1,000 2013-02 No 1,000 mL, M emoria mL Rate: 100 l 20:07: ml/hr, Infuse over: 10 hr, Route: IV, Dosing Weight 77.318 kg, Total Volume: 1,000, Start date: 02/09/14 14:07:00, Duration: 30 day, Stop date: 03/11/14 14:06:00 Cefoxitin 2013-02 No 1 gm, Memoria Route: l 19:48: IVPB, [place] 00 ONCE, Dosing Weight 77.318, kg, Start date: 02/09/14 13:48:00, Stop date: 02/09/14 13:48:00 scopolamine 2013-02 No Notes: Devaughn samuel 2-29 Change l 17:00: patch [place] 00 every 72 hours (Same as: Transderm- Scop) heparin 2013-02 No Notes: Memoria 2-29 porcine l 17:00: heparin [place] 00 Ofirmev 2013-02 No Notes: Memoria 2-29 Infuse l 17:00: over 15 minutes Do not exceed 4gm/day [...] pneumococcal 2014-02-12 Completed [facility] 23-valent vaccine 16:30:00 [place] Vital Signs Vital Name Observation Time Observation Value Comments Source Systolic blood 2020-10-20 03:31:39 99 mm[Hg] [facility] Diastolic blood 2020-10-20 03:31:39 51 mm[Hg] [facility] Heart rate 2020-10-20 03:31:39 91 /min [facility] Respiratory rate 2020-10-20 03:31:39 17 /min [facility] Oxygen saturation in 2020-10-20 03:31:39 99 /min [facility] Arterial blood by [facility] Pulse oximetry [place] Body temperature 2020-10-20 00:51:00 37.5 Leonie [facility] Body weight 2020-10-20 00:51:00 111.6 kg [facility] BMI 2020-10-20 00:51:00 48.05 kg/m2 [facility] Systolic (mm Hg) 2020-08-10 20:35:00 Devaughn Tang Diastolic (mm Hg) 2020-08-10 20:35:00 Mem orial [place] Heart Rate 2020-08-10 20:35:00 [facility] [place] Respitory Rate 2020-08-10 20:35:00 Memori al [place] Height 2020-08-10 20:35:00 152.4 cm [facility] [place] Weight 2020-08-10 20:35:00 [facility] [place] BMI Calculated 2020-08-10 20:35:00 Memori al [place] Systolic (mm Hg) 2019-12-31 20:51:00 Devaughn rial [place] Diastolic (mm Hg) 2019-12-31 20:51:00 Mem orial [place] Heart Rate 2019-12-31 20:51:00 [facility] [place] Respitory Rate 2019-12-31 20:51:00 Memori al [place] Height 2019-12-31 20:51:00 152.4 cm [facility] [place] Weight 2019-12-31 20:51:00 [facility] [place] BMI Calculated 2019-12-31 20:51:00 Memori al [place] Systolic (mm Hg) 2019-07-22 19:06:00 Devaughn rial [place] Diastolic (mm Hg) 2019-07-22 19:06:00 Mem orial [place] Heart Rate 2019-07-22 19:06:00 [facility] [place] Respitory Rate 2019-07-22 19:06:00 Memori al [place] Temperature Oral (F) 2019-07-22 19:06:00 97.8 F [facility] [place] Height 2019-07-22 19:06:00 152.4 cm [facility] [place] Weight 2019-07-22 19:06:00 [facility] [place] BMI Calculated 2019-07-22 19:06:00 Memori al [place] Systolic (mm Hg) 2014-02-12 14:22:00 Devaughn rial [place] Diastolic (mm Hg) 2014-02-12 14:22:00 Mem orial [place] Heart Rate 2014-02-12 14:22:00 [facility] [place] Temperature Oral (F) 2014-02-12 14:22:00 99.0 F [facility] [place] Respitory Rate 2014-02-12 14:22:00 Memori al [place] Diastolic (mm Hg) 2014-02-12 10:43:00 Mem orial [place] Systolic (mm Hg) 2014-02-12 10:43:00 Devaughn rial [place] Respitory Rate 2014-02-12 10:43:00 Memori al [place] Heart Rate 2014-02-12 10:43:00 [facility] [place] Temperature Oral (F) 2014-02-12 10:43:00 99.3 F [facility] [place] Respitory Rate 2014-02-12 05:36:00 Memori al [place] Heart Rate 2014-02-12 05:36:00 [facility] [place] Systolic (mm Hg) 2014-02-12 05:36:00 Devaughn rial [place] Diastolic (mm Hg) 2014-02-12 05:36:00 Mem orial [place] Temperature Oral (F) 2014-02-12 05:36:00 98.6 F [facility] [place] BMI Calculated 2014-02-10 02:49:00 Memori al [place] Weight 2014-02-10 02:49:00 [facility] [place] Height 2014-02-10 02:49:00 149.8 cm [facility] [place] Weight 2014-02-09 16:39:00 [facility] [place] BMI Calculated 2014-02-09 16:39:00 Memori al [place] Height 2014-01-28 20:58:00 149.86 cm [facility] [place] Procedures Procedure Date / Time Performing Clinician Source Performed URINALYSIS 2020-10-20 03:24:00 Jose Wood [facility] COMP. METABOLIC PANEL 2020-10-20 01:50:00 Jose Wood [facility] ([id number]) [facility] CBC WITH DIFF 2020-10-20 01:50:00 Jose Wood [facility] NOTICE OF PRIVACY 2020-10-20 00:26:27 Doctor Unassigned, No Univ [facility] PRACTICES Name [facility] CONSENT/REFUSAL FOR 2020-10-20 00:25:59 Doctor Unassigned, No [facility] Back fusion [facility] [place] Bladder operation [facility] Breast reduction, [facility] bilateral Hysterectomy [facility] [place] Encounters Start End Encounter Admission Attending Care Care Encounter Source Date/Time Date/Time Type Type Clinicians Facility Department ID 2021-03-09 Outpatient Millender, STLMLC STLMLC [id number] 14:24:05 Xochitl [id number] [facility] 2020-12-13 Emergency [facility] [id number] Univers 21:00:37 ity of [facility] 2021-01-27 2021-01-27 ambulatory [facility] [id number] [facility] 2021-01-24 2021-01-24 ambulatory [facility] [id number] [facility] 2020-12-01 2020-12-01 Ambulatory nullFlavo MNA [id number] Memoria 16:45:00 16:45:00 Pre-Reg r Neurology 12 l Reggie Aguilarann 2020-11-23 2020-11-23 Ambulatory nullFlavo MNA [id number] Memoria 18:45:00 18:45:00 Pre-Reg r Neurology 11 l Kaufman [place] 2020-10-19 2020-10-20 Emergency [facility] [id number] Univers 20:09:00 00:16:00 Jose [id number] [id number] [address] 2020-08-10 2020-08-11 Outpatient nullFlavo MNA [id number] Memoria 20:15:00 04:59:59 r Neurology 10 l Reggie Aguilarann 2020-05-25 2020-05-27 Outside nullFlavo MNA [id number] Memoria 13:59:20 04:59:59 Medical r Neurology 03 l Records Reggie Aguilarann 2020-05-21 2020-05-23 Outside nullFlavo MNA [id number] Memoria 19:28:13 04:59:59 Medical r Neurology 02 l Records Reggie Aguilarann 2020-05-03 2020-05-05 Outside nullFlavo MNA [id number] Memoria 13:10:15 04:59:59 Medical r Neurology 01 l Records Kaufmanmaura Aguilarann 2020-04-01 2020-04-02 Outpatient nullFlavo MNA [id number] Memoria 21:45:00 05:59:59 r Neurology 09 l Reggie Tang 2019-12-31 2020-01-01 Outpatient nullFlavo MNA [id number] Memoria 20:30:00 05:59:59 r Neurology 08 l Reggie Tang 2019-08-20 2019-08-20 Ambulatory nullFlavo MNA [id number] Memoria 18:45:00 18:45:00 Pre-Reg r Neurology 07 l Reggie Tang 2019-08-20 2019-08-20 Ambulatory nullFlavo MNA [id number] Memoria 18:45:00 18:45:00 Pre-Reg r Neurology 06 l Reggie Tang 2019-07-22 2019-07-23 Outpatient nullFlavo MNA [id number] Memoria 18:30:00 04:59:59 r Neurology 05 l Reggie Tang 2019-06-24 2019-06-24 [facility] [id number] Univers 14:08:58 23:59:00 [facility] 2019-06-24 2019-06-24 [facility] [id number] 14:08:00 23:59:00 Encounter Maikel Simons [id number] [place] [id number] [place] [id number] 2019-06-24 2019-06-24 Outpatient Bill [facility] [id number] Univers 14:15:00 14:15:[id number] [place] [address] 2019-05-22 2019-05-23 Outpatient nullFlavo MNA [id number] Memoria 20:00:00 04:59:59 r Neurology 04 l Reggie Tang 2019-04-28 2019-04-29 [facility] [id number] Univers 06:14:00 08:20:00 MAIKEL [facility] 2019-04-28 2019-04-29 [place] [id number] 06:14:00 08:20:00 Encounter Maikel Lawrence [place] [id number] [place] [id number] [place] [id number] 2019-04-28 2019-04-28 Anesthesia Jono Camp [facility] [id number] 07:29:00 07:52:00 Azam Bey [id number] Jose Antonio [id number] Surgical [id number] [place] 020 2019-04-18 2019-04-18 Outpatient Bill JIMBO [facility] [id number] Univers 14:30:00 14:30:00 MAIKELSTANTON lubin [facility] 2017-12-25 2017-12-25 Ambulatory nullFlavo [facility] [id number] Memoria 19:45:00 19:45:00 Pre-Reg r Neurology 03 [facility] 2017-09-25 2017-09-25 Outpatient IE [facility] [id number] Memoria 14:00:00 14:00:00 02 [facility] 2017-05-23 2017-05-23 Outpatient IE [facility] [id number] Memoria 14:15:00 14:15:00 01 [facility] 2017-04-10 2017-04-10 Outpatient [facility] [id number] Memoria 14:45:00 14:45:00 00 [facility] 2014-02-09 2014-02-12 Inpatient nullFlavo [facility] [id number] Memoria 15:19:00 17:00:00 [facility] 01 [facility] 2013-03-14 2013-03-14 MARIANNE nullFlavo [facility] [id number] Memoria 08:42:00 14:00:00 r Medical 00 [facility] Results Test Description Test Time Test Comments Results Result Comments Source Urinalysis 2020-10-20 04:39:04 Test Item Value Reference Range Interpretation Comme nts APPEARANCE (test code = Hazy Clear A 1458062288) COLOR (test code = 7052699895) Yellow Yellow PH (test code = 3586093068) 4.8-8.0 SP GRAVITY (test code = 1.003-1.030 8770943710) GLU U QUAL (test code = Normal Normal 3086179470) BLOOD (test code = 9327675071) Negative Negative Interference from ascorbic acid may cause false negative results. KETONES (test code = Negative Negative 0096525425) PROTEIN (test code = 2887-8) Negative Negative UROBILIN (test code = 4.0 mg/dL Normal A 5929259360) BILIRUBIN (test code = Negative Negative 0203382915) NITRITE (test code = Negative Negative 2627984785) LEUK NELSY (test code = 250/uL Negative A 0517169928) RBC/HPF (test code = See_Comment H [Autom ated message] The 6380841654) system which ge nerated this result transmit suma reference range: 0 - 3 HP F. The reference range was not used to interpret th is result as normal/abnormal . WBC/HPF (test code = See_Comment H [Autom ated message] The 0955435951) system which ge nerated this result transmit suma reference range: 0 - 5 HP F. The reference range was not used to interpret th is result as normal/abnormal . BACTERIA (test code = Few Negative A 4288436286) MUCOUS (test code = 0688272568) Slight Negative LPF A SQ EPITH (test code = <1 HPF 5390082755) Lab Interpretation (test code = Abnormal 56614-5) [facility]. Metabolic Panel (24766)2020-10-20 02:21:16 Test Item Value Reference Range Interpretation Comments NA (test code = 132 mmol/L 135-145 L 2090825181) K (test code = 3.7 mmol/L 3.5-5.0 6806575931) CL (test code = 95 mmol/L 98-108 L 6576870554) CO2 TOTAL (test code = 36 mmol/L 23-31 H 1906094109) AGAP (test code = 2-16 L 5549074157) BUN (test code = 24 mg/dL 7-23 H 4988006872) GLUCOSE (test code = 94 mg/dL 70-110 9279220273) CREATININE (test code = 0.63 mg/dL 0.50-1.04 7432165512) TOTAL BILI (test code = 0.4 mg/dL 0.1-1.4 5712668221) CALCIUM (test code = 8.4 mg/dL 8.6-10.6 L 4774313966) T PROTEIN (test code = 5.7 g/dL 6.3-8.2 L 7664996488) ALBUMIN (test code = 2.7 g/dL 3.5-5.0 L 2905709862) ALK PHOS (test code = 157 U/L 34-122 H 3439905038) ALTv (test code = 28 U/L 5-35 2-6) AST(SGOT) (test code = 35 U/L 13-40 7472436500) eGFR (test code = mL/min/1.73m2 7907135790) DARWIN (test code = DARWIN) Association of [...] tests). Lab Interpretation Abnormal (test code = 49987-0) [facility] with [id number] 02:11:35 Test Item Value Reference Range Interpretation Comments WBC (test code = See_Comment [Automated 5090-2) message] The sy stem which generated this [...] (test code = 51.0 fL 39.0-49.9 H 26133-6) RDW-CV (test code = 14.6 % 12.0-15.5 788-0) PLT (test code = See_Comment H [Automated 777-3) message] The sy stem which generated this result transmitted reference range : 166 - 358 10*3/ ?L. The reference r evert was not used to interpret this result as normal/abnormal . MPV (test code = 9.1 fL 9.5-12.9 L 43633-8) NRBC/100 WBC (test See_Comment [Automat ed code = 7052440700) message] The system which generated this result transmitted reference range : 0.0 - 10.0 /100 WBCs. The refer ence range was not u sed to interpret th is result as normal/abnormal . NRBC x10^3 (test code <0.01 See_Comment [Auto mated = 6238440260) message] The s ystem which generated this result transmitted reference range : 10*3/?L. The reference range was not used to interpret this result as normal/abnormal . GRAN MAT (NEUT) % 75.7 % (test code = 770-8) IMM GRAN % (test code 0.70 % = 6248011237) LYMPH % (test code = 13.3 % 736-9) MONO % (test code = 7.9 % 5905-5) EOS % (test code = 1.7 % 713-8) BASO % (test code = 0.7 % 706-2) GRAN MAT x10^3(ANC) 8.13 10*3/uL 1.88-7.09 H (test code = 8617096756) IMM GRAN x10^3 (test 0.08 10*3/uL 0.00-0.06 H code = 3279151674) LYMPH x10^3 (test code 1.43 10*3/uL 1.32-3.29 = 731-0) MONO x10^3 (test code 0.85 10*3/uL 0.33-0.92 = 742-7) EOS x10^3 (test code = 0.18 10*3/uL 0.03-0.39 711-2) BASO x10^3 (test code 0.08 10*3/uL 0.01-0.07 H = 704-7) Lab Interpretation Abnormal (test code = 11148-3) [facility] Test Item Value Reference Range Interpretation Comments WBC (test code = WBC) 11.5 3.7-10.4 [id number] 11:07:00 Test Item Value Reference Range Interpretation Comments RBC (test code = RBC) 4.55 4.20-5.40 [facility]aleOthfblsERRNTVLGSK9569-16-28 11:07:00 Test Item Value Reference Range Interpretation Comments Hgb (test code = Hgb) 13.5 12.0-16.0 [facility]2015-01-01 11:07:00 Test Item Value Reference Range Interpretation Comments eGFR (test code = eGFR) 95 [facility]2015-01-01 11:07:00 Test Item Value Reference Range Interpretation Comments Creatinine Lvl (test code = Creatinine 0.6 0.5-1.4 Lvl) [facility]2015-01-01 11:07:00 Test Item Value Reference Range Interpretation Comments Potassium Lvl (test code = Potassium 3.9 3.5-5.1 Lvl) [facility]2015-01-01 11:07:00 Test Item Value Reference Range Interpretation Comments Sodium Lvl (test code = Sodium Lvl) 140 135-145 [facility]2015-01-01 11:07:00 Test Item Value Reference Range Interpretation Comments Calcium Lvl (test code = Calcium Lvl) 8.9 8.5-10.5 [facility]2015-01-01 11:07:00 Test Item Value Reference Range Interpretation Comments Chloride Lvl (test code = Chloride Lvl) 103 95-109 [facility]2015-01-01 11:07:00 Test Item Value Reference Range Interpretation Comments CO2 (test code = CO2) 26 24-32 [facility]2015-01-01 11:07:00 Test Item Value Reference Range Interpretation Comments Glucose Lvl (test code = Glucose Lvl) 87 70-99 [facility]2015-01-01 11:07:00 Test Item Value Reference Range Interpretation Comments BUN (test code = BUN) 6 7-22 [facility]2015-01-01 11:07:00 Test Item Value Reference Range Interpretation Comments AGAP (test code = AGAP) 14.9 10.0-20.0 [id number] 11:07:00 Test Item Value Reference Range Interpretation Comments Segs (test code = Segs) 86.3 45.0-75.0 [facility]aleMfacdvrQUWDZTANLG9571-36-90 11:07:00 Test Item Value Reference Range Interpretation Comments Monocytes (test code = Monocytes) 6.1 2.0-12.0 [id number] 11:07:00 Test Item Value Reference Range Interpretation Comments Lymphocytes (test code = Lymphocytes) 7.2 20.0-40.0 [facility]ale[id number] 11:07:00 Test Item Value Reference Range Interpretation Comments Monocytes # (test code 0.7 See_Comment [Aut omated message] The = Monocytes #) system which generated this result tra nsmitted reference range : <=0.8. The reference r evert was not used to int erpret this result as normal/abnormal . [id number] 11:07:00 Test Item Value Reference Range Interpretation Comments Basophils (test code = 0.3 See_Comment [Aut omated message] The Basophils) system which ge nerated this result tra nsmitted reference range : <=1.0. The reference r evert was not used to int erpret this result as normal/abnormal . [facility]ale[id number] 11:07:00 Test Item Value Reference Range Interpretation Comments Eosinophils (test code = 0.1 See_Comment [A utomated message] The Eosinophils) system which ge nerated this result tra nsmitted reference range : <=4.0. The reference r evert was not used to int erpret this result as normal/abnormal . [facility]aleZyrigkzCWRJJNFNBN5844-90-84 11:07:00 Test Item Value Reference Range Interpretation Comments Lymphocytes # (test code = Lymphocytes 0.8 1.0-5.5 #) [facility]aleZctcdxhKGWGWVTIME9908-96-81 11:07:00 Test Item Value Reference Range Interpretation Comments Segs-Bands # (test code = Segs-Bands #) 9.9 1.5-8.1 [facility]valeFoeawmoMAEUSYALWO9528-33-99 11:07:00 Test Item Value Reference Range Interpretation Comments MCV (test code = MCV) 86.3 80.0-98.0 [facility]aleTzkmlrsZEIDCNTZCL2649-97-80 11:07:00 Test Item Value Reference Range Interpretation Comments Hct (test code = Hct) 39.3 36.0-48.0 [facility]aleJootorqHUHFFLBMRK4929-54-59 11:07:00 Test Item Value Reference Range Interpretation Comments MPV (test code = MPV) 9.6 7.4-10.4 [facility]aleNetcsdvZOBPHYGDUU8584-16-36 11:07:00 Test Item Value Reference Range Interpretation Comments Platelet (test code = Platelet) 171 133-450 [facility]valeVrzzoekMNOOFIBIWT2020-91-10 11:07:00 Test Item Value Reference Range Interpretation Comments MCH (test code = MCH) 29.6 pg 27.0-31.0 [facility]aleKkitjlnBEHHLRMUUG4437-77-11 11:07:00 Test Item Value Reference Range Interpretation Comments RDW (test code = RDW) 15.2 11.5-14.5 [facility]aleBalblqhEXBLELGNBG1636-59-02 11:07:00 Test Item Value Reference Range Interpretation Comments MCHC (test code = MCHC) 34.3 32.0-36.0 [facility]aleNhnsepgOXICDVNYAJ5290-06-09 21:21:00 Test Item Value Reference Range Interpretation Comments Lymphocytes (test code = Lymphocytes) 4.7 20.0-40.0 [facility]aleUechknrBSGPMPCURH4065-79-64 21:21:00 Test Item Value Reference Range Interpretation Comments Segs-Bands # (test code = Segs-Bands #) 13.2 1.5-8.1 [facility]aleUmcgynuGZMLYOZVUD0157-51-91 21:21:00 Test Item Value Reference Range Interpretation Comments Monocytes # (test code 0.7 See_Comment [Aut omated message] The = Monocytes #) system which generated this result tra nsmitted reference range : <=0.8. The reference r evert was not used to int erpret this result as normal/abnormal . [facility]aleEsbfvdnKWQLKIHYAZ7589-67-42 21:21:00 Test Item Value Reference Range Interpretation Comments Lymphocytes # (test code = Lymphocytes 0.7 1.0-5.5 #) [facility]aleKtgwlwhTFUMRKYFJV0496-82-99 21:21:00 Test Item Value Reference Range Interpretation Comments Monocytes (test code = Monocytes) 5.1 2.0-12.0 [facility]aleEosqexwFKPGJNUPHF6241-41-31 21:21:00 Test Item Value Reference Range Interpretation Comments Basophils (test code = 0.2 See_Comment [Aut omated message] The Basophils) system which ge nerated this result tra nsmitted reference range : <=1.0. The reference r evert was not used to int erpret this result as normal/abnormal . [facility]aleTxekpulMCMBAVNQMT2608-04-40 21:21:00 Test Item Value Reference Range Interpretation Comments Segs (test code = Segs) 90.0 45.0-75.0 [facility]aleQohtmbtDFDUXAPPFK9582-66-13 21:21:00 Test Item Value Reference Range Interpretation Comments MCHC (test code = MCHC) 34.3 32.0-36.0 [facility]aleDnhrrfxJMVMEVUKJL0943-65-05 21:21:00 Test Item Value Reference Range Interpretation Comments Hct (test code = Hct) 41.9 36.0-48.0 [facility]aleSauianeLEAEGQNRGH8737-95-95 21:21:00 Test Item Value Reference Range Interpretation Comments Hgb (test code = Hgb) 14.4 12.0-16.0 [facility]aleXvrkctiSVZYFOLSMQ9842-74-39 21:21:00 Test Item Value Reference Range Interpretation Comments RDW (test code = RDW) 15.1 11.5-14.5 [facility]aleVhsbvskNUAPCUINXR6957-00-39 21:21:00 Test Item Value Reference Range Interpretation Comments MCV (test code = MCV) 86.7 80.0-98.0 [facility]aleNpeodulXYCQVLABGL1798-96-96 21:21:00 Test Item Value Reference Range Interpretation Comments MCH (test code = MCH) 29.7 pg 27.0-31.0 [facility]aleCscmrhvWXBIAJELZN3381-17-57 21:21:00 Test Item Value Reference Range Interpretation Comments MPV (test code = MPV) 9.4 7.4-10.4 [facility]aleZpvphwpEHKTEARINE7324-34-16 21:21:00 Test Item Value Reference Range Interpretation Comments Platelet (test code = Platelet) 176 133-450 [facility]aleJfzgimmVNOPSGCBNX3688-12-68 21:21:00 Test Item Value Reference Range Interpretation Comments WBC (test code = WBC) 14.7 3.7-10.4 [facility]aleWvzslbuIAXAMYYHWC0797-38-81 21:21:00 Test Item Value Reference Range Interpretation Comments RBC (test code = RBC) 4.83 4.20-5.40 [facility]JdywmfrDQNVNUHZXZDD1087-66-76 11:45:00 Test Item Value Reference Range Interpretation Comments AGAP (test code = AGAP) 11.7 10.0-20.0 [facility] HospitalZstuqkuJCYYROGZAMWN7540-80-45 11:45:00 Test Item Value Reference Range Interpretation Comments eGFR (test code = eGFR) 90 [facility] HospitalZeydyeaOSWQRZGYVUWY7336-68-86 11:45:00 Test Item Value Reference Range Interpretation Comments Calcium Lvl (test code = Calcium Lvl) 9.1 8.5-10.5 [facility] HospitalSpgzlxfFQMVZNAKDWHA8006-10-25 11:45:00 Test Item Value Reference Range Interpretation Comments CO2 (test code = CO2) 27 24-32 [facility] HospitalZddpmlcHKVUKGRKGMPE9344-21-99 11:45:00 Test Item Value Reference Range Interpretation Comments Chloride Lvl (test code = Chloride Lvl) 98 95-109 [facility] HospitalMzgctclACIEHVVDGDGP0130-32-93 11:45:00 Test Item Value Reference Range Interpretation Comments Potassium Lvl (test code = Potassium 3.7 3.5-5.1 Lvl) [facility] HospitalVkzwsgeRVANZYQRZYFK7479-07-88 11:45:00 Test Item Value Reference Range Interpretation Comments Sodium Lvl (test code = Sodium Lvl) 133 135-145 [facility] HospitalVjvgrygAYBDVXAMZALZ9430-05-62 11:45:00 Test Item Value Reference Range Interpretation Comments Creatinine Lvl (test code = Creatinine 0.7 0.5-1.4 Lvl) [facility] HospitalQqqsaowGDOFYZBNVVKG8245-60-23 11:45:00 Test Item Value Reference Range Interpretation Comments BUN (test code = BUN) 6 7-22 [facility] HospitalDctmhilFSIYGLPXUJFL6743-79-43 11:45:00 Test Item Value Reference Range Interpretation Comments Glucose Lvl (test code = Glucose Lvl) 86 70-99 [facility]alePkwpobcUJWYGEEZWX8836-33-49 11:45:00 Test Item Value Reference Range Interpretation Comments Monocytes (test code = Monocytes) 5.2 2.0-12.0 [facility]aleEbnuecyNFNJOSHEHH1621-40-58 11:45:00 Test Item Value Reference Range Interpretation Comments Lymphocytes (test code = Lymphocytes) 8.4 20.0-40.0 [facility]aleRsjqlxtJULXZFQUCK7969-92-63 11:45:00 Test Item Value Reference Range Interpretation Comments Monocytes # (test code 0.8 See_Comment [Aut omated message] The = Monocytes #) system which generated this result tra nsmitted reference range : <=0.8. The reference r evert was not used to int erpret this result as normal/abnormal . [facility]aleUkszgifASOABKXHDX1120-45-19 11:45:00 Test Item Value Reference Range Interpretation Comments Segs-Bands # (test code = Segs-Bands #) 13.7 1.5-8.1 [facility]aleWnfusszNRJPVARUSI8670-52-88 11:45:00 Test Item Value Reference Range Interpretation Comments Lymphocytes # (test code = Lymphocytes 1.3 1.0-5.5 #) [facility]aleKdwpxqgHVXTMVZXVY7273-19-86 11:45:00 Test Item Value Reference Range Interpretation Comments Basophils (test code = 0.1 See_Comment [Aut omated message] The Basophils) system which ge nerated this result tra nsmitted reference range : <=1.0. The reference r evert was not used to int erpret this result as normal/abnormal . [facility]aleExuzowvFYUZORZMYO3463-51-50 11:45:00 Test Item Value Reference Range Interpretation Comments Eosinophils (test code = 0.1 See_Comment [A utomated message] The Eosinophils) system which ge nerated this result tra nsmitted reference range : <=4.0. The reference r evert was not used to int erpret this result as normal/abnormal . [facility]aleBttckoaRPQRDYYXOG4527-59-13 11:45:00 Test Item Value Reference Range Interpretation Comments Segs (test code = Segs) 86.2 45.0-75.0 [facility]aleFbuniexDFNYIVOTJI2814-88-48 11:45:00 Test Item Value Reference Range Interpretation Comments Hgb (test code = Hgb) 14.5 12.0-16.0 [facility]aleJeqrmmdZGQSMNSQER3864-41-36 11:45:00 Test Item Value Reference Range Interpretation Comments MCH (test code = MCH) 29.4 pg 27.0-31.0 [facility]valeFrnemmiZVPYZPQXXD4178-97-98 11:45:00 Test Item Value Reference Range Interpretation Comments MCHC (test code = MCHC) 33.7 32.0-36.0 [facility]aleIrdroryZEYDLZSQVG6720-60-21 11:45:00 Test Item Value Reference Range Interpretation Comments Hct (test code = Hct) 42.9 36.0-48.0 [facility]aleVerwnpgTQURUGURRA6283-50-15 11:45:00 Test Item Value Reference Range Interpretation Comments MCV (test code = MCV) 87.2 80.0-98.0 [facility]valeOpekjdhLFTCIMWMHH5506-03-81 11:45:00 Test Item Value Reference Range Interpretation Comments Platelet (test code = Platelet) 176 133-450 [facility]aleQnjxyqoCXQHGWFUIT2786-15-07 11:45:00 Test Item Value Reference Range Interpretation Comments RDW (test code = RDW) 15.4 11.5-14.5 [facility]aleTntlffuXXFKEHIEHB7087-88-42 11:45:00 Test Item Value Reference Range Interpretation Comments MPV (test code = MPV) 9.6 7.4-10.4 [facility]aleXmgalzoSKKGVWBWAT5199-08-21 11:45:00 Test Item Value Reference Range Interpretation Comments RBC (test code = RBC) 4.92 4.20-5.40 [facility]aleOwmfvdhATYFZCMZPC3538-20-91 11:45:00 Test Item Value Reference Range Interpretation Comments WBC (test code = WBC) 15.9 3.7-10.4 [facility]aleKphwxhcDSWJTQMAPU4184-28-18 11:45:00 Test Item Value Reference Range Interpretation Comments PTT (test code = PTT) 34.0 s 22.9-35.8 [facility]2014-12-30 11:20:00 Test Item Value Reference Range Interpretation Comments eGFR (test code = eGFR) 77 [facility]2014-12-30 11:20:00 Test Item Value Reference Range Interpretation Comments CO2 (test code = CO2) 27 24-32 [facility]2014-12-30 11:20:00 Test Item Value Reference Range Interpretation Comments Calcium Lvl (test code = Calcium Lvl) 8.6 8.5-10.5 [facility]2014-12-30 11:20:00 Test Item Value Reference Range Interpretation Comments Chloride Lvl (test code = Chloride Lvl) 101 95-109 [facility]2014-12-30 11:20:00 Test Item Value Reference Range Interpretation Comments Glucose Lvl (test code = Glucose Lvl) 99 70-99 [facility]2014-12-30 11:20:00 Test Item Value Reference Range Interpretation Comments Sodium Lvl (test code = Sodium Lvl) 136 135-145 [facility]2014-12-30 11:20:00 Test Item Value Reference Range Interpretation Comments Creatinine Lvl (test code = Creatinine 0.8 0.5-1.4 Lvl) [facility]2014-12-30 11:20:00 Test Item Value Reference Range Interpretation Comments BUN (test code = BUN) 10 7-22 [facility]2014-12-30 11:20:00 Test Item Value Reference Range Interpretation Comments Potassium Lvl (test code = Potassium 4.0 3.5-5.1 Lvl) [facility]2014-12-30 11:20:00 Test Item Value Reference Range Interpretation Comments AGAP (test code = AGAP) 12.0 10.0-20.0 [facility]udaPe[facility] [id number] 16:49:00 Test Item Value Reference Range Interpretation Comments Antibody Scrn (test Negative (02/09/14 code = Antibody Scrn) 10:49 AM) [facility] [id number] 16:49:00 Test Item Value Reference Range Interpretation Comments ABO/Rh (test code = ABO/Rh) O POS [facility]2014-12-17 18:45:00 Test Item Value Reference Range Interpretation Comments Albumin Lvl (test code = Albumin Lvl) 3.8 3.5-5.0 [facility]2014-12-17 18:45:00 Test Item Value Reference Range Interpretation Comments AST (test code = AST) 14 See_Comment [Auto mated message] The system which ge nerated this result transmit suma reference range : <=37. The reference range was not used to interpr et this result as lorraine l/abnormal. [facility]2014-12-17 18:45:00 Test Item Value Reference Range Interpretation Comments Alk Phos (test code = Alk Phos) 122 39-136 [facility]2014-12-17 18:45:00 Test Item Value Reference Range Interpretation Comments Bili Total (test code = Bili Total) 0.3 0.2-1.3 [facility]2014-12-17 18:45:00 Test Item Value Reference Range Interpretation Comments ALT (test code = ALT) 18 See_Comment [Auto mated message] The system which ge nerated this result transmit suma reference range : <=65. The reference range was not used to interpr et this result as lorraine l/abnormal. [facility]2014-12-17 18:45:00 Test Item Value Reference Range Interpretation Comments Total Protein (test code = Total 7.0 6.4-8.4 Protein) [facility]2014-12-17 18:45:00 Test Item Value Reference Range Interpretation Comments A/G Ratio (test code = A/G Ratio) 1.2 0.7-1.6 [facility]2014-12-17 18:45:00 Test Item Value Reference Range Interpretation Comments B/C Ratio (test code = B/C Ratio) 20 6-25 [facility]2014-12-17 18:45:00 Test Item Value Reference Range Interpretation Comments Globulin (test code = Globulin) 3.2 2.0-4.0 [facility]aleJwlrsysYYITVXUMUX0756-00-93 18:45:00 Test Item Value Reference Range Interpretation Comments Eosinophils (test code = 2.2 See_Comment [A utomated message] The Eosinophils) system which ge nerated this result tra nsmitted reference range : <=4.0. The reference r evert was not used to int erpret this result as normal/abnormal . [facility]UwvfywqZTAMAMDYBD8320-20-79 18:45:00 Test Item Value Reference Range Interpretation Comments Basophils # (test code 0.1 See_Comment [Aut omated message] The = Basophils #) system which generated this result tra nsmitted reference range : <=0.2. The reference r evert was not used to int erpret this result as normal/abnormal . [facility] CampusXaezzdqBBXVMCIXLJ2379-69-75 18:45:00 Test Item Value Reference Range Interpretation Comments Eosinophils # (test code 0.2 See_Comment [A utomated message] The = Eosinophils #) system whic h generated this result tra nsmitted reference range : <=0.5. The reference r evert was not used to int erpret this result as normal/abnormal . [facility] CampusSPECIAL [id number] 18:45:00 Test Item Value Reference Range Interpretation Comments Hgb A1C (test code = Hgb A1C) 5.5 [facility] AND [id number] 18:45:00 Test Item Value Reference Range Interpretation Comments UA Urobilinogen (test code = UA <=1.0 mg/dL 0.1-1.0 Urobilinogen) [facility] AND [id number] 18:45:00 Test Item Value Reference Range Interpretation Comments UA Sq Epi (test code = UA Sq Epi) Few /LPF [facility] AND [id number] 18:45:00 Test Item Value Reference Range Interpretation Comments UA Leuk Est (test Negative (01/28/14 12:45 code = UA Leuk Est) PM) [facility] AND [id number] 18:45:00 Test Item Value Reference Range Interpretation Comments UA Nitrite (test code Negative (01/28/14 = UA Nitrite) 12:45 PM) [facility] AND [id number] 18:45:00 Test Item Value Reference Range Interpretation Comments UA RBC (test code = 1 See_Comment [Automa suma message] The UA RBC) system which ge nerated this result transmit suma reference range : <=2. The reference range was not used to interpr et this result as lorraine l/abnormal. [facility]annURINE AND [id number] 18:45:00 Test Item Value Reference Range Interpretation Comments UA Mucus (test code = UA Mucus) Few /LPF [facility] AND [id number] 18:45:00 Test Item Value Reference Range Interpretation Comments UA Bacteria (test code = UA Occasional /HPF Bacteria) [facility] AND [id number] 18:45:00 Test Item Value Reference Range Interpretation Comments UA Spec Grav (test code = UA Spec Grav) 1.018 [facility] AND [id number] 18:45:00 Test Item Value Reference Range Interpretation Comments UA pH (test code = UA pH) 5.5 5.0-8.0 [facility] AND [id number] 18:45:00 Test Item Value Reference Range Interpretation Comments UA Color (test code = Yellow *NA*(01/28/14 UA Color) 12:45 PM) [facility] AND [id number] 18:45:00 Test Item Value Reference Range Interpretation Comments UA Turbidity (test code = Clear (01/28/14 UA Turbidity) 12:45 PM) [facility] AND [id number] 18:45:00 Test Item Value Reference Range Interpretation Comments UA Blood (test code = Negative (01/28/14 12:45 UA Blood) PM) [facility] AND [id number] 18:45:00 Test Item Value Reference Range Interpretation Comments UA Ketones (test code = UA Negative mg/dL Ketones) [facility] AND [id number] 18:45:00 Test Item Value Reference Range Interpretation Comments UA Bili (test code = Negative *NA*(01/28/14 UA Bili) 12:45 PM) [facility] AND [id number] 18:45:00 Test Item Value Reference Range Interpretation Comments UA Protein (test code = UA Negative mg/dL Protein) [facility] AND [id number] 18:45:00 Test Item Value Reference Range Interpretation Comments UA Glucose (test code = UA Negative mg/dL Glucose) [facility]"
[2021-06-04 16:16] LABS: Absolute Lymphocytes (CBC) 0.7 K/uL (0.7-4.9); Hematocrit 36.4 % (36.0-45.0); Lymphocytes % 10.4 % (15.3-44.8); RBC Red Blood Cell Count 3.46 M/uL (3.86-4.86)
[2021-06-04 16:34] LABS: ALT/SGPT 22 U/L (12-78); AST/SGOT 27 U/L (15-37); Albumin 1.6 g/dL (3.4-5.0); Alkaline Phosphatase 134 U/L (45-117); BUN Blood Urea Nitrogen 21 mg/dL (7-18); Bicarbonate 28 mmol/L (21-32); Bilirubin Total 0.4 mg/dL (0.2-1.0); Glucose Level 85 mg/dL (74-106); Sodium Level 138 mmol/L (136-145)
[2021-06-04 16:53] LABS: Blood Morphology Comment NOTED (NOT SEEN); Macrocytosis 1+; Platelet Estimate ADEQ; White Blood Cell Scan OK (OK)
[2021-06-04] MEDS ORDERED: FENTANYL CITR 100 MCG/2 ML ONE ×2 (17:12→17:50)
--- NOTE | 2021-06-04 18:53 | RAD REPORT ---
EXAM DESCRIPTION: CTAbdomen Pelvis W Contrast - 06/04/2021 6:33 pm CLINICAL HISTORY: Abdominal pain. rectal prolapse, nausea, vomiting COMPARISON: Abdomen Pelvis W Contrast dated 01/06/2018; Stone Protocol dated 01/18/2021 TECHNIQUE: Biphasic CT imaging of the abdomen and pelvis was performed with 100 ml non-ionic IV cont rast. All CT scans are performed using dose optimization technique as appropriate and may include automated exposure control or mA/KV adjustment according to patient size. FINDINGS: Moderate left pleural effusion is seen with atelectasis in the left lung base. Small left pleural effusion. Postsurgical changes are present about the stomach. There is moderate intrahepatic biliary dilatation seen. The spleen, pancreas, adrenal glands and left kidney are normal. Moderate to severe right-sided hydronephrosis and hydroureter is present caused by 9 mm stone proxima l right ureter. Additional 6 mm stone is present posterior calyx right kidney. Mild free fluid is present in the abdomen and pelvis. Generalized anasarca is noted. Specific rectal assessment is limited on CT examination. Lumbar hardware is in place. IMPRESSION: Moderate to severe right-sided hydronephrosis and hydroureter caused by 9 mm stone proxi mal right ureter. Additional 6 mm stone present posterior calyx right kidney. Moderate intrahepatic biliary dilatation. Jbqi-bp-westwvcw ascites and anasarca pattern.
[2021-06-04 19:54] LABS: Urine Blood 3+ (Negative); Urine Glucose Negative (Negative); Urine Protein 1+ (Negative); Urine Specific Gravity >=1.030 (1.005-1.030)
--- NOTE | 2021-06-04 20:03 | EDPHYS ---
Physician Documentation [facility] Name: Janki García Age: 75 yrs Sex: Female : 1945 Arrival Date: 06/04/2021 Time: 13:11 Bed 6 Private MD: Shahzad Spear E ED Physician Gentry Diaz HPI: 06/04 14:30 This 75 yrs old Female presents to ER via Wheelchair with complaints of Hemorrhoids. jmm 14:30 Onset: The symptoms/episode began/occurred gradually, 1 week(s) ago. Modifying factors: jmm The symptoms are alleviated by nothing, The symptoms are aggravated by bowel movement. Associate signs and symptoms: Pertinent negatives: abdominal pain, fever. This is a 75 year old female with a history of chronic pain, migraines that presnets to the ED with complaints of rectal pain, bleeding hemorrhoids beginnign approx 1 week ago. Denies fever or abdominal pain. . Historical: - Allergies: 13:49 No Known Allergies; vg1 - Home Meds: 13:49 gabapentin Oral [Active]; Hydromorphone Oral [Active]; vg1 - PMHx: 13:49 Chronic pain; fluid retention; Migraines; vg1 - Immunization history:: Client reports receiving the 2nd dose of the Covid vaccine. - Social history:: Smoking status: Patient reports the use of cigarette tobacco products, smokes one pack cigarettes per day. ROS: 14:30 Constitutional: Negative for fever, chills, and weight loss, Cardiovascular: Negative jmm for chest pain, palpitations, and edema, Respiratory: Negative for shortness of breath, cough, wheezing, and pleuritic chest pain. 14:30 Abdomen/GI: Positive for rectal pain. 14:30 All other systems are negative. Exam: 14:30 Constitutional: This is a well developed, well nourished patient who is awake, alert, jmm and in no acute distress. Head/Face: atraumatic. Eyes: EOMI, no conjunctival erythema appreciated ENT: Moist Mucus Membranes Neck: Trachea midline, Supple Chest/axilla: Normal chest wall appearance and motion. Cardiovascular: Regular rate and rhythm. No edema appreciated Respiratory: Normal respirations, no respiratory distress appreciated Abdomen/GI: Non distended, soft Back: Normal ROM Skin: General appearance color normal MS/ Extremity: Moves all extremities, no obvious deformities appreciated, no edema noted to the lower extremities Neuro: Awake and alert Psych: Behavior is normal, Mood is normal, Patient is cooperative and pleasant 17:33 Abdomen/GI: Rectal exam: prolapse. [facility] Vital Signs: 13:47 BP 100 / 53; Pulse 82; Resp 15; Temp 98.8; Pulse Ox 95% on R/A; vg1 MDM: 14:27 Patient medically screened. [facility] 20:01 Data reviewed: vital signs, nurses notes. Counseling: I had a detailed discussion with [facility] the patient and/or guardian regarding: the historical points, exam findings, and any diagnostic results supporting the discharge/admit diagnosis, lab results, radiology results, the need for outpatient follow up. 06/04 15:55 Order name: CBC with Diff; Complete Time: 17:00 [facility] 06/04 15:55 Order name: CMP; Complete Time: 16:36 [facility] 06/04 16:23 Order name: CBC Smear Scan; Complete Time: 17:00 [facility] 06/04 17:50 Order name: CT Abd/Pelvis - IV Contrast Only; Complete Time: 18:58 [facility] 06/04 19:55 Order name: Urine Dipstick-Ancillary; Complete Time: 19:55 [facility] 06/04 14:27 Order name: Gown patient; Complete Time: 15:38 [facility] 06/04 15:55 Order name: Saline Lock; Complete Time: 16:17 [facility] 06/04 15:55 Order name: Misc. Order: sugar on rectum; Complete Time: 17:33 [facility] 06/04 18:59 Order name: Urine Dipstick-Ancillary (obtain specimen); Complete Time: 19:56 [facility] Administered Medications: 17:33 Drug: fentaNYL (PF) 75 mcg Route: IVP; Site: left antecubital; ww 20:53 Follow up: Response: No adverse reaction kd3 18:57 Drug: fentaNYL (PF) 50 mcg Route: IVP; Site: left antecubital; ww 20:53 Follow up: Response: No adverse reaction kd3 Disposition Summary: 06/04/21 20:03 Discharge Ordered Location: Home [facility] Condition: Stable [facility] Diagnosis - Calculus of ureter [facility] - Rectal prolapse [facility] - UTI/ Urinary tract infection, site not specified [facility] Followup: [facility] - With: Stuart Yañez MD - When: 2 - 3 days - Reason: Recheck today's complaints, Continuance of care, Re-evaluation by your physician Followup: [facility] - With: Joss Ureña MD - When: 2 - 3 days - Reason: Recheck today's complaints, Continuance of care, Re-evaluation by your physician Discharge Instructions: - Discharge Summary Sheet jmm - Kidney Stones jmm - Urinary Tract Infection, Adult jmm - Rectal Prolapse, Adult [facility] Forms: - Medication Reconciliation Form [facility] - Thank You Letter [facility] - Antibiotic Education [facility] - Prescription Opioid Use [facility] Prescriptions: - Cephalexin 500 mg Oral Capsule - take 1 capsule by ORAL route every 8 hours for 10 days; 30 capsule; Refills: 0, [facility] Product Selection Permitted Signatures: Dispatcher [employer] Rob Perez PA PA jmm Garcia, Victoria RN RN vg1 Lavinia Latif RN RN ww Machelle Cm RN kd3
--- NOTE | 2021-06-04 20:03 | ER ---
Nurse's Notes [facility] Name: Janki García Age: 75 yrs Sex: Female : 1945 Arrival Date: 06/04/2021 Time: 13:11 Bed 6 Private MD: Shahzad Spear E Diagnosis: Calculus of ureter;Rectal prolapse;UTI/ Urinary tract infection, site not specified Presentation: 06/04 13:47 Chief complaint: Patient states: "I have severe hemorrhoids that are bleeding and have vg1 been bleeding for 4-5 days; they are about the size of a ping pong ball" Pt also stated that blood is bright red. Coronavirus screen: Vaccine status: Patient reports receiving the 2nd dose of the covid vaccine. Client denies travel out of the [place] in the last 14 days. Ebola Screen: Patient denies exposure to infectious person. Patient denies travel to an Ebola-affected area in the 21 days before illness onset. Initial Sepsis Screen: Does the patient meet any 2 criteria? No. Patient's initial sepsis screen is negative. Does the patient have a suspected source of infection? No. Patient's initial sepsis screen is negative. Risk Assessment: Do you want to hurt yourself or someone else? Patient reports no desire to harm self or others. Onset of symptoms was May 30, 2021. 13:47 Method Of Arrival: Wheelchair vg1 13:47 Acuity: KASI 3 vg1 Triage Assessment: 13:49 General: Appears uncomfortable, Behavior is cooperative. Pain: Complains of pain in vg1 buttocks. Historical: - Allergies: 13:49 No Known Allergies; vg1 - Home Meds: 13:49 gabapentin Oral [Active]; Hydromorphone Oral [Active]; vg1 - PMHx: 13:49 Chronic pain; fluid retention; Migraines; vg1 - Immunization history:: Client reports receiving the 2nd dose of the Covid vaccine. - Social history:: Smoking status: Patient reports the use of cigarette tobacco products, smokes one pack cigarettes per day. Screenin:25 Abuse screen: Denies threats or abuse. Denies injuries from another. Nutritional ww screening: No deficits noted. Tuberculosis screening: No symptoms or risk factors identified. Fall Risk None identified. Assessment: 16:45 General: Appears uncomfortable, Behavior is calm, cooperative. Pain: Complains of pain ww in gluteal cleft. Neuro: Level of Consciousness is awake, alert, obeys commands, Oriented to person, place, time, situation, Moves all extremities. Cardiovascular: Capillary refill Patient's skin is warm and dry. Chest pain is denied. Respiratory: Airway is patent Respiratory effort is even, unlabored, Respiratory pattern is regular, symmetrical. GI: Abdomen is non-distended, Abd is soft rectal prolapse. Derm: Skin is intact, is thin. 17:25 Reassessment: Patient appears in no apparent distress at this time. No changes from ww previously documented assessment. Patient and/or family updated on plan of care and expected duration. Pain level reassessed. Patient is alert, oriented x 3, equal unlabored respirations, skin warm/dry/pink. Rob at bedside, applied sugar to rectum. 18:24 Reassessment: Patient appears in no apparent distress at this time. No changes from ww previously documented assessment. Patient and/or family updated on plan of care and expected duration. Pain level reassessed. Patient is alert, oriented x 3, equal unlabored respirations, skin warm/dry/pink. daughter at bedside, patient being transported to CT scan. Vital Signs: 13:47 BP 100 / 53; Pulse 82; Resp 15; Temp 98.8; Pulse Ox 95% on R/A; vg1 ED Course: 13:11 Patient arrived in ED. rg4 13:11 Shahzad Spear MD is Private Physician. rg4 13:16 [facility] Allan [facility]. [facility] 13:16 Gentry Diaz MD is Attending Physician. [facility] 13:49 Triage completed. vg1 13:49 Arm band placed on. vg1 16:19 Lavinia Latif RN is Primary Nurse. ww 16:50 Inserted saline lock: 20 gauge in left antecubital area, using aseptic technique. Blood ww collected. 18:25 Patient has correct armband on for positive identification. Placed in gown. Bed in low ww position. Call light in reach. Side rails up X2. Adult w/ patient. 18:35 CT Abd/Pelvis - IV Contrast Only In Process Unspecified. EDMS 19:29 Primary Nurse role handed off by Lavinia Latif RN mw2 19:51 Toi, Machelle, RN is Primary Nurse. kd3 20:01 Stuart Yañez MD is Referral Physician. jmm 20:02 Joss Ureña MD is Referral Physician. m 20:40 No provider procedures requiring assistance completed. IV discontinued, intact, kd3 bleeding controlled, No redness/swelling at site. Pressure dressing applied. Administered Medications: 17:33 Drug: fentaNYL (PF) 75 mcg Route: IVP; Site: left antecubital; ww 20:53 Follow up: Response: No adverse reaction kd3 18:57 Drug: fentaNYL (PF) 50 mcg Route: IVP; Site: left antecubital; ww 20:53 Follow up: Response: No adverse reaction kd3 Outcome: 20:03 Discharge ordered by MD. [facility] 20:41 Discharged to home via wheelchair, with family. kd3 20:41 Condition: stable 20:41 Discharge instructions given to patient, family, Instructed on discharge instructions, follow up and referral plans. medication usage, Demonstrated understanding of instructions, follow-up care, medications, Prescriptions given X 1. 20:54 Patient left the ED. kd3 Signatures: Dispatcher [employer] EDMS Rob Allan PA PA Sahara Flores rg4 Brandi Nava mw2 Anna Carranza, RN RN vg1 Machelle Cm, RN RN kd3 Lavinia Latif, RN RN ww
[2021-06-04 21:01] VITALS: BP 100/53; TEMP 98.8; O2SAT 95
== END 2021-06-04 20:54 | disposition home or self-care (01) ==
LOC: ER 13:08
DX: K62.3 Rectal prolapse (principal); N20.1 Calculus of ureter; N39.0 Urinary tract infection, site not specified; G89.29 Other chronic pain; F17.210 Nicotine dependence, cigarettes, uncomplicated
CPT/HCPCS: 85025; 36415; 81003; 80053; 74177; 96374; 99284; Q9967; J3010 ×2